=== PATIENT | female | born 1955 | race Caucasian/White ===

== ENCOUNTER 2017-12-06 18:56 | Observation (INO) | payer MEDICARE, OTHER ==
[2017-12-06] MEDS ORDERED: MORPHINE SULFATE 4 MG/ML SYRINGE IV STA (19:02)
[2017-12-06] MEDS ORDERED: NITROGLYCERIN OINT 1 INCH/GM PACKET TOPICAL STA (19:02)
[2017-12-06] MEDS ORDERED: ASPIRIN 81 MG PO STA (19:02)
--- NOTE | 2017-12-06 19:11 | ED ---
General Adult HPI - General Chief complaint: Chest Pain Stated complaint: chest pain Time Seen by Provider: 12/06/17 18:59 Source: patient, EMS, RN notes reviewed Mode of arrival: EMS Limitations: no limitations - History of Present Illness Initial comments: Patient is a pleasant [age]-year-old female presenting to the emergency department with chest discomfort. Onset of symptoms was around an hour and a half ago. Discomfort is moderate. Discomfort feels like pressure and sharp. No radiation. Patient does have some mild associated dyspnea and mild nausea. No diaphoresis. Patient has had similar symptoms previously associated with an aortic valve dysfunction. Patient does not believe she has ever had a heart attack. Patient took nitroglycerin without improvement of symptoms as well as aspirin. No leg pain or leg swelling. - Related Data Home Medications Medication Instructions Recorded Confirmed Escitalopram [Lexapro] 20 mg PO DAILY 10/12/14 12/06/17 Lisinopril [Zestril] 10 mg PO DAILY 10/12/14 12/06/17 Melatonin 3 mg PO HS 10/12/14 12/06/17 Metoprolol Succinate [Toprol XL] 25 mg PO DAILY 10/12/14 12/06/17 QUEtiapine FUMARATE [SEROquel] 300 mg PO HS 10/12/14 12/06/17 Rosuvastatin [Crestor] 20 mg PO DAILY 10/12/14 12/06/17 lamoTRIgine 200 mg PO DAILY 10/12/14 12/06/17 Ipratropium/Albuterol Sulfate 1 puff INHALATION RT-QID 12/06/17 12/06/17 [Combivent Respimat Inhaler] Memantine HCl [Namenda Xr] 25 mg PO DAILY 12/06/17 12/06/17 Omeprazole 20 mg PO DAILY 12/06/17 12/06/17 Ramelteon [Rozerem] 8 mg PO HS 12/06/17 12/06/17 Ranitidine HCl 150 mg PO HS 12/06/17 12/06/17 Previous Rx's Medication Instructions Recorded Aspirin 81 mg PO DAILY #30 chewable 10/13/14 Nitroglycerin Sl Tabs [Nitrostat] 0.4 mg SUBLINGUAL Q5M PRN #25 tab 10/13/14 Allergies Allergy/AdvReac Type Severity Reaction Status Date / Time fentanyl Allergy Unknown Verified 12/06/17 19:25 niacin Allergy Unknown Verified 12/06/17 19:25 Review of Systems ROS Statement: Those systems with pertinent positive or pertinent negative responses have been documented in the HPI. ROS Other: All systems not noted in ROS Statement are negative. Constitutional: Denies: fever Eyes: Denies: eye pain ENT: Denies: ear pain Respiratory: Denies: cough Cardiovascular: Reports: chest pain Endocrine: Denies: fatigue Gastrointestinal: Denies: abdominal pain Genitourinary: Denies: dysuria Musculoskeletal: Denies: back pain Skin: Denies: rash Neurological: Denies: weakness Past Medical History Past Medical History: Chest Pain / Angina, Hyperlipidemia, Hypertension, Mitral Valve Prolapse (MVP) Additional Past Medical History / Comment(s): Aortic valve replacement History of Any Multi-Drug Resistant Organisms: None Reported Past Surgical History: Back Surgery, Bladder Surgery, Cholecystectomy, Heart Catheterization, Hysterectomy, Joint Replacement, Orthopedic Surgery, Tubal Ligation Additional Past Surgical History / Comment(s): aortic valve repair, left breast biopsy, oopherectomy, left knee replacement Past Anesthesia/Blood Transfusion Reactions: No Reported Reaction Past Psychological History: Anxiety, Bipolar Smoking Status: Current every day smoker Past Alcohol Use History: None Reported Past Drug Use History: None Reported - Past Family History Mother History Unknown: Yes Additional Family Medical History / Comment(s): Patient states she was adopted General Exam Limitations: no limitations General appearance: alert, in no apparent distress Head exam: Present: atraumatic Eye exam: Present: normal appearance, PERRL ENT exam: Present: normal oropharynx Neck exam: Present: normal inspection Respiratory exam: Present: normal lung sounds bilaterally. Absent: chest wall tenderness Cardiovascular Exam: Present: regular rate, normal rhythm Expanded Peripheral pulses: 2+: Radial (R), Radial (L), Dorsalis Pedis (R), Dorsalis Pedis (L) GI/Abdominal exam: Present: soft. Absent: tenderness Extremities exam: Present: normal inspection. Absent: pedal edema, calf tenderness Neurological exam: Present: alert Psychiatric exam: Present: normal affect, normal mood Skin exam: Present: normal color Course Vital Signs 12/06/17 18:58 Temperature 98.8 F Pulse Rate 81 Respiratory 18 Rate Blood Pressure 127/69 O2 Sat by Pulse 93 L Oximetry EKG Findings - EKG Comments: EKG Findings:: Normal sinus rhythm 67. MD 140. QRS 82. QT 416. QTC 439. Normal axis. Normal QRS. No acute ST change. Medical Decision Making - Medical Decision Making Patient reevaluated and resting comfortably in bed. Patient still has some mild symptoms. Patient updated on results and plan. Case discussed in detail with Dr. cassidy, who will admit for Dr. Cisneros. - Lab Data Result diagrams: 12/06/17 18:50 12/06/17 18:50 Lab Results 12/06/17 12/06/17 12/06/17 Range/Units 18:50 18:50 18:50 WBC 4.9 (3.8-10.6) k/uL RBC 4.12 (3.80-5.40) m/uL Hgb 11.6 (11.4-16.0) gm/dL Hct 36.6 (34.0-46.0) % MCV 88.9 (80.0-100.0) fL MCH 28.1 (25.0-35.0) pg MCHC 31.6 (31.0-37.0) g/dL RDW 13.7 (11.5-15.5) % Plt Count 293 (150-450) k/uL Neutrophils % 60 % Lymphocytes % 28 % Monocytes % 6 % Eosinophils % 4 % Basophils % 1 % Neutrophils # 3.0 (1.3-7.7) k/uL Lymphocytes # 1.4 (1.0-4.8) k/uL Monocytes # 0.3 (0-1.0) k/uL Eosinophils # 0.2 (0-0.7) k/uL Basophils # 0.0 (0-0.2) k/uL Sodium 138 (137-145) mmol/L Potassium 4.2 (3.5-5.1) mmol/L Chloride 106 (98-107) mmol/L Carbon Dioxide 26 (22-30) mmol/L Anion Gap 6 mmol/L BUN 16 (7-17) mg/dL Creatinine 0.65 (0.52-1.04) mg/dL Est GFR (CKD-EPI)AfAm >90 (>60 ml/min/1.73 sqM) Est GFR (CKD-EPI)NonAf >90 (>60 ml/min/1.73 sqM) Glucose 103 H (74-99) mg/dL Calcium 8.5 (8.4-10.2) mg/dL Magnesium 1.9 (1.6-2.3) mg/dL Total Bilirubin 0.2 (0.2-1.3) mg/dL AST 25 (14-36) U/L ALT 28 (9-52) U/L Alkaline Phosphatase 86 (38-126) U/L Total Creatine Kinase 55 (30-135) U/L CK-MB (CK-2) 1.1 (0.0-2.4) ng/mL CK-MB (CK-2) Rel Index 2.0 Troponin I <0.012 (0.000-0.034) ng/mL Total Protein 6.7 (6.3-8.2) g/dL Albumin 3.5 (3.5-5.0) g/dL - Radiology Data Radiology results: image reviewed (Chest x-ray shows no acute process) Disposition Clinical Impression: Chest pain Disposition: ADMITTED IP TO THIS HOSP Is patient prescribed a controlled substance at d/c from ED?: No Referrals: Gabe Cisneros DO [Primary Care Provider] - 1-2 days Decision Time: 20:35
[2017-12-06 19:22] LABS: Basophils % (A) 1 %; Eosinophils # (A) 0.2 k/uL (0-0.7); Eosinophils % (A) 4 %; HCT 36.6 % (34.0-46.0); HGB 11.6 gm/dL (11.4-16.0); Lymphocytes # (A) 1.4 k/uL (1.0-4.8); Lymphocytes % (A) 28 %; MCH 28.1 pg (25.0-35.0); MCHC 31.6 g/dL (31.0-37.0); MCV 88.9 fL (80.0-100.0); Mean Platelet Volume 7.5; Monocytes # (A) 0.3 k/uL (0-1.0); Monocytes % (A) 6 %; Neutrophils % (A) 60 %; Platelet Count 293 k/uL (150-450); RBC 4.12 m/uL (3.80-5.40); RDW 13.7 % (11.5-15.5); WBC 4.9 k/uL (3.8-10.6)
[2017-12-06 19:36] LABS: ALT 28 U/L (9-52); AST 25 U/L (14-36); Albumin 3.5 g/dL (3.5-5.0); Alkaline Phosphatase 86 U/L (38-126); Anion Gap 6 mmol/L; Blood Urea Nitrogen 16 mg/dL (7-17); Calcium 8.5 mg/dL (8.4-10.2); Carbon Dioxide 26 mmol/L (22-30); Chloride 106 mmol/L (98-107); Glucose 103 mg/dL (74-99); Magnesium 1.9 mg/dL (1.6-2.3); Potassium 4.2 mmol/L (3.5-5.1); Sodium 138 mmol/L (137-145); Total Bilirubin 0.2 mg/dL (0.2-1.3); Total Protein 6.7 g/dL (6.3-8.2)
--- NOTE | 2017-12-06 19:58 | XR ---
EXAMINATION: XR chest 2V DATE AND TIME: 12/06/2017 7:15 PM ORDERING PROVIDER: Jose Weiss DO CLINICAL INDICATION: Chest Pain TECHNIQUE: PA and lateral COMPARISON: None. DESCRIPTION: Sternal sutures and mediastinal clips and aortic valve prosthesis noted. The lungs are clear. The pleural spaces are negative. The cardiac silhouette is at least mildly enlar ged. The mediastinal and pleural silhouettes are unremarkable. The skeletal structures are intact wit hout focal findings. The soft tissues are unremarkable. IMPRESSION: NO ACUTE PROCESS.
[2017-12-06 20:00] LABS: Creatine Kinase 55 U/L (30-135)
[2017-12-06 20:07] LABS: Partial Thromboplastin Time 22.3 sec (22.0-30.0); Prothrombin Time 9.9 sec (9.0-12.0)
[2017-12-06 20:11] LABS: Creatine Kinase MB 1.1 ng/mL (0.0-2.4); Troponin I <0.012 ng/mL (0.000-0.034)
[2017-12-06] MEDS ORDERED: NITROGLYCERIN SL TABS 0.4 MG TAB SUBLINGUAL PRN (20:35)
[2017-12-07] MEDS: NITROGLYCERIN OINT 1 INCH/GM PACKET TOPICAL SCH ×4 (00:58→19:11)
[2017-12-07 01:23] LABS: Creatine Kinase 45 U/L (30-135)
[2017-12-07 01:36] LABS: Creatine Kinase MB 0.9 ng/mL (0.0-2.4); Troponin I <0.012 ng/mL (0.000-0.034)
[2017-12-07 05:53] LABS: Cholesterol 147 mg/dL (<200); HDL Cholesterol 42 mg/dL (40-60); LDL Cholesterol,Calculated 86 mg/dL (0-99); Triglycerides 96 mg/dL (<150)
[2017-12-07 06:05] LABS: Creatine Kinase 41 U/L (30-135)
[2017-12-07 06:19] LABS: Troponin I <0.012 ng/mL (0.000-0.034)
[2017-12-07] MEDS ORDERED: ASPIRIN 325 MG TAB PO SCH (09:00)
[2017-12-07] MEDS: ASPIRIN 81 MG PO SCH (09:31)
[2017-12-07] MEDS: LISINOPRIL 10 MG TAB PO SCH (09:31)
[2017-12-07] MEDS: METOPROLOL SUCCINATE (ER) 25 MG TAB.ER.24H PO SCH (09:35)
[2017-12-07] MEDS: ATORVASTATIN 40 MG TAB PO SCH (09:36)
[2017-12-07] MEDS ORDERED: NITROGLYCERIN SL TABS 0.4 MG TAB SUBLINGUAL PRN (10:49)
--- NOTE | 2017-12-07 11:25 | P.CRDCN ---
History of Present Illness History of present illness: Mrs. Gramajo is a pleasant 62-year-old female past medical history significant for COPD, hypertension, dyslipidemia, aortic valve replacement 2009 and chronic nicotine dependence. She follows with Dr. Guevara in the office. We have been asked to see her in consultation for chest pain. She states yesterday afternoon she started feeling a stabbing pain in the mid- sternal region while she was walking around. She felt mildly dizzy, short of breath and nauseated as well. She sat down to see if her symptoms would subside and they did not. She continued to feel the discomfort in her chest throughout the day with no specific aggravating or alleviating factors. There was no radiation to the arm, back, neck or jaw. She denies feeling palpitations, vomiting or diaphoresis. She does have COPD and states her breathing lately hasn 't really changed from her baseline. She denies PND or othopnea. Most recently she underwent a Lexiscan stress test 01/2017 that was negative for reversible cardiac ischemia. She also had a dobutamine stress echo that was inconclusive secondary to not achieving target heart rate however no wall motion abnormalities noted at 60%. At the time of my exam she is seen sitting in bed in no acute distress. She continues to feel a sharp/pressure sensation in the mid-sternal region that is dull, not reproducible and constant. EKG reveals sinus mechanism with no acute ST or T-wave abnormalities. Chest xray negative for an acute cardiopulmonary process. Laboratory data reviewed, hemoglobin 11.6, platelets 293, sodium 138, potassium 4.2, creatinine 0.65, magnesium 1.9, cardiac enzymes negative 3, LDL 86, HDL 42. Current cardiac medications include aspirin 81 mg daily, lisinopril 10 mg daily , Toprol 25 mg daily, rosuvastatin 20 mg daily. She also takes ranitidine Seroquel, melatonin, however cell, Namenda, Combivent, Lexapro, remelteon and Lamictal. Most recent echocardiogram performed in the office December 2016 reveals preserved left ventricular systolic function with ejection fraction 55%, mildly dilated left atrium, mildly dilated right ventricle, intraventricular septal motion consistent with postoperative state, mildly dilated left atrium, mild mitral regurgitation, prosthetic aortic valve noted with a mean gradient of 19 mmHg, mild tricuspid regurgitation and no evidence of pulmonary hypertension noted. Review of Systems At the time of my exam: CONSTITUTIONAL: Denies fever. Denies chills. EYES: Denies blurred vision. Denies vision changes. Denies eye pain. EARS, NOSE, MOUTH & THROAT: Denies headache. Denies sore throat. Denies ear pain. CARDIOVASCULAR: Complains of ongoing chest pressure. Denies shortness of breath. Denies orthopnea. Denies PND. Denies palpitations. RESPIRATORY: Denies cough. GASTROINTESTINAL: Denies abdominal pain. Denies diarrhea. Denies constipation. Denies nausea. Denies vomiting. MUSCULOSKELETAL: Denies myalgias. INTEGUMENTARY: Denies pruitis. Denies rash. NEUROLOGIC: Denies numbness. Denies tingling. Denies weakness. PSYCHIATRIC: Denies anxiety. Denies depression. ENDOCRINE: Denies fatigue. Denies weight change. Denies polydipsia. Denies polyurina. GENITOURINARY: Denies burning, hematuria or urgency with micturation. HEMATOLOGIC: Denies history of anemia. Denies bleeding. Past Medical History Past Medical History: Chest Pain / Angina, COPD, Dementia, GERD/Reflux, Hyperlipidemia, Hypertension, Mitral Valve Prolapse (MVP) Additional Past Medical History / Comment(s): Aortic valve replacement, murmur, "beginning of dementia", insomnia,pt unsure if she recieved the flu/pne vaccine, health underwriter unable to verify at time of this admit. History of Any Multi-Drug Resistant Organisms: None Reported Past Surgical History: Back Surgery, Bladder Surgery, Cholecystectomy, Heart Catheterization, Hysterectomy, Joint Replacement, Orthopedic Surgery, Tubal Ligation Additional Past Surgical History / Comment(s): aortic valve repair, left breast biopsy-neg, oopherectomy, left knee replacement, juan Past Anesthesia/Blood Transfusion Reactions: No Reported Reaction Smoking Status: Current every day smoker - Past Family History Mother History Unknown: Yes Additional Family Medical History / Comment(s): Patient states she was adopted Medications and Allergies Home Medications Medication Instructions Recorded Confirmed Type Escitalopram [Lexapro] 20 mg PO DAILY 10/12/14 12/06/17 History Lisinopril [Zestril] 10 mg PO DAILY 10/12/14 12/06/17 History Melatonin 3 mg PO HS 10/12/14 12/06/17 History Metoprolol Succinate [Toprol XL] 25 mg PO DAILY 10/12/14 12/06/17 History QUEtiapine FUMARATE [SEROquel] 300 mg PO HS 10/12/14 12/06/17 History Rosuvastatin [Crestor] 20 mg PO DAILY 10/12/14 12/06/17 History lamoTRIgine 200 mg PO DAILY 10/12/14 12/06/17 History Aspirin 81 mg PO DAILY #30 chewable 10/13/14 12/06/17 Rx Nitroglycerin Sl Tabs [Nitrostat] 0.4 mg SUBLINGUAL Q5M PRN #25 tab 10/13/1410/18 Rx Ipratropium/Albuterol Sulfate 1 puff INHALATION RT-QID 12/06/17 12/06/17 History [Combivent Respimat Inhaler] Memantine HCl [Namenda Xr] 25 mg PO DAILY 12/06/17 12/06/17 History Omeprazole 20 mg PO DAILY 12/06/17 12/06/17 History Ramelteon [Rozerem] 8 mg PO HS 12/06/17 12/06/17 History Ranitidine HCl 150 mg PO HS 12/06/17 12/06/17 History Allergies Allergy/AdvReac Type Severity Reaction Status Date / Time fentanyl Allergy Unknown Verified 12/06/17 19:25 niacin Allergy Unknown Verified 12/06/17 19:25 Physical Exam Vitals: Vital Signs Temp Pulse Resp BP Pulse Ox 12/07/17 10:00 97.8 F 55 L 18 124/58 99 12/07/17 09:00 56 L 18 148/64 96 12/07/17 08:00 55 L 18 139/65 99 12/07/17 07:28 98.1 F 54 L 18 128/58 98 12/07/17 06:18 98.0 F 52 L 18 129/65 99 12/07/17 03:59 55 L 18 123/60 98 12/07/17 02:39 16 12/06/17 23:50 63 18 102/58 96 12/06/17 20:25 68 18 101/48 98 12/06/17 18:58 98.8 F 81 18 127/69 93 L Intake and Output 12/06/17 12/07/17 12/07/17 22:59 06:59 14:59 Other: Weight 74.253 kg Blood pressure 124/58 heart rate 55 afebrile maintaining oxygen saturation on nasal cannula GENERAL: This is a 62-year-old female in no apparent distress at the time of my examination. HEENT: Head is atraumatic, normocephalic. Pupils are equal, round. Sclerae anicteric. Conjunctivae are clear. Mucous membranes of the mouth are moist. Neck is supple. There is no jugular venous distention. No carotid bruit is heard. LUNGS: Clear to auscultation no wheezes, rales or rhonchi. No chest wall tenderness is noted on palpation or with deep breathing. Diminished air entry bilaterally. HEART: Regular rate and rhythm with systolic ejection murmur at the base, no rubs or gallops. S1 and S2 heard. ABDOMEN: Soft, nontender. Bowel sounds are heard. No organomegaly noted. EXTREMITIES: No evidence of peripheral edema and no calf tenderness noted. VASCULAR: Radial and dorsalis pedis pulses palpated, no evidence of clubbing. NEUROLOGIC: Patient is awake, alert and oriented x3. Results 12/06/17 18:50 12/06/17 18:50 Cardiac Enzymes 12/06/17 12/06/17 12/07/17 Range/Units 18:50 18:50 00:57 AST 25 (14-36) U/L CK-MB (CK-2) 1.1 0.9 (0.0-2.4) ng/mL Troponin I <0.012 <0.012 (0.000-0.034) ng/mL 12/07/17 Range/Units 05:34 AST (14-36) U/L CK-MB (CK-2) 1.0 (0.0-2.4) ng/mL Troponin I <0.012 (0.000-0.034) ng/mL Coagulation 12/06/17 Range/Units 18:50 PT 9.9 (9.0-12.0) sec APTT 22.3 (22.0-30.0) sec Lipids 12/07/17 Range/Units 05:34 Triglycerides 96 (<150) mg/dL Cholesterol 147 (<200) mg/dL HDL Cholesterol 42 (40-60) mg/dL CBC 12/06/17 Range/Units 18:50 WBC 4.9 (3.8-10.6) k/uL RBC 4.12 (3.80-5.40) m/uL Hgb 11.6 (11.4-16.0) gm/dL Hct 36.6 (34.0-46.0) % Plt Count 293 (150-450) k/uL Comprehensive Metabolic Panel 12/06/17 Range/Units 18:50 Sodium 138 (137-145) mmol/L Potassium 4.2 (3.5-5.1) mmol/L Chloride 106 (98-107) mmol/L Carbon Dioxide 26 (22-30) mmol/L BUN 16 (7-17) mg/dL Creatinine 0.65 (0.52-1.04) mg/dL Glucose 103 H (74-99) mg/dL Calcium 8.5 (8.4-10.2) mg/dL AST 25 (14-36) U/L ALT 28 (9-52) U/L Alkaline Phosphatase 86 (38-126) U/L Total Protein 6.7 (6.3-8.2) g/dL Albumin 3.5 (3.5-5.0) g/dL Current Medications Generic Name Dose Route Start Last Admin Trade Name Freq PRN Reason Stop Dose Admin Albuterol/Ipratropium 3 ml 12/07/17 12:00 Duoneb 0.5 Mg-3 Mg/3 Ml Soln INHALATION RT-QID GERMAINE Aspirin 81 mg 12/07/17 09:00 12/07/17 09:31 Aspirin PO 81 mg DAILY GERMAINE Administration Atorvastatin Calcium 40 mg 12/07/17 09:00 12/07/17 09:36 Lipitor PO 40 mg DAILY GERMAINE Administration Escitalopram Oxalate 20 mg 12/07/17 11:00 Lexapro PO DAILY GERMAINE Famotidine 20 mg 12/07/17 21:00 Pepcid PO HS GERMAINE Lamotrigine 200 mg 12/07/17 11:00 Lamictal PO DAILY GERMAINE Lisinopril 10 mg 12/07/17 09:00 12/07/17 09:31 Zestril PO 10 mg DAILY GERMAINE Administration Melatonin 3 mg 12/07/17 21:00 Melatonin PO HS GERMAINE Memantine 10 mg 12/07/17 11:00 Namenda PO BID GERMAINE Metoprolol Succinate 25 mg 12/07/17 09:00 12/07/17 09:35 Toprol Xl PO 25 mg DAILY GERMAINE Administration Nitroglycerin 1 inch 12/07/17 00:00 12/07/17 06:42 Nitro-Bid Oint TOPICAL 1 inch Q6HR GERMAINE Administration Nitroglycerin 0.4 mg 12/07/17 10:49 Nitrostat SUBLINGUAL Q5M PRN Chest Pain Pantoprazole Sodium 40 mg 12/07/17 11:00 Protonix PO AC-BRKFST GERMAINE Quetiapine Fumarate 300 mg 12/07/17 21:00 Seroquel PO HS GERMAINE Sodium Chloride 10 ml 12/06/17 21:00 12/07/17 09:30 Saline Flush IV 10 ml BID GERMAINE Administration Temazepam 15 mg 12/07/17 21:00 Restoril PO HS GERMAINE Intake and Output 12/06/17 12/07/17 12/07/17 22:59 06:59 14:59 Other: Weight 74.253 kg 12/06/17 18:50 12/06/17 18:50 Assessment and Plan Assessment: ASSESSMENT Chest pain, atypical. An acute coronary event has been ruled out with no EKG evidence of ischemia and negative cardiac enzymes. Normal lexiscan stress test within the previous year. Hypertension Dyslipidemia COPD Aortic valve replacement 2009 Chronic nicotine dependence PLAN Obtain 2D echocardiogram and doppler study to assess cardiac structure, function and valve status. Resume toprol, aspirin, atorvastatin and lisinopril. Continue to observe for another 24 hours. Increase activity with ambulation in the halls and assess for worsening chest discomfort. Further recommendations to follow based on clinical course. Thank you kindly for this consultation. Nurse Practitioner note has been reviewed, I agree with a documented findings and plan of care. Patient was seen and examined.
[2017-12-07] MEDS ORDERED: IPRATROPIUM-ALBUTEROL 3 ML NEB INHALATION SCH (12:00)
[2017-12-07] MEDS: IPRATROPIUM-ALBUTEROL 3 ML NEB INHALATION SCH ×3 (12:10→20:14)
--- NOTE | 2017-12-07 12:49 | ECHOF ---
Referral Reason:cp, hx aortic valve repair MEASUREMENTS -------- HEIGHT: 160.0 cm WEIGHT: 73.9 kg BP: RVIDd: 2.6 cm (< 3.3) IVSd: 1.2 cm (0.6 - 1.1) LVIDd: 3.6 cm (3.9 - 5.3) LVPWd: 1.2 cm (0.6 - 1.1) IVSs: 1.6 cm LVIDs: 2.3 cm LVPWs: 1.3 cm LAESV Index (A-L): 38.07 ml/m Ao Diam: 3.4 cm (2.0 - 3.7) LA Diam: 2.6 cm (2.7 - 3.8) MV E Dawit: 1.02 m/s MV DecT: 285 ms MV A Dawit: 0.86 m/s MV E/A Ratio: 1.19 AV maxP.79 mmHg AV meanP.02 mmHg RAP: 5.00 mmHg RVSP: 26.01 mmHg FINDINGS -------- Resting bradycardia (HR<60bpm). This was a technically adequate study. The left ventricular size is normal. There is mild concentric left ventricular hypertrophy. Overa ll left ventricular systolic function is normal with, an EF between 55 - 60 %. The right ventricle is normal in size and function. LA is moderately dilated 34-39 ml/m2 The right atrium is normal in size. There is no evidence of aortic regurgitation. Peak/mean gradient across the Aortic Valve is 30.79mm Hg / 19.02mmHg. There is mild stenosis of the bioprosthetic aortic valve. The mitral valve leaflets are mildly thickened. Mild mitral annular calcification present. Mild m itral regurgitation is present. Trace tricuspid regurgitation present. Right ventricular systolic pressure is normal at < 35 mmHg. There is no evidence of pulmonary hypertension. The pulmonic valve was not well visualized. The aortic root size is normal. Normal inferior vena cava with normal inspiratory collapse consistent with estimated right atrial pre ssure of 5 mmHg. There is no pericardial effusion. CONCLUSIONS -------- 1. Resting bradycardia (HR<60bpm). 2. This was a technically adequate study. 3. The left ventricular size is normal. 4. There is mild concentric left ventricular hypertrophy. 5. Overall left ventricular systolic function is normal with, an EF between 55 - 60 %. 6. LA is moderately dilated 34-39 ml/m2 7. Peak/mean gradient across the Aortic Valve is 30.79mmHg / 19.02mmHg. 8. There is mild stenosis of the bioprosthetic aortic valve. 9. The mitral valve leaflets are mildly thickened. 10. Mild mitral annular calcification present. 11. Mild mitral regurgitation is present. 12. Trace tricuspid regurgitation present. 13. Right ventricular systolic pressure is normal at < 35 mmHg. 14. There is no evidence of pulmonary hypertension. 15. The pulmonic valve was not well visualized. 16. The aortic root size is normal. 17. There is no pericardial effusion. LEAFLET DISTRIBUTOR: Mauro Rivera RDCS
[2017-12-07] MEDS ORDERED: NICOTINE POLACRILEX 2 MG GUM BUCCAL PRN (13:01)
[2017-12-07] MEDS: NICOTINE 21MG/24HR PATCH TRANSDERM SCH (13:42)
[2017-12-07] MEDS: ESCITALOPRAM 20 MG TAB PO SCH (13:42)
[2017-12-07] MEDS: MEMANTINE 10 MG TAB PO SCH ×2 (13:42→22:03)
[2017-12-07] MEDS: lamoTRIgine 100 MG TAB PO SCH (13:42)
[2017-12-07] MEDS: PANTOPRAZOLE 40 MG TABLET PO SCH (13:42)
--- NOTE | 2017-12-07 14:33 | HP ---
HISTORY AND PHYSICAL DATE OF ADMISSION: 12/02/2017 DATE OF SERVICE: 12/02/2017 PRESENTING COMPLAINT: Chest pain. HISTORY OF PRESENTING COMPLAINT: Pleasant 62-year-old patient of Dr. Cisneros. Also follows with Dr. Guevara. Chronic stable medical conditions include COPD, hypertension, hyperlipidemia, chronic insomnia. Patient has an aortic valve replacement with pig tissue valve. Patient yesterday around 5 o'clock developed central stabbing, heavy chest pressure, lasted on and off for few hours. Patient became short of breath, dizzy, some nausea. There was no radiation. Did not take any medicine. Decided to come into the ER. Admitted for unstable angina. Denies any prior coronary artery disease. Patient earlier started on nitro paste. Resting in bed. Patient is still having some chest pressure. REVIEW OF SYSTEMS: CONSTITUTIONAL: Tired. HEENT: None. RESPIRATORY: As above. CARDIOVASCULAR: As above. GASTROINTESTINAL: None. GENITOURINARY: None. MUSCULOSKELETAL: None. DERMATOLOGICAL: None. HEMATOLOGICAL: None LYMPHATIC: None. PSYCHIATRY: Slightly forgetful. NEUROLOGICAL: None. PAST MEDICAL HISTORY: COPD, GERD, hypertension, hyperlipidemia, mitral valve prolapse, aortic valve replacement with a pig valve, insomnia. PAST SURGICAL HISTORY: Back surgery, bladder surgery, cholecystectomy, cardiac catheterization, hysterectomy, joint replacement, tubal ligation, aortic valve replacement with pig tissue, left breast biopsy negative, oophorectomy, left knee replacement. PSYCH HISTORY: Bipolar disorder. SOCIAL HISTORY: Patient smoked for close to 47 years about a pack a day. Patient lives with grandson and other family members. FAMILY HISTORY: Patient is adopted, does not know about parents. HOME MEDICATIONS: 1. Zantac 150 mg q.h.s. 2. Rozerem 8 mg q.h.s. 3. Seroquel 300 mg q.h.s. 4. Nitrostat 0.4 sublingual q.5 p.r.n. 5. Melatonin 3 mg q.h.s. 6. Omeprazole 20 mg p.o. daily. 7. Namenda XR 25 mg p.o. daily. 8. Combivent 1 puff q.i.d. 9. Crestor 20 mg p.o. daily. 10.Toprol-XL 25 mg p.o. daily. 11.Zestril 10 mg p.o. daily. 12.Lamictal 200 mg p.o. daily. 13.Lexapro 20 mg p.o. daily. 14.Aspirin 81 mg p.o. daily. ALLERGIES: VENTOLIN, NIACIN. PHYSICAL EXAMINATION: Vital signs on presentation, temperature 98.8, pulse 81, respiration 18, blood pressure 127/69, pulse ox 93% on room air. GENERAL APPEARANCE: Average built, sitting up, not in distress. EYES: Pupils equal, conjunctivae normal. HEENT: External appearance of nose and ears normal. Oral cavity normal. NECK: JVD not raised. Mass not palpable. RESPIRATORY: Effort normal. LUNGS: Slightly decreased breath sounds. CARDIOVASCULAR: First and second sounds are normal. No edema. ABDOMEN: Soft, nontender. Liver and spleen not palpable. LYMPHATIC: No lymph node palpable. PSYCHIATRY: Alert and oriented x3. Mood and affect normal. NEUROLOGICAL: Pupils equal. Cranial nerves grossly intact. Power and sensation grossly intact. INVESTIGATIONS: White count 4.9, hemoglobin 11.6, potassium 4.2 BUN and creatinine are normal. Troponin x3 negative. LDL 86. 2D echo shows EF 55%-60%. EKG tracing interpreted by me, shows normal sinus rhythm. Chest x-ray film interpreted by me, shows somewhat prominent pulmonary artery. Otherwise, lung estrada are clear is clear. ASSESSMENT: 1. Unstable angina in a patient with cardiac sounding presentation whose risk factors include patient's age, smoking, hypertension, hyperlipidemia. 2. Chronic obstructive pulmonary disease in a current smoker. 3. Chronic nicotine dependence, patient is a cigarette smoker. 4. Hyperlipidemia. 5. Essential hypertension. 6. History of aortic valve replaced with a pig valve. 7. Chronic insomnia. PLAN: The patient is on aspirin. Will start the patient on IV heparin. Cardiology was consulted. Patient is also on beta lucila. Patient will probably need a stress test. Care was discussed with the patient. Smoking cessation counseling was done with the patient, told about the side effects, primarily affecting at this point the heart and lungs. Will be given a nicotine patch. More than 3 minutes were spent on the counseling. HELGA / MARTY: [id number] /
[2017-12-07] MEDS ORDERED: FAMOTIDINE 20 MG TAB PO SCH (21:00)
[2017-12-07] MEDS ORDERED: TEMAZEPAM 15 MG CAP PO SCH (21:00)
[2017-12-07] MEDS ORDERED: QUEtiapine 100 MG TAB PO SCH (21:00)
[2017-12-07] MEDS ORDERED: MELATONIN 3 MG TABLET PO SCH (21:00)
[2017-12-08] MEDS: NITROGLYCERIN OINT 1 INCH/GM PACKET TOPICAL SCH ×3 (04:41→15:56)
[2017-12-08] MEDS: IPRATROPIUM-ALBUTEROL 3 ML NEB INHALATION SCH ×3 (07:28→15:23)
[2017-12-08] MEDS: LISINOPRIL 10 MG TAB PO SCH (10:29)
[2017-12-08] MEDS: lamoTRIgine 100 MG TAB PO SCH (10:29)
[2017-12-08] MEDS: MEMANTINE 10 MG TAB PO SCH (10:30)
[2017-12-08] MEDS: NICOTINE 21MG/24HR PATCH TRANSDERM SCH (10:30)
[2017-12-08] MEDS: ESCITALOPRAM 20 MG TAB PO SCH (10:30)
[2017-12-08] MEDS: PANTOPRAZOLE 40 MG TABLET PO SCH (10:30)
[2017-12-08] MEDS: ATORVASTATIN 40 MG TAB PO SCH (10:30)
[2017-12-08] MEDS: METOPROLOL SUCCINATE (ER) 25 MG TAB.ER.24H PO SCH (10:30)
[2017-12-08] MEDS: ASPIRIN 81 MG PO SCH (10:30)
--- NOTE | 2017-12-08 11:02 | P.PN ---
Subjective Mr. Gramajo is seen and examined sitting up in bed in no acute distress. She denies any further symptoms of chest pain. Echocardiogram obtained reveals preserved left ventricular systolic function with ejection fraction 55-60%, moderately dilated left atrium, mean gradient across the bioprosthetic aortic valve 19 mmHg, mild MR noted as well. Echo findings are consistent with recent echo in the office. Blood pressure 115/58 heart rate 57 afebrile maintaining oxygen saturation on room air. Patient has been up and ambulating with no recurrence of chest discomfort. Objective - Vital Signs Vital signs: Vital Signs Temp 97.7 F 12/08/17 08:00 Pulse 57 L 12/08/17 10:29 Resp 14 12/08/17 10:29 BP 115/58 12/08/17 10:29 Pulse Ox 95 12/08/17 10:29 Intake & Output 12/07/17 12/08/17 12/08/17 18:59 06:59 18:59 Intake Total 200 Balance 200 Weight 72.6 kg Intake: Oral 200 Other: Voiding Method Toilet Toilet Toilet # Voids 2 - Exam GENERAL: Well-appearing, well-nourished and in no acute distress. NECK: Supple without JVD or thyromegaly. LUNGS: Breath sounds clear to auscultation bilaterally. Respiration equal and unlabored. No wheezes, rales or rhonchi. HEART: Regular rate and rhythm with systolic ejection murmur at the base, no rubs or gallops. S1 and S2 heard. EXTREMITIES: Normal range of motion, no edema. No clubbing or cyanosis. Peripheral pulses intact. - Labs CBC & Chem 7: 12/06/17 18:50 12/06/17 18:50 Assessment and Plan Assessment: ASSESSMENT Chest pain, atypical. An acute coronary event has been ruled out with no EKG evidence of ischemia and negative cardiac enzymes. Normal lexiscan stress test within the previous year. Hypertension Dyslipidemia COPD Aortic valve replacement 2009 Chronic nicotine dependence PLAN An acute coronary event has been ruled out. Recent stress test within the year is negative for reversible ischemic changes. No further chest pain. Stable from a cardiac perspective. Follow up with Dr. Guevara in 2 weeks. Nurse Practitioner note has been reviewed, I agree with a documented findings and plan of care. Patient was seen and examined.
[2017-12-08 12:55] VITALS: BP 102/59; PULSE 66; RESP 18; TEMP 97.6
--- NOTE | 2017-12-09 06:44 | DS ---
DISCHARGE SUMMARY DATE OF ADMISSION: 12/06/17 DATE OF DISCHARGE: 12/08/17 FINAL DIAGNOSES: 1. Anterior chest wall pain could be musculoskeletal. 2. Chronic obstructive pulmonary disease in a current smoker. 3. Chronic nicotine dependence. Patient is a cigarette smoker. 4. Hyperlipidemia. 5. Essential hypertension. 6. History of aortic valve replacement with pig valve. 7. Chronic insomnia. HOSPITAL COURSE: This patient presented with chest pain. Troponins were negative. Seen by Cardiology. The patient had a recent stress test within the year that was negative and they cleared the patient to be discharged to follow up with Dr. Guevara. The patient did have a 2-D echocardiogram that shows preserved LV function. Ejection fraction 55-60%. CONSULTATION: [facility]. PHYSICAL EXAMINATION: Temperature 97.6, pulse 66, respiratory rate 18, blood pressure 102/59, pulse ox 94% on room air. LUNGS: Slightly decreased breath sounds. CARDIOVASCULAR: 1st and 2nd sounds normal. DISCHARGE MEDICATIONS: 1. Lexapro 20 mg a day. 2. Zestril 10 mg a day. 3. Melatonin 3 mg q.h.s. 4. Toprol-XL 25 mg a day. 5. Seroquel 300 mg q.h.s. 6. Crestor 20 mg a day. 7. Lamictal 200 mg p.o. daily. 8. Aspirin 81 mg p.o. daily. 9. Nitrostat 0.4 sublingual q.5 p.r.n. 10.Combivent 1 puff q.i.d. 11.Namenda XR 25 mg p.o. daily. 12.Omeprazole 20 mg p.o. daily. 13.Rozerem 8 mg p.o. q.h.s. 14.Zantac 150 mg q.h.s. 15.Habitrol patch 21. FOLLOW UP: Follow with Dr. Cisneros in [address] Guevara in 2 weeks. MMODL / IJN: [id number] /
== END 2017-12-08 16:05 | disposition home or self-care (01) ==
LOC: EC 18:56 → 3OBS 20:35
PROVIDERS: ADMIT Hospitalist; ATTEND Hospitalist
DX: R07.89 Other chest pain (principal); R42 Dizziness and giddiness; R11.0 Nausea; J44.9 Chronic obstructive pulmonary disease, unspecified; F17.210 Nicotine dependence, cigarettes, uncomplicated; E78.5 Hyperlipidemia, unspecified; I10 Essential (primary) hypertension; Z95.3 Presence of xenogenic heart valve; F51.04 Psychophysiologic insomnia; K21.9 Gastro-esophageal reflux disease without esophagitis; F03.90 Unspecified dementia, unspecified severity, without behavioral disturbance, psychotic disturbance, mood disturbance, and anxiety; I34.1 Nonrheumatic mitral (valve) prolapse; Z90.49 Acquired absence of other specified parts of digestive tract; F41.9 Anxiety disorder, unspecified; F31.9 Bipolar disorder, unspecified; Z88.5 Allergy status to narcotic agent; Z88.8 Allergy status to other drugs, medicaments and biological substances; Z79.82 Long term (current) use of aspirin; Z79.899 Other long term (current) drug therapy
CPT/HCPCS: 36415; 71046; 80053; 80061; 82550; 82553; 83735; 84484; 85025; 85610; 85730; 93005; 93306; 94640; 99285

== ENCOUNTER → 2017-12-20 | Outpatient (CLI) | payer MEDICARE, OTHER ==
--- NOTE | 2017-12-21 14:02 | MM ---
Reason for exam: screening (asymptomatic). Last mammogram was performed 1 year and 10 months ago. History: Patient is postmenopausal. Benign excisional biopsy of the left breast, 1979. Physical Findings: A clinical breast exam by your physician is recommended on an annual basis and results should be correlated with mammographic findings. MG 3D Screening Mammo W/Cad Bilateral CC and MLO view(s) were taken. Prior study comparison: February 27, 2016, bilateral MG 3d screening mammo w/cad. January 21, 2015, bilateral MG screening mammo w CAD. There are scattered fibroglandular densities. No significant changes when compared with prior studies. ASSESSMENT: Benign, BI-RAD 2 RECOMMENDATION: Routine screening mammogram of both breasts in 1 year.
== END | disposition home or self-care (01) ==
LOC: RADMAMWWP 16:27
PROVIDERS: ATTEND Family Medicine
DX: Z12.31 Encounter for screening mammogram for malignant neoplasm of breast (principal)
CPT/HCPCS: 77063; 77067

== ENCOUNTER 2018-01-12 07:15 | Day surgery (SDC) | payer MEDICARE, OTHER ==
[2018-01-10 09:44] VITALS: BMI 28.1
--- NOTE | 2018-01-11 23:36 | P.GSHP ---
History of Present Illness H&P Date: 01/12/18 CHIEF COMPLAINT: Colon screen HISTORY OF PRESENT ILLNESS: The patient is a 62-year-old female who presents for colon screen. Lower endoscopy was offered for further evaluation and management. PAST MEDICAL HISTORY: Please see list. PAST SURGICAL HISTORY: Please see list. MEDICATIONS: Please see list. ALLERGIES: Please see list. SOCIAL HISTORY: No illicit drug use FAMILY HISTORY: No reports of Crohn disease or ulcerative colitis. REVIEW OF ORGAN SYSTEMS: CONSTITUTIONAL: No reports of fevers or chills. PHYSICAL EXAM: VITAL SIGNS: Stable GENERAL: Well-developed pleasant in no acute distress. HEENT: No scleral icterus. Extraocular movements grossly intact. Moist buccal mucosa. NECK: Supple without lymphadenopathy. CHEST: Unlabored respirations. Equal bilateral excursions. CARDIOVASCULAR: Regular rate and rhythm. Distal 2+ pulses. ABDOMEN: Soft, nontender, nondistended. MUSCULOSKELETAL: No clubbing, cyanosis, or edema. ASSESSMENT: 1. Colon screen. PLAN: 1. Recommend proceeding with a lower endoscopy Past Medical History Past Medical History: Asthma, Chest Pain / Angina, Dementia, Hyperlipidemia, Hypertension, Mitral Valve Prolapse (MVP), Skin Disorder Additional Past Medical History / Comment(s): "flea bites" History of Any Multi-Drug Resistant Organisms: None Reported Past Surgical History: Back Surgery, Bladder Surgery, Cholecystectomy, Heart Catheterization, Hysterectomy, Joint Replacement, Orthopedic Surgery, Tubal Ligation Additional Past Surgical History / Comment(s): aortic valve repair, left breast biopsy, oopherectomy, left knee replacement Past Anesthesia/Blood Transfusion Reactions: No Reported Reaction Additional Past Anesthesia/Blood Transfusion Reaction / Comment(s): unknown family hx Smoking Status: Current every day smoker - Past Family History Mother History Unknown: Yes Additional Family Medical History / Comment(s): Patient states she was adopted Medications and Allergies Home Medications Medication Instructions Recorded Confirmed Type Escitalopram [Lexapro] 20 mg PO QAM 10/12/14 01/10/18 History Lisinopril [Zestril] 10 mg PO QAM 10/12/14 01/10/18 History Metoprolol Succinate [Toprol XL] 25 mg PO QAM 10/12/14 01/10/18 History QUEtiapine FUMARATE [SEROquel] 300 mg PO 10/12/14 01/10/18 History Rosuvastatin [Crestor] 20 mg PO DAILY 10/12/14 01/10/18 History lamoTRIgine 200 mg PO QAM 10/12/14 01/10/18 History Nitroglycerin Sl Tabs [Nitrostat] 0.4 mg SUBLINGUAL Q5M PRN #25 tab 10/13/1402/17 Rx Ipratropium/Albuterol Sulfate 1 puff INHALATION RT-QID 12/06/17 01/10/18 History [Combivent Respimat Inhaler] Memantine HCl [Namenda Xr] 28 mg PO DAILY 12/06/17 01/10/18 History Omeprazole 20 mg PO QAM 12/06/17 01/10/18 History Aspirin 81 mg PO Q2D 01/10/18 01/10/18 History Gabapentin [Neurontin] 300 mg PO TID 01/10/18 01/10/18 History Ramelteon [Rozerem] 8 mg PO HS 01/10/18 01/10/18 History Umeclidinium [place] [Incruse 1 puff INHALATION QAM 01/10/18 01/10/18 History Ellipta] Allergies Allergy/AdvReac Type Severity Reaction Status Date / Time fentanyl Allergy Rash/Hives Verified 01/10/18 09:28 niacin Allergy Dyspnea,barbara Verified 01/10/18 09:28 h
[~2018-01-12 07:15] MED LIST: LACTATED RINGERS 1,000 ML IV SCH
[2018-01-12 08:43] VITALS: TEMP 97.3
[2018-01-12] MEDS ORDERED: LIDOCAINE 1% 20 ML VIAL (10MG/ML) FOR IV START INTRADERMA ONE (08:47)
[2018-01-12] MEDS ORDERED: PROPOFOL 10 MG/ML 20 ML VIAL IV ONE (09:09)
[2018-01-12] MEDS ORDERED: LIDOCAINE 1% INJ 10MG/ML (20 ML MDV) ONE (09:09)
--- NOTE | 2018-01-12 09:28 | P.PCN ---
Date of Procedure: 01/12/18 Description of Procedure: PREOPERATIVE DIAGNOSIS: Colonoscopy screening. POSTOPERATIVE DIAGNOSIS: Colonoscopy screening. OPERATION: Colonoscopy to the ileocecal valve and appendiceal orifice. SURGEON: Oliva Zheng MD. ANESTHESIA: MAC. INDICATIONS: The patient is a 62-year-old female who presents for colonoscopy screening. Her last colonoscopy was over 8 years ago. Benefits and risks were described and informed consent was obtained. DESCRIPTION OF PROCEDURE: The patient had undergone Gatorade, MiraLAX and Dulcolax prep. She had been brought into the operating room and laid in the left lateral decubitus position. After adequate intravenous sedation, the rectum was examined with 2% lidocaine jelly. No external hemorrhoids were encountered. The rectal tone was within normal limits. No lesions were palpated in the rectal vault. An Olympus colonoscope was advanced until the ileocecal valve and appendiceal orifice were clearly viewed. The prep was excellent with clear visualization of the mucosal folds. The scope was removed with visualization of each mucosal fold. Scattered diverticulosis was encountered. No colonic polyps were found. No evidence of focal colitis was found. Retroflexion of the scope demonstrated no internal hemorrhoids without active bleeding or inflammation. The colon was desufflated. The patient had tolerated the procedure well. Withdrawal time was over 6 minutes. FINDINGS: No internal hemorrhoids No diverticulosis No external prolapsed hemorrhoids. No arteriovenous malformations. No adenomatous polyps. No focal colitis. RECOMMENDATIONS: Lower endoscopy in 10 years, 2022 Plan - Discharge Summary New Discharge Prescriptions: No Action QUEtiapine FUMARATE [SEROquel] 300 mg PO HS Rosuvastatin [Crestor] 20 mg PO DAILY lamoTRIgine 200 mg PO QAM Escitalopram [Lexapro] 20 mg PO QAM Metoprolol Succinate [Toprol XL] 25 mg PO QAM Lisinopril [Zestril] 10 mg PO QAM Nitroglycerin Sl Tabs [Nitrostat] 0.4 mg SUBLINGUAL Q5M PRN #25 tab PRN Reason: Chest Pain Omeprazole 20 mg PO QAM Memantine HCl [Namenda Xr] 28 mg PO DAILY Ipratropium/Albuterol Sulfate [Combivent Respimat Inhaler] 1 puff INHALATION RT-QID Umeclidinium [place] [Incruse Ellipta] 1 puff INHALATION QAM Gabapentin [Neurontin] 300 mg PO TID Ramelteon [Rozerem] 8 mg PO HS Aspirin 81 mg PO Q2D Discharge Medication List Escitalopram [Lexapro] 20 mg PO QAM 10/12/14 [History] Lisinopril [Zestril] 10 mg PO QAM 10/12/14 [History] Metoprolol Succinate [Toprol XL] 25 mg PO QAM 10/12/14 [History] QUEtiapine FUMARATE [SEROquel] 300 mg PO HS 10/12/14 [History] Rosuvastatin [Crestor] 20 mg PO DAILY 10/12/14 [History] lamoTRIgine 200 mg PO QAM 10/12/14 [History] Nitroglycerin Sl Tabs [Nitrostat] 0.4 mg SUBLINGUAL Q5M PRN #25 tab 10/13/14 [Rx ] Ipratropium/Albuterol Sulfate [Combivent Respimat Inhaler] 1 puff INHALATION RT- QID 12/06/17 [History] Memantine HCl [Namenda Xr] 28 mg PO DAILY 12/06/17 [History] Omeprazole 20 mg PO QAM 12/06/17 [History] Aspirin 81 mg PO Q2D 01/10/18 [History] Gabapentin [Neurontin] 300 mg PO TID 01/10/18 [History] Ramelteon [Rozerem] 8 mg PO HS 01/10/18 [History] Umeclidinium [place] [Incruse Ellipta] 1 puff INHALATION QAM 01/10/18 [History]
[2018-01-12 10:04] VITALS: BP 110/66; PULSE 70; RESP 18
== END 2018-01-12 10:12 | disposition home or self-care (01) ==
LOC: ORWHC2ENDO 07:15
PROVIDERS: ATTEND Surgery Plastic and Reconstructive Surgery
DX: Z12.11 Encounter for screening for malignant neoplasm of colon (principal); K57.30 Diverticulosis of large intestine without perforation or abscess without bleeding; J45.909 Unspecified asthma, uncomplicated; F03.90 Unspecified dementia, unspecified severity, without behavioral disturbance, psychotic disturbance, mood disturbance, and anxiety; E78.5 Hyperlipidemia, unspecified; I10 Essential (primary) hypertension; F17.200 Nicotine dependence, unspecified, uncomplicated; J44.9 Chronic obstructive pulmonary disease, unspecified; Z95.2 Presence of prosthetic heart valve; Z79.82 Long term (current) use of aspirin; Z79.899 Other long term (current) drug therapy; Z88.5 Allergy status to narcotic agent; Z91.09 Other allergy status, other than to drugs and biological substances
CPT/HCPCS: J2001; J2704; G0121

== ENCOUNTER → 2018-03-29 | Outpatient (CLI) | payer MEDICARE, OTHER ==
--- NOTE | 2018-03-29 14:19 | CT ---
EXAMINATION TYPE: CT chest wo con DATE OF EXAM: 03/29/2018 COMPARISON: None HISTORY: Interstitial lung disease. CT DLP: 801.8 mGycm High-resolution noncontrast CT of the chest was performed with the patient in the prone and supine po sitions. Lung and mediastinal window settings are submitted. The lungs appear to be well-aerated. I do not see evidence for fibrotic change. There is mild bronch ial wall thickening noted. No garrett bronchiectasis appreciated. No evidence for subpleural fibrosis. No focal infiltrate or pleural effusion. No pleural thickening. The heart is enlarged. Coronary arter y calcifications appreciated. IMPRESSION: 1. Mild bronchial wall thickening without evidence for fibrosis or bronchiectasis at this time.
== END | disposition home or self-care (01) ==
LOC: RADCTMAIN 13:20
PROVIDERS: ATTEND Internal Medicine Critical Care Medicine
DX: J98.09 Other diseases of bronchus, not elsewhere classified (principal); Z88.5 Allergy status to narcotic agent; Z88.8 Allergy status to other drugs, medicaments and biological substances
CPT/HCPCS: 71250

== ENCOUNTER → 2019-04-27 | Outpatient (CLI) | payer MEDICARE, OTHER ==
--- NOTE | 2019-04-28 14:30 | MM ---
Reason for exam: screening (asymptomatic). Last mammogram was performed 1 year and 4 months ago. History: Patient is postmenopausal. Benign excisional biopsy of the left breast, 1979. Physical Findings: A clinical breast exam by your physician is recommended on an annual basis and results should be correlated with mammographic findings. MG 3D Screening Mammo W/Cad Bilateral CC and MLO view(s) were taken. Prior study comparison: December 20, 2017, bilateral MG 3d screening mammo w/cad. February 27, 2016, bilateral MG 3d screening mammo w/cad. There are scattered fibroglandular densities. There is no discrete abnormality. No significant changes when compared with prior studies. ASSESSMENT: Negative, BI-RAD 1 RECOMMENDATION: Routine screening mammogram of both breasts in 1 year.
== END | disposition home or self-care (01) ==
LOC: RADMAMWWP 14:03
PROVIDERS: ATTEND Family Medicine
DX: Z12.31 Encounter for screening mammogram for malignant neoplasm of breast (principal)
CPT/HCPCS: 77063; 77067

== ENCOUNTER → 2019-12-14 | Outpatient (CLI) | payer MEDICARE, OTHER | END | disposition home or self-care (01) | LOC: LABWHC1 11:30 | PROVIDERS: ATTEND Family Medicine | DX: Z20.828 Contact with and (suspected) exposure to other viral communicable diseases (principal); R05 Cough; R06.02 Shortness of breath; M79.10 Myalgia, unspecified site | CPT/HCPCS: U0003; C9803 ==

== ENCOUNTER 2020-01-31 20:50 | Observation (INO) | payer MEDICARE, OTHER ==
--- NOTE | 2020-01-31 20:55 | ED ---
Chest Pain HPI - General Stated Complaint: Chest Pain Time Seen by Provider: 01/31/20 20:53 - Related Data Home Medications Medication Instructions Recorded Confirmed Escitalopram [Lexapro] 20 mg PO QAM 10/12/14 01/12/18 Metoprolol Succinate [Toprol XL] 25 mg PO QAM 10/12/14 01/12/18 QUEtiapine FUMARATE [SEROquel] 300 mg PO HS 10/12/14 01/12/18 Rosuvastatin [Crestor] 20 mg PO DAILY 10/12/14 01/12/18 lamoTRIgine 200 mg PO QAM 10/12/14 01/12/18 lisinopriL [Zestril] 10 mg PO QAM 10/12/14 01/12/18 Ipratropium/Albuterol Sulfate 1 puff INHALATION RT-QID 12/06/17 01/12/18 [Combivent Respimat Inhaler] Memantine HCl [Namenda Xr] 28 mg PO DAILY 12/06/17 01/12/18 Omeprazole 20 mg PO QAM 12/06/17 01/12/18 Aspirin 81 mg PO Q2D 01/10/18 01/12/18 Gabapentin [Neurontin] 300 mg PO TID 01/10/18 01/12/18 Ramelteon [Rozerem] 8 mg PO HS 01/10/18 01/12/18 Umeclidinium [place] [Incruse 1 puff INHALATION QAM 01/10/18 01/12/18 Ellipta] Previous Rx's Medication Instructions Recorded Nitroglycerin Sl Tabs [Nitrostat] 0.4 mg SUBLINGUAL Q5M PRN #25 tab 10/13/14 Allergies Allergy/AdvReac Type Severity Reaction Status Date / Time fentanyl Allergy Rash/Hives Verified 01/31/20 20:58 niacin Allergy Dyspnea,barbara Verified 01/31/20 20:58 h Review of Systems ROS Statement: Those systems with pertinent positive or pertinent negative responses have been documented in the HPI. ROS Other: All systems not noted in ROS Statement are negative. 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 History of Any Multi-Drug Resistant Organisms: None Reported Past Surgical History: Back Surgery, Bladder Surgery, Cholecystectomy, Heart Catheterization, Hysterectomy, Joint Replacement, Orthopedic Surgery, Tubal Lig ation Additional Past Surgical History / Comment(s): aortic valve repair, left breast biopsy-neg, oopherectomy, left knee replacement, juan Past Anesthesia/Blood Transfusion Reactions: No Reported Reaction Additional Past Alcohol Use History / Comment(s): started at age 15 smokes 1 ppd - Past Family History Mother History Unknown: Yes Additional Family Medical History / Comment(s): Patient states she was adopted Course Vital Signs 01/31/20 20:56 Temperature 97.9 F Pulse Rate 67 Respiratory 18 Rate Blood Pressure 174/85 O2 Sat by Pulse 97 Oximetry Disposition Referrals: Gabe Cisneros DO [Primary Care Provider] - 1-2 days
[2020-01-31 21:12] LABS: Basophils # (A) 0.1 k/uL (0-0.2); Basophils % (A) 1 %; Eosinophils # (A) 0.2 k/uL (0-0.7); Eosinophils % (A) 4 %; HGB 12.4 gm/dL (11.4-16.0); Lymphocytes # (A) 1.5 k/uL (1.0-4.8); Lymphocytes % (A) 27 %; MCH 28.7 pg (25.0-35.0); MCHC 31.9 g/dL (31.0-37.0); MCV 90.2 fL (80.0-100.0); Mean Platelet Volume 11.2; Monocytes # (A) 0.5 k/uL (0-1.0); Monocytes % (A) 9 %; Neutrophils # (A) 3.2 k/uL (1.3-7.7); Neutrophils % (A) 57 %; Platelet Count 103 k/uL (150-450); RBC 4.32 m/uL (3.80-5.40); RDW 13.1 % (11.5-15.5); WBC 5.5 k/uL (3.8-10.6)
[2020-01-31 21:21] LABS: ALT 11 U/L (4-34); AST 26 U/L (14-36); African American GFR (CKD) >90 (>60 ml/min/1.73 sqM); Albumin 4.3 g/dL (3.5-5.0); Alkaline Phosphatase 81 U/L (38-126); Anion Gap 6 mmol/L; Blood Urea Nitrogen 14 mg/dL (7-17); Carbon Dioxide 28 mmol/L (22-30); Chloride 104 mmol/L (98-107); Glucose 109 mg/dL (74-99); Magnesium 2.2 mg/dL (1.6-2.3); Non-African American GFR(CKD) 88 (>60 ml/min/1.73 sqM); Potassium 4.3 mmol/L (3.5-5.1); Sodium 138 mmol/L (137-145); Total Bilirubin 0.7 mg/dL (0.2-1.3); Total Protein 7.6 g/dL (6.3-8.2)
--- NOTE | 2020-01-31 22:13 | XR ---
EXAMINATION TYPE: XR chest 2V DATE OF EXAM: 01/31/2020 COMPARISON: 03/16/2018 HISTORY: Chest pain TECHNIQUE: FINDINGS: There is no heart failure nor confluent pneumonic infiltrate. There are sternal wires. Cost ophrenic angles are clear. Heart appears slightly enlarged. There are chest leads. There is cardiac valve surgery. IMPRESSION: Inspiration is decreased compared to old exam. Heart appears increased compared to old ex am but no obvious heart failure.
[2020-01-31 22:18] LABS: INR 0.9 (<1.2); Prothrombin Time 9.8 sec (9.0-12.0)
[2020-01-31 22:21] LABS: Partial Thromboplastin Time 20.3 sec (22.0-30.0)
[2020-01-31] MEDS ORDERED: NITROGLYCERIN SL TABS 0.4 MG TAB SUBLINGUAL PRN (22:26)
[2020-01-31] MEDS ORDERED: MORPHINE SULFATE 4 MG/ML SYRINGE IV PRN (22:26)
[2020-01-31] MEDS ORDERED: HEPARIN SODIUM,PORCINE 5,000 UNIT/ML 1 ML VIAL IV PRN (22:26)
[2020-01-31] MEDS ORDERED: HEPARIN SODIUM,PORCINE 5,000 UNIT/ML 1 ML VIAL IV ONE (22:26)
[2020-01-31] MEDS ORDERED: HEPARIN SOD,PORK IN 0.45% NACL 25,000 UNIT in 0.45% NACL 1 250ML.BAG IV SCH (22:30)
[2020-02-01 05:21] VITALS: TEMP 97.8
[2020-02-01 06:16] LABS: Mean Platelet Volume 9.6; Platelet Count 138 k/uL (150-450)
[2020-02-01 06:38] LABS: Cholesterol 165 mg/dL (<200); HDL Cholesterol 57 mg/dL (40-60); LDL Cholesterol,Calculated 91 mg/dL (0-99); Triglycerides 85 mg/dL (<150)
[2020-02-01] MEDS ORDERED: SYMBICORT 160-4.5 MCG INHALER INHALATION SCH (08:00)
[2020-02-01] MEDS ORDERED: ASPIRIN 325 MG TAB PO STA (08:27)
[2020-02-01] MEDS ORDERED: ALPRAZolam 0.5 MG TAB PO PRN (08:27)
[2020-02-01] MEDS ORDERED: ALPRAZolam 0.25 MG TAB PO PRN (08:27)
[2020-02-01] MEDS ORDERED: SODIUM CHLORIDE 0.9% 1,000 ML in EMPTY BAG 1 BAG IV ONE (08:27)
--- NOTE | 2020-02-01 08:47 | P.CRDCN ---
History of Present Illness History of present illness: HISTORY OF PRESENTING ILLNESS This is a pleasant 64-year-old female past medical history significant for valvular heart disease status post aortic valve replacement 2009, dyslipide [place], hypertension, chronic nicotine dependence, COPD and gastroesophageal reflux disease. She follows in the office with Dr. Guevara. We have been asked to see in consultation for chest pain. She states yesterday she felt a discomfort on her chest described as a heavy pressure sensation pressing in the left precordial region radiated to the left shoulder and down the left arm. The discomfort was associated with feeling lightheaded and short of breath. Symptoms lasted for approximately 3 3 hours prior to arrival. She did take a sublingual nitroglycerin with no relief. Ultimately her chest pain did improve mildly. She continues to feel heaviness on her chest at this time. According to the patient she had a heart catheterization prior to aortic valve replacement in 2009 was normal. Report is not available to me at this time. Most recent echocardiogram obtained in 2018 revealed preserved LV systolic function with ejection fraction 55-60%, mild stenosis of the bioprosthetic aortic valve with a mean gradient of 19 mmHg. DIAGNOSTICS EKG reveals sinus mechanism with no acute ischemic changes. Chest xray negative for an acute cardiopulmonary process. Laboratory reviewed, WBC 5.5, hemoglobin 12.4, platelets 138, sodium 138, potassium 4.3, creatinine 0.72, magnesium 2.2, cardiac enzymes negative 3, NT proBNP 410, LDL 91 and HDL 57. Current cardiac medications include aspirin 81 mg daily, lisinopril 5 mg daily, Toprol 25 mg daily and rosuvastatin 20 mg daily. REVIEW OF SYSTEMS At the time of my exam: CONSTITUTIONAL: Denies fever or chills. CARDIOVASCULAR: Denies chest pain, shortness of breath, orthopnea, PND or palpitations. RESPIRATORY: Denies cough. GASTROINTESTINAL: Denies abdominal pain, diarrhea, constipation, nausea or vomiting. MUSCULOSKELETAL: Denies myalgias. NEUROLOGIC: Denies numbness, tingling or weakness. ENDOCRINE: Denies fatigue, weight change, polydipsia or polyurina. GENITOURINARY: Denies burning, hematuria or urgency with micturation. HEMATOLOGIC: Denies history of anemia or bleeding. PHYSICAL EXAMINATION Blood pressure 131/80 heart rate 57 afebrile and maintaining oxygen saturation on room air. CONSTITUTIONAL: No apparent distress. HEENT: Head is normocephalic. Pupils are equal, round. Sclerae anicteric. Mucous membranes of the mouth are moist. No JVD. No carotid bruit. CHEST EXAMINATION: Lungs are clear to auscultation. No chest wall tenderness is noted on palpation or with deep breathing. HEART EXAMINATION: Regular rate and rhythm. S1, S2 heard. Systolic ejection murmur at the base, no gallops or rub. ABDOMEN: Soft, nontender. Positive bowel sounds. EXTREMITIES: 2+ peripheral pulses, no lower extremity edema and no calf tenderness. NEUROLOGIC EXAMINATION: Patient is awake, alert and oriented x3. ASSESSMENT Unstable angina Valvular heart disease status post aortic valve replacement Hypertension Dyslipidemia COPD Chronic nicotine dependence Thrombocytopenia PLAN Recommend proceeding with cardiac catheterization. I have discussed the risks, benefits and alternative therapies for the above-mentioned procedure and for both sedation/analgesia as well as necessary blood product administration, if indicated, as they pertain to this patient. The patient has indicated understanding and acceptance of the risks and procedures discussed. Questions have been answered appropriately and she is agreeable to move forward with the above stated procedure. Obtain 2-D echocardiogram and Doppler study to assess cardiac structure and function. Further recommendations to follow based upon clinical course. Thank you kindly for this consultation. Nurse Practitioner note has been reviewed, I agree with a documented findings and plan of care. Patient was seen and examined. 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 History of Any Multi-Drug Resistant Organisms: None Reported Past Surgical History: Back Surgery, Bladder Surgery, Cholecystectomy, Heart Catheterization, Hysterectomy, Joint Replacement, Orthopedic Surgery, Tubal Ligation Additional Past Surgical History / Comment(s): aortic valve repair, left breast biopsy-neg, oopherectomy, left knee replacement, juan Past Anesthesia/Blood Transfusion Reactions: No Reported Reaction Past Psychological History: Anxiety, Bipolar Smoking Status: Current every day smoker Past Alcohol Use History: None Reported Additional Past Alcohol Use History / Comment(s): started at age 15 smokes 1 ppd Past Drug Use History: None Reported - Past Family History Mother History Unknown: Yes Additional Family Medical History / Comment(s): Patient states she was adopted Medications and Allergies Home Medications Medication Instructions Recorded Confirmed Type Metoprolol Succinate [Toprol XL] 25 mg PO DAILY 10/12/14 01/31/20 History QUEtiapine FUMARATE [SEROquel] 300 mg PO HS 10/12/14 01/31/20 History Rosuvastatin [Crestor] 20 mg PO DAILY 10/12/14 01/31/20 History lamoTRIgine 200 mg PO DAILY 10/12/14 01/31/20 History lisinopriL [Zestril] 5 mg PO DAILY 10/12/14 01/31/20 History Ipratropium/Albuterol Sulfate 1 puff INHALATION RT-QID 12/06/17 01/31/20 History [Combivent Respimat Inhaler] Memantine HCl [Namenda Xr] 28 mg PO DAILY 12/06/17 01/31/20 History Omeprazole 20 mg PO DAILY 12/06/17 01/31/20 History Aspirin 81 mg PO DAILY 01/10/18 01/31/20 History Gabapentin [Neurontin] 300 mg PO TID 01/10/18 01/31/20 History Ramelteon [Rozerem] 8 mg PO HS 01/10/18 01/31/20 History Fluticasone/Vilanterol [Breo 1 puff INHALATION RT-DAILY 01/31/20 01/31/20 History Ellipta 200-25 Mcg INH] Sertraline [Zoloft] 50 mg PO TID 01/31/20 01/31/20 History Allergies Allergy/AdvReac Type Severity Reaction Status Date / Time fentanyl Allergy Rash/Hives Verified 01/31/20 23:20 niacin Allergy Dyspnea,barbara Verified 01/31/20 23:20 h Physical Exam Vitals: Vital Signs Temp Pulse Pulse Resp BP BP Pulse Ox 02/01/20 03:00 97.8 F 57 L 16 131/80 96 01/31/20 22:11 70 16 147/83 98 01/31/20 20:56 97.9 F 67 18 174/85 97 Intake and Output 01/31/20 02/01/20 02/01/20 22:59 06:59 14:59 Other: Voiding Method Toilet # Voids 2 Weight 83.461 kg 83.461 kg Results 02/01/20 05:40 01/31/20 21:02 Cardiac Enzymes 01/31/20 01/31/20 01/31/20 Range/Units 21:02 21:02 23:52 AST 26 (14-36) U/L Troponin I 0.017 <0.012 (0.000-0.034) ng/mL 02/01/20 Range/Units 02:29 AST (14-36) U/L Troponin I <0.012 (0.000-0.034) ng/mL Coagulation 01/31/20 02/01/20 Range/Units 21:02 05:40 PT 9.8 (9.0-12.0) sec APTT 20.3 L 51.6 H (22.0-30.0) sec Lipids 02/01/20 Range/Units 05:40 Triglycerides 85 (<150) mg/dL Cholesterol 165 (<200) mg/dL HDL Cholesterol 57 (40-60) mg/dL CBC 01/31/20 02/01/20 Range/Units 21:08 05:40 WBC 5.5 (3.8-10.6) k/uL RBC 4.32 (3.80-5.40) m/uL Hgb 12.4 (11.4-16.0) gm/dL Hct 39.0 (34.0-46.0) % Plt Count 103 L 138 L (150-450) k/uL Comprehensive Metabolic Panel 01/31/20 Range/Units 21:02 Sodium 138 (137-145) mmol/L Potassium 4.3 (3.5-5.1) mmol/L Chloride 104 (98-107) mmol/L Carbon Dioxide 28 (22-30) mmol/L BUN 14 (7-17) mg/dL Creatinine 0.72 (0.52-1.04) mg/dL Glucose 109 H (74-99) mg/dL Calcium 9.0 (8.4-10.2) mg/dL AST 26 (14-36) U/L ALT 11 (4-34) U/L Alkaline Phosphatase 81 (38-126) U/L Total Protein 7.6 (6.3-8.2) g/dL Albumin 4.3 (3.5-5.0) g/dL Current Medications Generic Name Dose Route Start Last Admin Trade Name Freq PRN Reason Stop Dose Admin Alprazolam 0.25 mg 02/01/20 08:27 Alprazolam 0.25 Mg Tab PO Q6HR PRN Mild Anxiety Alprazolam 0.5 mg 02/01/20 08:27 Alprazolam 0.5 Mg Tab PO Q6HR PRN Moderate Anxiety Aspirin 81 mg 02/02/20 09:00 Aspirin 81 Mg PO DAILY [facility] Atorvastatin Calcium 80 mg 02/01/20 09:00 02/01/20 08:38 Atorvastatin 80 Mg Tab PO 80 mg DAILY [facility] Administration Heparin Sodium (Porcine) 0 unit 01/31/20 22:26 Heparin Sodium,Porcine 5,000 Unit/Ml 1 Ml Vial IV Q6HR PRN Low PTT Protocol Sodium Chloride 1,000 ml/ IV 1,000 mls @ 83.461 mls/hr 02/01/20 08:27 Solution IV 02/01/20 20:25 .[id number] ONE 1 ML/KG/HR Metoprolol Tartrate 25 mg 02/01/20 09:00 02/01/20 08:38 Metoprolol Tartrate 25 Mg Tab PO 25 mg BID GERMAINE Administration Morphine Sulfate 4 mg 01/31/20 22:26 Morphine Sulfate 4 Mg/Ml Syringe IV Q4HR PRN Chest Pain Nitroglycerin 0.4 mg 01/31/20 22:26 Nitroglycerin Sl Tabs 0.4 Mg Tab SUBLINGUAL Q5M PRN Chest Pain Intake and Output 01/31/20 02/01/20 02/01/20 22:59 06:59 14:59 Other: Voiding Method Toilet # Voids 2 Weight 83.461 kg 83.461 kg 02/01/20 05:40 01/31/20 21:02
[2020-02-01] MEDS ORDERED: LIDOCAINE 1% INJ 10MG/ML (20 ML MDV) ONE (08:56)
[2020-02-01] MEDS ORDERED: METOPROLOL TARTRATE 25 MG TAB PO SCH (09:00)
[2020-02-01] MEDS ORDERED: IV FLUID CONTINUATION 1,000 ML IV ONE (09:00)
[2020-02-01] MEDS ORDERED: ASPIRIN 325 MG TAB PO SCH (09:00)
[2020-02-01] MEDS ORDERED: ATORVASTATIN 80 MG TAB PO SCH (09:00)
[2020-02-01] MEDS ORDERED: ASPIRIN 81 MG PO SCH (09:00)
[2020-02-01] MEDS ORDERED: VERAPAMIL 2.5 MG/ML 2 ML AMP ONE (09:03)
[2020-02-01] MEDS ORDERED: MIDAZOLAM 2 MG/2 ML VIAL IV ONE (09:16)
[2020-02-01] MEDS ORDERED: LIDOCAINE 1% INJ 10MG/ML (20 ML MDV) SQ ONE ×2 (09:16→09:17)
[2020-02-01] MEDS ORDERED: VERAPAMIL SYRINGE (5 MG/10 ML) INTRAARTER ONE (09:19)
[2020-02-01] MEDS ORDERED: HEPARIN SODIUM 1,000 UN/ML (10ML VL) ONE (09:20)
[2020-02-01] MEDS ORDERED: HEPARIN SODIUM 1,000 UN/ML (10ML VL) IV ONE (09:22)
[2020-02-01] MEDS ORDERED: IOPAMIDOL-370 125ML BTL INJ ONE (09:36)
[2020-02-01] MEDS ORDERED: NON FORMULARY DRUG (Rosuvastatin 20 MG Tablet) PO SCH (09:45)
[2020-02-01] MEDS ORDERED: SERTRALINE 50 MG TAB PO SCH (09:45)
[2020-02-01] MEDS ORDERED: GABAPENTIN 300 MG CAP PO SCH (09:45)
[2020-02-01] MEDS ORDERED: MEMANTINE 10 MG TAB PO SCH (09:45)
[2020-02-01] MEDS ORDERED: lamoTRIgine 100 MG TAB PO SCH (09:45)
[2020-02-01] MEDS ORDERED: lisinopriL 5 MG TAB PO SCH (09:45)
[2020-02-01] MEDS ORDERED: RX INFO: IV CONTRAST WAS GIVEN 1 EACH MISC MISCELLANE PRN (09:46)
--- NOTE | 2020-02-01 09:46 | P.CARDCATH ---
Date of Procedure: 02/01/20 Preoperative Diagnosis: Unstable angina, history of aortic valve replacement, hypertension, hypercholesterolemia and smoking Postoperative Diagnosis: Normal coronary arteries. No gradient across the aortic valve Procedure(s) Performed: Left heart catheterization without left ventriculography Description of Procedure: HISTORY: This is a 64-year-old female with history of aortic valve replacement with history of hypertension, hypercholesterolemia and smoking who was admitted to the hospital with chest pains. Patient was evaluated by Dr. Parisi and recommended a cardiac catheterization. Her EKGs and cardiac enzymes are nega tive CONSENT:I have discussed the risks, benefits and alternative therapies for the above-mentioned procedure and for both sedation/analgesia as well as necessary blood product administration, if indicated, as they pertain to this patient. The patient has indicated understanding and acceptance of the risks and procedures discussed. PROCEDURE: Patient was brought to the lab in a fasting state. Patient was given some IV sedation. The right wrist is infiltrated with lidocaine and right radial artery was entered using Seldinger technique. A 6-Occitan catheter was left in place and selective coronary arteriography was performed. Patient tolerated the procedure well. LV gram was not performed TR band was applied for hemostasis. No immediate complications were noted and patient was transferred to [facility] in a stable condition Conscious Sedation: Versed 2mg Fentanyl 0 g Duration 21minutes HEMODYNAMICS: The aortic pressure is about 130/70. The left ankle end-diastolic pressure is about 12-15. No gradient across the aortic valve SELECTIVE CORONARY ARTERIOGRAPHY: LEFT MAIN: Left main is normal length and free of occlusive disease THE LEFT ANTERIOR DESCENDING CORONARY ARTERY:. This is a moderate caliber free of occlusive disease THE LEFT CIRCUMFLEX AND IS CORONARY ARTERY:. This is a good caliber vessel. Free of occlusive disease THE RIGHT CORONARY ARTERY: This Is a dominant vessel giving rise to PDA and PLV and free of occlusive disease LEFT VENTRICULOGRAPHY: Not performed FINAL IMPRESSION:. Normal coronary arteries. No gradient across the aortic valve PLAN: Medical therapy and this factor modification PROGNOSIS:. Good.
[2020-02-01] MEDS ORDERED: SODIUM CHLORIDE 0.9% 1,000 ML IV SCH (10:00)
[2020-02-01] MEDS: IPRATROPIUM-ALBUTEROL 3 ML NEB INHALATION SCH ×3 (10:37→16:24)
[2020-02-01 10:43] VITALS: PULSE 52
--- NOTE | 2020-02-01 11:54 | ECHOF ---
Referral Reason:chest pain MEASUREMENTS -------- HEIGHT: 157.5 cm WEIGHT: 83.5 kg BP: 131/80 RVIDd: 3.2 cm (< 3.3) IVSd: 1.5 cm (0.6 - 1.1) LVIDd: 4.5 cm (3.9 - 5.3) LVPWd: 1.3 cm (0.6 - 1.1) IVSs: 1.9 cm LVIDs: 3.2 cm LVPWs: 2.0 cm LA Diam: 3.9 cm (2.7 - 3.8) LAESV Index (A-L): 37.68 ml/m Ao Diam: 3.4 cm (2.0 - 3.7) MV EXCURSION: 16.790 mm (> 18.000) MV EF SLOPE: 65 mm/s (70 - 150) EPSS: 1.0 cm MV E Dawit: 1.19 m/s MV DecT: 265 ms MV A Dawit: 0.74 m/s MV E/A Ratio: 1.61 AV maxP.22 mmHg AV meanP.32 mmHg RAP: 5.00 mmHg RVSP: 32.43 mmHg FINDINGS -------- Sinus rhythm. This was a technically adequate study. The left ventricular size is normal. There is moderate concentric left ventricular hypertrophy. O verall left ventricular systolic function is normal with, an EF between 60 - 65 %. The right ventricle is normal in size. LA is moderately dilated 34-39 ml/m2 The right atrium is normal in size. Interatrial and interventricular septum intact. Peak/mean gradient across the Aortic Valve is 45.22mmHg / 28.32mmHg. Abnormally functioning porcin e bioprosthetic aortic valve. There is mild stenosis of the bioprosthetic aortic valve. Mild mitral annular calcification present. Mild mitral regurgitation is present. Mild tricuspid regurgitation present. Right ventricular systolic pressure is normal at < 35 mmHg. Trace/mild (physiologic) pulmonic regurgitation. The aortic root size is normal. Normal inferior vena cava with normal inspiratory collapse consistent with estimated right atrial pre ssure of 5 mmHg. There is no pericardial effusion. CONCLUSIONS -------- 1. The left ventricular size is normal. 2. There is moderate concentric left ventricular hypertrophy. 3. Overall left ventricular systolic function is normal with, an EF between 60 - 65 %. 4. LA is moderately dilated 34-39 ml/m2 5. Peak/mean gradient across the Aortic Valve is 45.22mmHg / 28.32mmHg. 6. Abnormally functioning porcine bioprosthetic aortic valve. 7. There is mild stenosis of the bioprosthetic aortic valve. 8. Mild mitral annular calcification present. 9. Mild mitral regurgitation is present. 10. Mild tricuspid regurgitation present. 11. Trace/mild (physiologic) pulmonic regurgitation. 12. There is no pericardial effusion. DATA CONTROL CLERK SUPERVISOR: Divya Barnard RDCS
[2020-02-01] MEDS ORDERED: NICOTINE 14MG/24HR PATCH TRANSDERM SCH (12:00)
[2020-02-01 14:20] VITALS: RESP 18
[2020-02-01 16:51] VITALS: BP 129/62
[2020-02-01] MEDS ORDERED: TEMAZEPAM 15 MG CAP PO PRN (21:00)
[2020-02-01] MEDS ORDERED: QUEtiapine 100 MG TAB PO SCH (21:00)
[2020-02-02] MEDS ORDERED: PANTOPRAZOLE 40 MG TABLET PO SCH (07:30)
[2020-02-02] MEDS ORDERED: ASPIRIN 81 MG PO SCH (09:00)
--- NOTE | 2020-02-03 20:44 | P.HPIM ---
History of Present Illness H&P Date: 02/01/20 Chief Complaint: Chest pain History of presenting complaint: This is a pleasant 64-year-old patient of Dr. Cisneros. Chronic stable medical conditions include COPD, mild cognitive impairment, GERD, hypertension, hyperlipidemia, articular replacement with a pig valve, insomnia,. Yesterday evening around 7:00 she started having central stabbing pressure-like pain. The pressure also went up to the left arm and jaw. Did feel a bit tired and rundown. No dizziness or lightheadedness. Admitted unstable angina. Review of systems: GEN.: Tired EYES: None HEENT: None NECK: None RESPIRATORY: None CARDIOVASCULAR: As above GASTROINTESTINAL: None GENITOURINARY: None MUSCULOSKELETAL: Some joint pains LYMPHATICS: None HEMATOLOGICAL: None PSYCHIATRY: None NEUROLOGICAL: None Past medical history to include: COPD, mild cognitive impairment, GERD, hypertension, hyperlipidemia, articular replacement with pig valve, insomnia, bipolar Social history: Smoking a pack a day for close to 47 years, grandson lives in a house. No alcohol. Family history: Patient adopted Physical examination: VITAL SIGNS: 97.9, 67, 18, and 47/83, 98% on room air-upon presentation GENERAL: BMI 33.7, sitting up in bed, comfortable. EYES: Pupils equal. Conjunctiva normal. HEENT: External appearance of nose and ears normal, oral cavity grossly normal. NECK: JVD not raised; masses not palpable. HEART: First and second heart sounds are normal; no edema. LUNGS: Respiratory rate normal; clear to auscultation. ABDOMEN: Soft, nontender, liver spleen not palpable, no masses palpable. PSYCH: Alert and oriented x3; mood and affect normal. NEUROLOGICAL: Cranial nerves grossly intact; no facial asymmetry, power and sensation grossly intact. LYMPHATICS: No lymph nodes palpable in the axilla and neck INVESTIGATIONS, reviewed in the clinical context: White count 5.5 hemoglobin 12.4 platelets 103 potassium 4.3 creatinine 0.7 to Troponin I 0.017, less than 0.012, less than 0.012 LDL 91 EKG tracing personally reviewed by me-no sinus rhythm Chest x-ray film personally reviewed by me-some cardio megaly, some crowding of vessels Assessment: -Unstable angina -Obesity BMI 33.7 -COPD in a current smoker -Chronic nicotine dependence cigarette smoker -GERD -Essential hypertension -Hyperlipidemia -History of articular replacement with a pig valve -Mild cognitive impairment -Bipolar disorder controlled Plan: Home medications resumed. Cardiology was consulted. Patient started on IV heparin the ER. Due to go down for a cardiac catheterization. 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 History of Any Multi-Drug Resistant Organisms: None Reported Past Surgical History: Back Surgery, Bladder Surgery, Cholecystectomy, Heart Catheterization, Hysterectomy, Joint Replacement, Orthopedic Surgery, Tubal Ligation Additional Past Surgical History / Comment(s): aortic valve repair, left breast biopsy-neg, oopherectomy, left knee replacement, juan Past Anesthesia/Blood Transfusion Reactions: No Reported Reaction Past Psychological History: Anxiety, Bipolar Smoking Status: Current every day smoker Past Alcohol Use History: None Reported Additional Past Alcohol Use History / Comment(s): started at age 15 smokes 1 ppd Past Drug Use History: None Reported - Past Family History Mother History Unknown: Yes Additional Family Medical History / Comment(s): Patient states she was adopted Medications and Allergies Home Medications Medication Instructions Recorded Confirmed Type QUEtiapine FUMARATE [SEROquel] 300 mg PO HS 10/12/14 01/31/20 History Rosuvastatin [Crestor] 20 mg PO DAILY 10/12/14 01/31/20 History lamoTRIgine 200 mg PO DAILY 10/12/14 01/31/20 History lisinopriL [Zestril] 5 mg PO DAILY 10/12/14 01/31/20 History Ipratropium/Albuterol Sulfate 1 puff INHALATION RT-QID 12/06/17 01/31/20 History [Combivent Respimat Inhaler] Memantine HCl [Namenda Xr] 28 mg PO DAILY 12/06/17 01/31/20 History Omeprazole 20 mg PO DAILY 12/06/17 01/31/20 History Aspirin 81 mg PO DAILY 01/10/18 01/31/20 History Gabapentin [Neurontin] 300 mg PO TID 01/10/18 01/31/20 History Ramelteon [Rozerem] 8 mg PO HS 01/10/18 01/31/20 History Fluticasone/Vilanterol [Breo 1 puff INHALATION RT-DAILY 01/31/20 01/31/20 History Ellipta 200-25 Mcg INH] Sertraline [Zoloft] 50 mg PO TID 01/31/20 01/31/20 History Isosorbide Mononitrate ER [Imdur] 15 mg PO DAILY #30 dose 02/01/20 Rx Metoprolol Succinate (ER) [Toprol 25 mg PO DAILY #1 tab 02/01/20 Rx Xl] Nicotine 14Mg/24Hr Patch [Habitrol] 1 patch TRANSDERM DAILY #14 patch 02/01/20 Rx Nitroglycerin Sl Tabs [Nitrostat] 0.4 mg SUBLINGUAL Q5M PRN #30 tab 02/01/20 Rx Allergies Allergy/AdvReac Type Severity Reaction Status Date / Time fentanyl Allergy Rash/Hives Verified 01/31/20 23:20 niacin Allergy Dyspnea,barbara Verified 01/31/20 23:20 h Physical Exam Vitals: Vital Signs Temp Pulse Pulse Resp BP BP Pulse Ox 02/01/20 03:00 97.8 F 57 L 16 131/80 96 01/31/20 22:11 70 16 147/83 98 01/31/20 20:56 97.9 F 67 18 174/85 97 Intake and Output 01/31/20 02/01/20 02/01/20 22:59 06:59 14:59 Intake Total 100 Balance 100 Intake: IV 100 Other: Voiding Method Toilet # Voids 2 Weight 83.461 kg 83.461 kg Results CBC & Chem 7: 02/01/20 05:40 01/31/20 21:02 Labs: Abnormal Lab Results - Last 24 Hours (Table) 01/31/20 01/31/20 01/31/20 Range/Units 21:02 21:02 21:08 Plt Count 103 L (150-450) k/uL APTT 20.3 L (22.0-30.0) sec Glucose 109 H (74-99) mg/dL 02/01/20 02/01/20 Range/Units 05:40 05:40 Plt Count 138 L (150-450) k/uL APTT 51.6 H (22.0-30.0) sec Glucose (74-99) mg/dL Thrombosis Risk Factor Assmnt - Choose All That Apply Each Factor Represents 1 point: Abnormal pulmonary function (COPD), Obesity (BMI >25) Each Risk Factor Represents 2 Points: Age 61-74 years Thrombosis Risk Factor Assessment Total Risk Factor Score: 4 Thrombosis Risk Factor Assessment Level: Moderate Risk
--- NOTE | 2020-02-03 20:48 | P.DS ---
Providers Date of admission: 01/31/20 22:26 Expected date of discharge: 02/01/20 Attending physician: Giuliano Storey Consults: 01/31/20 22:26 Consult Physician Urgent Consulting Provider: Isaias Bland Consult Reason/Comments: cp Do you want consulting provider notified?: Yes Primary care physician: Gabe Blayne [facility] Course: Chief Complaint: Chest pain History of presenting complaint: This is a pleasant 64-year-old patient of Dr. Cisneros. Chronic stable medical conditions include COPD, mild cognitive impairment, GERD, hypertension, hyperl ipidemia, articular replacement with a pig valve, insomnia,. Yesterday evening around 7:00 she started having central stabbing pressure-like pain. The pressure also went up to the left arm and jaw. Did feel a bit tired and rundown. No dizziness or lightheadedness. Admitted unstable angina. Patient underwent a cardiac catheterization revealed normal coronaries. Patient have underlying coronary vessel spasm or small vessel disease. Small dose of Imdur is being added. Care was discussed with the patient. Consultation: Dr. Thierno Parisi/Dr. Guevara-cardiology Physical examination: VITAL SIGNS: 97.8, 57, 16, 131/80, 96% room air GENERAL: Laying in bed, comfortable. EYES: Pupils equal. Conjunctiva normal. NECK: JVD not raised; masses not palpable. HEART: First and second heart sounds are normal; no edema. LUNGS: Respiratory rate normal; clear to auscultation. ABDOMEN: Soft, nontender, liver spleen not palpable, no masses palpable. PSYCH: Alert and oriented x3; mood and affect normal. INVESTIGATIONS, reviewed in the clinical context: White count 5.5 hemoglobin 12.4 platelets 103 potassium 4.3 creatinine 0.7 to Troponin I 0.017, less than 0.012, less than 0.012 LDL 91 EKG tracing personally reviewed by me-no sinus rhythm Chest x-ray film personally reviewed by me-some cardio megaly, some crowding of vessels 2-D echocardiogram-EF 60-65%, abnormally functioning porcine bioprosthetic aortic valve, moderate concentric LVH Assessment: -Anterior chest wall pain, possible angina -Cardiac catheterization showing normal coronaries -Hypertensive heart disease -Obesity BMI 33.7 -COPD in a current smoker -Chronic nicotine dependence cigarette smoker -GERD -Essential hypertension -Hyperlipidemia -History of articular replacement with a pig valve -Mild cognitive impairment -Bipolar disorder controlled Disposition: Home Patient Condition at Discharge: Stable Plan - Discharge Summary Discharge Rx Participant: No New Discharge Prescriptions: New Nicotine 14Mg/24Hr Patch [Habitrol] 1 patch TRANSDERM DAILY #14 patch Nitroglycerin Sl Tabs [Nitrostat] 0.4 mg SUBLINGUAL Q5M PRN #30 tab PRN Reason: Chest Pain Metoprolol Succinate (ER) [Toprol Xl] 25 mg PO DAILY #1 tab Isosorbide Mononitrate ER [Imdur] 15 mg PO DAILY #30 dose Continue QUEtiapine FUMARATE [SEROquel] 300 mg PO HS Rosuvastatin [Crestor] 20 mg PO DAILY lamoTRIgine 200 mg PO DAILY lisinopriL [Zestril] 5 mg PO DAILY Omeprazole 20 mg PO DAILY Memantine HCl [Namenda Xr] 28 mg PO DAILY Ipratropium/Albuterol Sulfate [Combivent Respimat Inhaler] 1 puff INHALATION RT-QID Gabapentin [Neurontin] 300 mg PO TID Ramelteon [Rozerem] 8 mg PO HS Aspirin 81 mg PO DAILY Fluticasone/Vilanterol [Breo Ellipta 200-25 Mcg INH] 1 puff INHALATION RT- DAILY Sertraline [Zoloft] 50 mg PO TID Discontinued Metoprolol Succinate [Toprol XL] 25 mg PO DAILY Discharge Medication List QUEtiapine FUMARATE [SEROquel] 300 mg PO HS 10/12/14 [History] Rosuvastatin [Crestor] 20 mg PO DAILY 10/12/14 [History] lamoTRIgine 200 mg PO DAILY 10/12/14 [History] lisinopriL [Zestril] 5 mg PO DAILY 10/12/14 [History] Ipratropium/Albuterol Sulfate [Combivent Respimat Inhaler] 1 puff INHALATION RT- QID 12/06/17 [History] Memantine HCl [Namenda Xr] 28 mg PO DAILY 12/06/17 [History] Omeprazole 20 mg PO DAILY 12/06/17 [History] Aspirin 81 mg PO DAILY 01/10/18 [History] Gabapentin [Neurontin] 300 mg PO TID 01/10/18 [History] Ramelteon [Rozerem] 8 mg PO HS 01/10/18 [History] Fluticasone/Vilanterol [Breo Ellipta 200-25 Mcg INH] 1 puff INHALATION RT-DAILY 01/31/20 [History] Sertraline [Zoloft] 50 mg PO TID 01/31/20 [History] Isosorbide Mononitrate ER [Imdur] 15 mg PO DAILY #30 dose 02/01/20 [Rx] Metoprolol Succinate (ER) [Toprol Xl] 25 mg PO DAILY #1 tab 02/01/20 [Rx] Nicotine 14Mg/24Hr Patch [Habitrol] 1 patch TRANSDERM DAILY #14 patch 02/01/20 [Rx] Nitroglycerin Sl Tabs [Nitrostat] 0.4 mg SUBLINGUAL Q5M PRN #30 tab 02/01/20 [Rx] Follow up Appointment(s)/Referral(s): Gabe Cisneros DO [Primary Care Provider] - 1-2 days Charanjit Guevara MD [STAFF PHYSICIAN] - 02/07/20 2:30 pm Patient Instructions/Handouts: Left Heart Catheterization (DC), After Radial Heart Catheterization (GEN) Activity/Diet/Wound Care/Special Instructions: dc when ok with cardiology Discharge Disposition: HOME SELF-CARE
== END 2020-02-01 16:44 | disposition home or self-care (01) ==
LOC: EC 20:50 → 3NCARDOBS 22:26
PROVIDERS: ADMIT Hospitalist; ATTEND Hospitalist
DX: R07.89 Other chest pain (principal); D69.6 Thrombocytopenia, unspecified; E66.9 Obesity, unspecified; E78.5 Hyperlipidemia, unspecified; F03.90 Unspecified dementia, unspecified severity, without behavioral disturbance, psychotic disturbance, mood disturbance, and anxiety; F17.210 Nicotine dependence, cigarettes, uncomplicated; F31.9 Bipolar disorder, unspecified; F41.9 Anxiety disorder, unspecified; G47.00 Insomnia, unspecified; I11.9 Hypertensive heart disease without heart failure; I34.1 Nonrheumatic mitral (valve) prolapse; I73.9 Peripheral vascular disease, unspecified; J44.9 Chronic obstructive pulmonary disease, unspecified; K21.9 Gastro-esophageal reflux disease without esophagitis; Z68.33 Body mass index [BMI] 33.0-33.9, adult; Z79.82 Long term (current) use of aspirin; Z79.899 Other long term (current) drug therapy; Z90.710 Acquired absence of both cervix and uterus; Z95.2 Presence of prosthetic heart valve; Z96.652 Presence of left artificial knee joint
CPT/HCPCS: 93005 ×2; 96376; 96365; 99285; 36415; 94640; 93306; 93458; 83880; 80061; 80053; 83690; 83735; 84484 ×2; 85025; 85049; 85610; 85730 ×2; 71046; G0378 ×2; C1769 ×2; C1894; J2250; J1644 ×3; J2001; Q9967

== ENCOUNTER 2020-05-02 20:24 | Emergency (ER) | payer MEDICARE ==
[2020-05-02 20:32] VITALS: RESP 18; TEMP 98
[2020-05-02 20:57] LABS: Basophils # (A) 0.1 k/uL (0-0.2); Basophils % (A) 2 %; Eosinophils # (A) 0.1 k/uL (0-0.7); Eosinophils % (A) 3 %; HCT 38.7 % (34.0-46.0); HGB 12.8 gm/dL (11.4-16.0); Lymphocytes # (A) 1.1 k/uL (1.0-4.8); Lymphocytes % (A) 25 %; MCH 29.6 pg (25.0-35.0); MCV 89.6 fL (80.0-100.0); Mean Platelet Volume 9.6; Monocytes # (A) 0.2 k/uL (0-1.0); Monocytes % (A) 5 %; Neutrophils # (A) 2.8 k/uL (1.3-7.7); Neutrophils % (A) 64 %; Platelet Count 149 k/uL (150-450); RBC 4.32 m/uL (3.80-5.40); RDW 13.1 % (11.5-15.5); WBC 4.4 k/uL (3.8-10.6)
--- NOTE | 2020-05-02 21:01 | ED ---
General Adult HPI - General Chief complaint: Fall Stated complaint: Fall, Leg Pain Time Seen by Provider: 05/02/20 20:27 Source: patient, EMS Mode of arrival: EMS Limitations: no limitations - History of Present Illness Initial comments: Dictation was produced using [employer] dictation software. please excuse any grammatical, word or spelling errors. This patient was cared for during a federal and state declared state of emergency secondary to Covid 19 Chief Complaint: 64-year-old female past medical history of COPD, dementia, dyslipidemia and hypertension presents after fall. History of Present Illness: 64-year-old female she slipped and fell in her garage. Patient states that she fell landing obliquely on her right side and on her back. She did strike her head. She denies any loss of consciousness. Patient was told that she has dementia. She is however a reliable historian at bedside. She does complain of significant pain to her right lower extremity just above the knee. Patient denies any numbness however there is some tingling to her right lower leg. Denies any chest pain or shortness of breath. No abdominal pain. States that her left leg in her upper extremities are atraumatic. She has no neck pain The ROS documented in this emergency department record has been reviewed and confirmed by me. Those systems with pertinent positive or negative responses have been documented in the HPI. All other systems are other negative and/or noncontributory. PHYSICAL EXAM: General Impression: Alert and oriented x3, not in acute distress HEENT: Small hematoma over the left occiput, extra-ocular movements intact, pupils equal and reactive to light bilaterally, mucous membranes moist. Cardiovascular: Heart regular rate and rhythm Chest: Able to complete full sentences, no retractions, no tachypnea Abdomen: abdomen soft, non-tender, non-distended, no organomegaly Musculoskeletal: Pulses present and equal in all extremities, no peripheral edema, shortened and externally rotated right lower extremity Motor: no focal deficits noted Neurological: CN II-XII grossly intact, no focal motor or sensory deficits noted Skin: Intact with no visualized rashes Psych: Normal affect and mood ED course: 64-year-old female presents after fall. Vital signs upon arrival are within acceptable limits. Femur x-ray shows displaced distal femur shaft fracture with valgus angulation. X-rays were discussed with neck branch, orthopedic on-call. Images were sent via [employer]. He recommends the patient be transferred to [facility] for orthopedic trauma. EKG interpretation: Ventricular rate 64, normal sinus rhythm,. Interval 142, QRS 84, QTc 435. No MN prolongation, no QTC prolongation, no ST or T-wave changes noted. Overall, this EKG is unremarkable Computed tomography scan the brain is unremarkable. There is a left occipital scalp hematoma. No intracranial injuries. Pelvis x-ray is unremarkable. Chest x-ray is unremarkable. Femur x-ray shows acute comminuted and displaced oblique fracture of the distal shaft of the femur. Case is discussed with Dr. Hill who is willing to accept patients care for transfer at [facility]. Patient offered morphine however she refused she would prefer to have just Tylenol. - Related Data Home Medications Medication Instructions Recorded Confirmed QUEtiapine FUMARATE [SEROquel] 300 mg PO HS 10/12/14 01/31/20 Rosuvastatin [Crestor] 20 mg PO DAILY 10/12/14 01/31/20 lamoTRIgine 200 mg PO DAILY 10/12/14 01/31/20 lisinopriL [Zestril] 5 mg PO DAILY 10/12/14 01/31/20 Ipratropium/Albuterol Sulfate 1 puff INHALATION RT-QID 12/06/17 01/31/20 [Combivent Respimat Inhaler] Memantine HCl [Namenda Xr] 28 mg PO DAILY 12/06/17 01/31/20 Omeprazole 20 mg PO DAILY 12/06/17 01/31/20 Aspirin 81 mg PO DAILY 01/10/18 01/31/20 Gabapentin [Neurontin] 300 mg PO TID 01/10/18 01/31/20 Ramelteon [Rozerem] 8 mg PO HS 01/10/18 01/31/20 Fluticasone/Vilanterol [Breo 1 puff INHALATION RT-DAILY 01/31/20 01/31/20 Ellipta 200-25 Mcg INH] Sertraline [Zoloft] 50 mg PO TID 01/31/20 01/31/20 Previous Rx's Medication Instructions Recorded Isosorbide Mononitrate ER [Imdur] 15 mg PO DAILY #30 dose 02/01/20 Metoprolol Succinate (ER) [Toprol 25 mg PO DAILY #1 tab 02/01/20 Xl] Nicotine 14Mg/24Hr Patch [Habitrol] 1 patch TRANSDERM DAILY #14 patch 02/01/20 Nitroglycerin Sl Tabs [Nitrostat] 0.4 mg SUBLINGUAL Q5M PRN #30 tab 02/01/20 Allergies Allergy/AdvReac Type Severity Reaction Status Date / Time fentanyl Allergy Rash/Hives Verified 05/02/20 20:32 niacin Allergy Dyspnea,barbara Verified 05/02/20 20:32 h Review of Systems ROS Statement: Those systems with pertinent positive or pertinent negative responses have been documented in the HPI. ROS Other: All systems not noted in ROS Statement are negative. 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 History of Any Multi-Drug Resistant Organisms: None Reported Past Surgical History: Back Surgery, Bladder Surgery, Cholecystectomy, Heart Catheterization, Hysterectomy, Joint Replacement, Orthopedic Surgery, Tubal Ligation Additional Past Surgical History / Comment(s): aortic valve repair, left breast biopsy-neg, oopherectomy, left knee replacement, juan Past Anesthesia/Blood Transfusion Reactions: No Reported Reaction Past Psychological History: Anxiety, Bipolar Smoking Status: Current some day smoker Past Alcohol Use History: None Reported Past Drug Use History: None Reported - Past Family History Mother History Unknown: Yes Additional Family Medical History / Comment(s): Patient states she was adopted General Exam Limitations: no limitations Course Vital Signs 05/02/20 05/02/20 20:28 21:41 Temperature 98 F Pulse Rate 67 58 L Respiratory 18 18 Rate Blood Pressure 121/50 141/83 O2 Sat by Pulse 96 98 Oximetry Medical Decision Making - Lab Data Result diagrams: 05/02/20 20:44 05/02/20 20:44 Lab Results 05/02/20 05/02/20 05/02/20 Range/Units 20:44 20:44 20:44 WBC 4.4 (3.8-10.6) k/uL RBC 4.32 (3.80-5.40) m/uL Hgb 12.8 (11.4-16.0) gm/dL Hct 38.7 (34.0-46.0) % MCV 89.6 (80.0-100.0) fL MCH 29.6 (25.0-35.0) pg MCHC 33.0 (31.0-37.0) g/dL RDW 13.1 (11.5-15.5) % Plt Count 149 L (150-450) k/uL MPV 9.6 Neutrophils % 64 % Lymphocytes % 25 % Monocytes % 5 % Eosinophils % 3 % Basophils % 2 % Neutrophils # 2.8 (1.3-7.7) k/uL Lymphocytes # 1.1 (1.0-4.8) k/uL Monocytes # 0.2 (0-1.0) k/uL Eosinophils # 0.1 (0-0.7) k/uL Basophils # 0.1 (0-0.2) k/uL PT 10.1 (9.0-12.0) sec INR 1.0 (<1.2) APTT 22.4 (22.0-30.0) sec Sodium 136 L (137-145) mmol/L Potassium 4.2 (3.5-5.1) mmol/L Chloride 101 (98-107) mmol/L Carbon Dioxide 32 H (22-30) mmol/L Anion Gap 3 mmol/L BUN 18 H (7-17) mg/dL Creatinine 0.88 (0.52-1.04) mg/dL Est GFR (CKD-EPI)AfAm 80 (>60 ml/min/1.73 sqM) Est GFR (CKD-EPI)NonAf 69 (>60 ml/min/1.73 sqM) Glucose 102 H (74-99) mg/dL Calcium 9.1 (8.4-10.2) mg/dL Total Bilirubin 0.5 (0.2-1.3) mg/dL AST 25 (14-36) U/L ALT 15 (4-34) U/L Alkaline Phosphatase 89 (38-126) U/L Total Protein 7.5 (6.3-8.2) g/dL Albumin 4.0 (3.5-5.0) g/dL Disposition Clinical Impression: Femur fracture Disposition: OTHER INSTITUTION NOT DEFINED Condition: Critical Referrals: Gabe Cisneros DO [Primary Care Provider] - 1-2 days Time of Disposition: 21:43 - Out of Hospital Transfer - Req. Specs Out of Hospital Transfer - Requested Specifics: Other Non-Acute (Estrella Jett)
[2020-05-02 21:10] LABS: Calcium 9.1 mg/dL (8.4-10.2); Potassium 4.2 mmol/L (3.5-5.1); Total Bilirubin 0.5 mg/dL (0.2-1.3); Total Protein 7.5 g/dL (6.3-8.2)
[2020-05-02 21:16] LABS: Partial Thromboplastin Time 22.4 sec (22.0-30.0); Prothrombin Time 10.1 sec (9.0-12.0)
--- NOTE | 2020-05-02 21:24 | XR ---
EXAMINATION TYPE: XR femur RT DATE OF EXAM: 05/02/2020 COMPARISON: NONE HISTORY: Pain TECHNIQUE: 4 views FINDINGS: There is comminuted fracture of the distal femur. There is oblique fracture through the dis aman shaft with separation of the fragments up to 3 cm. The hip joint is anatomic. There is some osteo arthritis at the knee joint. IMPRESSION: Acute comminuted and displaced oblique fracture distal shaft of the femur.
--- NOTE | 2020-05-02 21:26 | XR ---
EXAMINATION TYPE: XR pelvis AP view DATE OF EXAM: 05/02/2020 COMPARISON: NONE HISTORY: Pain TECHNIQUE: Single view FINDINGS: The pelvic ring is intact. Proximal femurs are intact. Sacroiliac joints appear normal. IMPRESSION: Negative exam. No fracture.
--- NOTE | 2020-05-02 21:26 | XR ---
EXAMINATION TYPE: XR chest 1V DATE OF EXAM: 05/02/2020 COMPARISON: 01/31/2020 HISTORY: Pain. Fall. TECHNIQUE: Single view FINDINGS: There is no heart failure nor confluent pneumonic infiltrate. There is mild fibrotic change s in the lungs. There are sternal wires. Heart is enlarged. IMPRESSION: Cardiomegaly. Mild pulmonary fibrosis. No adverse change compared to old exam.
[2020-05-02] MEDS: MORPHINE SULFATE 4 MG/ML SYRINGE IV STA (21:33)
--- NOTE | 2020-05-02 21:38 | CT ---
EXAMINATION TYPE: CT brain cspine wo con DATE OF EXAM: 05/02/2020 COMPARISON: CT brain 01/19/2014 HISTORY: Pt fall, No LOC Headache. Neck pain CT DLP: 1648.2` mGycm Automated exposure control for dose reduction was used. Ventricles and sulci appear normal. There is no mass effect nor midline shift. There is no sign of in tracranial hemorrhage. Calvarium is intact. There is no evidence of cerebral edema. There is increase d density in the scalp over the left occipital bone. Skull base is intact. There is normal aeration of the mastoid sinuses. Cervical vertebra have fairly normal alignment. Disc spaces are fairly normal. Facet joints are intac t. There is no evidence of a fracture. Prevertebral soft tissues are intact. I see no bony destructiv e process. IMPRESSION: Negative CT scan of the cervical spine. There is a very slight cervical dextroscoliosis. Negative CT scan of the brain. No change compared to old exam. Left occipital scalp hematoma noted.
[2020-05-02] MEDS: ACETAMINOPHEN TAB 325 MG TAB PO STA (21:40)
[2020-05-02 21:45] VITALS: BP 141/83; PULSE 58
== END 2020-05-02 23:08 | disposition other institution (70) ==
LOC: EC 20:24
DX: S72.351A Displaced comminuted fracture of shaft of right femur, initial encounter for closed fracture (principal); S00.03XA Contusion of scalp, initial encounter; F41.9 Anxiety disorder, unspecified; F03.90 Unspecified dementia, unspecified severity, without behavioral disturbance, psychotic disturbance, mood disturbance, and anxiety; F31.9 Bipolar disorder, unspecified; F17.200 Nicotine dependence, unspecified, uncomplicated; J44.9 Chronic obstructive pulmonary disease, unspecified; K21.9 Gastro-esophageal reflux disease without esophagitis; E78.5 Hyperlipidemia, unspecified; I10 Essential (primary) hypertension; Z79.51 Long term (current) use of inhaled steroids; Z79.899 Other long term (current) drug therapy; Z88.8 Allergy status to other drugs, medicaments and biological substances; Z95.2 Presence of prosthetic heart valve; Z95.5 Presence of coronary angioplasty implant and graft; Z90.49 Acquired absence of other specified parts of digestive tract; Z90.710 Acquired absence of both cervix and uterus; Z90.722 Acquired absence of ovaries, bilateral; Z96.652 Presence of left artificial knee joint; W01.198A Fall on same level from slipping, tripping and stumbling with subsequent striking against other object, initial encounter; Y92.59 Other trade areas as the place of occurrence of the external cause
CPT/HCPCS: 36415; 70450; 71045; 72125; 72170; 80053; 85025; 85610; 85730; 93005; 99285

== ENCOUNTER → 2020-08-16 | Outpatient (CLI) | payer MEDICARE ==
[2020-08-16 21:07] LABS: African American GFR (CKD) 88.4 (60.0-200.0); Albumin 4.4 g/dL (3.80-4.90); Albumin/Globulin Ratio 1.38 (1.60-3.17); Anion Gap 8.3 mmol/L (4.00-12.00); C Reactive Protein 0.9 mg/dL (0.0-0.8); Calcium 9.6 mg/dL (8.7-10.3); Carbon Dioxide 29.7 mmol/L (21.6-31.8); Globulin 3.2 g/dL (1.6-3.3); Non-African American GFR(CKD) 76.3 (60.0-200.0); Potassium 4.7 mmol/L (3.5-5.5); Total Bilirubin 0.3 mg/dL (0.3-1.2); Total Protein 7.6 g/dL (6.2-8.2)
[2020-08-16 23:51] LABS: HCT 38.3 % (37.2-46.3); HGB 11.4 g/dL (12.0-15.0); MCH 26.3 pg (27.0-32.0); MCHC 29.8 g/dL (32.0-37.0); MCV 88.5 fL (80.0-97.0); Mean Platelet Volume 11.4 fL (9.5-12.2); Platelet Count 240 X 10*3/uL (140-440); RBC 4.33 X 10*6/uL (4.10-5.20); RDW 15.3 % (11.5-14.5); WBC 5.49 X 10*3/uL (4.50-10.00)
[2020-08-17 01:58] LABS: Erythrocyte Sedimentation Rate 79 mm/Hr (0-30)
== END | disposition home or self-care (01) ==
LOC: LABWHC1 13:39
PROVIDERS: ATTEND Orthopaedic Surgery
DX: T84.620A Infection and inflammatory reaction due to internal fixation device of right femur, initial encounter (principal); E55.9 Vitamin D deficiency, unspecified
CPT/HCPCS: 36415; 80053; 82306; 85027; 85652; 86140

== ENCOUNTER → 2020-10-03 | Outpatient (CLI) | payer MEDICARE, OTHER | END | disposition home or self-care (01) | LOC: LABWHC1 10:15 | PROVIDERS: ATTEND Family Medicine | DX: Z20.822 Contact with and (suspected) exposure to COVID-19 (principal) | CPT/HCPCS: U0003; C9803; U0005 ==

== ENCOUNTER → 2020-11-18 | Outpatient (CLI) | payer MEDICARE, OTHER ==
--- NOTE | 2020-11-19 05:26 | MR ---
EXAMINATION TYPE: MR femur/thigh RT wo/w con DATE OF EXAM: 11/18/2020 COMPARISON: None HISTORY: Right hip, thigh, and knee pain. History of surgery 2009. CONTRAST: Standard multiplanar, multisequence MRI departmental protocol utilizing 7.5 mL intravenous Gadavist g adolinium contrast. Exam is limited by the extensive metal artifact from the intramedullary mary jo in the femur. Exam limite d by patient's large size. I see no evidence of a definite pathologic fluid collection. There is mixe d signal at the distal femur consistent with old fracture of the supracondylar femur evident on the x -ray of 05/02/2020. The contrast images show no pathologic enhancement. IMPRESSION: No evidence of a soft tissue mass. Postsurgical changes. No evidence of a pathologic fluid collection. Limited exam.
== END | disposition home or self-care (01) ==
LOC: RADMRIMAIN 18:01
PROVIDERS: ATTEND Orthopaedic Surgery
DX: M25.551 Pain in right hip (principal); M25.561 Pain in right knee; Z98.890 Other specified postprocedural states
CPT/HCPCS: 73720; A9585

== ENCOUNTER → 2020-12-09 | Outpatient (CLI) | payer MEDICARE, OTHER ==
--- NOTE | 2020-12-10 09:28 | XR ---
Right knee HISTORY: M 25.561, trauma and pain 3 views the right knee Correlation to right femur dated 05/02/2020 There is osteophytic change with significant medial compartment joint space loss, marginal spurring i s present tricompartmentally. Intramedullary mary jo placement has been placed in the interval, there is distortion of the distal metadiaphyseal right femur consistent with prior trauma. Multiple screws are present distally along the metaphysis of the right femur which breaches the cortex. Spurring is also significant at the patellofemoral joint, suspect some soft tissue swelling is present. There are ath erosclerotic vascular calcifications present. Bone mineralization overall is reduced. No acute fractu re or dislocation. Lateral view shows cortical thickening the distal diaphyseal right femur, some scl erosis which could be related to prior trauma and healing rather than infection. IMPRESSION: Osteoarthritis. Postop changes as described. Findings consistent with remote history of t rauma. Correlate to exclude osteomyelitis.
== END | disposition home or self-care (01) ==
LOC: RADXRMAIN 17:19
PROVIDERS: ATTEND Family Medicine
DX: M17.11 Unilateral primary osteoarthritis, right knee (principal)

== ENCOUNTER → 2021-02-03 | Outpatient (CLI) | payer MEDICARE, OTHER ==
--- NOTE | 2021-02-05 08:46 | MM ---
Reason for exam: screening (asymptomatic). Last mammogram was performed 1 year and 9 months ago. History: Patient is postmenopausal. Benign excisional biopsy of the left breast, 1979. Took hormonal contraceptives for 5 years. Physical Findings: A clinical breast exam by your physician is recommended on an annual basis and results should be correlated with mammographic findings. MG 3D Screening Mammo W/Cad Bilateral CC and MLO view(s) were taken. Prior study comparison: April 27, 2019, bilateral MG 3d screening mammo w/cad. December 20, 2017, bilateral MG 3d screening mammo w/cad. There are scattered fibroglandular densities. No significant changes when compared with prior studies. ASSESSMENT: Benign, BI-RAD 2 RECOMMENDATION: Routine screening mammogram of both breasts in 1 year.
== END | disposition home or self-care (01) ==
LOC: RADMAMWWP 16:07
PROVIDERS: ATTEND Family Medicine
DX: Z12.31 Encounter for screening mammogram for malignant neoplasm of breast (principal); Z78.0 Asymptomatic menopausal state
CPT/HCPCS: 77063; 77067

== ENCOUNTER 2022-07-19 20:56 | Emergency (ER) | payer MEDICARE, OTHER ==
[2022-07-19 21:11] VITALS: BP 120/73; PULSE 71; RESP 18; TEMP 98.5
--- NOTE | 2022-07-19 21:43 | ED ---
Psych HPI - General Chief Complaint: Psychiatric Symptoms Stated Complaint: Mental health, LE Petition Time Seen by Provider: 07/19/22 21:18 Source: patient, police, RN notes reviewed Mode of arrival: ambulatory - History of Present Illness Initial Comments: Patient is a 66-year-old female presenting to the emergency room via [place] police escort after getting in an altercation verbally with family earlier this evening and threatening to take a bunch of pills according to her petition. She at this time denies any suicidal thoughts, homicidal thoughts, saurav lucinations or delusions. She reports that she was frustrated with the arguments and has been arguing with family often. She has a past medical history significant for dementia and does have difficulty following instructions but is currently alert and oriented 3. In addition to her dementia history she has past medical history significant for COPD, GERD, hypertension, hyperlipidemia, anxiety and bipolar disorder. - Related Data Home Medications Medication Instructions Recorded Confirmed QUEtiapine FUMARATE [SEROquel] 300 mg PO HS 10/12/14 01/31/20 Rosuvastatin [Crestor] 20 mg PO DAILY 10/12/14 01/31/20 lamoTRIgine 200 mg PO DAILY 10/12/14 01/31/20 lisinopriL [Zestril] 5 mg PO DAILY 10/12/14 01/31/20 Ipratropium/Albuterol Sulfate 1 puff INHALATION RT-QID 12/06/17 01/31/20 [Combivent Respimat Inhaler] Memantine HCl [Namenda Xr] 28 mg PO DAILY 12/06/17 01/31/20 Omeprazole 20 mg PO DAILY 12/06/17 01/31/20 Aspirin 81 mg PO DAILY 01/10/18 01/31/20 Gabapentin [Neurontin] 300 mg PO TID 01/10/18 01/31/20 Ramelteon [Rozerem] 8 mg PO HS 01/10/18 01/31/20 Fluticasone/Vilanterol [Breo 1 puff INHALATION RT-DAILY 01/31/20 01/31/20 Ellipta 200-25 Mcg Inhaler] Sertraline [Zoloft] 50 mg PO TID 01/31/20 01/31/20 Previous Rx's Medication Instructions Recorded Isosorbide Mononitrate ER [Imdur] 15 mg PO DAILY #30 dose 10/01/20 Metoprolol Succinate (ER) [Toprol 25 mg PO DAILY #1 tab 02/01/20 Xl] Nicotine 14Mg/24Hr Patch [Habitrol] 1 patch TRANSDERM DAILY #14 patch 02/01/20 Nitroglycerin Sl Tabs [Nitrostat] 0.4 mg SUBLINGUAL Q5M PRN #30 tab 02/01/20 Allergies Allergy/AdvReac Type Severity Reaction Status Date / Time fentanyl Allergy Rash/Hives Verified 07/19/22 21:08 niacin Allergy Dyspnea,barbara Verified 07/19/22 21:08 h Review of Systems ROS Statement: Those systems with pertinent positive or pertinent negative responses have been documented in the HPI. ROS Other: All systems not noted in ROS Statement are negative. Past Medical History Past Medical History: Chest Pain / Angina, COPD, Dementia, GERD/Reflux, Hyperlipidemia, Hypertension, Mitral Valve Prolapse (MVP) History of Any Multi-Drug Resistant Organisms: None Reported Past Surgical History: Back Surgery, Bladder Surgery, Cholecystectomy, Heart Catheterization, Hysterectomy, Joint Replacement, Orthopedic Surgery, Tubal Ligation Additional Past Surgical History / Comment(s): aortic valve repair, left breast biopsy-neg, oopherectomy, left knee replacement, juan Past Anesthesia/Blood Transfusion Reactions: No Reported Reaction Past Psychological History: Anxiety, Bipolar Smoking Status: Current some day smoker Past Alcohol Use History: None Reported Past Drug Use History: None Reported - Past Family History Mother History Unknown: Yes Additional Family Medical History / Comment(s): Patient states she was adopted General Exam - General Exam Comments Initial Comments: GENERAL: No acute distress, well developed, well nourished. HEENT: Normocephalic, atraumatic. Pupils equal, round, reactive to light. Moist mucous membranes. LUNGS: No respiratory distress. Diminished bibasilar otherwise clear to auscultation, no adventitious sounds, no use of accessory muscles. Nonproductive cough HEART: Regular rate and rhythm without murmur, rub, or gallop. ABDOMEN: Normal bowel sounds. Soft, non-tender, non-distended. BACK: Normal inspection. EXTREMITIES: No edema. No tenderness. Moves all extremities. NEUROLOGIC: Alert & oriented x 3. CN II-XII grossly intact. Difficulty following directions PSYCHIATRIC: Flat affect and behavior. DERMATOLOGIC: Skin intact, without rashes or lesions noted. Limitations: no limitations Course Vital Signs 07/19/22 21:08 Temperature 98.5 F Pulse Rate 71 Respiratory 18 Rate Blood Pressure 120/73 O2 Sat by Pulse 96 Oximetry Medical Decision Making - Medical Decision Making Was pt. sent in by a medical professional or institution (, LEN, GRINDER AND HONER OPERATOR AUTOMATIC, urgent care, hospital, or long-term...) When possible be specific @ -No Did you speak to anyone other than the patient for history (EMS, parent, family, police, friend...)? What history was obtained from this source @ -Police report reviewed Did you review nursing and triage notes (agree or disagree)? Why? @ -I reviewed and agree with nursing and triage notes Were old charts reviewed (outside hosp., previous admission, EMS record, old EKG, old radiological studies, urgent care reports/EKG's, long-term records)? Report findings @ -No old charts were reviewed Differential Diagnosis (chest pain, altered mental status, abdominal pain women, abdominal pain men, vaginal bleeding, weakness, fever, dyspnea, syncope, headache, dizziness, GI bleed, back pain, seizure, CVA, palpatations, mental health, musculoskeletal)? @ -Differential Mental Health Depression, anxiety, bipolar, psychosis, schizophrenia, borderline personality, situational depression, adjustment disorder, behavioral disorder, brain tumor, malingering, substance abuse, encephalopathy, medication reaction, dementia, hypothyroidism, degenerative neurologic disorder, lupus.... This is not meant to be all-inclusive list EKG interpreted by me (3pts min.). @ -None done X-rays interpreted by me (1pt min.). @ -None done CT interpreted by me (1pt min.). @ -None done U/S interpreted by me (1pt. min.). @ -None done What testing was considered but not performed or refused? (CT, X-rays, U/S, labs)? Why? @ -None What meds were considered but not given or refused? Why? @ -None Did you discuss the management of the patient with other professionals (professionals i.e. LEN Rizzo, GRINDER AND HONER OPERATOR [employer]OMATIC, lab, RT, psych nurse, director social welfare, water sponger, teacher, senior grants officer, case consultant)? Give summary @ -No Was smoking cessation discussed for >3mins.? @ -No Was critical care preformed (if so, how long)? @ -No Were there social determinants of health that impacted care today? How? (Homelessness, low income, unemployed, alcoholism, drug addiction, transportation, low edu. Level, literacy, decrease access to med. care, senior care, rehab)? @ -No Was there de-escalation of care discussed even if they declined (Discuss DNR or withdrawal of care, Hospice)? DNR status @ -No What co-morbidities impacted this encounter? (DM, HTN, Smoking, COPD, CAD, Cancer, CVA, ARF, Chemo, Hep., AIDS, mental health diagnosis, sleep apnea, morbid obesity)? @ -Bipolar and depression history Was patient admitted / discharged? Hospital course, mention meds given and route, prescriptions, significant lab abnormalities, going to OR and other pertinent info. @ -66-year-old female presenting to the emergency room via police escort after altercation with her family which was verbal in nature in which she reportedly said that she was going to take a bunch of pills. She denies suicidal thoughts, hallucinations or delusions. She reports no intent of harming herself or others. Breath alcohol level 0.00. No indication for further diagnostic imaging or laboratory studies will clear from a medical standpoint for psychiatric evaluation. Patient placed in a psychiatric room with shortness removed and a psychiatric down with her belongings removed as well. Will maintain safety while awaiting further evaluation by EPS. EPS evaluation completed and patient cleared for discharge home. Concern regarding home dynamics by EPS nurse identified and Adult Protective Services will be completing an evaluation in the home however patient is safe to return home at this time. Will discharge home in stable condition with continued medication therapy for depression advising follow-up with primary care provider. Undiagnosed new problem with uncertain prognosis? @ -No Drug Therapy requiring intensive monitoring for toxicity (Heparin, Nitro, Insulin, Cardizem)? @ -No Were any procedures done? @ -No Diagnosis/symptom? @ -Depression Acute, or Chronic, or Acute on Chronic? @ -Acute on chronic Uncomplicated (without systemic symptoms) or Complicated (systemic symptoms)? @ -Uncomplicated Side effects of treatment? @ -No Exacerbation, Progression, or Severe Exacerbation? @ -No Poses a threat to life or bodily function? How? (Chest pain, USA, [place], pneumonia, PE, COPD, DKA, ARF, appy, cholecystitis, CVA, Diverticulitis, Homicidal, Suicidal, threat to staff... and all critical care pts) @ -No. Case discussed with Dr. Lazaro Disposition Clinical Impression: Depression Disposition: HOME SELF-CARE Condition: Stable Instructions (If sedation given, give patient instructions): Depression (ED) Additional Instructions: Continue your medication as prescribed including her antidepressants. Please follow-up with your primary care provider and is establishing her psychiatrist. Please return to the Emergency Department if symptoms worsen or any other concerns. Is patient prescribed a controlled substance at d/c from ED?: No Referrals: Gabe Cisneros DO [Primary Care Provider] - 1-2 days Time of Disposition: 01:26
== END 2022-07-20 01:42 | disposition home or self-care (01) ==
LOC: EC 20:56
DX: F31.9 Bipolar disorder, unspecified (principal); F41.9 Anxiety disorder, unspecified; I10 Essential (primary) hypertension; E78.5 Hyperlipidemia, unspecified; J44.9 Chronic obstructive pulmonary disease, unspecified; K21.9 Gastro-esophageal reflux disease without esophagitis; F17.200 Nicotine dependence, unspecified, uncomplicated; Z79.82 Long term (current) use of aspirin; Z79.899 Other long term (current) drug therapy; Z88.8 Allergy status to other drugs, medicaments and biological substances
CPT/HCPCS: 82075; 99285

== ENCOUNTER 2022-07-28 17:16 | Observation (INO) | payer MEDICARE, OTHER ==
--- NOTE | 2022-07-28 18:09 | ED ---
General Adult HPI - General Chief complaint: Chest Pain Stated complaint: chest pain Time Seen by Provider: 07/28/22 17:25 Source: patient Mode of arrival: ambulatory Limitations: no limitations - History of Present Illness Initial comments: This is a 67-year-old female with extensive past medical history including hypertension, COPD and previous aortic valve replacement presented to the emergency department for left-sided chest pain. The patient stated that this left-sided chest pain started 15 minutes prior to arrival that did radiate down her left arm and upper left jaw. The patient stated that she was walking when this pain initiated. The patient did take 3 sublingual nitroglycerin tablets without any relief so she came to the emergency department. The patient on arrival stated that the pain was still consistent on the left side of her chest and felt as if there was a "elephant sitting on her chest. The patient however denied any nausea, vomiting and diaphoresis. The patient denied any other acute complaints at this time. - Related Data Home Medications Medication Instructions Recorded Confirmed QUEtiapine FUMARATE [SEROquel] 300 mg PO HS 10/12/14 01/31/20 Rosuvastatin [Crestor] 20 mg PO DAILY 10/12/14 01/31/20 lamoTRIgine 200 mg PO DAILY 10/12/14 01/31/20 lisinopriL [Zestril] 5 mg PO DAILY 10/12/14 01/31/20 Ipratropium/Albuterol Sulfate 1 puff INHALATION RT-QID 12/06/17 01/31/20 [Combivent Respimat Inhaler] Memantine HCl [Namenda Xr] 28 mg PO DAILY 12/06/17 01/31/20 Omeprazole 20 mg PO DAILY 12/06/17 01/31/20 Aspirin 81 mg PO DAILY 01/10/18 01/31/20 Gabapentin [Neurontin] 300 mg PO TID 01/10/18 01/31/20 Ramelteon [Rozerem] 8 mg PO HS 01/10/18 01/31/20 Fluticasone/Vilanterol [Breo 1 puff INHALATION RT-DAILY 01/31/20 01/31/20 Ellipta 200-25 Mcg Inhaler] Sertraline [Zoloft] 50 mg PO TID 01/31/20 01/31/20 Previous Rx's Medication Instructions Recorded Isosorbide Mononitrate ER [Imdur] 15 mg PO DAILY #30 dose 02/01/20 Metoprolol Succinate (ER) [Toprol 25 mg PO DAILY #1 tab 02/01/20 Xl] Nicotine 14Mg/24Hr Patch [Habitrol] 1 patch TRANSDERM DAILY #14 patch 02/01/20 Nitroglycerin Sl Tabs [Nitrostat] 0.4 mg SUBLINGUAL Q5M PRN #30 tab 02/01/20 Allergies Allergy/AdvReac Type Severity Reaction Status Date / Time fentanyl Allergy Rash/Hives Verified 07/28/22 17:24 niacin Allergy Dyspnea,barbara Verified 07/28/22 17:24 h Review of Systems ROS Statement: Those systems with pertinent positive or pertinent negative responses have been documented in the HPI. ROS Other: All systems not noted in ROS Statement are negative. Past Medical History Past Medical History: Chest Pain / Angina, COPD, Dementia, GERD/Reflux, Hyperlipidemia, Hypertension, Mitral Valve Prolapse (MVP) Additional Past Medical History / Comment(s): Aortic valve replacement, murmur, "beginning of dementia", insomnia,pt unsure if she recieved the flu/pne vaccin e,flex o writer operator unable to verify at time of this admit. History of Any Multi-Drug Resistant Organisms: None Reported Past Surgical History: Back Surgery, Bladder Surgery, Cholecystectomy, Heart Catheterization, Hysterectomy, Joint Replacement, Orthopedic Surgery, Tubal Ligation Additional Past Surgical History / Comment(s): aortic valve repair, left breast biopsy-neg, oopherectomy, left knee replacement, juan Past Anesthesia/Blood Transfusion Reactions: No Reported Reaction Past Psychological History: Anxiety, Bipolar Smoking Status: Current every day smoker, Current some day smoker Past Alcohol Use History: None Reported Past Drug Use History: None Reported - Past Family History Mother History Unknown: Yes Additional Family Medical History / Comment(s): Patient states she was adopted General Exam Limitations: no limitations General appearance: alert, in no apparent distress, obese Head exam: Present: atraumatic, normocephalic, normal inspection Eye exam: Present: normal appearance, PERRL Pupils: Present: normal accommodation ENT exam: Present: normal exam, normal oropharynx, mucous membranes moist Neck exam: Present: normal inspection, full ROM Respiratory exam: Present: normal lung sounds bilaterally Cardiovascular Exam: Present: regular rate, normal rhythm, normal heart sounds GI/Abdominal exam: Present: soft, normal bowel sounds Extremities exam: Present: normal inspection, full ROM Back exam: Present: normal inspection, full ROM Neurological exam: Present: alert, oriented X3, CN II-XII intact Psychiatric exam: Present: normal affect, normal mood Skin exam: Present: warm, dry Course Vital Signs 07/28/22 07/28/22 17:22 19:34 Temperature 98.3 F Pulse Rate 68 65 Respiratory 18 18 Rate Blood Pressure 134/72 132/78 O2 Sat by Pulse 90 L 98 Oximetry EKG Findings - EKG Comments: EKG Findings:: An EKG was obtained was interpreted by myself showing a rate of 60, MS interval 156, QRS duration of 90 and QTC of 396. This EKG showed a normal sinus rhythm with no ST segment elevation or depression noted. Medical Decision Making - Medical Decision Making Was pt. sent in by a medical professional or institution (, PA, BATTERY TESTER AND REPAIRER, urgent care, hospital, or senior living...) When possible be specific @ -No Did you speak to anyone other than the patient for history (EMS, parent, family, police, friend...)? What history was obtained from this source @ -No Did you review nursing and triage notes (agree or disagree)? Why? @ -I reviewed and agree with nursing and triage notes Were old charts reviewed (outside hosp., previous admission, EMS record, old EKG, old radiological studies, urgent care reports/EKG's, senior living records)? Report findings @ -No old charts were reviewed Differential Diagnosis (chest pain, altered mental status, abdominal pain women, abdominal pain men, vaginal bleeding, weakness, fever, dyspnea, syncope, headache, dizziness, GI bleed, back pain, seizure, CVA, palpatations, mental health)? @ -ACS, chest wall muscle strain, pneumonia EKG interpreted by me (3pts min.). @ -As above X-rays interpreted by me (1pt min.). @ -Chest x-ray was obtained and was interpreted by myself showing mild coarse interstitial markings. There was no heart failure or consolidation. There is no significant change. CT interpreted by me (1pt min.). @ -None done U/S interpreted by me (1pt. min.). @ -None done What testing was considered but not performed or refused? (CT, X-rays, U/S, labs)? Why? @ -None What meds were considered but not given or refused? Why? @ -None Did you discuss the management of the patient with other professionals (professionals i.e. , PA, BATTERY TESTER AND REPAIRER, lab, RT, psych nurse, medical social consultant, repair order clerk, teacher, public service officer, senior case manager)? Give summary @ -Yes, admitting team, Shanice Gonzalez Was smoking cessation discussed for >3mins.? @ -Yes Was critical care preformed (if so, how long)? @ -No Were there social determinants of health that impacted care today? How? (Homelessness, low income, unemployed, alcoholism, drug addiction, transportation, low edu. Level, literacy, decrease access to med. care, alf, rehab)? @ -No Was there de-escalation of care discussed even if they declined (Discuss DNR or withdrawal of care, Hospice)? DNR status @ -No What co-morbidities impacted this encounter? (DM, HTN, Smoking, COPD, CAD, Cancer, CVA, ARF, Chemo, Hep., AIDS, mental health diagnosis, sleep apnea, morbid obesity)? @ -Hypertension, diabetes, COPD Was patient admitted / discharged? Hospital course, mention meds given and route, prescriptions, significant lab abnormalities, going to OR and other pertinent info. @ -The patient was seen and evaluated in emergency department. Physical exam, the patient was resting in bed without any acute distress. Vital signs admission were stable. Laboratory workup was within normal limits. The patient continued left-sided chest pain and due to the patient's history of previous cardiac stents and multiple cardiac issues, the patient will be placed in observation to be seen and evaluated by cardiology. The patient was told this plan and was agreeable. The patient was placed in observation in stable condition. Undiagnosed new problem with uncertain prognosis? @ -No Drug Therapy requiring intensive monitoring for toxicity (Heparin, Nitro, Insulin, Cardizem)? @ -No Were any procedures done? @ -No Diagnosis/symptom? @ -Chest pain, rule out ACS Acute, or Chronic, or Acute on Chronic? @ -Acute on chronic Uncomplicated (without systemic symptoms) or Complicated (systemic symptoms)? @ -Uncomplicated Side effects of treatment? @ -No Exacerbation, Progression, or Severe Exacerbation? @ -No Poses a threat to life or bodily function? How? (Chest pain, [place], [place], pneumonia, PE, COPD, DKA, ARF, appy, cholecystitis, CVA, Diverticulitis, Homicidal, Suicidal, threat to staff... and all critical care pts) @ -Yes, chest pain can be caused by ACS which lead to permanent cardiac damage and possible . - Lab Data Result diagrams: 07/28/22 18:05 07/28/22 18:05 Lab Results 07/28/22 07/28/22 07/28/22 Range/Units 18:05 18:05 18:05 WBC 4.2 (3.8-10.6) k/uL RBC 4.30 (3.80-5.40) m/uL Hgb 12.4 (11.4-16.0) gm/dL Hct 37.9 (34.0-46.0) % MCV 88.3 (80.0-100.0) fL MCH 28.9 (25.0-35.0) pg MCHC 32.8 (31.0-37.0) g/dL RDW 14.2 (11.5-15.5) % Plt Count 142 L (150-450) k/uL MPV 9.9 Neutrophils % 61 % Lymphocytes % 28 % Monocytes % 6 % Eosinophils % 4 % Basophils % 1 % Neutrophils # 2.6 (1.3-7.7) k/uL Lymphocytes # 1.2 (1.0-4.8) k/uL Monocytes # 0.2 (0-1.0) k/uL Eosinophils # 0.2 (0-0.7) k/uL Basophils # 0.0 (0-0.2) k/uL PT 10.1 (9.0-12.0) sec INR 0.9 (<1.2) APTT 23.7 (22.0-30.0) sec Sodium 138 (137-145) mmol/L Potassium 4.1 (3.5-5.1) mmol/L Chloride 104 (98-107) mmol/L Carbon Dioxide 29 (22-30) mmol/L Anion Gap 5 mmol/L BUN 11 (7-17) mg/dL Creatinine 0.82 (0.52-1.04) mg/dL Est GFR (CKD-EPI)AfAm 85 (>60 ml/min/1.73 sqM) Est GFR (CKD-EPI)NonAf 73 (>60 ml/min/1.73 sqM) Glucose 81 (74-99) mg/dL Calcium 8.6 (8.4-10.2) mg/dL Magnesium 2.0 (1.6-2.3) mg/dL Total Bilirubin 0.4 (0.2-1.3) mg/dL AST 21 (14-36) U/L ALT 14 (4-34) U/L Alkaline Phosphatase 80 (38-126) U/L Troponin I (0.000-0.034) ng/mL Total Protein 6.9 (6.3-8.2) g/dL Albumin 3.8 (3.5-5.0) g/dL Lipase 24 (23-300) U/L 07/28/22 Range/Units 18:05 WBC (3.8-10.6) k/uL RBC (3.80-5.40) m/uL Hgb (11.4-16.0) gm/dL Hct (34.0-46.0) % MCV (80.0-100.0) fL MCH (25.0-35.0) pg MCHC (31.0-37.0) g/dL RDW (11.5-15.5) % Plt Count (150-450) k/uL MPV Neutrophils % % Lymphocytes % % Monocytes % % Eosinophils % % Basophils % % Neutrophils # (1.3-7.7) k/uL Lymphocytes # (1.0-4.8) k/uL Monocytes # (0-1.0) k/uL Eosinophils # (0-0.7) k/uL Basophils # (0-0.2) k/uL PT (9.0-12.0) sec INR (<1.2) APTT (22.0-30.0) sec Sodium (137-145) mmol/L Potassium (3.5-5.1) mmol/L Chloride (98-107) mmol/L Carbon Dioxide (22-30) mmol/L Anion Gap mmol/L BUN (7-17) mg/dL Creatinine (0.52-1.04) mg/dL Est GFR (CKD-EPI)AfAm (>60 ml/min/1.73 sqM) Est GFR (CKD-EPI)NonAf (>60 ml/min/1.73 sqM) Glucose (74-99) mg/dL Calcium (8.4-10.2) mg/dL Magnesium (1.6-2.3) mg/dL Total Bilirubin (0.2-1.3) mg/dL AST (14-36) U/L ALT (4-34) U/L Alkaline Phosphatase (38-126) U/L Troponin I <0.012 (0.000-0.034) ng/mL Total Protein (6.3-8.2) g/dL Albumin (3.5-5.0) g/dL Lipase (23-300) U/L Disposition Clinical Impression: Chest pain Disposition: ADMITTED IP TO THIS HOSP Condition: Stable Is patient prescribed a controlled substance at d/c from ED?: No Referrals: Gabe Cisneros DO [Primary Care Provider] - 1-2 days Time of Disposition: 19:30 Decision to Admit Reason: Admit from EC Decision Date: 07/28/22 Decision Time: 19:30
[2022-07-28 18:11] LABS: Basophils % (A) 1 %; Eosinophils # (A) 0.2 k/uL (0-0.7); Eosinophils % (A) 4 %; HCT 37.9 % (34.0-46.0); HGB 12.4 gm/dL (11.4-16.0); Lymphocytes # (A) 1.2 k/uL (1.0-4.8); Lymphocytes % (A) 28 %; MCH 28.9 pg (25.0-35.0); MCHC 32.8 g/dL (31.0-37.0); MCV 88.3 fL (80.0-100.0); Mean Platelet Volume 9.9; Monocytes # (A) 0.2 k/uL (0-1.0); Monocytes % (A) 6 %; Neutrophils # (A) 2.6 k/uL (1.3-7.7); Neutrophils % (A) 61 %; Platelet Count 142 k/uL (150-450); RDW 14.2 % (11.5-15.5); WBC 4.2 k/uL (3.8-10.6)
[2022-07-28 18:21] LABS: Albumin 3.8 g/dL (3.5-5.0); Calcium 8.6 mg/dL (8.4-10.2); Potassium 4.1 mmol/L (3.5-5.1); Total Bilirubin 0.4 mg/dL (0.2-1.3); Total Protein 6.9 g/dL (6.3-8.2)
[2022-07-28 18:37] LABS: INR 0.9 (<1.2); Partial Thromboplastin Time 23.7 sec (22.0-30.0); Prothrombin Time 10.1 sec (9.0-12.0)
--- NOTE | 2022-07-28 19:34 | XR ---
EXAMINATION TYPE: XR chest 2V DATE OF EXAM: 07/28/2022 COMPARISON: 05/02/2020 HISTORY: Pain TECHNIQUE: 2 views FINDINGS: There is cardiac valve surgery. There is some coarsening of pulmonary interstitial markings . Heart is slightly enlarged. No pleural effusion. Bony thorax is intact. There are sternal wires. IMPRESSION: Mild coarsening of the interstitial markings. No heart failure or pulmonary consolidation . No significant change. This could be mild pulmonary fibrosis.
[2022-07-28] MEDS ORDERED: ONDANSETRON 4 MG/2 ML VIAL IVP STA (19:45)
[2022-07-28] MEDS ORDERED: NALOXONE 0.4 MG/ML 1 ML VIAL IV PRN (19:58)
[2022-07-29 07:50] VITALS: BP 109/53; TEMP 98.1
[2022-07-29] MEDS ORDERED: NITROGLYCERIN SL TABS 0.4 MG TAB SUBLINGUAL PRN (07:53)
[2022-07-29] MEDS ORDERED: lisinopriL 10 MG TAB PO SCH (09:00)
[2022-07-29] MEDS ORDERED: EZETIMIBE 10 MG TAB PO SCH (09:00)
[2022-07-29] MEDS ORDERED: METOPROLOL SUCCINATE (ER) 25 MG TAB.ER.24H PO SCH (09:00)
[2022-07-29] MEDS ORDERED: ASPIRIN 81 MG PO SCH (09:00)
[2022-07-29] MEDS ORDERED: ATORVASTATIN 40 MG TAB PO SCH (09:00)
--- NOTE | 2022-07-29 09:31 | P.CRDCN ---
History of Present Illness History of present illness: HISTORY OF PRESENT ILLNESS: This is a 67-year-old female with a past medical history significant for hypertension, hyperlipidemia, severe aortic regurgitation status post bioprosthetic aortic valve replacement in 2009, COPD, nicotine dependence, and normal coronary arteries per cardiac catheterization in 2019. Patient follows in the office with Dr. Lock. We have been asked to see the patient in consultation for chest pain. Patient examined at the bedside. Patient states she has been having chest pain on and off at home for quite some time. She states she usually takes a couple nitro and the pain resolves. However, yesterday she continued to have chest pain so she came to the ER for further evaluation. The patient also reports that she has been feeling short of breath, nauseated, and lightheaded. She states that the pain ended up going away on its own during the night. At the time of examination she denies any chest pain or pressure she denies any shortness of breath. Vital signs are stable. * EKG reveals sinus bradycardia with no signs of acute ischemia * Chest xray mild coarsening of interstitial markings. No heart failure pulmonary consolidation. No significant change. This could be mild pulmonary fibrosis * Laboratory data: WBC 4.2. Hemoglobin 12.4. Platelet count 142. Sodium 138. Potassium 4.1. BUN 11. Creatinine 0.82. Troponin negative 1. * Current home cardiac medications include study at 10 mg daily, metoprolol succinate 25 mg daily, Crestor 20 mg daily, lisinopril 10 mg daily, and aspirin 81 mg every 48 hours * Most recent echocardiogram obtained in March 2022 revealed ejection fraction of 55-60%, moderate aortic stenosis, biological AV prosthetic, mild MR, mild TR * Patient underwent Lexiscan stress test in July 2022 which was negative for ischemia * Cardiac catheterization history: February 2020 revealing normal coronary arteries REVIEW OF SYSTEMS: At the time of my exam: CONSTITUTIONAL: Denies fever or chills. HEENT: Denies blurred vision, vision changes, or eye pain. Denies hemoptysis CARDIOVASCULAR: Denies chest pain. Denies orthopnea. Denies PND. Denies palpitations RESPIRATORY: Denies shortness of breath. GASTROINTESTINAL: Denies abdominal pain. Denies nausea or vomiting. HEMATOLOGIC: Denies bleeding disorders. GENITOURINARY: Denies any blood in urine. SKIN: Denies pruitis. Denies rash. PHYSICAL EXAM: VITAL SIGNS: Reviewed. GENERAL: Well-developed in no acute distress. HEENT: Head is normocephalic. Pupils are equal, round. Sclerae anicteric. Mucous membranes of the mouth are moist. Neck supple. No JVD or thyromegaly LUNGS: Respirations even and unlabored. Lungs essentially clear to auscultation bilaterally. HEART: Regular rate and rhythm. S1 and S2 heard. + systolic murmur. ABDOMEN: Soft. Nondistended. Nontender. EXTREMITIES: Normal range of motion. No clubbing or cyanosis. Peripheral pulses intact. No lower extremity edema NEUROLOGIC: Awake and alert. Oriented x 3. ASSESSMENT: Chest pain, troponins negative 2 Normal coronary arteries, per cardiac catheterization in 2019 Severe aortic regurgitation, status post bioprosthetic aortic valve in 2009 Hypertension Hyperlipidemia COPD Nicotine dependence PLAN: An acute coronary event has been ruled out Resume home cardiac medications Obtain 2-D echo to assess cardiac structure and function Patient may be discharged home this afternoon from a cardiac standpoint and follow up in the office with Dr. Lock early next week Nurse practitioner note has been reviewed by physician. Signing provider agrees with the documented findings, assessment, and plan of care. 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 History of Any Multi-Drug Resistant Organisms: None Reported Past Surgical History: Back Surgery, Bladder Surgery, Cholecystectomy, Heart Catheterization, Hysterectomy, Joint Replacement, Orthopedic Surgery, Tubal Ligation Additional Past Surgical History / Comment(s): aortic valve repair, left breast biopsy-neg, oopherectomy, left knee replacement, juan Past Anesthesia/Blood Transfusion Reactions: No Reported Reaction Past Psychological History: Anxiety, Bipolar Smoking Status: Current every day smoker, Current some day smoker Past Alcohol Use History: None Reported Additional Past Alcohol Use History / Comment(s): started at age 15 smokes 1 ppd Past Drug Use History: None Reported - Past Family History Mother History Unknown: Yes Additional Family Medical History / Comment(s): Patient states she was adopted Medications and Allergies Home Medications Medication Instructions Recorded Confirmed Type QUEtiapine FUMARATE [SEROquel] 300 mg PO HS 10/12/14 07/28/22 History Rosuvastatin [Crestor] 20 mg PO DAILY 10/12/14 07/28/22 History lisinopriL [Zestril] 10 mg PO DAILY 10/12/14 07/28/22 History Ipratropium/Albuterol Sulfate 1 puff INHALATION RT-QID 12/06/17 07/28/22 History [Combivent Respimat Inhaler] Memantine HCl [Namenda Xr] 28 mg PO DAILY 12/06/17 07/28/22 History Omeprazole 20 mg PO DAILY 12/06/17 07/28/22 History Aspirin 81 mg PO Q48H 01/10/18 07/28/22 History Gabapentin [Neurontin] 300 mg PO TID 01/10/18 07/28/22 History Fluticasone/Vilanterol [Breo 1 puff INHALATION RT-DAILY 01/31/20 07/28/22 Hist ory Ellipta 200-25 Mcg Inhaler] Nitroglycerin Sl Tabs [Nitrostat] 0.4 mg SUBLINGUAL Q5M PRN #30 tab 02/01/20 07/28/22 Rx Alendronate Sodium [Fosamax] 70 mg PO RAZO 07/28/22 07/28/22 History Ergocalciferol (Vitamin D2) 1,250 mcg PO SA 07/28/22 07/28/22 History [Drisdol (50,000 Iu)] Ezetimibe [Zetia] 10 mg PO DAILY 07/28/22 07/28/22 History Levothyroxine Sodium [Synthroid] 25 mcg PO DAILY 07/28/22 07/28/22 History Metoprolol Succinate (ER) [Toprol 25 mg PO DAILY 07/28/22 07/28/22 History Xl] Sertraline [Zoloft] 150 mg PO DAILY 07/28/22 07/28/22 History Allergies Allergy/AdvReac Type Severity Reaction Status Date / Time fentanyl Allergy Rash/Hives Verified 07/28/22 20:46 niacin Allergy Dyspnea,barbara Verified 07/28/22 20:46 h Physical Exam Vitals: Vital Signs Temp Pulse Pulse Resp BP BP Pulse Ox 07/29/22 04:21 98.4 F 56 L 18 120/69 94 L 07/28/22 21:06 54 L 127/73 07/28/22 19:34 65 18 132/78 98 07/28/22 17:22 98.3 F 68 18 134/72 90 L Intake and Output 07/28/22 07/29/22 07/29/22 22:59 06:59 14:59 Other: Voiding Method Toilet # Voids 1 1 Weight 83.915 kg Results 07/28/22 18:05 07/28/22 18:05 Cardiac Enzymes 07/28/22 07/28/22 Range/Units 18:05 18:05 AST 21 (14-36) U/L Troponin I <0.012 (0.000-0.034) ng/mL Coagulation 07/28/22 Range/Units 18:05 PT 10.1 (9.0-12.0) sec APTT 23.7 (22.0-30.0) sec CBC 07/28/22 Range/Units 18:05 WBC 4.2 (3.8-10.6) k/uL RBC 4.30 (3.80-5.40) m/uL Hgb 12.4 (11.4-16.0) gm/dL Hct 37.9 (34.0-46.0) % Plt Count 142 L (150-450) k/uL Comprehensive Metabolic Panel 07/28/22 Range/Units 18:05 Sodium 138 (137-145) mmol/L Potassium 4.1 (3.5-5.1) mmol/L Chloride 104 (98-107) mmol/L Carbon Dioxide 29 (22-30) mmol/L BUN 11 (7-17) mg/dL Creatinine 0.82 (0.52-1.04) mg/dL Glucose 81 (74-99) mg/dL Calcium 8.6 (8.4-10.2) mg/dL AST 21 (14-36) U/L ALT 14 (4-34) U/L Alkaline Phosphatase 80 (38-126) U/L Total Protein 6.9 (6.3-8.2) g/dL Albumin 3.8 (3.5-5.0) g/dL Current Medications Generic Name Dose Route Start Last Admin Trade Name Freq PRN Reason Stop Dose Admin Naloxone HCl 0.2 mg 07/28/22 19:58 Naloxone 0.4 Mg/Ml 1 Ml Vial IV Q2M PRN Opioid Reversal Intake and Output 07/28/22 07/29/22 07/29/22 22:59 06:59 14:59 Other: Voiding Method Toilet # Voids 1 1 Weight 83.915 kg 07/28/22 18:05 07/28/22 18:05
[2022-07-29 11:14] VITALS: RESP 16
[2022-07-29 11:24] VITALS: PULSE 60
[2022-07-29] MEDS ORDERED: NON FORMULARY DRUG (Ipratropium/Albuterol Sulfate [Combivent Respimat Inhaler] 1 INHALER M INHALATION SCH (12:00)
[2022-07-29] MEDS ORDERED: ALBUTEROL NEBULIZED 2.5 MG/3 ML INHALATION SCH (12:00)
[2022-07-29] MEDS ORDERED: IPRATROPIUM 0.5 MG/2.5 ML NEBU INHALATION SCH (12:00)
--- NOTE | 2022-07-29 12:16 | CA ---
Transthoracic Echo Report Name: Radha Gramajo Age: 67 Gender: F : 1955 Exam Date: 07/29/2022 09:09 Exam Location: [facility] Ht (in): 62 Wt (lb): 185 Ordering Physician: Rohini Ribera Attending/Referring Phys: [id number], Mounika Surfacer Divya Barnard, JOSE RAMON Procedure CPT: Indications: LV function, CP, hx of AVR Cardiac Hx: Technical Quality: Fair Contrast 1: Total Dose (mL): Contrast 2: Total Dose (mL): MEASUREMENTS (Male / Female) Normal Values 2D ECHO LV Diastolic Diameter PLAX 4.7 cm 4.2 - 5.9 / 3.9 - 5.3 cm LV Systolic Diameter PLAX 3.3 cm IVS Diastolic Thickness 1.2 cm 0.6 - 1.0 / 0.6 - 0.9 cm LVPW Diastolic Thickness 1.1 cm 0.6 - 1.0 / 0.6 - 0.9 cm LV Relative Wall Thickness 0.5 RV Internal Dim ED PLAX 3.2 cm LVOT Diameter 1.7 cm LA Systolic Diameter LX 4.6 cm 3.0 - 4.0 / 2.7 - 3.8 cm LV Diastolic Volume MOD 4C 89.5 cm??? LV Systolic Volume MOD 4C 37.1 cm??? LV Ejection Fraction MOD 4C 58.6 % LV Diastolic Length 4C 7.0 cm LV Systolic Length 4C 5.9 cm LV Diastolic Volume MOD 2C 48.2 cm??? LV Systolic Volume MOD 2C 21.8 cm??? LV Ejection Fraction MOD 2C 54.8 % LV Diastolic Length 2C 7.0 cm LV Systolic Length 2C 5.6 cm LA Volume 75.5 cm??? 18 - 58 / 22 - 52 cm??? M-MODE Aortic Root Diameter MM 3.1 cm DOPPLER AV Peak Velocity 324.9 cm/s AV Peak Gradient 42.2 mmHg AV Mean Velocity 236.4 cm/s AV Mean Gradient 25.1 mmHg AV Velocity Time Integral 85.6 cm LVOT Peak Velocity 147.7 cm/s LVOT Peak Gradient 8.7 mmHg AV Area Cont Eq pk 1.1 cm??? MV Area PHT 3.6 cm??? Mitral E Point Velocity 129.5 cm/s Mitral A Point Velocity 77.2 cm/s Mitral E to A Ratio 1.7 MV Deceleration Time 208.6 ms MV E' Velocity 6.7 cm/s Mitral E to MV E' Ratio 19.4 TR Peak Velocity 265.8 cm/s TR Peak Gradient 28.3 mmHg Right Ventricular Systolic Press 32.0 mmHg FINDINGS Left Ventricle Left ventricular ejection fraction is estimated at 60-65 %. Left ventricular cavity size normal. Mild concentric left ventricular hypertrophy. Normal left ventricular wall motion. Right Ventricle Normal right ventricular size and function. Right ventricular systolic pressure within normal limits. Right Atrium Normal right atrial size. Left Atrium Moderately increased left atrial diameter. Severely increased left atrial volume. Mildly increased left atrial area. Mitral Valve Mitral valve thickened. Mild mitral annular calcification. Trace to mild mitral regurgitation. Aortic Valve Mild biopreostetic aortic stenosis with a peak gradient of 42 mmHg and a mean gradient of 25 mmHg. Mild aortic regurgitation. Tricuspid Valve Structurally normal tricuspid valve. Mild tricuspid regurgitation. Pulmonic Valve Structurally normal pulmonic valve. Trace pulmonic regurgitation. Pericardium Normal pericardium. No pericardial effusion. Aorta Normal size aortic root and proximal ascending aorta. CONCLUSIONS Left ventricular ejection fraction 60-65% Mild increased left ventricular wall thickness Mild to moderately dilated left atrium Mild mitral and your calcification Trace to mild mitral regurgitation Bioprosthetic aortic valve with mild aortic stenosis mean gradient 25 mmHg Mild aortic regurgitation Mild tricuspid regurgitation No pericardial effusion Previewed by: Dr. Willian Lock DO (Electronically Signed) Final Date: 29 July 2022 12:15
--- NOTE | 2022-07-29 12:32 | P.HPIM ---
History of Present Illness H&P Date: 07/29/22 History of present illness; patient is a 14-year-old lady with past medical history significant for hypertension, COPD, previous aortic valve replacement presented to the ER because of chest pain. Chest pain started 15 minutes before coming to the ER, patient described it as an elephant sitting on her chest. Chest pain was due to her left arm and left side of her jaw. There was no aggravating or relieving factors associated with this chest pain. Patient denied any nausea or vomiting at that time. There was no associated shortness of breath. Patient took sublingual nitro but that did not relieve her pain so she came to the ER. In the ER, patient was worked up, initial WBC was 4.2, hemoglobin 12.4, PT 10.1, INR 0.9, sodium 138, potassium 4.1, chloride 104 BUN 11, creatinine 0.82, initial troponin was negative. Initial EKG done did not show any acute ST segment changes. Patient was admitted for further evaluation and treatment REVIEW OF SYSTEMS: CONSTITUTIONAL: No fever, no malaise, no fatigue. HEENT: No recent visual problems or hearing problems. Denied any sore throat. CARDIOVASCULAR: As mentioned in HPI PULMONARY: No shortness of breath, no cough, no hemoptysis. GASTROINTESTINAL: No diarrhea, no nausea, no vomiting, no abdominal pain. NEUROLOGICAL: No headaches, no weakness, no numbness. HEMATOLOGICAL: Denies any bleeding or petechiae. GENITOURINARY: Denies any burning micturition, frequency, or urgency. MUSCULOSKELETAL/RHEUMATOLOGICAL: Denies any joint pain, swelling, or any muscle pain. ENDOCRINE: Denies any polyuria or polydipsia. The rest of the 14-point review of systems is negative. PHYSICAL EXAMINATION: GENERAL: The patient is alert and oriented x3, not in any acute distress. Well developed, well nourished. HEENT: Pupils are round and equally reacting to light. EOMI. No scleral icterus. No conjunctival pallor. Normocephalic, atraumatic. No pharyngeal erythema. No thyromegaly. CARDIOVASCULAR: S1 and S2 present. No murmurs, rubs, or gallops. PULMONARY: Chest is clear to auscultation, no wheezing or crackles. ABDOMEN: Soft, nontender, nondistended, normoactive bowel sounds. No palpable organomegaly. MUSCULOSKELETAL: No joint swelling or deformity. EXTREMITIES: No cyanosis, clubbing, or pedal edema. NEUROLOGICAL: Gross neurological examination did not reveal any focal deficits. SKIN: No rashes. 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 History of Any Multi-Drug Resistant Organisms: None Reported Past Surgical History: Back Surgery, Bladder Surgery, Cholecystectomy, Heart Catheterization, Hysterectomy, Joint Replacement, Orthopedic Surgery, Tubal Ligation Additional Past Surgical History / Comment(s): aortic valve repair, left breast biopsy-neg, oopherectomy, left knee replacement, juan Past Anesthesia/Blood Transfusion Reactions: No Reported Reaction Past Psychological History: Anxiety, Bipolar Smoking Status: Current every day smoker, Current some day smoker Past Alcohol Use History: None Reported Additional Past Alcohol Use History / Comment(s): started at age 15 smokes 1 ppd Past Drug Use History: None Reported - Past Family History Mother History Unknown: Yes Additional Family Medical History / Comment(s): Patient states she was adopted Medications and Allergies Home Medications Medication Instructions Recorded Confirmed Type QUEtiapine FUMARATE [SEROquel] 300 mg PO HS 10/12/14 07/28/22 History Rosuvastatin [Crestor] 20 mg PO DAILY 10/12/14 07/28/22 History lisinopriL [Zestril] 10 mg PO DAILY 10/12/14 07/28/22 History Ipratropium/Albuterol Sulfate 1 puff INHALATION RT-QID 12/06/17 07/28/22 History [Combivent Respimat Inhaler] Memantine HCl [Namenda Xr] 28 mg PO DAILY 12/06/17 07/28/22 History Omeprazole 20 mg PO DAILY 12/06/17 07/28/22 History Aspirin 81 mg PO Q48H 01/10/18 07/28/22 History Gabapentin [Neurontin] 300 mg PO TID 01/10/18 07/28/22 History Fluticasone/Vilanterol [Breo 1 puff INHALATION RT-DAILY 01/31/20 07/28/22 History Ellipta 200-25 Mcg Inhaler] Nitroglycerin Sl Tabs [Nitrostat] 0.4 mg SUBLINGUAL Q5M PRN #30 tab 02/01/20 07/28/22 Rx Alendronate Sodium [Fosamax] 70 mg PO RAZO 07/28/22 07/28/22 History Ergocalciferol (Vitamin D2) 1,250 mcg PO SA 07/28/22 07/28/22 History [Drisdol (50,000 Iu)] Ezetimibe [Zetia] 10 mg PO DAILY 07/28/22 07/28/22 History Levothyroxine Sodium [Synthroid] 25 mcg PO DAILY 07/28/22 07/28/22 History Metoprolol Succinate (ER) [Toprol 25 mg PO DAILY 07/28/22 07/28/22 History Xl] Sertraline [Zoloft] 150 mg PO DAILY 07/28/22 07/28/22 History Allergies Allergy/AdvReac Type Severity Reaction Status Date / Time fentanyl Allergy Rash/Hives Verified 07/28/22 20:46 niacin Allergy Dyspnea,barbara Verified 07/28/22 20:46 h Physical Exam Vitals: Vital Signs Temp Pulse Pulse Resp BP BP Pulse Ox 07/29/22 07:15 98.1 F 53 L 18 109/53 96 07/29/22 04:21 98.4 F 56 L 18 120/69 94 L 07/28/22 21:06 54 L 127/73 07/28/22 19:34 65 18 132/78 98 07/28/22 17:22 98.3 F 68 18 134/72 90 L Intake and Output 07/28/22 07/29/22 07/29/22 22:59 06:59 14:59 Other: Voiding Method Toilet Toilet # Voids 1 1 Weight 83.915 kg Results CBC & Chem 7: 07/28/22 18:05 07/28/22 18:05 Labs: Abnormal Lab Results - Last 24 Hours (Table) 07/28/22 Range/Units 18:05 Plt Count 142 L (150-450) k/uL
--- NOTE | 2022-07-29 12:32 | P.DS ---
Providers Date of admission: 07/28/22 19:58 Expected date of discharge: 07/29/22 Attending physician: Nikole Stacy Consults: 07/28/22 19:58 Consult Physician Routine Consulting Provider: [facility] Consult Reason/Comments: CP r/o [facility] Do you want consulting provider notified?: Yes, Notify in am Primary care physician: Gabe [facility] Hospital Course: Discharge diagnoses; Chest pain Hypertension COPD History of aortic valve replacement Hospital course; patient is a 14-year-old lady with past medical history significant for hypert ension, COPD, previous aortic valve replacement presented to the ER because of chest pain. Chest pain started 15 minutes before coming to the ER, patient described it as an elephant sitting on her chest. Chest pain was due to her left arm and left side of her jaw. There was no aggravating or relieving factors associated with this chest pain. Patient denied any nausea or vomiting at that time. There was no associated shortness of breath. Patient took sublingual nitro but that did not relieve her pain so she came to the ER. In the ER, patient was worked up, initial WBC was 4.2, hemoglobin 12.4, PT 10.1, INR 0.9, sodium 138, potassium 4.1, chloride 104 BUN 11, creatinine 0.82, initial troponin was negative. Initial EKG done did not show any acute ST segment changes. Patient was admitted for further evaluation and treatment Cardiology evaluated the patient recommended at this time chest pain is noncardiac in nature, they cleared the patient for discharge. PHYSICAL EXAMINATION: GENERAL: The patient is alert and oriented x3, not in any acute distress. Well developed, well nourished. HEENT: Pupils are round and equally reacting to light. EOMI. No scleral icterus. No conjunctival pallor. Normocephalic, atraumatic. No pharyngeal erythema. No thyromegaly. CARDIOVASCULAR: S1 and S2 present. No murmurs, rubs, or gallops. PULMONARY: Chest is clear to auscultation, no wheezing or crackles. ABDOMEN: Soft, nontender, nondistended, normoactive bowel sounds. No palpable organomegaly. MUSCULOSKELETAL: No joint swelling or deformity. EXTREMITIES: No cyanosis, clubbing, or pedal edema. NEUROLOGICAL: Gross neurological examination did not reveal any focal deficits. SKIN: No rashes. Plan - Discharge Summary New Discharge Prescriptions: Continue QUEtiapine FUMARATE [SEROquel] 300 mg PO HS Rosuvastatin [Crestor] 20 mg PO DAILY lisinopriL [Zestril] 10 mg PO DAILY Omeprazole 20 mg PO DAILY Memantine HCl [Namenda Xr] 28 mg PO DAILY Ipratropium/Albuterol Sulfate [Combivent Respimat Inhaler] 1 puff INHALATION RT-QID Gabapentin [Neurontin] 300 mg PO TID Aspirin 81 mg PO Q48H Fluticasone/Vilanterol [Breo Ellipta 200-25 Mcg Inhaler] 1 puff INHALATION RT-DAILY Nitroglycerin Sl Tabs [Nitrostat] 0.4 mg SUBLINGUAL Q5M PRN #30 tab PRN Reason: Chest Pain Ezetimibe [Zetia] 10 mg PO DAILY Metoprolol Succinate (ER) [Toprol XL] 25 mg PO DAILY Levothyroxine Sodium [Synthroid] 25 mcg PO DAILY Sertraline [Zoloft] 150 mg PO DAILY Ergocalciferol (Vitamin D2) [Drisdol (50,000 Iu)] 1,250 mcg PO SA Alendronate Sodium [Fosamax] 70 mg PO RAZO Discharge Medication List QUEtiapine FUMARATE [SEROquel] 300 mg PO HS 10/12/14 [History] Rosuvastatin [Crestor] 20 mg PO DAILY 10/12/14 [History] lisinopriL [Zestril] 10 mg PO DAILY 10/12/14 [History] Ipratropium/Albuterol Sulfate [Combivent Respimat Inhaler] 1 puff INHALATION RT- QID 12/06/17 [History] Memantine HCl [Namenda Xr] 28 mg PO DAILY 12/06/17 [History] Omeprazole 20 mg PO DAILY 12/06/17 [History] Aspirin 81 mg PO Q48H 01/10/18 [History] Gabapentin [Neurontin] 300 mg PO TID 01/10/18 [History] Fluticasone/Vilanterol [Breo Ellipta 200-25 Mcg Inhaler] 1 puff INHALATION RT- DAILY 01/31/20 [History] Nitroglycerin Sl Tabs [Nitrostat] 0.4 mg SUBLINGUAL Q5M PRN #30 tab 02/01/20 [Rx] Alendronate Sodium [Fosamax] 70 mg PO RAZO 07/28/22 [History] Ergocalciferol (Vitamin D2) [Drisdol (50,000 Iu)] 1,250 mcg PO SA 07/28/22 [History] Ezetimibe [Zetia] 10 mg PO DAILY 07/28/22 [History] Levothyroxine Sodium [Synthroid] 25 mcg PO DAILY 07/28/22 [History] Metoprolol Succinate (ER) [Toprol XL] 25 mg PO DAILY 07/28/22 [History] Sertraline [Zoloft] 150 mg PO DAILY 07/28/22 [History] Follow up Appointment(s)/Referral(s): Willian Lock DO [STAFF PHYSICIAN] - 1 Week (Please keep appointment previously made for August 14 @ 4:15pm.) Gabe Cisneros DO [Primary Care Provider] - 1-2 days Discharge Disposition: HOME SELF-CARE
[2022-07-29] MEDS ORDERED: GABAPENTIN 300 MG CAP PO SCH (16:00)
[2022-07-29] MEDS ORDERED: QUEtiapine 100 MG TAB PO SCH (21:00)
[2022-07-30] MEDS ORDERED: LEVOTHYROXINE 25 MCG TAB PO SCH (06:30)
[2022-07-30] MEDS ORDERED: PANTOPRAZOLE 40 MG TABLET PO SCH (07:30)
[2022-07-30] MEDS ORDERED: SYMBICORT 160-4.5 MCG INHALER INHALATION SCH (08:00)
[2022-07-30] MEDS ORDERED: MEMANTINE 10 MG TAB PO SCH (09:00)
[2022-07-30] MEDS ORDERED: SERTRALINE 100 MG TAB PO SCH (09:00)
[2022-08-01] MEDS ORDERED: ERGOCALCIFEROL 1,250 MCG (50,000 IU) CAPSULE PO SCH (09:00)
== END 2022-07-29 14:33 | disposition home or self-care (01) ==
LOC: EC 17:16 → 6NMEDSUR 19:58
PROVIDERS: ADMIT Hospitalist; ATTEND Hospitalist
DX: R07.89 Other chest pain (principal); I10 Essential (primary) hypertension; J44.9 Chronic obstructive pulmonary disease, unspecified; F03.90 Unspecified dementia, unspecified severity, without behavioral disturbance, psychotic disturbance, mood disturbance, and anxiety; K21.9 Gastro-esophageal reflux disease without esophagitis; E78.5 Hyperlipidemia, unspecified; G47.00 Insomnia, unspecified; F41.9 Anxiety disorder, unspecified; F31.9 Bipolar disorder, unspecified; I08.3 Combined rheumatic disorders of mitral, aortic and tricuspid valves; F17.200 Nicotine dependence, unspecified, uncomplicated; Z95.3 Presence of xenogenic heart valve; Z79.82 Long term (current) use of aspirin; Z79.51 Long term (current) use of inhaled steroids; Z79.83 Long term (current) use of bisphosphonates; Z79.890 Hormone replacement therapy; Z79.899 Other long term (current) drug therapy
CPT/HCPCS: 96374; 99285; 36415; 94640; 93005; 93306; 80053; 83690; 83735; 84484 ×2; 85025; 85610; 85730; 71046; G0378 ×2; J2405

== ENCOUNTER 2022-12-01 17:49 | Inpatient (IN) | payer MEDICARE, OTHER ==
[2022-12-01] MEDS ORDERED: NITROGLYCERIN OINT 1 INCH/GM PACKET TOPICAL STA (18:15)
[2022-12-01] MEDS ORDERED: ASPIRIN 81 MG PO STA (18:15)
--- NOTE | 2022-12-01 18:27 | ED ---
General Adult HPI - General Chief complaint: Chest Pain Stated complaint: chest pain Time Seen by Provider: 12/01/22 18:00 Source: patient, RN notes reviewed, old records reviewed Mode of arrival: wheelchair Limitations: no limitations - History of Present Illness Initial comments: This is a 67-year-old female who presents emergency Department with a past medical history significant for aortic valve replacement as well as high blood pressure high cholesterol. Patient does not know her family history because she is adopted. Patient comes in today because she has chest pain for the last hour. Patient states the pain radiates to her back and down her arm. Patient denies any recent fever chills or cough. Patient denies palpitations. Patient denies headache patient denies any lightheadedness or dizziness. Patient does also little bit of shortness of breath with the lightheadedness. - Related Data Home Medications Medication Instructions Recorded Confirmed QUEtiapine FUMARATE [SEROquel] 300 mg PO HS 10/12/14 12/01/22 Rosuvastatin [Crestor] 20 mg PO DAILY 10/12/14 12/01/22 lisinopriL [Zestril] 10 mg PO DAILY 10/12/14 12/01/22 Ipratropium/Albuterol Sulfate 1 puff INHALATION RT-QID 12/06/17 12/01/22 [Combivent Respimat Inhaler] Memantine HCl [Namenda Xr] 28 mg PO DAILY 12/06/17 12/01/22 Omeprazole 20 mg PO DAILY 12/06/17 12/01/22 Aspirin 81 mg PO DAILY 01/10/18 12/01/22 Gabapentin [Neurontin] 300 mg PO TID 01/10/18 12/01/22 Fluticasone/Vilanterol [Breo 1 puff INHALATION RT-DAILY 01/31/20 12/01/22 Ellipta 200-25 Mcg Inhaler] Ergocalciferol (Vitamin D2) 1,250 mcg PO SA 07/28/22 12/01/22 [Drisdol (50,000 Iu)] Ezetimibe [Zetia] 10 mg PO DAILY 07/28/22 12/01/22 Levothyroxine Sodium [Synthroid] 25 mcg PO DAILY 07/28/22 12/01/22 Metoprolol Succinate (ER) [Toprol 25 mg PO DAILY 07/28/22 12/01/22 XL] Sertraline [Zoloft] 150 mg PO DAILY 07/28/22 12/01/22 PARoxetine [Paxil] 10 mg PO DAILY 12/01/22 12/01/22 Pantoprazole Sodium [Protonix] 40 mg PO DAILY 12/01/22 12/01/22 lamoTRIgine [LaMICtal] 200 mg PO DAILY 12/01/22 12/01/22 Previous Rx's Medication Instructions Recorded Nitroglycerin Sl Tabs [Nitrostat] 0.4 mg SUBLINGUAL Q5M PRN #30 tab 02/01/20 Allergies Allergy/AdvReac Type Severity Reaction Status Date / Time fentanyl Allergy Rash/Hives Verified 12/01/22 19:40 niacin Allergy Dyspnea,barbara Verified 12/01/22 19:40 h Review of Systems ROS Statement: Those systems with pertinent positive or pertinent negative responses have been documented in the HPI. ROS Other: All systems not noted in ROS Statement are negative. 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 History of Any Multi-Drug Resistant Organisms: None Reported Past Surgical History: Back Surgery, Bladder Surgery, Cholecystectomy, Heart Catheterization, Hysterectomy, Joint Replacement, Orthopedic Surgery, Tubal Ligation Additional Past Surgical History / Comment(s): aortic valve repair, left breast biopsy-neg, oopherectomy, left knee replacement, juan Past Anesthesia/Blood Transfusion Reactions: No Reported Reaction Past Psychological History: Anxiety, Bipolar Smoking Status: Current every day smoker, Current some day smoker Past Alcohol Use History: None Reported Past Drug Use History: None Reported - Past Family History Mother History Unknown: Yes Additional Family Medical History / Comment(s): Patient states she was adopted General Exam - General Exam Comments Initial Comments: GENERAL: Patient is well-developed and well-nourished. Patient is nontoxic and well- hydrated and is in mild distress. ENT: Neck is soft and supple. No significant lymphadenopathy is noted. Oropharynx is clear. Moist mucous membranes. Neck has full range of motion without eliciting any pain. EYES: The sclera were anicteric and conjunctiva were pink and moist. Extraocular movements were intact and pupils were equal round and reactive to light. Eyelids were unremarkable. PULMONARY: Unlabored respirations. Good breath sounds bilaterally. No audible rales rhonchi or wheezing was noted. CARDIOVASCULAR: There is a regular rate and rhythm without any murmurs gallops or rubs. ABDOMEN: Soft and nontender with normal bowel sounds. SKIN: Skin is clear with no lesions or rashes and otherwise unremarkable. NEUROLOGIC: Patient is alert and oriented x3. Cranial nerves II through XII are grossly intact. Motor and sensory are also intact. Normal speech, volume and content. Symmetrical smile. MUSCULOSKELETAL: Normal extremities with adequate strength and full range of motion. No lower extremity swelling or edema. No calf tenderness. LYMPHATICS: No significant lymphadenopathy is noted PSYCHIATRIC: Normal psychiatric evaluation. Limitations: no limitations Course Vital Signs 12/01/22 12/01/22 17:58 18:54 Temperature 98.0 F Pulse Rate 82 71 Respiratory 20 18 Rate Blood Pressure 109/72 109/72 O2 Sat by Pulse 99 95 Oximetry Medical Decision Making - Medical Decision Making Was pt. sent in by a medical professional or institution (, PA, DREDGING INSPECTOR, urgent care, hospital, or [facility]...) When possible be specific @ -No Did you speak to anyone other than the patient for history (EMS, parent, family, police, friend...)? What history was obtained from this source @ -No Did you review nursing and triage notes (agree or disagree)? Why? @ -I reviewed and agree with nursing and triage notes Were old charts reviewed (outside hosp., previous admission, EMS record, old EKG, old radiological studies, urgent care reports/EKG's, [facility] records)? Report findings @ -I reviewed prior lab work prior x-rays and prior charts on this patient Differential Diagnosis (chest pain, altered mental status, abdominal pain women, abdominal pain men, vaginal bleeding, weakness, fever, dyspnea, syncope, headache, dizziness, GI bleed, back pain, seizure, CVA, palpatations, mental health, musculoskeletal)? @ -Differential Chest Pain: Stable Angina, Unstable Angina, STEMI, NSTEMI Aortic Dissection, Pneumothorax, Musculoskeletal, Esophageal Spasm GERD, Cholecystitis, Pancreatitis, Zoster, this is not meant to be an all-inclusive list. EKG interpreted by me (3pts min.). @ -EKG shows a sinus rhythm at 74 bpm NE interval 227 QRS is 96 QT interval 3 5070 QTC is 385. Patient's EKG shows no ST segment elevation X-rays interpreted by me (1pt min.). @ -Chest x-ray shows no acute abnormality CT interpreted by me (1pt min.). @ -None done U/S interpreted by me (1pt. min.). @ -None done What testing was considered but not performed or refused? (CT, X-rays, U/S, labs)? Why? @ -None What meds were considered but not given or refused? Why? @ -None Did you discuss the management of the patient with other professionals (professionals i.e. , PA, DREDGING INSPECTOR, lab, RT, psych nurse, director social, remote inpatient coder, teacher, examining officer, vocational case manager)? Give summary @ -[facility] the patient Was smoking cessation discussed for >3mins.? @ -No Was critical care preformed (if so, how long)? @ -No Were there social determinants of health that impacted care today? How? (Homelessness, low income, unemployed, alcoholism, drug addiction, transportation, low edu. Level, literacy, decrease access to med. care, residential, rehab)? @ -No Was there de-escalation of care discussed even if they declined (Discuss DNR or withdrawal of care, Hospice)? DNR status @ -No What co-morbidities impacted this encounter? (DM, HTN, Smoking, COPD, CAD, Cancer, CVA, ARF, Chemo, Hep., AIDS, mental health diagnosis, sleep apnea, morbid obesity)? @ -None Was patient admitted / discharged? Hospital course, mention meds given and route, prescriptions, significant lab abnormalities, going to OR and other pertinent info. @ -Patient's chest pain or was improved on admission. Patient had no troponin elevation. Patient was given aspirin and Nitropaste to the emergency department. [facility] admitted the patient wrote admitting orders. Undiagnosed new problem with uncertain prognosis? @ -No Drug Therapy requiring intensive monitoring for toxicity (Heparin, Nitro, Insulin, Cardizem)? @ -No Were any procedures done? @ -No Diagnosis/symptom? @ -Chest pain Acute, or Chronic, or Acute on Chronic? @ -Acute Uncomplicated (without systemic symptoms) or Complicated (systemic symptoms)? @ -Complicated Side effects of treatment? @ -No Exacerbation, Progression, or Severe Exacerbation? @ -No Poses a threat to life or bodily function? How? (Chest pain, [place], [place], pneumonia, PE, COPD, DKA, ARF, appy, cholecystitis, CVA, Diverticulitis, Homicidal, Suicidal, threat to staff... and all critical care pts) @ -Yes this could lead to an [place] and lead to - Lab Data Result diagrams: 12/01/22 18:17 12/01/22 18:17 Lab Results 12/01/22 12/01/22 12/01/22 Range/Units 18:17 18:17 18:17 WBC 5.1 (3.8-10.6) k/uL RBC 4.34 (3.80-5.40) m/uL Hgb 13.0 (11.4-16.0) gm/dL Hct 39.1 (34.0-46.0) % MCV 90.0 (80.0-100.0) fL MCH 30.1 (25.0-35.0) pg MCHC 33.4 (31.0-37.0) g/dL RDW 13.2 (11.5-15.5) % Plt Count 159 (150-450) k/uL MPV 9.6 Neutrophils % 61 % Lymphocytes % 30 % Monocytes % 6 % Eosinophils % 3 % Basophils % 0 % Neutrophils # 3.1 (1.3-7.7) k/uL Lymphocytes # 1.5 (1.0-4.8) k/uL Monocytes # 0.3 (0-1.0) k/uL Eosinophils # 0.1 (0-0.7) k/uL Basophils # 0.0 (0-0.2) k/uL PT 9.7 (9.0-12.0) sec INR 0.9 (<1.2) APTT 22.8 (22.0-30.0) sec Sodium 136 L (137-145) mmol/L Potassium 3.8 (3.5-5.1) mmol/L Chloride 98 (98-107) mmol/L Carbon Dioxide 30 (22-30) mmol/L Anion Gap 8 mmol/L BUN 20 H (7-17) mg/dL Creatinine 0.96 (0.52-1.04) mg/dL Est GFR (CKD-EPI)AfAm 70 (>60 ml/min/1.73 sqM) Est GFR (CKD-EPI)NonAf 61 (>60 ml/min/1.73 sqM) Glucose 115 H (74-99) mg/dL Calcium 9.0 (8.4-10.2) mg/dL Magnesium 2.0 (1.6-2.3) mg/dL Total Bilirubin 0.5 (0.2-1.3) mg/dL AST 22 (14-36) U/L ALT 13 (4-34) U/L Alkaline Phosphatase 91 (38-126) U/L Troponin I (0.000-0.034) ng/mL Total Protein 7.7 (6.3-8.2) g/dL Albumin 4.1 (3.5-5.0) g/dL 12/01/22 Range/Units 18:17 WBC (3.8-10.6) k/uL RBC (3.80-5.40) m/uL Hgb (11.4-16.0) gm/dL Hct (34.0-46.0) % MCV (80.0-100.0) fL MCH (25.0-35.0) pg MCHC (31.0-37.0) g/dL RDW (11.5-15.5) % Plt Count (150-450) k/uL MPV Neutrophils % % Lymphocytes % % Monocytes % % Eosinophils % % Basophils % % Neutrophils # (1.3-7.7) k/uL Lymphocytes # (1.0-4.8) k/uL Monocytes # (0-1.0) k/uL Eosinophils # (0-0.7) k/uL Basophils # (0-0.2) k/uL PT (9.0-12.0) sec INR (<1.2) APTT (22.0-30.0) sec Sodium (137-145) mmol/L Potassium (3.5-5.1) mmol/L Chloride (98-107) mmol/L Carbon Dioxide (22-30) mmol/L Anion Gap mmol/L BUN (7-17) mg/dL Creatinine (0.52-1.04) mg/dL Est GFR (CKD-EPI)AfAm (>60 ml/min/1.73 sqM) Est GFR (CKD-EPI)NonAf (>60 ml/min/1.73 sqM) Glucose (74-99) mg/dL Calcium (8.4-10.2) mg/dL Magnesium (1.6-2.3) mg/dL Total Bilirubin (0.2-1.3) mg/dL AST (14-36) U/L ALT (4-34) U/L Alkaline Phosphatase (38-126) U/L Troponin I <0.012 (0.000-0.034) ng/mL Total Protein (6.3-8.2) g/dL Albumin (3.5-5.0) g/dL Disposition Clinical Impression: Chest pain Disposition: ADMITTED IP TO THIS [facility] Referrals: Gabe Cisneros DO [Primary Care Provider] - 1-2 days Time of Disposition: 19:59
[2022-12-01 18:28] LABS: Basophils % (A) 0 %; Eosinophils # (A) 0.1 k/uL (0-0.7); Eosinophils % (A) 3 %; HCT 39.1 % (34.0-46.0); Lymphocytes # (A) 1.5 k/uL (1.0-4.8); Lymphocytes % (A) 30 %; MCH 30.1 pg (25.0-35.0); MCHC 33.4 g/dL (31.0-37.0); Mean Platelet Volume 9.6; Monocytes # (A) 0.3 k/uL (0-1.0); Monocytes % (A) 6 %; Neutrophils # (A) 3.1 k/uL (1.3-7.7); Neutrophils % (A) 61 %; Platelet Count 159 k/uL (150-450); RBC 4.34 m/uL (3.80-5.40); RDW 13.2 % (11.5-15.5); WBC 5.1 k/uL (3.8-10.6)
--- NOTE | 2022-12-01 18:33 | XR ---
EXAMINATION TYPE: XR chest 2V DATE OF EXAM: 12/01/2022 6:29 PM COMPARISON: Chest radiographs from 07/28/2022 TECHNIQUE: XR chest 2V Frontal and lateral views of the chest. CLINICAL INDICATION:Female, 67 years old with history of Chest Pain; FINDINGS: Patient is rotated which limits evaluation. Lungs/Pleura: There is no evidence of pleural effusion, focal consolidation, or pneumothorax. Chroni c senescent parenchymal change. Pulmonary vascularity: Unremarkable. Heart/mediastinum: Cardiomediastinal silhouette is enlarged and stable. Valvular prosthesis Musculoskeletal: Multiple level degenerative disc disease changes seen throughout the spine. Midline sternotomy wires are noted and stable. IMPRESSION: Chronic changes without evidence for acute process.
[2022-12-01 18:36] LABS: INR 0.9 (<1.2); Partial Thromboplastin Time 22.8 sec (22.0-30.0); Prothrombin Time 9.7 sec (9.0-12.0)
[2022-12-01 19:00] LABS: ALT 13 U/L (4-34); AST 22 U/L (14-36); African American GFR (CKD) 70 (>60 ml/min/1.73 sqM); Albumin 4.1 g/dL (3.5-5.0); Alkaline Phosphatase 91 U/L (38-126); Anion Gap 8 mmol/L; Blood Urea Nitrogen 20 mg/dL (7-17); Carbon Dioxide 30 mmol/L (22-30); Chloride 98 mmol/L (98-107); Glucose 115 mg/dL (74-99); Non-African American GFR(CKD) 61 (>60 ml/min/1.73 sqM); Potassium 3.8 mmol/L (3.5-5.1); Sodium 136 mmol/L (137-145); Total Bilirubin 0.5 mg/dL (0.2-1.3); Total Protein 7.7 g/dL (6.3-8.2)
[2022-12-01] MEDS ORDERED: NITROGLYCERIN SL TABS 0.4 MG TAB SUBLINGUAL PRN (20:13)
[2022-12-01] MEDS ORDERED: QUEtiapine 100 MG TAB PO SCH (22:15)
[2022-12-01] MEDS: NITROGLYCERIN OINT 1 INCH/GM PACKET TOPICAL SCH (23:54)
[2022-12-02] MEDS: NITROGLYCERIN OINT 1 INCH/GM PACKET TOPICAL SCH ×2 (05:53→13:26)
[2022-12-02 08:47] LABS: Chol/HDL Ratio 3.31 Ratio
[2022-12-02] MEDS ORDERED: ASPIRIN 325 MG TAB PO SCH (09:00)
[2022-12-02 09:12] VITALS: BP 126/80; RESP 16; TEMP 97.8
[2022-12-02] MEDS ORDERED: SERTRALINE 50 MG TAB PO SCH (09:45)
[2022-12-02] MEDS ORDERED: lamoTRIgine 100 MG TAB PO SCH (09:45)
[2022-12-02] MEDS ORDERED: METOPROLOL SUCCINATE (ER) 25 MG TAB.ER.24H PO SCH (09:45)
[2022-12-02] MEDS ORDERED: NON FORMULARY DRUG (Omeprazole [Omeprazole] 20 MG Capsule.Dr) PO SCH (09:45)
[2022-12-02] MEDS ORDERED: PARoxetine 10 MG TAB PO SCH (09:45)
[2022-12-02] MEDS ORDERED: LEVOTHYROXINE 25 MCG TAB PO SCH (09:45)
[2022-12-02] MEDS ORDERED: PANTOPRAZOLE 40 MG TABLET PO SCH (09:45)
[2022-12-02] MEDS ORDERED: lisinopriL 10 MG TAB PO SCH (09:45)
[2022-12-02] MEDS ORDERED: MEMANTINE 10 MG TAB PO SCH (09:45)
--- NOTE | 2022-12-02 11:30 | P.CRDCN ---
History of Present Illness Consult date: 12/02/22 History of present illness: History of Present Illness: The patient is a 67-year-old female, followed by Dr. Lock with a prior history of aortic valve replacement who presented with symptoms of chest discomfort. The discomfort is respirophasic and positional. She has no history of obstructive CAD. She has chronic dyspnea on exertion. She has no dizziness, palpitations or syncope. She underwent an MPI in July of this year that showed no evidence of stress-induced ischemia and her echocardiogram showed a preserved left ventricle systolic function with a mean gradient of 25 mmHg across the aortic valve. The patient has no peripheral edema, no PND or orthopnea. She had prior admission with similar symptoms in the past. She has underwent cardiac catheterization in 2019 and had no evidence of obstructive CAD. On admission her cardiac enzymes were unremarkable and her EKG showed no acute ST segment changes. Medications: Omeprazole, aspirin, Crestor 20 mg daily, Toprol XL 25 mg daily, Synthroid, Zoloft, fluticasone, gabapentin Review of Systems: Respiratory: She has chronic dyspnea on exertion with chronic obstructive lung disease GI: No nausea or vomiting . No history of peptic ulcer disease. No recent GI bleed. : No hematuria or dysuria. Nervous System: No stroke or seizure. Physical Examination: 67-year-old female, alert and oriented no apparent distress ,Blood pressure 126/80, Heart rate 60 Head: Normocephalic. Eyes: Sclerae nonicteric. Neck: Good carotid upstroke, no bruit, no jugular venous distention. Lungs: Decreased breath sounds bilaterally Heart: Regular rate and rhythm, S1-S2, no S3, no rub. Systolic ejection 2/6 murmur. Abdomen: Soft nontender, positive bowel sounds no organomegaly. Extremities: No edema, intact distal pulses. Labs: Hemoglobin 13, BUN 20, creatinine 0.96, potassium 3.8, troponin less than 0.012, cholesterol 149, LDL 83. Chest x-ray with no acute infiltrate EKG: Sinus mechanism with no acute ST segment changes Impression: 1. Chest discomfort, appears to be noncardiac, respirophasic, probably related to COPD 2. Status post aortic valve replacement, stable 3. History of hypertension 4. Chronic tobacco use and COPD 5. History of hyperlipidemia Plan: 1. Continue present therapy 2. Increase physical activity 3. If stable probable discharge home today 4. And follow up with Dr. Lock 5. 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 History of Any Multi-Drug Resistant Organisms: None Reported Past Surgical History: Back Surgery, Bladder Surgery, Cholecystectomy, Heart Catheterization, Hysterectomy, Joint Replacement, Orthopedic Surgery, Tubal Ligation Additional Past Surgical History / Comment(s): aortic valve repair, left breast biopsy-neg, oopherectomy, left knee replacement, juan Past Anesthesia/Blood Transfusion Reactions: No Reported Reaction Past Psychological History: Anxiety, Bipolar Smoking Status: Current every day smoker, Current some day smoker Past Alcohol Use History: None Reported Past Drug Use History: None Reported - Past Family History Mother History Unknown: Yes Additional Family Medical History / Comment(s): Patient states she was adopted Medications and Allergies Home Medications Medication Instructions Recorded Confirmed Type QUEtiapine FUMARATE [SEROquel] 300 mg PO HS 10/12/14 12/01/22 History Rosuvastatin [Crestor] 20 mg PO DAILY 10/12/14 12/01/22 History lisinopriL [Zestril] 10 mg PO DAILY 10/12/14 12/01/22 History Ipratropium/Albuterol Sulfate 1 puff INHALATION RT-QID 12/06/17 12/01/22 History [Combivent Respimat Inhaler] Memantine HCl [Namenda Xr] 28 mg PO DAILY 12/06/17 12/01/22 History Omeprazole 20 mg PO DAILY 12/06/17 12/01/22 History Aspirin 81 mg PO DAILY 01/10/18 12/01/22 History Gabapentin [Neurontin] 300 mg PO TID 01/10/18 12/01/22 History Fluticasone/Vilanterol [Breo 1 puff INHALATION RT-DAILY 01/31/20 12/01/22 History Ellipta 200-25 Mcg Inhaler] Nitroglycerin Sl Tabs [Nitrostat] 0.4 mg SUBLINGUAL Q5M PRN #30 tab 02/01/20 Rx Ergocalciferol (Vitamin D2) 1,250 mcg PO SA 07/28/22 12/01/22 History [Drisdol (50,000 Iu)] Ezetimibe [Zetia] 10 mg PO DAILY 07/28/22 12/01/22 History Levothyroxine Sodium [Synthroid] 25 mcg PO DAILY 07/28/22 12/01/22 History Metoprolol Succinate (ER) [Toprol 25 mg PO DAILY 07/28/22 12/01/22 History XL] Sertraline [Zoloft] 150 mg PO DAILY 07/28/22 12/01/22 History PARoxetine [Paxil] 10 mg PO DAILY 12/01/22 12/01/22 History Pantoprazole Sodium [Protonix] 40 mg PO DAILY 12/01/22 12/01/22 History lamoTRIgine [LaMICtal] 200 mg PO DAILY 12/01/22 12/01/22 History Allergies Allergy/AdvReac Type Severity Reaction Status Date / Time fentanyl Allergy Rash/Hives Verified 12/01/22 19:40 niacin Allergy Dyspnea,barbara Verified 12/01/22 19:40 h Physical Exam Vitals: Vital Signs Temp Pulse Pulse Resp BP BP Pulse Ox 12/02/22 08:10 97.8 F 57 L 16 126/80 96 12/02/22 02:00 98.6 F 63 18 100/59 92 L 12/01/22 20:19 64 18 107/76 94 L 12/01/22 20:14 95 12/01/22 18:54 71 18 109/72 95 12/01/22 17:58 98.0 F 82 20 109/72 99 Intake and Output 12/01/22 12/02/22 12/02/22 22:59 06:59 14:59 Output Total 0 Balance 0 Output: Urine 0 Other: # Voids 1 Weight 78.018 kg Results 12/01/22 18:17 12/01/22 18:17 Cardiac Enzymes 12/01/22 12/01/22 12/01/22 Range/Units 18:17 18:17 21:01 AST 22 (14-36) U/L Troponin I <0.012 <0.012 (0.000-0.034) ng/mL 12/01/22 Range/Units 23:43 AST (14-36) U/L Troponin I <0.012 (0.000-0.034) ng/mL Coagulation 12/01/22 Range/Units 18:17 PT 9.7 (9.0-12.0) sec APTT 22.8 (22.0-30.0) sec Lipids 12/01/22 Range/Units 23:43 Triglycerides 105.00 (0.00-149.00) mg/dL Cholesterol 149.00 (0.00-200.00) mg/dL HDL Cholesterol 45.00 (40.00-60.00) mg/dL Cholesterol/HDL Ratio 3.31 Ratio CBC 12/01/22 Range/Units 18:17 WBC 5.1 (3.8-10.6) k/uL RBC 4.34 (3.80-5.40) m/uL Hgb 13.0 (11.4-16.0) gm/dL Hct 39.1 (34.0-46.0) % Plt Count 159 (150-450) k/uL Comprehensive Metabolic Panel 12/01/22 Range/Units 18:17 Sodium 136 L (137-145) mmol/L Potassium 3.8 (3.5-5.1) mmol/L Chloride 98 (98-107) mmol/L Carbon Dioxide 30 (22-30) mmol/L BUN 20 H (7-17) mg/dL Creatinine 0.96 (0.52-1.04) mg/dL Glucose 115 H (74-99) mg/dL Calcium 9.0 (8.4-10.2) mg/dL AST 22 (14-36) U/L ALT 13 (4-34) U/L Alkaline Phosphatase 91 (38-126) U/L Total Protein 7.7 (6.3-8.2) g/dL Albumin 4.1 (3.5-5.0) g/dL Current Medications Generic Name Dose Route Start Last Admin Trade Name Freq PRN Reason Stop Dose Admin Albuterol/Ipratropium 3 ml 12/02/22 12:00 Ipratropium-Albuterol 3 Ml Neb INHALATION RT-QID [facility] Aspirin 325 mg 12/02/22 09:00 12/02/22 08:58 Aspirin 325 Mg Tab PO 325 mg DAILY [facility] Administration Atorvastatin Calcium 40 mg 12/03/22 09:00 Atorvastatin 40 Mg Tab PO DAILY [facility] Budesonide/Formoterol Fumarate 2 puff 12/02/22 20:00 Symbicort 160-4.5 Mcg Inhaler INHALATION RT-BID [facility] Ezetimibe 10 mg 12/03/22 09:00 Ezetimibe 10 Mg Tab PO DAILY [facility] Ergocalciferol 1,250 mcg 12/05/22 09:00 Ergocalciferol 1,250 Mcg (50,000 Iu) Capsule PO SA [facility] Gabapentin 300 mg 12/02/22 16:00 Gabapentin 300 Mg Cap PO TID [facility] Lamotrigine 200 mg 12/02/22 09:45 12/02/22 10:05 Lamotrigine 100 Mg Tab PO 200 mg DAILY [facility] Administration Levothyroxine Sodium 25 mcg 12/02/22 09:45 12/02/22 10:06 Levothyroxine 25 Mcg Tab PO 25 mcg DAILY@0630 [facility] Administration Memantine 10 mg 12/02/22 09:45 12/02/22 10:06 Memantine 10 Mg Tab PO 10 mg BID [facility] Administration Metoprolol Succinate 25 mg 12/02/22 09:45 12/02/22 10:06 Metoprolol Succinate (Er) 25 Mg Tab.Er.24h PO 25 mg DAILY [facility] Administration Nitroglycerin 0.4 mg 12/01/22 20:13 Nitroglycerin Sl Tabs 0.4 Mg Tab SUBLINGUAL Q5M PRN Chest Pain Nitroglycerin 1 inch 12/02/22 00:00 12/02/22 05:53 Nitroglycerin Oint 1 Inch/Gm Packet TOPICAL 1 inch Q6HR [facility] Administration Pantoprazole Sodium 40 mg 12/02/22 09:45 12/02/22 10:05 Pantoprazole 40 Mg Tablet PO 40 mg [id number] [facility] Administration Paroxetine HCl 10 mg 12/02/22 09:45 12/02/22 10:06 Paroxetine 10 Mg Tab PO 10 mg DAILY [facility] Administration Quetiapine Fumarate 300 mg 12/01/22 22:15 12/01/22 22:15 Quetiapine 100 Mg Tab PO 300 mg HS [facility] Administration Sertraline HCl 150 mg 12/02/22 09:45 12/02/22 10:06 Sertraline 50 Mg Tab PO 150 mg DAILY [facility] Administration Intake and Output 12/01/22 12/02/22 12/02/22 22:59 06:59 14:59 Output Total 0 Balance 0 Output: Urine 0 Other: # Voids 1 Weight 78.018 kg 12/01/22 18:17 12/01/22 18:17
[2022-12-02] MEDS ORDERED: IPRATROPIUM-ALBUTEROL 3 ML NEB INHALATION SCH (12:00)
[2022-12-02 13:09] VITALS: PULSE 70
[2022-12-02] MEDS ORDERED: GABAPENTIN 300 MG CAP PO SCH (16:00)
--- NOTE | 2022-12-02 16:32 | P.HPIM ---
History of Present Illness H&P Date: 12/02/22 This is a 67-year-old female who presented to the emergency department with chest pain and reports she started experiencing left-sided chest pain and heaviness that was radiating down her left arm as well as radiating around to her back that lasted over an hour and patient presented to the ER for further evaluation. Patient follows with Dr. Lock in the outpatient setting as well as her primary care provider Dr. Cisneros for past medical history of chest pain, angina, COPD, dementia, GERD, hyperlipidemia, hypertension, mitral valve prolapse with aortic valve replacement, anxiety with bipolar and continue nicotine dependence. Patient denies alcohol or illicit drug use. Troponins 3 were negative labs reviewed and within normal limits including lipid panel and patient was admitted under observation for cardiology evaluation. Patient's chest x-ray in the ER showed chronic changes without evidence of acute process, and EKG showed sinus rhythm with a heart rate of 74 bpm. Review Of Systems: Constitutional: No fever, no chills, no night sweats. No weight change. No weakness, fatigue or lethargy. No daytime sleepiness. EENT: No headache. No blurred vision or double vision, no loss of vision. No loss of Hearing, no ringing in the ears, no dizziness. No nasal drainage or c ongestion. No epistaxis. No sore throat. Lungs: No shortness of breath, cough, no sputum production. No wheezing. Cardiovascular: Reports chest pain in the midsternal area that radiated down her left arm as well as radiating to her left upper back, no lower extremity edema. No palpitations. No paroxysmal nocturnal dyspnea. No orthopnea. No lightheadedness or dizziness. No syncopal episodes. Abdominal: No abdominal pain. No nausea, vomiting. No diarrhea. No constipation. No bloody or tarry stools.. No loss of appetite. Genitourinary: No dysuria, increased frequency, urgency. No urinary retention. Musculoskeletal: No myalgias. No muscle weakness, no gait dysfunction, no frequent falls. No back pain. No neck pain. Integumentary: No wounds, no lesions. No rash or pruritus. No unusual bruising. No change in hair or nails. Neurologic: No aphasia. No facial droop. No change in mentation. No head injury. No headache. No paralysis. No paresthesia. Psychiatric: No depression. No anxiety. No mood swings. Endocrine: No abnormal blood sugars. No weight change. No excessive sweating or thirst. No cold intolerance. PHYSICAL EXAMINATION: GENERAL: The patient is alert and oriented x4, Well developed, well nourished. Obese. HEENT: Pupils are round and equally reacting to light. EOMI. no scleral icterus. No conjunctival pallor. Normocephalic, atraumatic. No pharyngeal erythema. No thyromegaly. CARDIOVASCULAR: S1 and S2 muffled PULMONARY: diminished breath sounds bilaterally with no wheezing or rhonchi noted. ABDOMEN: soft. Nontender on exam. obese. non-distended, normoactive bowel sounds. No palpable organomegaly. MUSCULOSKELETAL: No joint swelling or deformity. EXTREMITIES: No cyanosis, clubbing, or pedal edema. NEUROLOGICAL: Gross neurological examination did not reveal any focal deficits. SKIN: No rashes. Assessment: Chest pain, ruled out ACS, troponins 3 were negative, possibly secondary to COPD COPD history not in exacerbation Continued ongoing nicotine dependence History of aortic valve replacement hyperlipidemia Early dementia per patient Gastroesophageal reflux disease History of hypertension History of anxiety/bipolar depression GI prophylaxis DVT prophylaxis Full code Plan: Patient had serial troponins 3 that were negative and cholesterol panel that was evaluated within normal limits. Patient was evaluated by cardiology and recently had outpatient testing done which was within normal limits with no plans for repeat echo or stress testing at this time recommending outpatient follow-up with her client services account manager Dr. Lock Patient was continued ongoing nicotine dependence strongly encouraged smoking cessation as patient also has history of COPD Encouraged medication compliance and outpatient follow-up. Patient reports she has an appointment with Dr. Cisneros this Wednesday and encouraged her to keep the appointment Home medications reviewed and resumed as appropriate Awaiting cardiac clearance and patient will be discharged later today The impression and plan of care has been dictated by Nanda Bermudez, nurse practitioner as directed. Dr. Mu MD I have performed a history and examination and MDM of this patient, discussed the same with the dictator, and agree with the dictator's assessment and plan as written ,documented as a scribe. Based on total visit time, I have performed more than 50% of the visit. Any additional findings or plans will be noted. 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 History of Any Multi-Drug Resistant Organisms: None Reported Past Surgical History: Back Surgery, Bladder Surgery, Cholecystectomy, Heart Catheterization, Hysterectomy, Joint Replacement, Orthopedic Surgery, Tubal Ligation Additional Past Surgical History / Comment(s): aortic valve repair, left breast biopsy-neg, oopherectomy, left knee replacement, juan Past Anesthesia/Blood Transfusion Reactions: No Reported Reaction Past Psychological History: Anxiety, Bipolar Smoking Status: Current every day smoker, Current some day smoker Past Alcohol Use History: None Reported Past Drug Use History: None Reported - Past Family History Mother History Unknown: Yes Additional Family Medical History / Comment(s): Patient states she was adopted Medications and Allergies Home Medications Medication Instructions Recorded Confirmed Type QUEtiapine FUMARATE [SEROquel] 300 mg PO HS 10/12/14 12/01/22 History Rosuvastatin [Crestor] 20 mg PO DAILY 10/12/14 12/01/22 History Ipratropium/Albuterol Sulfate 1 puff INHALATION RT-QID 12/06/17 12/01/22 History [Combivent Respimat Inhaler] Memantine HCl [Namenda Xr] 28 mg PO DAILY 12/06/17 12/01/22 History Omeprazole 20 mg PO DAILY 12/06/17 12/01/22 History Aspirin 81 mg PO DAILY 01/10/18 12/01/22 History Gabapentin [Neurontin] 300 mg PO TID 01/10/18 12/01/22 History Fluticasone/Vilanterol [Breo 1 puff INHALATION RT-DAILY 01/31/20 12/01/22 History Ellipta 200-25 Mcg Inhaler] Nitroglycerin Sl Tabs [Nitrostat] 0.4 mg SUBLINGUAL Q5M PRN #30 tab 02/01/20 12/01/22 Rx Ergocalciferol (Vitamin D2) 1,250 mcg PO SA 07/28/22 12/01/22 History [Drisdol (50,000 Iu)] Ezetimibe [Zetia] 10 mg PO DAILY 07/28/22 12/01/22 History Levothyroxine Sodium [Synthroid] 25 mcg PO DAILY 07/28/22 12/01/22 History Metoprolol Succinate (ER) [Toprol 25 mg PO DAILY 07/28/22 12/01/22 History XL] Sertraline [Zoloft] 150 mg PO DAILY 07/28/22 12/01/22 History PARoxetine [Paxil] 10 mg PO DAILY 12/01/22 12/01/22 History Pantoprazole Sodium [Protonix] 40 mg PO DAILY 12/01/22 12/01/22 History lamoTRIgine [LaMICtal] 200 mg PO DAILY 12/01/22 12/01/22 History Allergies Allergy/AdvReac Type Severity Reaction Status Date / Time fentanyl Allergy Rash/Hives Verified 12/01/22 19:40 niacin Allergy Dyspnea,barbara Verified 12/01/22 19:40 h Physical Exam Vitals: Vital Signs Temp Pulse Pulse Resp BP BP Pulse Ox 12/02/22 08:10 97.8 F 57 L 16 126/80 96 12/02/22 02:00 98.6 F 63 18 100/59 92 L 12/01/22 20:19 64 18 107/76 94 L 12/01/22 20:14 95 12/01/22 18:54 71 18 109/72 95 12/01/22 17:58 98.0 F 82 20 109/72 99 Intake and Output 12/01/22 12/02/22 12/02/22 22:59 06:59 14:59 Output Total 0 Balance 0 Output: Urine 0 Other: # Voids 1 Weight 78.018 kg Results CBC & Chem 7: 12/01/22 18:17 12/01/22 18:17 Labs: Abnormal Lab Results - Last 24 Hours (Table) 12/01/22 Range/Units 18:17 Sodium 136 L (137-145) mmol/L BUN 20 H (7-17) mg/dL Glucose 115 H (74-99) mg/dL Thrombosis Risk Factor Assmnt - DVT/VTE Prophylaxis DVT/VTE Prophylaxis: Pharmacologic Prophylaxis ordered Assessment and Plan Time with Patient: Greater than 30
[2022-12-02] MEDS ORDERED: SYMBICORT 160-4.5 MCG INHALER INHALATION SCH (20:00)
[2022-12-02] MEDS ORDERED: NON FORMULARY DRUG (Quetiapine Fumarate [Seroquel] 300 MG Tablet) PO SCH (21:00)
[2022-12-03] MEDS ORDERED: EZETIMIBE 10 MG TAB PO SCH (09:00)
[2022-12-03] MEDS ORDERED: ATORVASTATIN 40 MG TAB PO SCH (09:00)
[2022-12-05] MEDS ORDERED: ERGOCALCIFEROL 1,250 MCG (50,000 IU) CAPSULE PO SCH (09:00)
== END 2022-12-02 14:30 | disposition home or self-care (01) | DRG 191 ==
LOC: EC 17:49 → 6NMEDSUR 20:14
PROVIDERS: ADMIT Hospitalist; ATTEND Hospitalist
DX: J44.9 Chronic obstructive pulmonary disease, unspecified (principal); F03.93 Unspecified dementia, unspecified severity, with mood disturbance; F03.94 Unspecified dementia, unspecified severity, with anxiety; E78.00 Pure hypercholesterolemia, unspecified; E78.5 Hyperlipidemia, unspecified; Z71.6 Tobacco abuse counseling; F17.210 Nicotine dependence, cigarettes, uncomplicated; F31.9 Bipolar disorder, unspecified; I34.1 Nonrheumatic mitral (valve) prolapse; I10 Essential (primary) hypertension; K21.9 Gastro-esophageal reflux disease without esophagitis; Z79.82 Long term (current) use of aspirin; Z79.890 Hormone replacement therapy; Z79.899 Other long term (current) drug therapy; Z95.2 Presence of prosthetic heart valve; Z96.652 Presence of left artificial knee joint; G47.00 Insomnia, unspecified; Z88.5 Allergy status to narcotic agent
CPT/HCPCS: 36415; 71046; 80053; 80061; 83735; 84484; 85025; 85610; 85730; 93005; 94640; 94760

== ENCOUNTER 2023-02-07 21:06 | Observation (INO) | payer MEDICARE, OTHER ==
[2023-02-07] MEDS ORDERED: KETOROLAC 15 MG/ML 1 ML VIAL IVP STA (21:47)
[2023-02-07] MEDS ORDERED: MORPHINE SULFATE 4 MG/ML SYRINGE IVP STA (21:49)
[2023-02-07] MEDS ORDERED: SODIUM CHLORIDE 0.9% 500 ML 500 ML IV STA (21:50)
--- NOTE | 2023-02-07 21:51 | ED ---
Abdominal Pain HPI - General Chief Complaint: Abdominal Pain Stated Complaint: ABD Pain Chest Pain Time Seen by Provider: 02/07/23 21:10 Source: patient, EMS, RN notes reviewed, old records reviewed Mode of arrival: EMS Limitations: no limitations, altered mental status - History of Present Illness Initial Comments: This is a 14-year-old female DF for evaluation bowel pain chest pain some occasional shortness of breath not feeling well not acting appropriately per family. Patient has had episodes of nausea vomiting and diarrhea for going on a week now she does feel weak lightheaded dizzy at times persistently dehydrated. Patient has no new travel history sick contacts no fevers. MD Complaint: abdominal pain, other (Chest pain nausea vomiting diarrhea) -: days(s) Location: epigastric Radiation: epigastric Migration to: epigastric Severity: moderate Severity scale (1-10): 4 Quality: aching Consistency: constant Improves With: nothing Worsens With: nothing Associated Symptoms: nausea, vomiting, diarrhea Treatments Prior to Arrival: other (0) - Related Data Home Medications Medication Instructions Recorded Confirmed QUEtiapine FUMARATE [SEROquel] 300 mg PO HS 10/12/14 02/08/23 Rosuvastatin [Crestor] 20 mg PO DAILY 10/12/14 02/08/23 Ipratropium/Albuterol Sulfate 1 puff INHALATION RT-QID 12/06/17 02/08/23 [Combivent Respimat Inhaler] Memantine HCl [Namenda Xr] 28 mg PO DAILY 12/06/17 02/08/23 Aspirin 81 mg PO DAILY 01/10/18 02/08/23 Gabapentin [Neurontin] 300 mg PO TID 01/10/18 02/08/23 Fluticasone/Vilanterol [Breo 1 puff INHALATION RT-DAILY 01/31/20 02/08/23 Ellipta 200-25 Mcg Inhaler] Ergocalciferol (Vitamin D2) 1,250 mcg PO SA 07/28/22 02/08/23 [Drisdol (50,000 Iu)] Ezetimibe [Zetia] 10 mg PO DAILY 07/28/22 02/08/23 Levothyroxine Sodium [Synthroid] 25 mcg PO DAILY 07/28/22 02/08/23 Metoprolol Succinate (ER) [Toprol 25 mg PO DAILY 07/28/22 02/08/23 XL] Sertraline [Zoloft] 150 mg PO DAILY 07/28/22 02/08/23 Pantoprazole Sodium [Protonix] 40 mg PO DAILY 12/01/22 02/08/23 lamoTRIgine [LaMICtal] 200 mg PO DAILY 12/01/22 02/08/23 Nitroglycerin Sl Tabs [Nitrostat] 0.4 mg SL Q5M PRN 02/08/23 02/08/23 PARoxetine [Paxil] 20 mg PO DAILY 02/08/23 02/08/23 lisinopriL [Zestril] 10 mg PO DAILY 02/08/23 02/08/23 Allergies Allergy/AdvReac Type Severity Reaction Status Date / Time fentanyl Allergy Rash/Hives Verified 02/08/23 07:44 niacin Allergy Dyspnea,barbara Verified 02/08/23 07:44 h Review of Systems ROS Statement: Those systems with pertinent positive or pertinent negative responses have been documented in the HPI. ROS Other: All systems not noted in ROS Statement are negative. 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 History of Any Multi-Drug Resistant Organisms: None Reported Past Surgical History: Back Surgery, Bladder Surgery, Cholecystectomy, Heart Catheterization, Hysterectomy, Joint Replacement, Orthopedic Surgery, Tubal Ligation Additional Past Surgical History / Comment(s): aortic valve repair, left breast biopsy-neg, oopherectomy, left knee replacement, juan Past Anesthesia/Blood Transfusion Reactions: No Reported Reaction Past Psychological History: Anxiety, Bipolar Smoking Status: Current every day smoker, Current some day smoker Past Alcohol Use History: None Reported Past Drug Use History: None Reported - Past Family History Mother History Unknown: Yes Additional Family Medical History / Comment(s): Patient states she was adopted General Exam Limitations: no limitations, altered mental status General appearance: alert, in no apparent distress, anxious Head exam: Present: atraumatic, normocephalic, normal inspection Eye exam: Present: normal appearance, PERRL, EOMI. Absent: scleral icterus, c onjunctival injection, periorbital swelling ENT exam: Present: normal exam, mucous membranes moist Neck exam: Present: normal inspection. Absent: tenderness, meningismus, lymphadenopathy Respiratory exam: Present: normal lung sounds bilaterally. Absent: respiratory distress, wheezes, rales, rhonchi, stridor Cardiovascular Exam: Present: regular rate, normal rhythm, normal heart sounds. Absent: systolic murmur, diastolic murmur, rubs, gallop, clicks GI/Abdominal exam: Present: soft, normal bowel sounds. Absent: distended, tenderness, guarding, rebound, rigid Extremities exam: Present: normal inspection, full ROM, normal capillary refill. Absent: tenderness, pedal edema, joint swelling, calf tenderness Back exam: Present: normal inspection Neurological exam: Present: alert, oriented X3, CN II-XII intact Psychiatric exam: Present: normal affect, normal mood Skin exam: Present: warm, dry, intact, normal color. Absent: rash Course Vital Signs 02/07/23 02/07/23 02/07/23 21:08 22:28 23:16 Temperature 98.4 F Pulse Rate 110 H 95 83 Respiratory 16 16 16 Rate Blood Pressure 141/91 138/83 119/85 O2 Sat by Pulse 91 L 99 99 Oximetry 02/08/23 02/08/23 02/08/23 00:00 01:00 03:09 Temperature Pulse Rate 75 76 73 Respiratory 16 16 Rate Blood Pressure 131/78 114/65 129/80 O2 Sat by Pulse 95 96 95 Oximetry 02/08/23 02/08/23 02/08/23 04:30 08:00 09:00 Temperature Pulse Rate 65 63 65 Respiratory 16 18 17 Rate Blood Pressure 108/67 116/67 162/73 O2 Sat by Pulse 95 94 L 95 Oximetry 02/08/23 02/08/23 02/08/23 09:59 10:51 12:00 Temperature Pulse Rate 62 63 72 Respiratory 17 17 17 Rate Blood Pressure 142/74 163/82 140/59 O2 Sat by Pulse 94 L 94 L 94 L Oximetry 02/08/23 02/08/23 02/08/23 12:03 12:13 13:00 Temperature Pulse Rate 68 76 76 Respiratory 18 Rate Blood Pressure 118/65 O2 Sat by Pulse 94 L Oximetry 02/08/23 02/08/23 02/08/23 14:00 15:00 16:56 Temperature Pulse Rate 73 73 74 Respiratory 18 18 Rate Blood Pressure 125/70 133/77 O2 Sat by Pulse 94 L 94 L Oximetry 02/08/23 02/08/23 02/08/23 17:00 17:06 18:00 Temperature Pulse Rate 76 75 72 Respiratory 17 17 Rate Blood Pressure 137/62 134/69 O2 Sat by Pulse 95 95 Oximetry - Reevaluation(s) Reevaluation #1: 02/07/23 Medical record is reviewed Reevaluation #2: 02/07/23 Patient symptoms improved Reevaluation #3: 02/07/23 Patient informed results and questions answered Reevaluation #4: Was pt. sent in by a medical professional or institution ([facility]izzo, [employer], urgent care, hospital, or senior living...) When possible be specific @ -no Did you speak to anyone other than the patient for history (EMS, parent, family, police, friend...)? What history was obtained from this source @ -no Did you review nursing and triage notes (agree or disagree)? Why? @ -agree Are old charts reviewed (outside hosp., previous admission, EMS record, old EKG, old radiological studies, urgent care reports/EKG's, senior living records)? Report findings @ -yes Differential Diagnosis (chest pain, altered mental status, abdominal pain women, abdominal pain men, vaginal bleeding, weakness, fever, dyspnea, syncope, headache, dizziness, GI bleed, back pain, seizure, CVA, palpatations, mental health, musculoskeletal)? @ -prior EKG interpreted by me (3pts min.). @ -yes X-rays interpreted by me (1pt min.). @ -yes CT interpreted by me (1pt min.). @ -no U/S interpreted by me (1pt. min.). @ -no What testing was considered but not performed or refused? (CT, X-rays, U/S, labs)? Why? @ -none What meds were considered but not given or refused? Why? @ -none Did you discuss the management of the patient with other professionals (professionals i.e. L[facility] Rizzo, [employer], lab, RT, psych nurse, social worker clinical, legal nurse consultant, teacher, chief green officer, keycase assembler)? Give summary @ -no Was smoking cessation discussed for >3mins.? @ -no Was critical care preformed (if so, how long)? @ -no Were there social determinants of health that impacted care today? How? (Homelessness, low income, unemployed, alcoholism, drug addiction, transportation, low edu. Level, literacy, decrease access to med. care, care home, rehab)? @ -none Was there de-escalation of care discussed even if they declined (Discuss DNR or withdrawal of care, Hospice)? DNR status @ -no What co-morbidities impacted this encounter? (DM, HTN, Smoking, COPD, CAD, Cancer, CVA, ARF, Chemo, Hep., AIDS, mental health diagnosis, sleep apnea, morbid obesity)? @ -none Was patient admitted / discharged? Hospital course, mention meds given and route, prescriptions, significant lab abnormalities, going to OR and other pertinent info. @ - 67 female to the emergency department today for evaluation of unstable angina chest pain with COPD exacerbation. Patient having nausea vomiting diarrhea abdominal pain. Patient be admitted for cardiology evaluation ma nagement Admitted Undiagnosed new problem with uncertain prognosis? @ -no Drug Therapy requiring intensive monitoring for toxicity (Heparin, Nitro, Insulin, Cardizem)? @ -no Were any procedures done? @ -no Diagnosis/symptom? @ -Chest pain, unstable angina, abdominal pain with nausea vomiting and diarrhea Acute, or Chronic, or Acute on Chronic? @ -Acute Uncomplicated (without systemic symptoms) or Complicated (systemic symptoms)? @ -Complicated Side effects of treatment? @ -no Exacerbation, Progression, or Severe Exacerbation? @ -exacerbation Poses a threat to life or bodily function? How? (Chest pain, USA, DC, pneumonia, PE, COPD, DKA, ARF, appy, cholecystitis, CVA, Diverticulitis, Homicidal, Suicidal, threat to staff... and all critical care pts) @ -yes Reevaluation #5: Differential Abdominal Pain Women: Appendicitis, Cholecystitis, diverticulosis, ischemic bowel, pancreatitis, hepatitis, UTI, gastroenteritis, AAA, incarcerated hernia, bowel obstruction, constipation, inflammatory bowel, hepatitis, peptic ulcer disease, splenic infarction, perforated viscus, vulvitis, ovarian torsion, PID, kidney stone, placenta abruption, this is not meant to be an all-inclusive list - Consultations Consultation #1: Spoke with admitting physicians who agree to admit this patient Medical Decision Making - Medical Decision Making 67 female to the emergency department today for evaluation of unstable angina chest pain with COPD exacerbation. Patient having nausea vomiting diarrhea abdominal pain. Patient be admitted for cardiology evaluation management - Lab Data Result diagrams: 02/09/23 05:52 02/09/23 05:52 Lab Results 02/07/23 02/07/23 02/07/23 Range/Units 22:00 22:00 22:00 WBC 3.2 L (3.8-10.6) k/uL RBC 4.28 (3.80-5.40) m/uL Hgb 12.3 (11.4-16.0) gm/dL Hct 37.6 (34.0-46.0) % MCV 87.7 (80.0-100.0) fL MCH 28.8 (25.0-35.0) pg MCHC 32.8 (31.0-37.0) g/dL RDW 13.4 (11.5-15.5) % Plt Count 171 (150-450) k/uL MPV 8.9 Neutrophils % 69 % Lymphocytes % 18 % Monocytes % 9 % Eosinophils % 0 % Basophils % 0 % Neutrophils # 2.3 (1.3-7.7) k/uL Lymphocytes # 0.6 L (1.0-4.8) k/uL Monocytes # 0.3 (0-1.0) k/uL Eosinophils # 0.0 (0-0.7) k/uL Basophils # 0.0 (0-0.2) k/uL Sodium 132 L (137-145) mmol/L Potassium 4.2 (3.5-5.1) mmol/L Chloride 98 (98-107) mmol/L Carbon Dioxide 22 (22-30) mmol/L Anion Gap 12 mmol/L BUN 21 H (7-17) mg/dL Creatinine 0.74 (0.52-1.04) mg/dL Est GFR (CKD-EPI)AfAm >90 (>60 ml/min/1.73 sqM) Est GFR (CKD-EPI)NonAf 84 (>60 ml/min/1.73 sqM) Glucose 98 (74-99) mg/dL Plasma Lactic Acid Trey 1.3 (0.7-2.0) mmol/L Calcium 8.9 (8.4-10.2) mg/dL Total Bilirubin 0.6 (0.2-1.3) mg/dL AST 49 H (14-36) U/L ALT 23 (4-34) U/L Alkaline Phosphatase 113 (38-126) U/L Troponin I (0.000-0.034) ng/mL Total Protein 7.4 (6.3-8.2) g/dL Albumin 3.5 (3.5-5.0) g/dL Amylase 31 (30-110) U/L Lipase 53 (23-300) U/L 02/07/23 Range/Units 22:00 WBC (3.8-10.6) k/uL RBC (3.80-5.40) m/uL Hgb (11.4-16.0) gm/dL Hct (34.0-46.0) % MCV (80.0-100.0) fL MCH (25.0-35.0) pg MCHC (31.0-37.0) g/dL RDW (11.5-15.5) % Plt Count (150-450) k/uL MPV Neutrophils % % Lymphocytes % % Monocytes % % Eosinophils % % Basophils % % Neutrophils # (1.3-7.7) k/uL Lymphocytes # (1.0-4.8) k/uL Monocytes # (0-1.0) k/uL Eosinophils # (0-0.7) k/uL Basophils # (0-0.2) k/uL Sodium (137-145) mmol/L Potassium (3.5-5.1) mmol/L Chloride (98-107) mmol/L Carbon Dioxide (22-30) mmol/L Anion Gap mmol/L BUN (7-17) mg/dL Creatinine (0.52-1.04) mg/dL Est GFR (CKD-EPI)AfAm (>60 ml/min/1.73 sqM) Est GFR (CKD-EPI)NonAf (>60 ml/min/1.73 sqM) Glucose (74-99) mg/dL Plasma Lactic Acid Trey (0.7-2.0) mmol/L Calcium (8.4-10.2) mg/dL Total Bilirubin (0.2-1.3) mg/dL AST (14-36) U/L ALT (4-34) U/L Alkaline Phosphatase (38-126) U/L Troponin I 0.018 (0.000-0.034) ng/mL Total Protein (6.3-8.2) g/dL Albumin (3.5-5.0) g/dL Amylase (30-110) U/L Lipase (23-300) U/L - EKG Data -: EKG Interpreted by Me (EKG is sinus tachycardia 102 NJ 144 QRS 83 QTc 407) Disposition Clinical Impression: Abdominal pain, Unstable angina pectoris, Chest pain, COPD (chronic obstructive pulmonary disease) Disposition: ADMITTED IP TO THIS HOSP Condition: Fair Is patient prescribed a controlled substance at d/c from ED?: No Time of Disposition: 23:23
[2023-02-07 22:21] LABS: Basophils % (A) 0 %; Eosinophils % (A) 0 %; HCT 37.6 % (34.0-46.0); HGB 12.3 gm/dL (11.4-16.0); Lymphocytes # (A) 0.6 k/uL (1.0-4.8); Lymphocytes % (A) 18 %; MCH 28.8 pg (25.0-35.0); MCHC 32.8 g/dL (31.0-37.0); MCV 87.7 fL (80.0-100.0); Mean Platelet Volume 8.9; Monocytes # (A) 0.3 k/uL (0-1.0); Monocytes % (A) 9 %; Neutrophils # (A) 2.3 k/uL (1.3-7.7); Neutrophils % (A) 69 %; Platelet Count 171 k/uL (150-450); RBC 4.28 m/uL (3.80-5.40); RDW 13.4 % (11.5-15.5); WBC 3.2 k/uL (3.8-10.6)
--- NOTE | 2023-02-07 22:48 | XR ---
EXAMINATION TYPE: XR chest 1V DATE OF EXAM: 02/07/2023 COMPARISON: Chest x-ray December 01, 2022 HISTORY: Chest pain. TECHNIQUE: Single frontal view of the chest is obtained. FINDINGS: Overlying sternal wires are redemonstrated. There is some chronic parenchymal change witho ut suspicious new focal air space opacity, pleural effusion, or pneumothorax seen. Cardiomegaly redem onstrated. The osseous structures are intact. IMPRESSION: Cardiomegaly without acute pulmonary process. No significant change from prior.
--- NOTE | 2023-02-07 22:49 | XR ---
EXAMINATION TYPE: XR KUB DATE OF EXAM: 02/07/2023 10:44 PM CLINICAL HISTORY: Abdominal pain TECHNIQUE: Two supine KUB images of the abdomen are obtained. COMPARISON: None. FINDINGS: Some paucity of bowel gas. Scattered gas is seen in non-distended small and large bowel loo ps. There is levoconvex scoliosis centered at L2 level. Overlying vascular calcification. Cholecystec alia clips are noted. Visualized lung bases are clear IMPRESSION: Overall nonspecific but strongly favor nonobstructive bowel gas pattern.
[2023-02-07 22:56] LABS: ALT 23 U/L (4-34); AST 49 U/L (14-36); African American GFR (CKD) >90 (>60 ml/min/1.73 sqM); Albumin 3.5 g/dL (3.5-5.0); Alkaline Phosphatase 113 U/L (38-126); Amylase 31 U/L (30-110); Anion Gap 12 mmol/L; Blood Urea Nitrogen 21 mg/dL (7-17); Calcium 8.9 mg/dL (8.4-10.2); Carbon Dioxide 22 mmol/L (22-30); Chloride 98 mmol/L (98-107); Glucose 98 mg/dL (74-99); Lipase 53 U/L (23-300); Non-African American GFR(CKD) 84 (>60 ml/min/1.73 sqM); Potassium 4.2 mmol/L (3.5-5.1); Sodium 132 mmol/L (137-145); Total Bilirubin 0.6 mg/dL (0.2-1.3); Total Protein 7.4 g/dL (6.3-8.2)
[2023-02-07] MEDS ORDERED: NALOXONE 0.4 MG/ML 1 ML VIAL IV PRN (23:33)
[2023-02-07] MEDS ORDERED: MORPHINE SULFATE 4 MG/ML SYRINGE IV PRN (23:33)
[2023-02-07] MEDS ORDERED: ONDANSETRON 4 MG/2 ML VIAL IVP PRN (23:33)
[2023-02-07] MEDS: SODIUM CHLORIDE 0.9% 1,000 ML IV SCH (23:50)
[2023-02-08 04:18] LABS: Basophils % (A) 0 %; Eosinophils % (A) 0 %; HCT 34.4 % (34.0-46.0); Lymphocytes # (A) 0.5 k/uL (1.0-4.8); Lymphocytes % (A) 17 %; MCH 28.5 pg (25.0-35.0); MCV 88.9 fL (80.0-100.0); Mean Platelet Volume 8.9; Monocytes # (A) 0.3 k/uL (0-1.0); Monocytes % (A) 10 %; Neutrophils # (A) 1.8 k/uL (1.3-7.7); Neutrophils % (A) 69 %; Platelet Count 171 k/uL (150-450); RBC 3.87 m/uL (3.80-5.40); RDW 13.5 % (11.5-15.5); WBC 2.7 k/uL (3.8-10.6)
[2023-02-08 04:26] LABS: ALT 20 U/L (4-34); AST 40 U/L (14-36); African American GFR (CKD) 78 (>60 ml/min/1.73 sqM); Albumin 2.9 g/dL (3.5-5.0); Alkaline Phosphatase 96 U/L (38-126); Anion Gap 7 mmol/L; Blood Urea Nitrogen 21 mg/dL (7-17); Calcium 8.3 mg/dL (8.4-10.2); Carbon Dioxide 25 mmol/L (22-30); Chloride 101 mmol/L (98-107); Glucose 77 mg/dL (74-99); Non-African American GFR(CKD) 68 (>60 ml/min/1.73 sqM); Phosphorus 4.3 mg/dL (2.5-4.5); Sodium 133 mmol/L (137-145); Total Bilirubin 0.4 mg/dL (0.2-1.3); Total Protein 6.3 g/dL (6.3-8.2)
[2023-02-08] MEDS: METOPROLOL SUCCINATE (ER) 25 MG TAB.ER.24H PO SCH (10:16)
[2023-02-08] MEDS: PARoxetine 20 MG TAB PO SCH (10:16)
[2023-02-08] MEDS: LEVOTHYROXINE 25 MCG TAB PO SCH (10:17)
[2023-02-08] MEDS: PANTOPRAZOLE 40 MG TABLET PO SCH (10:17)
[2023-02-08] MEDS: lamoTRIgine 100 MG TAB PO SCH (10:17)
[2023-02-08] MEDS: IPRATROPIUM-ALBUTEROL 3 ML NEB INHALATION SCH ×2 (12:02→16:56)
[2023-02-08] MEDS: SYMBICORT 160-4.5 MCG INHALER INHALATION SCH (12:03)
[2023-02-08] MEDS: SODIUM CHLORIDE 0.9% 1,000 ML IV SCH ×2 (13:41→22:16)
[2023-02-08] MEDS: GABAPENTIN 300 MG CAP PO SCH ×2 (15:45→22:16)
[2023-02-08] MEDS: HEPARIN SODIUM,PORCINE 5,000 UNIT/ML 1 ML VIAL SQ SCH ×2 (15:46→22:16)
[2023-02-08] MEDS ORDERED: QUEtiapine 100 MG TAB PO SCH (21:00)
--- NOTE | 2023-02-08 22:14 | P.HPIM ---
History of Present Illness H&P Date: 02/08/23 Chief Complaint: Chest discomfort Patient is a 67-year-old female with a past medical history of COPD, hypertension, hyperlipidemia, mitral valve prolapse, hypothyroidism, history of aortic valve replacement, mild cognitive impairment, anxiety/bipolar disorder and currently everyday smoker presents to ER with complaints of chest pain/discomfort. Patient states that she has been having chest pain for the past 2 to 3 days since she had a fall. She is also complaining of left arm pain. No complaints of shortness of breath. No nausea vomiting abdominal pain or diarrhea. No dizziness or lightheadedness. On admission EKG showed sinus tachycardia. Chest x-ray showed cardiomegaly without acute pulmonary process. No significant change from prior. KUB x-ray showed overall nonspecific but strongly favor nonobstructive bowel gas pattern. Laboratory data showed WBC 3.2 hemoglobin 12.3 and platelets 171 Sodium 132 potassium 4.2 chloride 98 bicarb is 22 BUN 21 and creatinine 0.74, AST 49 ALT 423 and alk phos 113 and troponin x3 negative. Amylase and lipase not elevated. Review of Systems Constitutional: Patient denies any fever or chills . No generalized weakness or weight loss. Abdomen: Patient denied nausea vomiting and diarrhea and abdominal pain. Cardiovascular: Patient complains of chest pain. Denied short of breath no pal pitations. No leg swelling. Respiratory: patient denied any cough or sputum production. No shortness of breath Neurologic: Patient denied any numbness or tingling headache. Musculoskeletal: Patient denies any complaints of joint swelling or deformity. Skin: Negative Psychiatric: Negative Endocrine: No heat or cold intolerance. No recent weight gain. Genitourinary: No dysuria or hematuria. 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 History of Any Multi-Drug Resistant Organisms: None Reported Past Surgical History: Back Surgery, Bladder Surgery, Cholecystectomy, Heart Catheterization, Hysterectomy, Joint Replacement, Orthopedic Surgery, Tubal Ligation Additional Past Surgical History / Comment(s): aortic valve repair, left breast biopsy-neg, oopherectomy, left knee replacement, juan Past Anesthesia/Blood Transfusion Reactions: No Reported Reaction Past Psychological History: Anxiety, Bipolar Smoking Status: Current every day smoker, Current some day smoker Past Alcohol Use History: None Reported Past Drug Use History: None Reported - Past Family History Mother History Unknown: Yes Additional Family Medical History / Comment(s): Patient states she was adopted Medications and Allergies Home Medications Medication Instructions Recorded Confirmed Type QUEtiapine FUMARATE [SEROquel] 300 mg PO HS 10/12/14 02/08/23 History Rosuvastatin [Crestor] 20 mg PO DAILY 10/12/14 02/08/23 History Ipratropium/Albuterol Sulfate 1 puff INHALATION RT-QID 12/06/17 02/08/23 History [Combivent Respimat Inhaler] Memantine HCl [Namenda Xr] 28 mg PO DAILY 12/06/17 02/08/23 History Omeprazole 20 mg PO DAILY 12/06/17 02/08/23 History Aspirin 81 mg PO DAILY 01/10/18 02/08/23 History Gabapentin [Neurontin] 300 mg PO TID 01/10/18 02/08/23 History Fluticasone/Vilanterol [Breo 1 puff INHALATION RT-DAILY 01/31/20 02/08/23 H istory Ellipta 200-25 Mcg Inhaler] Ergocalciferol (Vitamin D2) 1,250 mcg PO SA 07/28/22 02/08/23 History [Drisdol (50,000 Iu)] Ezetimibe [Zetia] 10 mg PO DAILY 07/28/22 02/08/23 History Levothyroxine Sodium [Synthroid] 25 mcg PO DAILY 07/28/22 02/08/23 History Metoprolol Succinate (ER) [Toprol 25 mg PO DAILY 07/28/22 02/08/23 History XL] Sertraline [Zoloft] 150 mg PO DAILY 07/28/22 02/08/23 History Pantoprazole Sodium [Protonix] 40 mg PO DAILY 12/01/22 02/08/23 History lamoTRIgine [LaMICtal] 200 mg PO DAILY 12/01/22 02/08/23 History Nitroglycerin Sl Tabs [Nitrostat] 0.4 mg SL Q5M PRN 02/08/23 02/08/23 History PARoxetine [Paxil] 20 mg PO DAILY 02/08/23 02/08/23 History lisinopriL [Zestril] 10 mg PO DAILY 02/08/23 02/08/23 History Allergies Allergy/AdvReac Type Severity Reaction Status Date / Time fentanyl Allergy Rash/Hives Verified 02/08/23 07:44 niacin Allergy Dyspnea,barbara Verified 02/08/23 07:44 h Physical Exam Vitals: Vital Signs Temp Pulse Resp BP Pulse Ox 02/08/23 09:00 65 17 162/73 95 02/08/23 08:00 63 18 116/67 94 L 02/08/23 04:30 65 16 108/67 95 02/08/23 03:09 73 129/80 95 02/08/23 01:00 76 16 114/65 96 02/08/23 00:00 75 16 131/78 95 02/07/23 23:16 83 16 119/85 99 02/07/23 22:28 95 16 138/83 99 02/07/23 21:08 98.4 F 110 H 16 141/91 91 L Intake and Output 02/07/23 02/08/23 02/08/23 22:59 06:59 14:59 Other: Weight 74.843 kg PHYSICAL EXAMINATION: Patient is lying in the bed comfortably, no acute distress, awake alert and o riented.. HEENT: Normocephalic. Neck is supple. Pupils reactive. Nostrils clear. Oral cavity is moist. Neck reveals no JVD, carotid bruits, or thyromegaly. CHEST EXAMINATION: Trachea is central. Symmetrical expansion. Bibasilar diminished sounds. No wheezing or rhonchi.. CARDIAC: Normal S1, S2 with no gallops. No murmurs ABDOMEN: Soft. Bowel sounds normal. No organomegaly. No abdominal bruits. Extremities: reveal no edema. No clubbing or cyanosis Neurologically awake, alert, oriented x2-3. Mild cognitive impairment. No focal deficits noted Skin: No rash or skin lesions. Psychiatric: Cooperative. Nonsuicidal Musculoskeletal: No joint swelling or deformity. Normal range of motion. Results CBC & Chem 7: 02/08/23 03:40 02/08/23 03:40 Labs: Abnormal Lab Results - Last 24 Hours (Table) 02/07/23 02/07/23 02/08/23 Range/Units 22:00 22:00 03:40 WBC 3.2 L 2.7 L (3.8-10.6) k/uL Hgb 11.0 L (11.4-16.0) gm/dL Lymphocytes # 0.6 L 0.5 L (1.0-4.8) k/uL Sodium 132 L (137-145) mmol/L BUN 21 H (7-17) mg/dL Calcium (8.4-10.2) mg/dL AST 49 H (14-36) U/L Albumin (3.5-5.0) g/dL 02/08/23 Range/Units 03:40 WBC (3.8-10.6) k/uL Hgb (11.4-16.0) gm/dL Lymphocytes # (1.0-4.8) k/uL Sodium 133 L (137-145) mmol/L BUN 21 H (7-17) mg/dL Calcium 8.3 L (8.4-10.2) mg/dL AST 40 H (14-36) U/L Albumin 2.9 L (3.5-5.0) g/dL Thrombosis Risk Factor Assmnt - DVT/VTE Prophylaxis DVT/VTE Prophylaxis: Pharmacologic Prophylaxis ordered Assessment and Plan Assessment: Chest discomfort/pain. Reproducible likely due to musculoskeletal status post fall. Hypovolemic hyponatremia Prior history of aortic valve replacement Hypertension Currently everyday smoker COPD not in exacerbation Hypothyroidism Anxiety and depression bipolar disorder DVT prophylaxis with heparin subcu Plan: Patient will be continued on telemetry monitoring. Serial EKG and troponin x3 negative. Patient will be currently on DuoNebs and Symbicort. Continue with pain management. Gentle IV hydration and follow-up renal function closely. Continue with home medications. Anticipate discharge in the next 24 hours with more clinical improvement. Time with Patient: Greater than 30
[2023-02-09] MEDS: IPRATROPIUM-ALBUTEROL 3 ML NEB INHALATION SCH ×2 (00:09→10:08)
[2023-02-09] MEDS: SYMBICORT 160-4.5 MCG INHALER INHALATION SCH ×2 (00:09→10:08)
[2023-02-09] MEDS: LEVOTHYROXINE 25 MCG TAB PO SCH (06:28)
[2023-02-09] MEDS: PANTOPRAZOLE 40 MG TABLET PO SCH (06:28)
[2023-02-09] MEDS: HEPARIN SODIUM,PORCINE 5,000 UNIT/ML 1 ML VIAL SQ SCH (08:15)
[2023-02-09] MEDS: PARoxetine 20 MG TAB PO SCH (08:15)
[2023-02-09] MEDS: METOPROLOL SUCCINATE (ER) 25 MG TAB.ER.24H PO SCH (08:15)
[2023-02-09] MEDS: GABAPENTIN 300 MG CAP PO SCH (08:15)
[2023-02-09] MEDS: lamoTRIgine 100 MG TAB PO SCH (08:15)
[2023-02-09 08:26] VITALS: RESP 17
[2023-02-09 08:59] LABS: Blood Urea Nitrogen 10.8 mg/dL (9.0-27.0); Carbon Dioxide 23.3 mmol/L (21.6-31.8); Chloride 102 mmol/L (96-109); Glucose 65 mg/dL (70-110); Sodium 135 mmol/L (135-145)
[2023-02-09] MEDS ORDERED: ATORVASTATIN 40 MG TAB PO SCH (09:00)
[2023-02-09] MEDS ORDERED: lisinopriL 10 MG TAB PO SCH (09:00)
[2023-02-09 09:01] LABS: HCT 33.6 % (37.2-46.3); HGB 10.8 d/dL (12.0-15.0); MCH 27.7 pg (27.0-32.0); MCHC 32.1 d/dL (32.0-37.0); MCV 86.2 FL (80.0-97.0); Mean Platelet Volume 11.6 FL (9.5-12.2); NRBC Per 100 WBC 0 X 10*3/uL (0.00-0.01); Platelet Count 172 X 10*3/uL (140-440); WBC 2.86 X 10*3/uL (4.50-10.00)
[2023-02-09 09:14] VITALS: BP 123/67; PULSE 67; TEMP 99.2
[2023-02-09] MEDS ORDERED: SERTRALINE 50 MG TAB PO SCH (09:30)
[2023-02-09 09:58] LABS: Basophils # (A) 0 X 10*3/uL (0.00-0.10); Basophils % (A) 0 %; Eosinophils # (A) 0 X 10*3/uL (0.04-0.35); Eosinophils % (A) 0 %; Lymphocytes # (A) 0.49 X 10*3/uL (0.90-5.00); Lymphocytes % (A) 17.1 %; Monocytes # (A) 0.33 X 10*3/uL (0.20-1.00); Monocytes % (A) 11.5 %; Neutrophils # (A) 2.03 X 10*3/uL (1.80-7.70); Neutrophils % (A) 71.1 %; RBC Morphology Normal (Normal)
[2023-02-09] MEDS ORDERED: polyethylene glycoL 3350 17 GM POWD.PACK PO STA (10:53)
--- NOTE | 2023-02-10 21:38 | P.DS ---
Providers Date of admission: 02/07/23 23:33 Expected date of discharge: 02/09/23 Attending physician: Nikole Stacy Primary care physician: Gabe Cisneros [facility] Course: Discharge diagnosis Chest discomfort/pain. Reproducible likely due to musculoskeletal status post fall. Hypovolemic hyponatremia Prior history of aortic valve replacement Hypertension Currently everyday smoker COPD not in exacerbation Hypothyroidism Anxiety and depression bipolar disorder DVT prophylaxis with heparin subcu Hospital course Patient is a 67-year-old female with a past medical history of COPD, hypertension, hyperlipidemia, mitral valve prolapse, hypothyroidism, history of aortic valve replacement, mild cognitive impairment, anxiety/bipolar disorder and currently everyday smoker presents to ER with complaints of chest pain/discomfort. Patient states that she has been having chest pain for the past 2 to 3 days since she had a fall. She is also complaining of left arm pain. No complaints of shortness of breath. No nausea vomiting abdominal pain or diarrhea. No dizziness or lightheadedness. On admission EKG showed sinus tachycardia. Chest x-ray showed cardiomegaly without acute pulmonary process. No significant change from prior. KUB x-ray showed overall nonspecific but strongly favor nonobstructive bowel gas pattern. Laboratory data showed WBC 3.2 hemoglobin 12.3 and platelets 171 Sodium 132 potassium 4.2 chloride 98 bicarb is 22 BUN 21 and creatinine 0.74, AST 49 ALT 423 and alk phos 113 and troponin x3 negative. Amylase and lipase not elevated. 02/09/2023 Patient is currently resting in the bed. Awake alert and oriented 3. Chest pain is better controlled. Still reproducible but improved. No complains of shortness of breath. No nausea vomiting R abdominal pain. Patient did have a large bowel movement this morning. Patient has been afebrile. Sodium level improved to 135 with IV hydration. Patient will be continued on home medications and is being discharged home. Follow with primary care physician in the next 3- 5 days. PHYSICAL EXAMINATION: Patient is lying in the bed comfortably, no acute distress, awake alert and oriented.. HEENT: Normocephalic. Neck is supple. Pupils reactive. Nostrils clear. Oral cavity is moist. Neck reveals no JVD, carotid bruits, or thyromegaly. CHEST EXAMINATION: Trachea is central. Symmetrical expansion. Bibasilar diminished sounds. No wheezing or rhonchi.. CARDIAC: Normal S1, S2 with no gallops. No murmurs ABDOMEN: Soft. Bowel sounds normal. No organomegaly. No abdominal bruits. Extremities: reveal no edema. No clubbing or cyanosis Neurologically awake, alert, oriented x2-3. Mild cognitive impairment. No focal deficits noted Skin: No rash or skin lesions. Psychiatric: Cooperative. Nonsuicidal Musculoskeletal: No joint swelling or deformity. Normal range of motion. Vital Signs (72 hours) 02/07/23 02/07/23 02/08/23 22:28 23:16 00:00 Temperature Pulse Rate 95 83 75 Pulse Rate [ Pulse Oximetery ] Respiratory 16 16 16 Rate Blood Pressure 138/83 119/85 131/78 Blood Pressure [Left Arm] O2 Sat by Pulse 99 99 95 Oximetry 02/08/23 02/08/23 02/08/23 01:00 03:09 04:30 Temperature Pulse Rate 76 73 65 Pulse Rate [ Pulse Oximetery ] Respiratory 16 16 Rate Blood Pressure 114/65 129/80 108/67 Blood Pressure [Left Arm] O2 Sat by Pulse 96 95 95 Oximetry 02/08/23 02/08/23 02/08/23 08:00 09:00 09:59 Temperature Pulse Rate 63 65 62 Pulse Rate [ Pulse Oximetery ] Respiratory 18 17 17 Rate Blood Pressure 116/67 162/73 142/74 Blood Pressure [Left Arm] O2 Sat by Pulse 94 L 95 94 L Oximetry 02/08/23 02/08/23 02/08/23 10:51 12:00 12:03 Temperature Pulse Rate 63 72 68 Pulse Rate [ Pulse Oximetery ] Respiratory 17 17 Rate Blood Pressure 163/82 140/59 Blood Pressure [Left Arm] O2 Sat by Pulse 94 L 94 L Oximetry 02/08/23 02/08/23 02/08/23 12:13 13:00 14:00 Temperature Pulse Rate 76 76 73 Pulse Rate [ Pulse Oximetery ] Respiratory 18 18 Rate Blood Pressure 118/65 125/70 Blood Pressure [Left Arm] O2 Sat by Pulse 94 L 94 L Oximetry 02/08/23 02/08/23 02/08/23 15:00 16:56 17:00 Temperature Pulse Rate 73 74 76 Pulse Rate [ Pulse Oximetery ] Respiratory 18 17 Rate Blood Pressure 133/77 137/62 Blood Pressure [Left Arm] O2 Sat by Pulse 94 L 95 Oximetry 02/08/23 02/08/2323 17:06 18:00 20:14 Temperature 98.4 F Pulse Rate 75 72 Pulse Rate [ 73 Pulse Oximetery ] Respiratory 17 16 Rate Blood Pressure 134/69 Blood Pressure 123/59 [Left Arm] O2 Sat by Pulse 95 94 L Oximetry 02/09/23 02/09/23 02/09/23 02:00 07:00 08:00 Temperature 99.5 F 99.2 F Pulse Rate Pulse Rate [ 63 70 67 Pulse Oximetery ] Respiratory 16 17 17 Rate Blood Pressure Blood Pressure 132/72 122/72 123/67 [Left Arm] O2 Sat by Pulse 96 94 L 94 L Oximetry Patient Condition at Discharge: Fair Plan - Discharge Summary Discharge Rx Participant: No New Discharge Prescriptions: Continue QUEtiapine FUMARATE [SEROquel] 300 mg PO HS Rosuvastatin [Crestor] 20 mg PO DAILY Memantine HCl [Namenda Xr] 28 mg PO DAILY Ipratropium/Albuterol Sulfate [Combivent Respimat Inhaler] 1 puff INHALATION RT-QID Gabapentin [Neurontin] 300 mg PO TID Aspirin 81 mg PO DAILY Fluticasone/Vilanterol [Breo Ellipta 200-25 Mcg Inhaler] 1 puff INHALATION RT-DAILY Ezetimibe [Zetia] 10 mg PO DAILY Metoprolol Succinate (ER) [Toprol XL] 25 mg PO DAILY Levothyroxine Sodium [Synthroid] 25 mcg PO DAILY Sertraline [Zoloft] 150 mg PO DAILY lamoTRIgine [LaMICtal] 200 mg PO DAILY Nitroglycerin Sl Tabs [Nitrostat] 0.4 mg SL Q5M PRN PRN Reason: Chest Pain Ergocalciferol (Vitamin D2) [Drisdol (50,000 Iu)] 1,250 mcg PO SA Pantoprazole Sodium [Protonix] 40 mg PO DAILY lisinopriL [Zestril] 10 mg PO DAILY PARoxetine [Paxil] 20 mg PO DAILY Discontinued Omeprazole 20 mg PO DAILY Discharge Medication List QUEtiapine FUMARATE [SEROquel] 300 mg PO HS 10/12/14 [History] Rosuvastatin [Crestor] 20 mg PO DAILY 10/12/14 [History] Ipratropium/Albuterol Sulfate [Combivent Respimat Inhaler] 1 puff INHALATION RT- QID 12/06/17 [History] Memantine HCl [Namenda Xr] 28 mg PO DAILY 12/06/17 [History] Aspirin 81 mg PO DAILY 01/10/18 [History] Gabapentin [Neurontin] 300 mg PO TID 01/10/18 [History] Fluticasone/Vilanterol [Breo Ellipta 200-25 Mcg Inhaler] 1 puff INHALATION RT- DAILY 01/31/20 [History] Ergocalciferol (Vitamin D2) [Drisdol (50,000 Iu)] 1,250 mcg PO SA 07/28/22 [History] Ezetimibe [Zetia] 10 mg PO DAILY 07/28/22 [History] Levothyroxine Sodium [Synthroid] 25 mcg PO DAILY 07/28/22 [History] Metoprolol Succinate (ER) [Toprol XL] 25 mg PO DAILY 07/28/22 [History] Sertraline [Zoloft] 150 mg PO DAILY 07/28/22 [History] Pantoprazole Sodium [Protonix] 40 mg PO DAILY 12/01/22 [History] lamoTRIgine [LaMICtal] 200 mg PO DAILY 12/01/22 [History] Nitroglycerin Sl Tabs [Nitrostat] 0.4 mg SL Q5M PRN 02/08/23 [History] PARoxetine [Paxil] 20 mg PO DAILY 02/08/23 [History] lisinopriL [Zestril] 10 mg PO DAILY 02/08/23 [History] Follow up Appointment(s)/Referral(s): Gabe Cisneros DO [Primary Care Provider] - 1-2 days Patient Instructions/Handouts: Chest Pain (DC) Discharge Disposition: HOME WITH HOME HEALTH SERVICES
== END 2023-02-09 12:16 | disposition home health service (06) ==
LOC: EC 21:06 → 6NMEDSUR 23:33
PROVIDERS: ADMIT Hospitalist; ATTEND Hospitalist
DX: R07.89 Other chest pain (principal); E87.1 Hypo-osmolality and hyponatremia; E86.1 Hypovolemia; J44.9 Chronic obstructive pulmonary disease, unspecified; I11.9 Hypertensive heart disease without heart failure; E03.9 Hypothyroidism, unspecified; K21.9 Gastro-esophageal reflux disease without esophagitis; I34.1 Nonrheumatic mitral (valve) prolapse; E78.5 Hyperlipidemia, unspecified; G31.84 Mild cognitive impairment of uncertain or unknown etiology; F41.9 Anxiety disorder, unspecified; F31.9 Bipolar disorder, unspecified; R10.9 Unspecified abdominal pain; R11.2 Nausea with vomiting, unspecified; R19.7 Diarrhea, unspecified; M79.602 Pain in left arm; W19.XXXA Unspecified fall, initial encounter; R00.0 Tachycardia, unspecified; F17.200 Nicotine dependence, unspecified, uncomplicated; Z79.82 Long term (current) use of aspirin; Z79.51 Long term (current) use of inhaled steroids; Z79.890 Hormone replacement therapy; Z79.899 Other long term (current) drug therapy; Z88.5 Allergy status to narcotic agent; Z88.8 Allergy status to other drugs, medicaments and biological substances; Z95.2 Presence of prosthetic heart valve; Z90.49 Acquired absence of other specified parts of digestive tract; Z90.710 Acquired absence of both cervix and uterus; Z96.652 Presence of left artificial knee joint; Z90.721 Acquired absence of ovaries, unilateral; Z98.51 Tubal ligation status; Z98.890 Other specified postprocedural states
CPT/HCPCS: 96361 ×2; 96372 ×3; 96374; 96375; 99285; 36415 ×2; 94640 ×2; 93005; 80053 ×2; 80048; 82150; 83605; 83690; 83735; 84100; 84484 ×2; 85025 ×3; 71045; 74018; G0378 ×2; J2270; J1644 ×2; J1885

== ENCOUNTER 2023-03-03 17:46 | Emergency (ER) | payer MEDICARE, OTHER ==
--- NOTE | 2023-03-03 18:16 | ED ---
Fall HPI - General Chief Complaint: Fall Stated Complaint: Fall, head injury Time Seen by Provider: 03/03/23 18:13 Source: patient, EMS, RN notes reviewed, old records reviewed Mode of arrival: EMS Limitations: no limitations - History of Present Illness Initial Comments: This is a 65-year-old female DF for a fall today. Patient states she felt lightheaded and dizzy prior to the fall but did not pass out prior to fall and did not pass out after the fall. She did hit her head with symptoms bleeding from her scalp. Patient has no headache chest pain shortness with abdominal pain currently. No neck pain as well currently. Patient has a long underlying medical history along with history of dementia and is a poor historian MD Complaint: fall, other (Weakness) -: unknown Fall From: standing When Fall Occurred: 1 hour [employer] (Fall was about) Fall Witnessed: yes, by family ( less than one hour prior to arrival) Place Fall Occurred: home Loss of Consciousness: none Prolonged Down Time?: no Symptoms Prior to Fall: none Location: head, face Severity: mild Severity scale (1-10): 1 Context: tripped/slipped Associated Symptoms: denies - Related Data Home Medications Medication Instructions Recorded Confirmed QUEtiapine FUMARATE [SEROquel] 300 mg PO HS 10/12/14 03/03/23 Rosuvastatin [Crestor] 20 mg PO DAILY 10/12/14 03/03/23 Ipratropium/Albuterol Sulfate 1 puff INHALATION RT-QID 12/06/17 03/03/23 [Combivent Respimat Inhaler] Memantine HCl [Namenda Xr] 28 mg PO DAILY 12/06/17 03/03/23 Aspirin 81 mg PO DAILY 01/10/18 03/03/23 Gabapentin [Neurontin] 300 mg PO BID 01/10/18 03/03/23 Fluticasone/Vilanterol [Breo 1 puff INHALATION RT-DAILY 01/31/20 03/03/23 Ellipta 200-25 Mcg Inhaler] Ergocalciferol (Vitamin D2) 1,250 mcg PO SA 07/28/22 03/03/23 [Drisdol (50,000 Iu)] Ezetimibe [Zetia] 10 mg PO DAILY 07/28/22 03/03/23 Levothyroxine Sodium [Synthroid] 25 mcg PO MOTUWETHFR 07/28/22 03/03/23 Metoprolol Succinate (ER) [Toprol 25 mg PO DAILY 07/28/22 03/03/23 XL] Sertraline [Zoloft] 150 mg PO DAILY 07/28/22 03/03/23 Pantoprazole Sodium [Protonix] 40 mg PO DAILY 12/01/22 03/03/23 lamoTRIgine [LaMICtal] 200 mg PO DAILY 12/01/22 03/03/23 Nitroglycerin Sl Tabs [Nitrostat] 0.4 mg SL Q5M PRN 02/08/23 03/03/23 PARoxetine [Paxil] 20 mg PO DAILY 02/08/23 03/03/23 lisinopriL [Zestril] 10 mg PO DAILY 02/08/23 03/03/23 Levothyroxine Sodium [Synthroid] 50 mcg PO SUSA 03/03/23 03/03/23 polyethylene glycoL 3350 [Miralax] 17 gm PO DAILY PRN 03/03/23 03/03/23 Allergies Allergy/AdvReac Type Severity Reaction Status Date / Time fentanyl Allergy Rash/Hives Verified 03/03/23 20:15 niacin Allergy Dyspnea,barbara Verified 03/03/23 20:15 h Review of Systems ROS Statement: Those systems with pertinent positive or pertinent negative responses have been documented in the HPI. ROS Other: All systems not noted in ROS Statement are negative. 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 History of Any Multi-Drug Resistant Organisms: None Reported Past Surgical History: Back Surgery, Bladder Surgery, Cholecystectomy, Heart Catheterization, Hysterectomy, Joint Replacement, Orthopedic Surgery, Tubal Ligation Additional Past Surgical History / Comment(s): aortic valve repair, left breast biopsy-neg, oopherectomy, left knee replacement, juan Past Anesthesia/Blood Transfusion Reactions: No Reported Reaction Past Psychological History: Anxiety, Bipolar Smoking Status: Current every day smoker, Current some day smoker Past Alcohol Use History: None Reported Past Drug Use History: None Reported - Past Family History Mother History Unknown: Yes Additional Family Medical History / Comment(s): Patient states she was adopted General Exam - General Exam Comments Initial Comments: GCS 15 Limitations: no limitations General appearance: alert, in no apparent distress Head exam: Present: normocephalic, normal inspection. Absent: atraumatic (Patient does have anterior forehead laceration in the hairline) Eye exam: Present: normal appearance, PERRL, EOMI. Absent: scleral icterus, c onjunctival injection, periorbital swelling ENT exam: Present: normal exam, mucous membranes moist Neck exam: Present: normal inspection. Absent: tenderness, meningismus, lymphadenopathy Respiratory exam: Present: normal lung sounds bilaterally. Absent: respiratory distress, wheezes, rales, rhonchi, stridor Cardiovascular Exam: Present: regular rate, normal rhythm, normal heart sounds. Absent: systolic murmur, diastolic murmur, rubs, gallop, clicks GI/Abdominal exam: Present: soft, normal bowel sounds. Absent: distended, tenderness, guarding, rebound, rigid Extremities exam: Present: normal inspection, full ROM, normal capillary refill. Absent: tenderness, pedal edema, joint swelling, calf tenderness Back exam: Present: normal inspection Neurological exam: Present: alert, oriented X3, CN II-XII intact Psychiatric exam: Present: normal affect, normal mood Skin exam: Present: warm, dry, intact, normal color. Absent: rash Course Vital Signs 03/03/23 03/03/23 03/03/23 18:01 19:20 19:59 Temperature 98.3 F Pulse Rate 50 L 63 63 Respiratory 18 18 Rate Blood Pressure 89/53 102/68 O2 Sat by Pulse 96 97 Oximetry 03/03/23 03/03/23 20:05 22:24 Temperature Pulse Rate 62 68 Respiratory 18 Rate Blood Pressure 99/67 O2 Sat by Pulse 95 Oximetry - Reevaluation(s) Reevaluation #1: Medical record is reviewed Reevaluation #2: Patient states that she was feeling improved here in the ER Reevaluation #3: Patient informed results and questions answered Reevaluation #4: Was pt. sent in by a medical professional or institution (, PA, HARBOR DEPARTMENT MANAGER, urgent care, hospital, or [facility]...) When possible be specific @ -no Did you speak to anyone other than the patient for history (EMS, parent, family, police, friend...)? What history was obtained from this source @ -no Did you review nursing and triage notes (agree or disagree)? Why? @ -agree Are old charts reviewed (outside hosp., previous admission, EMS record, old EKG, old radiological studies, urgent care reports/EKG's, [facility] records)? Report findings @ -yes Differential Diagnosis (chest pain, altered mental status, abdominal pain women, abdominal pain men, vaginal bleeding, weakness, fever, dyspnea, syncope, headache, dizziness, GI bleed, back pain, seizure, CVA, palpatations, mental health, musculoskeletal)? @ -prior EKG interpreted by me (3pts min.). @ -yes X-rays interpreted by me (1pt min.). @ -yes CT interpreted by me (1pt min.). @ -no U/S interpreted by me (1pt. min.). @ -no What testing was considered but not performed or refused? (CT, X-rays, U/S, labs)? Why? @ -none What meds were considered but not given or refused? Why? @ -none Did you discuss the management of the patient with other professionals (professionals i.e. , PA, HARBOR DEPARTMENT MANAGER, lab, RT, psych nurse, social problems specialist, aerospace manager, teacher, animal park code enforcement officer, block and case maker)? Give summary @ -no Was smoking cessation discussed for >3mins.? @ -no Was critical care preformed (if so, how long)? @ -no Were there social determinants of health that impacted care today? How? (Homelessness, low income, unemployed, alcoholism, drug addiction, transportation, low edu. Level, literacy, decrease access to med. care, penitentiary, rehab)? @ -none Was there de-escalation of care discussed even if they declined (Discuss DNR or withdrawal of care, Hospice)? DNR status @ -no What co-morbidities impacted this encounter? (DM, HTN, Smoking, COPD, CAD, Cancer, CVA, ARF, Chemo, Hep., AIDS, mental health diagnosis, sleep apnea, morbid obesity)? @ -none Was patient admitted / discharged? Hospital course, mention meds given and route, prescriptions, significant lab abnormalities, going to OR and other pertinent info. @ - Undiagnosed new problem with uncertain prognosis? @ -no Drug Therapy requiring intensive monitoring for toxicity (Heparin, Nitro, Insulin, Cardizem)? @ -no Were any procedures done? @ -no Diagnosis/symptom? @ - Acute, or Chronic, or Acute on Chronic? @ -Acute Uncomplicated (without systemic symptoms) or Complicated (systemic symptoms)? @ -Complicated Side effects of treatment? @ -no Exacerbation, Progression, or Severe Exacerbation? @ -exacerbation Poses a threat to life or bodily function? How? (Chest pain, USA, TN, pneumonia, PE, COPD, DKA, ARF, appy, cholecystitis, CVA, Diverticulitis, Homicidal, Suicidal, threat to staff... and all critical care pts) @ -yes Reevaluation #5: Differential Weakness: Hypoglycemia, shock, sepsis, hyponatremia, anemia, infection, TN, ETOH, adverse medicine reaction, overdose, stroke, this is not meant to be an all-inclusive list. Procedures - Laceration Laceration #1 Consent Obtained: verbal consent Indication: laceration Site: scalp Size (cm): 3 Description: linear Depth: simple, single layer Size of Sutures: other (Bethany) Technique: simple, interrupted Complications: pain Medical Decision Making - Medical Decision Making 67 female to the emergency department for evaluation of a fall. Patient is dizzy and weak prior to fall but did not pass out. Patient does have scalp laceration repaired here in the ER with bethany 2 cm. Patient has some mild CHF on x-ray but oxygenation is normal here in the ER she feels well and was discharged home, family is at bedside - Lab Data Result diagrams: 03/03/23 18:45 03/03/23 18:45 Lab Results 03/03/23 03/03/23 03/03/23 Range/Units 18:45 18:45 18:45 WBC 2.4 L (3.8-10.6) k/uL RBC 6.65 H (3.80-5.40) m/uL Hgb 19.3 H* D (11.4-16.0) gm/dL Hct 58.9 H* (34.0-46.0) % MCV 88.5 (80.0-100.0) fL MCH 29.0 (25.0-35.0) pg MCHC 32.7 (31.0-37.0) g/dL RDW 14.6 (11.5-15.5) % Plt Count 94 L (150-450) k/uL MPV 8.3 Neutrophils % 84 % Lymphocytes % 9 % Monocytes % 4 % Eosinophils % 2 % Basophils % 0 % Neutrophils # 2.0 (1.3-7.7) k/uL Lymphocytes # 0.2 L (1.0-4.8) k/uL Monocytes # 0.1 (0-1.0) k/uL Eosinophils # 0.0 (0-0.7) k/uL Basophils # 0.0 (0-0.2) k/uL PT 12.0 (10.0-12.5) sec INR 1.1 (<1.2) APTT 26.5 (22.0-30.0) sec Sodium 135 L (137-145) mmol/L Potassium 4.0 (3.5-5.1) mmol/L Chloride 98 (98-107) mmol/L Carbon Dioxide 26 (22-30) mmol/L Anion Gap 11 mmol/L BUN 14 (7-17) mg/dL Creatinine 1.38 H (0.52-1.04) mg/dL Est GFR (CKD-EPI)AfAm 45 (>60 ml/min/1.73 sqM) Est GFR (CKD-EPI)NonAf 39 (>60 ml/min/1.73 sqM) Glucose 101 H (74-99) mg/dL Plasma Lactic Acid Trey (0.7-2.0) mmol/L Calcium 8.6 (8.4-10.2) mg/dL Phosphorus 4.0 (2.5-4.5) mg/dL Magnesium 1.9 (1.6-2.3) mg/dL Total Bilirubin 0.6 (0.2-1.3) mg/dL AST 29 (14-36) U/L ALT 18 (4-34) U/L Alkaline Phosphatase 128 H (38-126) U/L Troponin I (0.000-0.034) ng/mL NT-Pro-B Natriuret Pep 1180 pg/mL Total Protein 6.9 (6.3-8.2) g/dL Albumin 3.3 L (3.5-5.0) g/dL TSH 0.558 (0.465-4.680) mIU/L 03/03/23 03/03/23 Range/Units 18:45 18:45 WBC (3.8-10.6) k/uL RBC (3.80-5.40) m/uL Hgb (11.4-16.0) gm/dL Hct (34.0-46.0) % MCV (80.0-100.0) fL MCH (25.0-35.0) pg MCHC (31.0-37.0) g/dL RDW (11.5-15.5) % Plt Count (150-450) k/uL MPV Neutrophils % % Lymphocytes % % Monocytes % % Eosinophils % % Basophils % % Neutrophils # (1.3-7.7) k/uL Lymphocytes # (1.0-4.8) k/uL Monocytes # (0-1.0) k/uL Eosinophils # (0-0.7) k/uL Basophils # (0-0.2) k/uL PT (10.0-12.5) sec INR (<1.2) APTT (22.0-30.0) sec Sodium (137-145) mmol/L Potassium (3.5-5.1) mmol/L Chloride (98-107) mmol/L Carbon Dioxide (22-30) mmol/L Anion Gap mmol/L BUN (7-17) mg/dL Creatinine (0.52-1.04) mg/dL Est GFR (CKD-EPI)AfAm (>60 ml/min/1.73 sqM) Est GFR (CKD-EPI)NonAf (>60 ml/min/1.73 sqM) Glucose (74-99) mg/dL Plasma Lactic Acid Trey 1.4 (0.7-2.0) mmol/L Calcium (8.4-10.2) mg/dL Phosphorus (2.5-4.5) mg/dL Magnesium (1.6-2.3) mg/dL Total Bilirubin (0.2-1.3) mg/dL AST (14-36) U/L ALT (4-34) U/L Alkaline Phosphatase (38-126) U/L Troponin I <0.012 (0.000-0.034) ng/mL NT-Pro-B Natriuret Pep pg/mL Total Protein (6.3-8.2) g/dL Albumin (3.5-5.0) g/dL TSH (0.465-4.680) mIU/L - EKG Data -: EKG Interpreted by Me (EKG is sinus 64 IN 167 QRS 94 QTC 435) - Radiology Data Radiology results: report reviewed (CT brain C-spine chest x-ray and pelvis x- ray are negative for traumatic injury), image reviewed Disposition Clinical Impression: Fall, COPD (chronic obstructive pulmonary disease), Weakness, Scalp laceration, CHF (congestive heart failure), Pre-syncope Disposition: HOME SELF-CARE Condition: Fair Instructions (If sedation given, give patient instructions): Fall Prevention for Older Adults (ED) Is patient prescribed a controlled substance at d/c from ED?: No Referrals: Gabe Cisneros DO [Primary Care Provider] - 1-2 days Time of Disposition: 22:00
[2023-03-03 18:18] VITALS: RESP 18; TEMP 98.3
[2023-03-03] MEDS ORDERED: SODIUM CHLORIDE 0.9% 1,000 ML IV STA (18:27)
[2023-03-03] MEDS ORDERED: methylPREDNISolone SOD SUCCI 125 MG/2 ML VIAL IV STA (18:30)
[2023-03-03] MEDS ORDERED: IPRATROPIUM-ALBUTEROL 3 ML NEB INHALATION STA (18:30)
[2023-03-03 19:01] LABS: Basophils % (A) 0 %; Eosinophils % (A) 2 %; Lymphocytes # (A) 0.2 k/uL (1.0-4.8); Lymphocytes % (A) 9 %; MCHC 32.7 g/dL (31.0-37.0); MCV 88.5 fL (80.0-100.0); Mean Platelet Volume 8.3; Monocytes # (A) 0.1 k/uL (0-1.0); Monocytes % (A) 4 %; Neutrophils % (A) 84 %; Platelet Count 94 k/uL (150-450); RBC 6.65 m/uL (3.80-5.40); RDW 14.6 % (11.5-15.5); WBC 2.4 k/uL (3.8-10.6)
[2023-03-03 19:09] LABS: HCT 58.9 % (34.0-46.0); HGB 19.3 gm/dL (11.4-16.0)
[2023-03-03 19:11] LABS: INR 1.1 (<1.2); Partial Thromboplastin Time 26.5 sec (22.0-30.0)
[2023-03-03 19:23] LABS: ALT 18 U/L (4-34); AST 29 U/L (14-36); African American GFR (CKD) 45 (>60 ml/min/1.73 sqM); Albumin 3.3 g/dL (3.5-5.0); Alkaline Phosphatase 128 U/L (38-126); Anion Gap 11 mmol/L; Blood Urea Nitrogen 14 mg/dL (7-17); Calcium 8.6 mg/dL (8.4-10.2); Carbon Dioxide 26 mmol/L (22-30); Chloride 98 mmol/L (98-107); Glucose 101 mg/dL (74-99); Magnesium 1.9 mg/dL (1.6-2.3); Non-African American GFR(CKD) 39 (>60 ml/min/1.73 sqM); Sodium 135 mmol/L (137-145); Total Bilirubin 0.6 mg/dL (0.2-1.3); Total Protein 6.9 g/dL (6.3-8.2)
[2023-03-03 19:31] LABS: NT-Pro-B-Type Natriuretic Pept 1180 pg/mL
--- NOTE | 2023-03-03 20:15 | CT ---
EXAMINATION TYPE: CT brain juanine wo con DATE OF EXAM: 03/03/2023 COMPARISON: 06/02/2022 HISTORY: pain after fall CT DLP: 1479 mGycm, Automated exposure control for dose reduction was used. CONTRAST: Patient injected with 0 mL of Isovue 300. CT of the brain is performed utilizing 3 mm thick sections through the posterior fossa and 3 mm thick sections through the remaining calvarium. Study is performed within 24 hours of arrival to the hospital. No abnormal hyperdensity is present to suggest an acute intracranial hemorrhage. No mass lesion is evident. No acute infarcts are evident. Ventricles and sulci are appropriate for the patient age. Paranasal sinuses and mastoid air cells within the [id number] are clear. IMPRESSIONS: 1. No acute intracranial process. Follow-up MRI can be performed as clinically indicated CT cervical spine. COMPARISON: None CT of the cervical spine is performed in the axial plane at 2 mm thick sections. Reconstructed image s in the coronal, and sagittal plane are reviewed on the computer. No acute fractures are evident. Vertebral body alignment is normal. Posterior spinal lamellar line is intact. Prevertebral space is n ormal. Disc heights are preserved. Vertebral body heights are preserved. No spinal canal stenosis is evident. No neural foraminal stenosis is evident. IMPRESSION: 1. No acute osseous abnormality cervical spine.
--- NOTE | 2023-03-03 20:16 | XR ---
EXAMINATION TYPE: XR pelvis AP view DATE OF EXAM: 03/03/2023 COMPARISON: 05/02/2020 HISTORY: Fall, pain TECHNIQUE: AP pelvis FINDINGS: Femoral heads articulate with the acetabulum. Joint space narrowing is present. Symphysis p ubis and sacroiliac joints are patent. No acute fractures are identified. Normal bowel gas is present . IMPRESSION: 1. No acute osseous abnormality AP pelvis
--- NOTE | 2023-03-03 20:17 | XR ---
EXAMINATION TYPE: XR chest 1V DATE OF EXAM: 03/03/2023 COMPARISON: 02/07/2023 INDICATION: Fall TECHNIQUE: Single frontal view of the chest is obtained. FINDINGS: The heart size is prominent. The pulmonary vasculature is prominent. No suspicious infiltrates are evident. Slight increased diffuse lung markings are present. Correlate for mild volume overload. IMPRESSION: 1. Focal correlation recommended for congestive heart failure or mild volume overload. Follow-up can be performed.
[2023-03-03 22:35] VITALS: BP 99/67; PULSE 68
== END 2023-03-03 22:36 | disposition home or self-care (01) ==
LOC: EC 17:46
DX: S01.01XA Laceration without foreign body of scalp, initial encounter (principal); I11.0 Hypertensive heart disease with heart failure; I50.9 Heart failure, unspecified; J44.9 Chronic obstructive pulmonary disease, unspecified; R55 Syncope and collapse; E78.5 Hyperlipidemia, unspecified; K21.9 Gastro-esophageal reflux disease without esophagitis; F41.9 Anxiety disorder, unspecified; F31.9 Bipolar disorder, unspecified; Z79.82 Long term (current) use of aspirin; Z79.899 Other long term (current) drug therapy; Z88.8 Allergy status to other drugs, medicaments and biological substances; W01.10XA Fall on same level from slipping, tripping and stumbling with subsequent striking against unspecified object, initial encounter
CPT/HCPCS: 36415; 94640; 93005; 83880; 80053; 83605; 83735; 84100; 84443; 84484; 85025; 85610; 85730; 72170; 71045; 72125; 70450; 96374; 96361; 99285; 12002; J2930

== ENCOUNTER → 2023-03-15 | Outpatient (CLI) | payer MEDICARE, OTHER ==
--- NOTE | 2023-03-17 11:13 | MR ---
EXAMINATION TYPE: MR brain wo/w con DATE OF EXAM: 03/15/2023 9:22 PM CLINICAL INDICATION:Female, 67 years old with history of R26.89; PHH, Abnormal gait and mobility, hea d injury, looking for cranial lesion COMPARISON: 03/03/2023 CT. TECHNIQUE: Multi planar, multi sequence imaging was performed through the brain including: T1, T2, In version recovery, susceptibility weighted imaging and gradient echo imaging and Diffusion weighted im aging. The patient was then given intravenous contrast and multi planar, T1 fat-saturation images wer e obtained. IV Contrast: 6.5 cc Gadavist FINDINGS: High DWI focus in the left posterior frontal lobe series 303 image 224 on diffusion-weighted imaging which may have corresponding low ADC see signal. On ADC imaging there is some more lateral high signa l immediately next to this lower signal with soft represent restricted diffusion. The holt-white junc tions, ventricular system, basal cisterns appear unremarkableIntracranial arterial flow voids are akbar ntained. Midline structures show no abnormality. Scattered foci of high T2 signal intensity are seen within the periventricular white matter. The susceptibility weighted images demonstrates blooming art ifact compatible with micro-hemorrhage in the right frontal lobe. After administration of gadolinium, no abnormal enhancement is seen. The bone marrow signal is within normal limits. Paranasal sinuses and mastoid air cells: Trace T2 signal in the bilateral mastoid air cells. Visualized orbits: Orbital contents are intact. IMPRESSION: 1. Focus of high DWI signal within the posterior left frontal lobe may have corresponding low ADC sig nal adjacent to some T2 shine through suggesting /subacute CVA. Correlate clinically. Otherwise no ev idence of intracranial mass, acute/subacute infarct, or abnormal enhancement. 2. Nonspecific white matter changes, likely related to small vessel ischemic disease. 3. Bilateral mastoid air cell effusions.
== END | disposition home or self-care (01) ==
LOC: RADMRIMAIN 20:45
PROVIDERS: ATTEND Family Medicine
DX: R26.89 Other abnormalities of gait and mobility (principal); R90.82 White matter disease, unspecified; H74.8X3 Other specified disorders of middle ear and mastoid, bilateral
CPT/HCPCS: 70553

== ENCOUNTER → 2023-04-07 | Outpatient (CLI) | payer MEDICARE, OTHER ==
[2023-04-07 14:30] LABS: African American GFR (CKD) >90 (>60 ml/min/1.73 sqM); Blood Urea Nitrogen 13 mg/dL (7-17); Non-African American GFR(CKD) 85 (>60 ml/min/1.73 sqM)
--- NOTE | 2023-04-08 16:11 | CT ---
EXAMINATION TYPE: CT abdomen pelvis w con DATE OF EXAM: 04/07/2023 COMPARISON: None INDICATION: abnormal weightloss DLP: 500.6 mGycm, Automated exposure control for dose reduction was used. CONTRAST: 100ML mL of Isovue 300. Study performed with Oral Contrast TECHNIQUE: Axial images were obtained from above the diaphragm to the pubic rami in the axial plane a t 5 mm thick sections. Reconstructed images are reviewed on the computer in the coronal plane. FINDINGS: Limited CT sections are obtained the lung bases. There is some stranding at the right lung base. Cor relate for atelectasis.. CT ABDOMEN: Liver: Normal Spleen: Normal Pancreas: Normal Adrenal glands: The adrenal glands are normal. Gallbladder: Surgically absent Kidneys: No masses are evident. No hydronephrosis is present. There is a 5.8 cm superior pole left kidney. Aorta: Vascular calcification is within the aorta. Inferior vena cava: Normal. CT PELVIS: Loops of bowel within the abdomen and pelvis are normal. There are loops of bowel which are incom pletely distended or lack oral contrast limiting their evaluation. Appendix: Normal as visualized. Urinary bladder: Decompressed with somewhat limited evaluation. Genitourinary structures: Uterus and adnexa appear normal. Osseous structures: No suspicious lytic or sclerotic lesions. IMPRESSION: 1. No suspicious acute or chronic changes. #2 left renal cyst superior pole
== END | disposition home or self-care (01) ==
LOC: RADCTMAIN 13:37
PROVIDERS: ATTEND Family Medicine
DX: N28.1 Cyst of kidney, acquired (principal); R63.4 Abnormal weight loss
CPT/HCPCS: 82565; 84520; 74177; 36415; Q9967

== ENCOUNTER → 2023-05-05 | Outpatient (CLI) | payer MEDICARE, OTHER ==
--- NOTE | 2023-05-07 15:49 | MM ---
Reason for Exam: Screening (asymptomatic). Last mammogram was performed 1 year(s) and 3 month(s) ago. Patient History: Menarche at age 10. First Full-Term at age 19. Left ovary removed at age 51. Right ovary removed at age 51. Hysterectomy at age 51. Postmenopausal. Patient used Hormonal Contraceptives for 5 years. 1979, Benign Excisional Biopsy on the left side. Risk Values: Yokasta 5 year model risk: 1.8%. NCI Lifetime model risk: 5.6%. Prior Study Comparison: 04/27/2019 Bilateral Screening Mammogram, [facility]. 02/03/2021 Bilateral Screening Mammogram, [facility]. 02/09/2022 Bilateral MG 3D screening mammo w/cad, [facility]. Tissue Density: There are scattered fibroglandular densities. Findings: Analyzed By CAD. Pattern appears symmetrical and stable. Benign calcifications in the anterior left breast. In the interval changes are evident. There is a new density 12:00 position middle right breast measuring 0.8 cm located 7 cm from the nipple. Additional workup with ultrasound is recommended. Intramammary lymph node may be present. Other etiologies are not excluded. No suspicious groups of microcalcifications, spiculated or lobular masses, architectural distortion or other secondary signs of malignancy are mammographically apparent. Overall Assessment: Incomplete: need additional imaging evaluation, BI-RAD 0 Management: Diagnostic Breast Ultrasound of the right breast. Diagnostic Mammogram of the right breast. A negative mammogram report should not preclude additional follow up of suspicious palpable abnormalities. Patient should continue monthly self breast exam. A clinical breast exam by your physician is recommended on an annual basis and results should be correlated with mammographic findings. Electronically signed and approved by: Harlan Holt D.O. Radiologis
== END | disposition home or self-care (01) ==
LOC: RADMAMWWP 13:36
PROVIDERS: ATTEND Family Medicine
DX: Z12.31 Encounter for screening mammogram for malignant neoplasm of breast (principal); Z78.0 Asymptomatic menopausal state
CPT/HCPCS: 77063; 77067

== ENCOUNTER → 2023-05-20 | Outpatient (CLI) | payer MEDICARE, OTHER ==
--- NOTE | 2023-05-20 15:01 | MM ---
Reason for Exam: Additional evaluation requested from prior study. Last screening mammogram was performed less than 1 month ago. Patient History: Menarche at age 10. First Full-Term at age 19. Left ovary removed at age 51. Right ovary removed at age 51. Hysterectomy at age 51. Postmenopausal. Patient used Hormonal Contraceptives for 5 years. 1979, Benign Excisional Biopsy on the left side. Risk Values: Yokasta 5 year model risk: 1.8%. NCI Lifetime model risk: 5.6%. Tissue Density: Right: There are scattered fibroglandular densities. Findings: Analyzed By CAD. 7 mm lobulated mass persists 12:00 right breast at a middle depth. Further ultrasound evaluation is recommended. Overall Assessment: Incomplete: need additional imaging evaluation, BI-RAD 0 Management: Diagnostic Breast Ultrasound of the right breast. Electronically signed and approved by: Bethanie Kidd M.D. Radiologist
--- NOTE | 2023-05-20 15:33 | USB ---
Reason for Exam: Additional evaluation requested from abnormal screening. Patient History: Menarche at age 10. First Full-Term at age 19. Left ovary removed at age 51. Right ovary removed at age 51. Hysterectomy at age 51. Postmenopausal. Patient used Hormonal Contraceptives for 5 years. 1979, Benign Excisional Biopsy on the left side. Risk Values: Yokasta 5 year model risk: 1.8%. NCI Lifetime model risk: 5.6%. Technique: Method: Targeted. Prior Study Comparison: 02/03/2021 Bilateral Screening Mammogram, [facility]. 02/09/2022 Bilateral MG 3D screening mammo w/cad, [facility]. 05/05/2023 Bilateral MG 3D screening mammo w/cad, [facility]. Findings: The upper section of the breast of the right breast, the axilla of the right breast and the retroareolar of the right breast were scanned. Targeted ultrasound superior aspect of the right breast 11:00 to 1:00 including the subareolar region and axilla. There is a lobulated hypoechoic lesion measuring 6 x 6 x 4 mm with posterior shadowing. Likely mammographic correlate. Tissue sampling is recommended.. Overall Assessment: Suspicious, BI-RAD 4 Management: Ultrasound Core Biopsy of the right breast. Results were given to the patient verbally at the time of exam. Electronically signed and approved by: Bethanie Kidd M.D. Radiologist
== END | disposition home or self-care (01) ==
LOC: RADMAMWWP 14:00
PROVIDERS: ATTEND Family Medicine
DX: R92.321 Mammographic fibroglandular density, right breast (principal); Z78.0 Asymptomatic menopausal state
CPT/HCPCS: 77065; 76642; G0279; 77061

== ENCOUNTER → 2023-06-11 | Day surgery (SDC) | payer MEDICARE, OTHER ==
--- NOTE | 2023-06-17 09:33 | MM ---
Reason for Exam: Post Procedure Mammogram. Last screening mammogram was performed 1 month(s) ago. Patient History: Menarche at age 10. First Full-Term at age 19. Left ovary removed at age 51. Right ovary removed at age 51. Hysterectomy at age 51. Postmenopausal. Patient used Hormonal Contraceptives for 5 years. 1979, Benign Excisional Biopsy on the left side. Risk Values: Yokasta 5 year model risk: 1.8%. NCI Lifetime model risk: 5.6%. Prior Study Comparison: 02/09/2022 Bilateral MG 3D screening mammo w/cad, [facility]. 05/05/2023 Bilateral MG 3D screening mammo w/cad, [facility]. 05/20/2023 Right MG 3D work up w/cad RT, [facility]. Tissue Density: Right: There are scattered fibroglandular densities. Pathology Description: Location: 12 o'clock. Marker Left Behind. Needle Type: Celero Cores: 3 Skin Nicks: 1 Gauge: 13 The procedure of ultrasound guided core biopsy was explained to the patient. Benefits, alternatives, and risks were discussed. An informed consent was then obtained. The patient was placed in supine positioning for imaging and for the procedure. The overlying skin was prepped and draped in usual sterile fashion. Lidocaine was used as anesthetic into the skin and subcutaneous tissue up to area of concern in the right 12:00 breast. Under ultrasound guidance, a 12-gauge vacuum assisted biopsy gun device was used to obtain 3 core samples. Following this, a biopsy clip was left in lesion. The patient tolerated the procedure well without any immediate complication. The patient was kept in the radiology department for short stay after the procedure and then discharged home in stable condition. Postprocedure mammogram: The patient was transferred to mammography for physician ordered post procedure mammogram for clip placement verification. Impression: Successful, uncomplicated ultrasound guided core biopsy of area of concern in the right 12:00 breast, full pathology results to follow. Pathology Results: Result: Benign, Fat necrosis. RIGHT BREAST, 12:00, ULTRASOUND GUIDED NEEDLE CORE BIOPSY: Nodular scar/fat necrosis with histiocytes and inflammation. Negative for malignancy. Overall Assessment: Benign Assessment: MG diagnostic mammo RT wo CAD - Right: Benign, BI-RAD 2. Management: Diagnostic Mammogram of the right breast in 6 months. Electronically signed and approved by: Elio Paz M.D. Radiologis
== END ==
LOC: RADUSWWP 09:54
PROVIDERS: ATTEND Surgery
DX: R92.8 Other abnormal and inconclusive findings on diagnostic imaging of breast (principal)
CPT/HCPCS: 88305; 77065; 19083; A4648

== ENCOUNTER → 2023-06-17 | Outpatient (CLI) | payer MEDICARE, OTHER ==
[2023-06-17 11:56] VITALS: BP 121/70; PULSE 60; RESP 15; TEMP 98.5
--- NOTE | 2023-06-17 12:21 | P.GSHP ---
History of Present Illness H&P Date: 06/17/23 Chief Complaint: nodule in the right breast Radha is a 67 year old female seen in consultation for Dr. Cisneros regarding a right breast nodule. She had a bilateral screening mammogram on 05-05-2023. This revealed a right breast new density for which ultrasound was recommended. No lesions of concern were noted in the left breast. The patient underwent a right breast ultrasound on 05-20-2023. This revealed a 6 x 4 mm lobulated hypoechoic lesion with posterior shadowing. Tissue sample was recommended. Core biopsy was performed on 06-11-2023. Pathology revealed nodular scar/fat necrosis with histiocytes and inflammation. No cancer. The patient did not feel any lumps masses or nodules of concern in either breast. She had a left breast biopsy in the past, no cancer. She has not had any recent trauma or infection in the breast. She is not complaining of any nipple discharge or skin changes. Caffeine: 2 cups/day nicotine: since 6-8 cigarettes/day chocolate: occasional BCP: used them for < 10 years hormones: none Family History: maternal aunt: lymphoma Hormonal History: menarche: 12 , breast fed: no, age at first : 18 menopause: hysterectomy at 46 Surgical History: bladder Cholecystectomy Supracervical hysterectomy ovaries removed Back surgery Bilateral knee surgery aortic valve replacement 2009 Medical History: dementia bipolar HTN Social History: nicotine: as above alcohol: none drugs: none - Constitutional Constitutional: Denies chills, Denies fever - EENT Eyes: denies blurred vision, denies pain Ears: deny: decreased hearing, tinnitus Ears, nose, mouth and throat: Denies headache, Denies sore throat - Breasts Breasts: bilateral: as per HPI - Cardiovascular Cardiovascular: Reports as per HPI, Reports chest pain, Denies shortness of breath - Respiratory Comment: COPD - Gastrointestinal Gastrointestinal: Denies abdominal pain, Denies diarrhea, Denies nausea, Denies vomiting - Genitourinary (Female) Genitourinary: Denies dysuria, Denies hematuria - Menstruation Menstruation: Reports post hysterectomy - Musculoskeletal Musculoskeletal: Reports myalgias - Integumentary Integumentary: Denies pruritus, Denies rash - Neurological Neurological: Denies numbness, Denies weakness - Psychiatric Psychiatric: Reports anxiety, Reports depression - Endocrine Endocrine: Denies fatigue, Denies weight change - Hematologic/Lymphatic Comment: takes blood thinners - Allergic/Immunologic Allergic/Immunologic: Reports as per HPI Past Medical History Past Medical History: Chest Pain / Angina, COPD, Dementia, GERD/Reflux, Hyperlipidemia, Hypertension, Mitral Valve Prolapse (MVP) Additional Past Medical History / Comment(s): Aortic valve replacement, murmur, "beginning of dementia", insomnia,pt unsure if she recieved the flu/pne vaccine,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 History of Any Multi-Drug Resistant Organisms: None Reported Past Surgical History: Back Surgery, Bladder Surgery, Cardiac Valve Replacement, Cholecystectomy, Heart Catheterization, Hysterectomy, Joint Replacement, Orthopedic Surgery, Tubal Ligation Additional Past Surgical History / Comment(s): aortic valve repair, left breast biopsy-neg, oopherectomy, left knee replacement, juan Past Anesthesia/Blood Transfusion Reactions: No Reported Reaction Past Psychological History: Anxiety, Bipolar Smoking Status: Current every day smoker Past Alcohol Use History: None Reported Additional Past Alcohol Use History / Comment(s): started at age 15 smokes 1 ppd Past Drug Use History: None Reported - Past Family History Mother History Unknown: Yes Additional Family Medical History / Comment(s): Patient states she was adopted Medications and Allergies Home Medications Medication Instructions Recorded Confirmed Type QUEtiapine FUMARATE [SEROquel] 200 mg PO HS 10/12/14 06/17/23 History Rosuvastatin [Crestor] 20 mg PO DAILY 10/12/14 06/17/23 History Ipratropium/Albuterol Sulfate 1 puff INHALATION RT-QID 12/06/17 06/17/23 History [Combivent Respimat Inhaler] Memantine HCl [Namenda Xr] 28 mg PO DAILY 12/06/17 06/17/23 History Aspirin 81 mg PO DAILY 01/10/18 06/17/23 History Gabapentin [Neurontin] 300 mg PO BID 01/10/18 06/17/23 History Fluticasone/Vilanterol [Breo 1 puff INHALATION RT-DAILY 01/31/20 06/17/23 History Ellipta 200-25 Mcg Inhaler] Ergocalciferol (Vitamin D2) 1,250 mcg PO SA 07/28/22 06/17/23 History [Drisdol (50,000 Iu)] Ezetimibe [Zetia] 10 mg PO DAILY 07/28/22 06/17/23 History Levothyroxine Sodium [Synthroid] 25 mcg PO MOTUWETHFR 07/28/22 06/17/23 History Metoprolol Succinate (ER) [Toprol 25 mg PO DAILY 07/28/22 06/17/23 History XL] Sertraline [Zoloft] 150 mg PO DAILY 07/28/22 06/17/23 History Pantoprazole Sodium [Protonix] 40 mg PO DAILY 12/01/22 06/17/23 History lamoTRIgine [LaMICtal] 200 mg PO DAILY 12/01/22 06/17/23 History Nitroglycerin Sl Tabs [Nitrostat] 0.4 mg SL Q5M PRN 02/08/23 06/17/23 History PARoxetine [Paxil] 20 mg PO DAILY 02/08/23 06/17/23 History lisinopriL [Zestril] 10 mg PO DAILY 02/08/23 06/17/23 History Levothyroxine Sodium [Synthroid] 50 mcg PO SUSA 03/03/23 06/17/23 History polyethylene glycoL 3350 [Miralax] 17 gm PO DAILY PRN 03/03/23 06/17/23 History Clopidogrel [Plavix] 75 mg PO DAILY 05/21/23 06/17/23 History Allergies Allergy/AdvReac Type Severity Reaction Status Date / Time fentanyl Allergy Rash/Hives Verified 06/17/23 11:40 niacin Allergy Dyspnea,barbara Verified 06/17/23 11:40 h Surgical - Exam Vital Signs Temp Pulse Resp BP Pulse Ox 98.5 F 60 15 121/70 98 06/17/23 11:41 06/17/23 11:41 06/17/23 11:41 06/17/23 11:41 06/17/23 11:41 - General no distress - Eyes normal ocular movement - ENT no hearing loss - Neck trachea midline - Respiratory normal respiratory effort, clear to percussion, clear to auscultation - Cardiovascular Heart Sounds: normal: S1, S2 Abnormal Heart Sounds: systolic murmur - Abdomen Abdomen: soft, non tender, no guarding, no rigid, no rebound - Integumentary normal turgor - Neurologic no disoriented, no combative - Musculoskeletal normal gait - Psychiatric oriented to time, oriented to person, oriented to place, speech is normal, memory intact Breast Exam: BRA: sports bra large Inspection: Ecchymosis right breast at biopsy site, bilateral grade 3 ptosis Palpation: Right breast: Multi positional exam post biopsy changes at the 12 o'clock position, approximately 1 cm area of nodularity consistent with hematoma Right axilla: No adenopathy of concern Left breast: Multi positional exam no dominant masses or nodules of concern Left axilla: No adenopathy of concern Results Mammogram and ultrasound reviewed in detail with Dr. Kidd, it is felt that the biopsy is benign concordant Assessment and Plan Assessment: Impression: Nodular scar/fat necrosis right breast Postbiopsy changes Repeat right breast mammogram and ultrasound in 6 months COPD Aortic valve replacement on blood thinners Bipolar Lab biopsy site Plan: The feeling is that the area in the right breast was adequately biopsied by radiology. The patient has multiple medical comorbidities and would prefer to avoid surgical intervention if possible. Therefore we are going to repeat a mammogram and ultrasound of the right breast in 6 months. If the area has increased in size we would recommend excision. At this time we will follow her conservatively. CC: Dr. Cisneros
== END ==
LOC: WWCWWP 10:41
PROVIDERS: ATTEND Surgery
DX: N63.10 Unspecified lump in the right breast, unspecified quadrant (principal); N64.1 Fat necrosis of breast; E78.5 Hyperlipidemia, unspecified; F03.90 Unspecified dementia, unspecified severity, without behavioral disturbance, psychotic disturbance, mood disturbance, and anxiety; F17.210 Nicotine dependence, cigarettes, uncomplicated; I10 Essential (primary) hypertension; F31.9 Bipolar disorder, unspecified; I34.1 Nonrheumatic mitral (valve) prolapse; J44.9 Chronic obstructive pulmonary disease, unspecified; K21.9 Gastro-esophageal reflux disease without esophagitis; F17.200 Nicotine dependence, unspecified, uncomplicated; L90.5 Scar conditions and fibrosis of skin; Z79.01 Long term (current) use of anticoagulants; Z79.02 Long term (current) use of antithrombotics/antiplatelets; Z95.2 Presence of prosthetic heart valve; Z98.890 Other specified postprocedural states; Z88.8 Allergy status to other drugs, medicaments and biological substances; Z79.82 Long term (current) use of aspirin; Z79.899 Other long term (current) drug therapy

== ENCOUNTER 2023-06-24 11:04 | Day surgery (SDC) | payer MEDICARE, OTHER ==
[2023-06-21 16:15] VITALS: BMI 26.7
[~2023-06-24 11:04] MED LIST changes: +ATROPINE SULFATE 0.4 MG/ML 1 ML VIAL IM ONE
[2023-06-24] MEDS: LACTATED RINGERS 1,000 ML IV SCH (12:18)
[2023-06-24] MEDS ORDERED: LIDOCAINE 1% INJ 10MG/ML (20 ML MDV) ONE (12:20)
[2023-06-24] MEDS ORDERED: MIDAZOLAM 2 MG/2 ML VIAL ONE (12:20)
[2023-06-24] MEDS ORDERED: PROPOFOL 10 MG/ML 20 ML VIAL IV ONE (12:20)
[2023-06-24] MEDS ORDERED: GLYCOPYRROLATE 0.2 MG/ML 2 ML VIAL ONE (12:20)
[2023-06-24] MEDS: LACTATED RINGERS 1,000 ML IV ONE (12:21)
[2023-06-24 12:43] VITALS: RESP 16; TEMP 97.3
--- NOTE | 2023-06-24 12:52 | PCN ---
PROCEDURE NOTE This is a Pulmonary/Critical Care Procedure Note. PROCEDURES PERFORMED: Bronchoscopy, airway examination, therapeutic lavage, BAL right middle lobe. PREOPERATIVE DIAGNOSES: Chronic obstructive pulmonary disease, retained secretions, acute/chronic bronchitis. POSTOPERATIVE DIAGNOSES: Chronic obstructive pulmonary disease, retained secretions, acute/chronic bronchitis. PROCESS ANALYST: Dr. Ramos. FIRST ARTIFICIAL BREEDING DISTRIBUTOR: Dr. Enedina Sandra. There was informed consent and universal timeout. The patient's procedure took place in [facility], room #2. ANESTHESIA PROVIDED: General anesthesia. DESCRIPTION OF PROCEDURE: After the patient was adequately sedated and being fully monitored, the bronchoscope was inserted through the right nostril. It passed through the right nasopharynx into the oropharynx. The hypopharynx was identified and topicalized. The hypopharyngeal structures, including anterior commissure, true cords, false cords, arytenoids, piriform sinuses, right and left, vallecula, epiglottis, all appeared relatively normal. There were some thick secretions noted in the hypopharynx. They were suctioned. The glottic opening was topicalized with lidocaine. The bronchoscope was pushed through the glottic opening into the trachea. There were thick secretions noted throughout the trachea. Otherwise, trachea appeared normal. Tracheal yokasta was sharp. The right and left mainstem were topicalized. Right upper lobe and its 3 segments, right middle lobe and its 2 segments, right lower lobe and its 5 segments, left upper lobe and its 2 segments, lingula and its 2 segments the left lower lobe and its 4 segments, all had similar findings of moderate to severe bronchitis. There were thick secretions noted throughout. There were erythema and hyperemia of the airways. There was no dominant mass or tumor. The secretions were thick in this and difficult to suction. The bronchoscope was wedged into the right middle lobe. We did a formal BAL. 30 mL of turbid fluid was recovered. The patient tolerated that portion of the procedure well. Before exiting the airway, multiple aliquots of saline were used to suction additional secretions. Once all the secretions were removed, the bronchoscope was withdrawn. There was no immediate complication. The patient tolerated the procedure well. There was no bleeding. MMODL / IJN: [id number] /
[2023-06-24 13:16] VITALS: BP 111/66; PULSE 65
[2023-06-24 19:02] LABS: Appearance,BF Cloudy (Clear)
== END 2023-06-24 14:09 | disposition home or self-care (01) ==
LOC: ORWHC2ENDO 11:04
PROVIDERS: ATTEND Internal Medicine Critical Care Medicine
DX: J44.1 Chronic obstructive pulmonary disease with (acute) exacerbation (principal); J44.0 Chronic obstructive pulmonary disease with (acute) lower respiratory infection; J20.9 Acute bronchitis, unspecified; I10 Essential (primary) hypertension; E78.5 Hyperlipidemia, unspecified; F31.9 Bipolar disorder, unspecified; F03.90 Unspecified dementia, unspecified severity, without behavioral disturbance, psychotic disturbance, mood disturbance, and anxiety; Z86.73 Personal history of transient ischemic attack (TIA), and cerebral infarction without residual deficits; Z79.02 Long term (current) use of antithrombotics/antiplatelets; Z79.899 Other long term (current) drug therapy; Z88.8 Allergy status to other drugs, medicaments and biological substances
CPT/HCPCS: 88108; 88305; 89050; 87070; 87205; 87116; 87102; 87206; 31624; J2250; J2001; J2704

== ENCOUNTER 2023-10-06 15:23 | Emergency (ER) | payer MEDICARE, OTHER ==
--- NOTE | 2023-10-06 15:27 | ED ---
Fall HPI - General Source: patient, RN notes reviewed Mode of arrival: ambulatory Limitations: no limitations - History of Present Illness MD Complaint: fall <Stephanie Quiros - Last Filed: 10/06/23 15:39> - General Source: patient, RN notes reviewed Mode of arrival: ambulatory Limitations: no limitations <Himanshu Mathews - Last Filed: 10/14/23 23:06> - General Chief Complaint: Fall Stated Complaint: fall Time Seen by Provider: 10/06/23 15:26 - History of Present Illness Initial Comments: Quick Note: This is a 68-year-old female who presents to the emergency department for a fall. Patient states that she has been having problems with frequent falls and fell 3 times today. She did hit her head and states that she is on a blood thinner. She recently had an MRI of the brain that she states showed old strokes, and her PCP advised she go to the emergency department for further evaluation due to worsening weakness and frequent falls. (Stephanie Quiros) - Related Data Home Medications Medication Instructions Recorded Confirmed QUEtiapine FUMARATE [SEROquel] 200 mg PO HS 10/12/14 06/21/23 Rosuvastatin [Crestor] 20 mg PO DAILY 10/12/14 06/21/23 Ipratropium/Albuterol Sulfate 1 puff INHALATION RT-QID 12/06/17 06/21/23 [Combivent Respimat Inhaler] Memantine HCl [Namenda Xr] 28 mg PO DAILY 12/06/17 06/21/23 Aspirin 81 mg PO DAILY 01/10/18 06/21/23 Gabapentin [Neurontin] 300 mg PO BID 01/10/18 06/21/23 Fluticasone/Vilanterol [Breo 1 puff INHALATION RT-DAILY 01/31/20 06/21/23 Ellipta 200-25 Mcg Inhaler] Ergocalciferol (Vitamin D2) 1,250 mcg PO SA 07/28/22 06/21/23 [Drisdol (50,000 Iu)] Ezetimibe [Zetia] 10 mg PO DAILY 07/28/22 06/21/23 Levothyroxine Sodium [Synthroid] 25 mcg PO MOTUWETHFR 07/28/22 06/21/23 Metoprolol Succinate (ER) [Toprol 25 mg PO QAM 07/28/22 06/21/23 XL] Sertraline [Zoloft] 150 mg PO DAILY 07/28/22 06/21/23 Pantoprazole Sodium [Protonix] 40 mg PO DAILY 12/01/22 06/21/23 lamoTRIgine [LaMICtal] 200 mg PO QAM 12/01/22 06/21/23 Nitroglycerin Sl Tabs [Nitrostat] 0.4 mg SL Q5M PRN 02/08/23 06/21/23 PARoxetine [Paxil] 20 mg PO DAILY 02/08/23 06/21/23 lisinopriL [Zestril] 10 mg PO QAM 02/08/23 06/21/23 Levothyroxine Sodium [Synthroid] 50 mcg PO SUSA 03/03/23 06/21/23 polyethylene glycoL 3350 [Miralax] 17 gm PO DAILY PRN 03/03/23 06/21/23 Clopidogrel [Plavix] 75 mg PO DAILY 05/21/23 06/21/23 Allergies Allergy/AdvReac Type Severity Reaction Status Date / Time fentanyl Allergy Rash/Hives Verified 06/24/23 12:10 niacin Allergy Dyspnea,barbara Verified 06/24/23 12:10 h Review of Systems ROS Other: All systems not noted in ROS Statement are negative. <Stephanie Quiros - Last Filed: 10/06/23 15:39> ROS Other: All systems not noted in ROS Statement are negative. <Himanshu Mathews - Last Filed: 10/14/23 23:06> ROS Statement: Those systems with pertinent positive or pertinent negative responses have been documented in the HPI. Past Medical History Past Medical History: Asthma, Chest Pain / Angina, COPD, CVA/TIA, Dementia, GERD/Reflux, Hyperlipidemia, Hypertension, Mitral Valve Prolapse (MVP), Ost eoarthritis (OA), Thyroid Disorder Additional Past Medical History / Comment(s): HX CVA unknown when. Aortic valve replacement, murmur, insomnia. History of Any Multi-Drug Resistant Organisms: None Reported Past Surgical History: Back Surgery, Bladder Surgery, Cardiac Valve Replacement, Cholecystectomy, Heart Catheterization, Hysterectomy, Joint Replacement, Orthopedic Surgery, Tubal Ligation Additional Past Surgical History / Comment(s): Aortic valve repair, left breast biopsy-negative, oopherectomy, left knee replacement, BEBA. Past Anesthesia/Blood Transfusion Reactions: No Reported Reaction Past Psychological History: Anxiety, Bipolar Smoking Status: Current every day smoker Past Alcohol Use History: None Reported Additional Past Alcohol Use History / Comment(s): Started smoking at age 15, smokes 1 ppd. Past Drug Use History: None Reported - Past Family History Mother History Unknown: Yes Additional Family Medical History / Comment(s): Patient states she was adopted. <Stephanie Quiros - Last Filed: 10/06/23 15:39> General Exam <Stephanie Quiros - Last Filed: 10/06/23 15:39> General appearance: alert, in no apparent distress Head exam: Present: atraumatic, normocephalic, normal inspection Eye exam: Present: normal appearance, PERRL, EOMI. Absent: scleral icterus, conjunctival injection, periorbital swelling ENT exam: Present: normal exam, mucous membranes moist Neck exam: Present: normal inspection. Absent: tenderness, meningismus, lymphadenopathy Respiratory exam: Present: normal lung sounds bilaterally. Absent: respiratory distress, wheezes, rales, rhonchi, stridor Cardiovascular Exam: Present: regular rate, normal rhythm, normal heart sounds. Absent: systolic murmur, diastolic murmur, rubs, gallop, clicks GI/Abdominal exam: Present: soft, normal bowel sounds. Absent: distended, tenderness, guarding, rebound, rigid Extremities exam: Present: normal inspection, full ROM, normal capillary refill. Absent: tenderness, pedal edema, joint swelling, calf tenderness Back exam: Present: normal inspection Neurological exam: Present: alert, oriented X3, CN II-XII intact Psychiatric exam: Present: normal affect, normal mood Skin exam: Present: warm, dry, intact, normal color. Absent: rash <Himanshu Mathews - Last Filed: 10/14/23 23:06> - General Exam Comments Initial Comments: Visual Physical Exam Vital signs reviewed General: Well-appearing, nontoxic, no acute distress. Head: Normocephalic, atraumatic Eyes: PERRLA, EOMI ENT: Airway patent Chest: Nonlabored breathing Skin: No visual rash, normal skin tone Neuro: Alert and oriented 3 Musculoskeletal: No gross abnormalities (Stephanie Quiros) Course <BisiHimanshu Cardenas - Last Filed: 10/14/23 23:06> Vital Signs 10/06/23 15:35 Temperature 98.4 F Pulse Rate 70 Respiratory 20 Rate Blood Pressure 112/68 O2 Sat by Pulse 100 Oximetry - Reevaluation(s) Reevaluation #1: Medical records reviewed (Himanshu Mathews) Reevaluation #2: Patient symptoms improved (Himanshu Mathews) Reevaluation #3: Patient informed of results questions answered (Himanshu Mathews) Reevaluation #4: Was pt. sent in by a medical professional or institution (, LEN, FOREST FIRE PREVENTION SPECIALIST, urgent c are, hospital, or residential...) When possible be specific @ -no Did you speak to anyone other than the patient for history (EMS, parent, family, police, friend...)? What history was obtained from this source @ -no Did you review nursing and triage notes (agree or disagree)? Why? @ -agree Are old charts reviewed (outside hosp., previous admission, EMS record, old EKG, old radiological studies, urgent care reports/EKG's, residential records)? Report findings @ -yes Differential Diagnosis (chest pain, altered mental status, abdominal pain women, abdominal pain men, vaginal bleeding, weakness, fever, dyspnea, syncope, headache, dizziness, GI bleed, back pain, seizure, CVA, palpatations, mental health, musculoskeletal)? @ -prior EKG interpreted by me (3pts min.). @ -yes X-rays interpreted by me (1pt min.). @ -yes negative for acute disease CT interpreted by me (1pt min.). @ -no U/S interpreted by me (1pt. min.). @ -no What testing was considered but not performed or refused? (CT, X-rays, U/S, labs)? Why? @ -none What meds were considered but not given or refused? Why? @ -none Did you discuss the management of the patient with other professionals (professionals i.e. LEN Rizzo, FOREST FIRE PREVENTION SPECIALIST, lab, RT, psych nurse, executive secretary social welfare, health and safety inspector, teacher, parking enforcement officer, case assistant)? Give summary @ -no Was smoking cessation discussed for >3mins.? @ -no Was critical care preformed (if so, how long)? @ -no Were there social determinants of health that impacted care today? How? (Home lessness, low income, unemployed, alcoholism, drug addiction, transportation, low edu. Level, literacy, decrease access to med. care, correction, rehab)? @ -none Was there de-escalation of care discussed even if they declined (Discuss DNR or withdrawal of care, Hospice)? DNR status @ -no What co-morbidities impacted this encounter? (DM, HTN, Smoking, COPD, CAD, Cancer, CVA, ARF, Chemo, Hep., AIDS, mental health diagnosis, sleep apnea, morbid obesity)? @ -none Was patient admitted / discharged? Hospital course, mention meds given and route, prescriptions, significant lab abnormalities, going to OR and other pertinent info. @ - Undiagnosed new problem with uncertain prognosis? @ -no Drug Therapy requiring intensive monitoring for toxicity (Heparin, Nitro, Insulin, Cardizem)? @ -no Were any procedures done? @ -no Diagnosis/symptom? @ - Acute, or Chronic, or Acute on Chronic? @ -Acute Uncomplicated (without systemic symptoms) or Complicated (systemic symptoms)? @ -Complicated Side effects of treatment? @ -no Exacerbation, Progression, or Severe Exacerbation? @ -exacerbation Poses a threat to life or bodily function? How? (Chest pain, USA, VT, pneumonia, PE, COPD, DKA, ARF, appy, cholecystitis, CVA, Diverticulitis, Homicidal, Suicidal, threat to staff... and all critical care pts) @ -yes (Himanshu Mathews) Medical Decision Making <Stephanie Quiros - Last Filed: 10/06/23 15:39> - Lab Data Result diagrams: 10/06/23 15:40 10/06/23 15:40 - EKG Data -: EKG Interpreted by Me (EKG is sinus 62 OH 150 QRS 85 QTc 399) <Himanshu Mathews - Last Filed: 10/14/23 23:06> - Medical Decision Making I performed the QuickNote portion of this chart. Signed Stephanie Quiros PA-C. (Stephanie Quiros) - Lab Data Lab Results 06/05/24 06/05/24 06/05/24 Range/Units 15:40 15:40 15:40 WBC 4.9 (3.8-10.6) k/uL RBC 4.13 (3.80-5.40) m/uL Hgb 12.5 (11.4-16.0) gm/dL Hct 38.8 (34.0-46.0) % MCV 93.9 (80.0-100.0) fL MCH 30.3 (25.0-35.0) pg MCHC 32.3 (31.0-37.0) g/dL RDW 14.3 (11.5-15.5) % Plt Count 207 (150-450) k/uL MPV 8.9 Neutrophils % 60 % Lymphocytes % 30 % Monocytes % 5 % Eosinophils % 2 % Basophils % 1 % Neutrophils # 2.9 (1.3-7.7) k/uL Lymphocytes # 1.5 (1.0-4.8) k/uL Monocytes # 0.2 (0-1.0) k/uL Eosinophils # 0.1 (0-0.7) k/uL Basophils # 0.0 (0-0.2) k/uL PT 10.7 (10.0-12.5) sec INR 1.0 (<1.2) APTT 24.3 (22.0-30.0) sec Sodium (137-145) mmol/L Potassium (3.5-5.1) mmol/L Chloride (98-107) mmol/L Carbon Dioxide (22-30) mmol/L Anion Gap mmol/L BUN (7-17) mg/dL Creatinine (0.52-1.04) mg/dL Est GFR (CKD-EPI)AfAm (>60 ml/min/1.73 sqM) Est GFR (CKD-EPI)NonAf (>60 ml/min/1.73 sqM) Glucose (74-99) mg/dL Plasma Lactic Acid Trey (0.7-2.0) mmol/L Calcium (8.4-10.2) mg/dL Magnesium (1.6-2.3) mg/dL Total Bilirubin (0.2-1.3) mg/dL AST (14-36) U/L ALT (4-34) U/L Alkaline Phosphatase (38-126) U/L Troponin I (0.000-0.034) ng/mL Total Protein (6.3-8.2) g/dL Albumin (3.5-5.0) g/dL Urine Color Colorless Urine Appearance Clear (Clear) Urine pH 6.0 (5.0-8.0) Ur Specific Frakes 1.011 (1.001-1.035) Urine Protein Negative (Negative) Urine Glucose (UA) Negative (Negative) Urine Ketones Negative (Negative) Urine Blood Negative (Negative) Urine Nitrite Negative (Negative) Urine Bilirubin Negative (Negative) Urine Urobilinogen <2.0 (<2.0) mg/dL Ur Leukocyte Esterase Moderate H (Negative) Urine WBC 8 H (0-5) /hpf Ur Squamous Epith Cells <1 (0-4) /hpf 10/06/23 10/06/23 10/06/23 Range/Units 15:40 15:40 15:40 WBC (3.8-10.6) k/uL RBC (3.80-5.40) m/uL Hgb (11.4-16.0) gm/dL Hct (34.0-46.0) % MCV (80.0-100.0) fL MCH (25.0-35.0) pg MCHC (31.0-37.0) g/dL RDW (11.5-15.5) % Plt Count (150-450) k/uL MPV Neutrophils % % Lymphocytes % % Monocytes % % Eosinophils % % Basophils % % Neutrophils # (1.3-7.7) k/uL Lymphocytes # (1.0-4.8) k/uL Monocytes # (0-1.0) k/uL Eosinophils # (0-0.7) k/uL Basophils # (0-0.2) k/uL PT (10.0-12.5) sec INR (<1.2) APTT (22.0-30.0) sec Sodium 137 (137-145) mmol/L Potassium 4.1 (3.5-5.1) mmol/L Chloride 104 (98-107) mmol/L Carbon Dioxide 29 (22-30) mmol/L Anion Gap 4 mmol/L BUN 14 (7-17) mg/dL Creatinine 0.92 (0.52-1.04) mg/dL Est GFR (CKD-EPI)AfAm 73 (>60 ml/min/1.73 sqM) Est GFR (CKD-EPI)NonAf 64 (>60 ml/min/1.73 sqM) Glucose 84 (74-99) mg/dL Plasma Lactic Acid Trey 0.6 L (0.7-2.0) mmol/L Calcium 9.2 (8.4-10.2) mg/dL Magnesium 1.9 (1.6-2.3) mg/dL Total Bilirubin 0.7 (0.2-1.3) mg/dL AST 23 (14-36) U/L ALT 12 (4-34) U/L Alkaline Phosphatase 97 (38-126) U/L Troponin I <0.012 (0.000-0.034) ng/mL Total Protein 7.6 (6.3-8.2) g/dL Albumin 4.2 (3.5-5.0) g/dL Urine Color Urine Appearance (Clear) Urine pH (5.0-8.0) Ur Specific Frakes (1.001-1.035) Urine Protein (Negative) Urine Glucose (UA) (Negative) Urine Ketones (Negative) Urine Blood (Negative) Urine Nitrite (Negative) Urine Bilirubin (Negative) Urine Urobilinogen (<2.0) mg/dL Ur Leukocyte Esterase (Negative) Urine WBC (0-5) /hpf Ur Squamous Epith Cells (0-4) /hpf Disposition <Stephanie Quiros - Last Filed: 10/06/23 15:39> Is patient prescribed a controlled substance at d/c from ED?: No Time of Disposition: 19:30 <Himanshu Mathews - Last Filed: 10/14/23 23:06> Clinical Impression: Dizziness Disposition: HOME SELF-CARE Condition: Fair Instructions (If sedation given, give patient instructions): Dizziness (ED) Referrals: Gabe Cisneros DO [Primary Care Provider] - 1-2 days
[2023-10-06 15:38] VITALS: BP 112/68; PULSE 70; RESP 20; TEMP 98.4
[2023-10-06 16:10] LABS: Basophils % (A) 1 %; Eosinophils # (A) 0.1 k/uL (0-0.7); Eosinophils % (A) 2 %; HCT 38.8 % (34.0-46.0); HGB 12.5 gm/dL (11.4-16.0); Lymphocytes # (A) 1.5 k/uL (1.0-4.8); Lymphocytes % (A) 30 %; MCH 30.3 pg (25.0-35.0); MCHC 32.3 g/dL (31.0-37.0); MCV 93.9 fL (80.0-100.0); Mean Platelet Volume 8.9; Monocytes # (A) 0.2 k/uL (0-1.0); Monocytes % (A) 5 %; Neutrophils # (A) 2.9 k/uL (1.3-7.7); Neutrophils % (A) 60 %; Platelet Count 207 k/uL (150-450); RBC 4.13 m/uL (3.80-5.40); RDW 14.3 % (11.5-15.5); WBC 4.9 k/uL (3.8-10.6)
[2023-10-06 16:20] LABS: Partial Thromboplastin Time 24.3 sec (22.0-30.0); Prothrombin Time 10.7 sec (10.0-12.5)
[2023-10-06 16:21] LABS: ALT 12 U/L (4-34); AST 23 U/L (14-36); African American GFR (CKD) 73 (>60 ml/min/1.73 sqM); Albumin 4.2 g/dL (3.5-5.0); Alkaline Phosphatase 97 U/L (38-126); Anion Gap 4 mmol/L; Blood Urea Nitrogen 14 mg/dL (7-17); Calcium 9.2 mg/dL (8.4-10.2); Carbon Dioxide 29 mmol/L (22-30); Chloride 104 mmol/L (98-107); Glucose 84 mg/dL (74-99); Magnesium 1.9 mg/dL (1.6-2.3); Non-African American GFR(CKD) 64 (>60 ml/min/1.73 sqM); Potassium 4.1 mmol/L (3.5-5.1); Sodium 137 mmol/L (137-145); Total Bilirubin 0.7 mg/dL (0.2-1.3); Total Protein 7.6 g/dL (6.3-8.2)
--- NOTE | 2023-10-06 16:35 | CT ---
EXAMINATION TYPE: CT brain cspine wo con CT DLP: 1262.4 mGycm, Automated exposure control for dose reduction was used. DATE OF EXAM: 10/06/2023 4:30 PM COMPARISON: 03/03/2023. CLINICAL INDICATION:Female, 68 years old with history of Fall, head injury on thinners; Fall, head in jury on thinners TECHNIQUE: Brain: Multiple axial CT images of the brain were obtained without IV contrast. Cspine: Axial CT images from the skull base to the inferior aspect of T2 we obtained without intraven ous contrast. Coronal and sagittal reformatted images were also reviewed. . FINDINGS: Brain: Extra-axial spaces: No abnormal extra-axial fluid collections. Ventricular system: Within normal limits Cerebral parenchyma: No acute intraparenchymal hemorrhage or mass effect. The holt-white junction is well differentiated. Cerebellum: Unremarkable. Mass effect: No evidence of midline shift. Intracranial vasculature: Atherosclerotic calcifications of the intracranial vessels. Soft tissues: Normal. Calvarium/osseous structures: No depressed skull fracture. Paranasal sinuses and mastoid air cells: Clear. Visualized orbits: Orbital contents are intact. Cervical spine: Fracture: None. Osseous structures: Multilevel degenerative disc disease changes with endplate spurring and disc oste ophyte complex's. Vertebral alignment: Within normal limits. Spinal canal/Neural Foramina: No evidence of significant spinal canal narrowing. No evidence for sign ificant neural foraminal stenosis. Neck soft tissues: Prevertebral soft tissues are within normal limits. Other: The airway is patent. The lung apices are clear. Atherosclerosis of the carotid bifurcations. IMPRESSION: 1. No acute intracranial process. 2. No evidence of cervical spine fracture. 3. Mild multilevel degenerative disc disease.
--- NOTE | 2023-10-06 16:36 | XR ---
EXAMINATION TYPE: XR chest 2V DATE OF EXAM: 10/06/2023 4:28 PM CLINICAL INDICATION:Female, 68 years old with history of Weakness; [facility] COMPARISON: Chest radiographs from 03/03/2023 TECHNIQUE: XR chest 2V Frontal and lateral views of the chest. FINDINGS: Lungs/Pleura: Prominent interstitial lung markings are seen scattered throughout the lungs. No eviden ce of focal consolidation, pneumothorax or pleural effusion. Pulmonary vascularity: Mild pulmonary vascular congestion. Heart/mediastinum: Cardiomediastinal silhouette is enlarged and stable. Post valve repair changes. Musculoskeletal: No acute osseous pathology. Midline sternotomy wires are noted. IMPRESSION: Cardiomegaly and mild pulmonary vascular congestion. Correlate with BNP for congestive heart failure.
[2023-10-06 16:44] LABS: Appearance,Urine Clear (Clear); Bilirubin,Urine Negative (Negative); Blood,Urine Negative (Negative); Color,Urine Colorless; Glucose,Urine (UA) Negative (Negative); Ketones,Urine Negative (Negative); Leukocyte Esterase,Urine Moderate (Negative); Nitrite,Urine Negative (Negative); Protein,Urine Negative (Negative); Specific Gravity,Urine 1.011 (1.001-1.035); Squamous Epithelial Cell,Urine <1 /hpf (0-4); Urobilinogen,Urine <2.0 mg/dL (<2.0); WBC,Urine 8 /hpf (0-5)
== END 2023-10-06 20:26 | disposition home or self-care (01) ==
LOC: EC 15:23
DX: R42 Dizziness and giddiness (principal); F17.200 Nicotine dependence, unspecified, uncomplicated; Z88.3 Allergy status to other anti-infective agents; Z88.5 Allergy status to narcotic agent; Z86.73 Personal history of transient ischemic attack (TIA), and cerebral infarction without residual deficits
CPT/HCPCS: 36415; 70450; 71046; 72125; 80053; 81001; 83605; 83735; 84484; 85025; 85610; 85730; 93005; 99284

== ENCOUNTER → 2023-11-19 | Outpatient (CLI) | payer MEDICARE, OTHER ==
--- NOTE | 2023-11-19 11:40 | XR ---
EXAMINATION TYPE: XR lumbar spine 2 or 3V DATE OF EXAM: 11/19/2023 11:09 AM CLINICAL INDICATION:Female, 68 years old with history of M4.50 LOW BACK PAIN, UNSPECIFIED; [facility] COMPARISON: None TECHNIQUE: XR lumbar spine 2 or 3V - Frontal, lateral and coned in L5-S1 lateral views of the spine. FINDINGS: No evidence of any acute osseous pathology. No evidence of loss of vertebral body height i s seen. There is normal alignment of the lumbar vertebral bodies. Scattered disc space narrowing. Mul tilevel marginal osteophyte formation throughout the visualized spine. There is facet joint arthropat hy throughout the spine. Scattered at least mild neural foraminal stenosis. Atherosclerosis of the ar terial vasculature. IMPRESSION: 1. No acute fracture. 2. Moderate multilevel disc degeneration.
== END | disposition home or self-care (01) ==
LOC: RADXRMAIN 10:54
PROVIDERS: ATTEND Family Medicine
DX: M51.36 Other intervertebral disc degeneration, lumbar region (principal)
CPT/HCPCS: 72100

== ENCOUNTER 2024-03-12 18:05 | Emergency (ER) | payer MEDICARE, OTHER ==
[2024-03-12 18:14] VITALS: RESP 18
--- NOTE | 2024-03-12 18:42 | ED ---
General Adult HPI - General Chief complaint: Psychiatric Symptoms Stated complaint: Mental Health Time Seen by Provider: 03/12/24 18:07 Source: patient, EMS Mode of arrival: EMS Limitations: no limitations - History of Present Illness Initial comments: Patient is a 68-year-old female the past medical history of COPD, hypertension, depression with prior suicide attempt presenting today for suicidal thoughts. Patient states that she has been living with her granddaughter and her granddaughter's boyfriend and they have not been treating the patient well, she states that they are very rude to her. She has been trying to move out however her granddaughter and her granddaughter's boyfriend have not allowed this because the patient pays $1000 a month for rent. Due to this patient has been feeling increasingly suicidal. She has been having thoughts of taking handfuls of her blood thinners or Lipitor. She states she has tried to commit suicide in the past by taking a handful of pills. She does not have weapons in the home. She is denying any homicidal thoughts, auditory or visual hallucinations. Denies any alcohol use or illicit drug use. Denies any attempts at self-harm today. Denies additional complaints.0 - Related Data Home Medications Medication Instructions Recorded Confirmed Rosuvastatin [Crestor] 20 mg PO DAILY 10/12/14 03/12/24 Ipratropium/Albuterol Sulfate 1 puff INHALATION RT-QID 12/06/17 03/12/24 [Combivent Respimat Inhaler] Memantine HCl [Namenda Xr] 28 mg PO DAILY 12/06/17 03/12/24 Gabapentin [Neurontin] 300 mg PO TID 01/10/18 03/12/24 Fluticasone/Vilanterol [Breo 1 puff INHALATION RT-DAILY 01/31/20 03/12/24 Ellipta 200-25 Mcg Inhaler] Ergocalciferol (Vitamin D2) 1,250 mcg PO SA 07/28/22 03/12/24 [Drisdol (50,000 Iu)] Ezetimibe [Zetia] 10 mg PO DAILY 07/28/22 03/12/24 Levothyroxine Sodium [Synthroid] 25 mcg PO MOTUWETHFR 07/28/22 03/12/24 Metoprolol Succinate (ER) [Toprol 25 mg PO DAILY 07/28/22 03/12/24 XL] Sertraline [Zoloft] 150 mg PO DAILY 07/28/22 03/12/24 Pantoprazole Sodium [Protonix] 40 mg PO DAILY 12/01/22 03/12/24 lamoTRIgine [LaMICtal] 200 mg PO DAILY 12/01/22 03/12/24 Nitroglycerin Sl Tabs [Nitrostat] 0.4 mg SL Q5M PRN 02/08/23 03/12/24 PARoxetine [Paxil] 20 mg PO DAILY 02/08/23 03/12/24 Levothyroxine Sodium [Synthroid] 50 mcg PO SUSA 03/03/23 03/12/24 Clopidogrel [Plavix] 75 mg PO DAILY 05/21/23 03/12/24 Brexpiprazole [Rexulti] 0.5 mg PO HS 03/12/24 03/12/24 lisinopriL [Zestril] 5 mg PO DAILY 03/12/24 03/12/24 Allergies Allergy/AdvReac Type Severity Reaction Status Date / Time fentanyl Allergy Rash/Hives Verified 03/12/24 19:10 niacin Allergy Dyspnea,barbara Verified 03/12/24 19:10 h Review of Systems ROS Statement: Those systems with pertinent positive or pertinent negative responses have been documented in the HPI. ROS Other: All systems not noted in ROS Statement are negative. 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 History of Any Multi-Drug Resistant Organisms: None Reported Past Surgical History: Back Surgery, Bladder Surgery, Cardiac Valve Replacement, Cholecystectomy, Heart Catheterization, Hysterectomy, Joint Replacement, Orthopedic Surgery, Tubal Ligation Additional Past Surgical History / Comment(s): aortic valve repair, left breast biopsy-neg, oopherectomy, left knee replacement, juan Past Anesthesia/Blood Transfusion Reactions: No Reported Reaction Past Psychological History: Anxiety, Bipolar, Depression Smoking Status: Current every day smoker Past Alcohol Use History: None Reported Past Drug Use History: None Reported - Past Family History Mother History Unknown: Yes Additional Family Medical History / Comment(s): Patient states she was adopted. General Exam - General Exam Comments Initial Comments: PE: CONSTITUTIONAL: No apparent distress, well appearing SKIN: Warm, dry, no jaundice, hives or petechiae EYES: Pupils are equally round, extraocular movements intact without nystagmus, clear conjunctiva, non-icteric sclera HENT: Normocephalic, atraumatic, moist mucus membranes, oropharynx clear without exudates NECK: , Full range of motion, normal appearance PULMONARY: Clear to auscultation without wheezes, rhonchi, or rales, normal excursion, no accessory muscle use and no stridor CARDIOVASCULAR: Regular rate, rhythm, normal S1 and S2. No appreciated murmurs, rubs or gallops. Strong radial pulses with intact distal perfusion. No lower extremity edema GASTROINTESTINAL: Soft, active bowel sounds throughout, non-tender, non- distended, no palpable masses, no rebound or guarding. No hepatosplenomegaly MUSCULOSKELETAL: Extremities have no gross deformity, no edema, redness, or swelling. No calf swelling NEUROLOGIC:_a/o x 3, GCS 15, normal mentation and speech. Moves all extremities x 4 without motor or sensory deficit PSYCHIATRIC: sad and withdrawn mood and affect, thought process is clear and linear Limitations: no limitations Course Vital Signs 03/12/24 18:09 Temperature 98.7 F Pulse Rate 67 Respiratory 18 Rate Blood Pressure 133/70 O2 Sat by Pulse 96 Oximetry Medical Decision Making - Medical Decision Making Was pt. sent in by a medical professional or institution (, PA, FOOT GATHERER, urgent care, hospital, or prison...) When possible be specific @ -No Did you speak to anyone other than the patient for history (EMS, parent, family, police, friend...)? What history was obtained from this source @ -No Did you review nursing and triage notes (agree or disagree)? Why? @ -I reviewed and agree with nursing and triage notes Were old charts reviewed (outside hosp., previous admission, EMS record, old EKG, old radiological studies, urgent care reports/EKG's, prison records)? Report findings @ -medical records reviewed Differential Diagnosis (chest pain, altered mental status, abdominal pain women, abdominal pain men, vaginal bleeding, weakness, fever, dyspnea, syncope, headache, dizziness, GI bleed, back pain, seizure, CVA, palpatations, mental health, musculoskeletal)? @Differential Mental Health Depression, anxiety, bipolar, psychosis, schizophrenia, borderline personality, situational depression, adjustment disorder, behavioral disorder, brain tumor, malingering, substance abuse, encephalopathy, medication reaction, dementia, h ypothyroidism, degenerative neurologic disorder, lupus.... This is not meant to be all-inclusive list EKG interpreted by me (3pts min.). @ -As above X-rays interpreted by me (1pt min.). @ -None done CT interpreted by me (1pt min.). @ -None done U/S interpreted by me (1pt. min.). @ -None done What testing was considered but not performed or refused? (CT, X-rays, U/S, labs)? Why? @ -None What meds were considered but not given or refused? Why? @ -None Did you discuss the management of the patient with other professionals (professionals i.e. , PA, FOOT GATHERER, lab, RT, psych nurse, social work nurse, director of diagnostic imaging, teacher, life science technical officer, rn case manager hospice)? Give summary @ -No Was smoking cessation discussed for >3mins.? @ -No Was critical care preformed (if so, how long)? @ -No Were there social determinants of health that impacted care today? How? (Homelessness, low income, unemployed, alcoholism, drug addiction, transportation, low edu. Level, literacy, decrease access to med. care, long term, rehab)? @ -No Was there de-escalation of care discussed even if they declined (Discuss DNR or withdrawal of care, Hospice)? @ -No What co-morbidities impacted this encounter? (DM, HTN, Smoking, COPD, CAD, Cancer, CVA, ARF, Chemo, Hep., AIDS, mental health diagnosis, sleep apnea, morbid obesity)? @ - Was patient admitted / discharged? Hospital course, mention meds given and route, prescriptions, significant lab abnormalities, going to OR and other pertinent info. @Transferred to geriatric psych- This is a pleasant 68-year-old female presenting for suicidal thoughts. No additional complaints. Discussed case with APS RN, Gwen, will admit to geriatric psychiatry. Requests preadmission labs ordered. Patient's home meds ordered. Discussed with patient plan for admission to geriatric psych. Patient agreeable plan of care. Clinical certification was filed. Pt admitted to parul psych in stable condition. Undiagnosed new problem with uncertain prognosis? @ -No Drug Therapy requiring intensive monitoring for toxicity (Heparin, Nitro, Insulin, Cardizem)? @ -No Were any procedures done? @ -No Diagnosis/symptom? @ Suicidal ideation with plan Acute, or Chronic, or Acute on Chronic? @ acute Uncomplicated (without systemic symptoms) or Complicated (systemic symptoms)? @ -uncomplicated Side effects of treatment? @ -No Exacerbation, Progression, or Severe Exacerbation? @ -No Poses a threat to life or bodily function? How? (Chest pain, USA, MT, pneumonia, PE, COPD, DKA, ARF, appy, cholecystitis, CVA, Diverticulitis, Homicidal, Suicidal, threat to staff... and all critical care pts) @ -Yes - Lab Data Result diagrams: 03/12/24 21:52 03/12/24 21:52 Lab Results 03/12/24 03/12/24 03/12/24 Range/Units 21:52 21:52 21:52 WBC 4.4 (3.8-10.6) k/uL RBC 3.94 (3.80-5.40) m/uL Hgb 11.4 (11.4-16.0) gm/dL Hct 35.3 (34.0-46.0) % MCV 89.6 (80.0-100.0) fL MCH 28.9 (25.0-35.0) pg MCHC 32.2 (31.0-37.0) g/dL RDW 13.4 (11.5-15.5) % Plt Count 155 (150-450) k/uL MPV 9.6 Neutrophils % 50 % Lymphocytes % 38 % Monocytes % 7 % Eosinophils % 2 % Basophils % 1 % Neutrophils # 2.2 (1.3-7.7) k/uL Lymphocytes # 1.7 (1.0-4.8) k/uL Monocytes # 0.3 (0-1.0) k/uL Eosinophils # 0.1 (0-0.7) k/uL Basophils # 0.0 (0-0.2) k/uL Sodium 137 (137-145) mmol/L Potassium 4.1 (3.5-5.1) mmol/L Chloride 105 (98-107) mmol/L Carbon Dioxide 29 (22-30) mmol/L Anion Gap 3 mmol/L BUN 11 (7-17) mg/dL Creatinine 0.69 (0.52-1.04) mg/dL Est GFR (CKD-EPI)AfAm >90 (>60 ml/min/1.73 sqM) Est GFR (CKD-EPI)NonAf 89 (>60 ml/min/1.73 sqM) Glucose 83 (74-99) mg/dL Calcium 9.0 (8.4-10.2) mg/dL Urine Color Urine Appearance (Clear) Urine pH (5.0-8.0) Ur Specific [place] (1.001-1.035) Urine Protein (Negative) Urine Glucose (UA) (Negative) Urine Ketones (Negative) Urine Blood (Negative) Urine Nitrite (Negative) Urine Bilirubin (Negative) Urine Urobilinogen (<2.0) mg/dL Ur Leukocyte Esterase (Negative) Urine Opiates Screen Not Detected (NotDetected) Ur Oxycodone Screen Not Detected (NotDetected) Urine Methadone Screen Not Detected (NotDetected) Ur Barbiturates Screen Not Detected (NotDetected) U Tricyclic Antidepress Not Detected (NotDetected) Ur Phencyclidine Scrn Not Detected (NotDetected) Ur Amphetamines Screen Not Detected (NotDetected) U Methamphetamines Scrn Not Detected (NotDetected) U Benzodiazepines Scrn Not Detected (NotDetected) Urine Cocaine Screen Not Detected (NotDetected) U Marijuana (THC) Screen Not Detected (NotDetected) SARS-CoV-2 (PCR) (Not Detectd) 03/12/24 03/12/24 Range/Units 21:52 21:54 WBC (3.8-10.6) k/uL RBC (3.80-5.40) m/uL Hgb (11.4-16.0) gm/dL Hct (34.0-46.0) % MCV (80.0-100.0) fL MCH (25.0-35.0) pg MCHC (31.0-37.0) g/dL RDW (11.5-15.5) % Plt Count (150-450) k/uL MPV Neutrophils % % Lymphocytes % % Monocytes % % Eosinophils % % Basophils % % Neutrophils # (1.3-7.7) k/uL Lymphocytes # (1.0-4.8) k/uL Monocytes # (0-1.0) k/uL Eosinophils # (0-0.7) k/uL Basophils # (0-0.2) k/uL Sodium (137-145) mmol/L Potassium (3.5-5.1) mmol/L Chloride (98-107) mmol/L Carbon Dioxide (22-30) mmol/L Anion Gap mmol/L BUN (7-17) mg/dL Creatinine (0.52-1.04) mg/dL Est GFR (CKD-EPI)AfAm (>60 ml/min/1.73 sqM) Est GFR (CKD-EPI)NonAf (>60 ml/min/1.73 sqM) Glucose (74-99) mg/dL Calcium (8.4-10.2) mg/dL Urine Color Colorless Urine Appearance Clear (Clear) Urine pH 5.5 (5.0-8.0) Ur Specific [place] 1.003 (1.001-1.035) Urine Protein Negative (Negative) Urine Glucose (UA) Negative (Negative) Urine Ketones Negative (Negative) Urine Blood Negative (Negative) Urine Nitrite Negative (Negative) Urine Bilirubin Negative (Negative) Urine Urobilinogen <2.0 (<2.0) mg/dL Ur Leukocyte Esterase Negative (Negative) Urine Opiates Screen (NotDetected) Ur Oxycodone Screen (NotDetected) Urine Methadone Screen (NotDetected) Ur Barbiturates Screen (NotDetected) U Tricyclic Antidepress (NotDetected) Ur Phencyclidine Scrn (NotDetected) Ur Amphetamines Screen (NotDetected) U Methamphetamines Scrn (NotDetected) U Benzodiazepines Scrn (NotDetected) Urine Cocaine Screen (NotDetected) U Marijuana (THC) Screen (NotDetected) SARS-CoV-2 (PCR) Not Detected (Not Detectd) Disposition Clinical Impression: Suicidal ideation Disposition: TRANSFER TO PSYCH HOSP/UNIT Condition: Stable Referrals: Gbae Cisneros DO [Primary Care Provider] - 1-2 days - Out of Hospital Transfer - Req. Specs Out of Hospital Transfer - Requested Specifics: Other Non-Acute (Geriatric psychiatry unit)
[2024-03-12 21:58] LABS: Basophils % (A) 1 %; Eosinophils # (A) 0.1 k/uL (0-0.7); Eosinophils % (A) 2 %; HCT 35.3 % (34.0-46.0); HGB 11.4 gm/dL (11.4-16.0); Lymphocytes # (A) 1.7 k/uL (1.0-4.8); Lymphocytes % (A) 38 %; MCH 28.9 pg (25.0-35.0); MCHC 32.2 g/dL (31.0-37.0); MCV 89.6 fL (80.0-100.0); Mean Platelet Volume 9.6; Monocytes # (A) 0.3 k/uL (0-1.0); Monocytes % (A) 7 %; Neutrophils # (A) 2.2 k/uL (1.3-7.7); Neutrophils % (A) 50 %; Platelet Count 155 k/uL (150-450); RBC 3.94 m/uL (3.80-5.40); RDW 13.4 % (11.5-15.5); WBC 4.4 k/uL (3.8-10.6)
[2024-03-12 22:01] LABS: Appearance,Urine Clear (Clear); Bilirubin,Urine Negative (Negative); Blood,Urine Negative (Negative); Color,Urine Colorless; Glucose,Urine (UA) Negative (Negative); Ketones,Urine Negative (Negative); Leukocyte Esterase,Urine Negative (Negative); Nitrite,Urine Negative (Negative); PH, Urine 5.5 (5.0-8.0); Protein,Urine Negative (Negative); Specific Gravity,Urine 1.003 (1.001-1.035); Urobilinogen,Urine <2.0 mg/dL (<2.0)
[2024-03-12 22:07] LABS: African American GFR (CKD) >90 (>60 ml/min/1.73 sqM); Anion Gap 3 mmol/L; Blood Urea Nitrogen 11 mg/dL (7-17); Carbon Dioxide 29 mmol/L (22-30); Chloride 105 mmol/L (98-107); Glucose 83 mg/dL (74-99); Non-African American GFR(CKD) 89 (>60 ml/min/1.73 sqM); Potassium 4.1 mmol/L (3.5-5.1); Sodium 137 mmol/L (137-145)
[2024-03-12] MEDS: ALBUTEROL HFA INHALER INHALATION SCH (22:08)
[2024-03-12 22:12] LABS: Amphetamine Screen,Urine Not Detected (NotDetected); Barbiturate Screen,Urine Not Detected (NotDetected); Benzodiazepines Screen,Urine Not Detected (NotDetected); Cocaine Screen,Urine Not Detected (NotDetected); Methadone Screen, Urine Not Detected (NotDetected); Opiate Screen,Urine Not Detected (NotDetected); Oxycodone Screen, Urine Not Detected (NotDetected); Phencyclidine Screen,Urine Not Detected (NotDetected); Tricyclic Antidepressant,Urine Not Detected (NotDetected); Urn Cannabinoid Scrn Not Detected (NotDetected)
[2024-03-13] MEDS ORDERED: LEVOTHYROXINE 25 MCG TAB PO SCH (06:30)
[2024-03-13] MEDS ORDERED: PANTOPRAZOLE 40 MG TABLET PO SCH (07:30)
[2024-03-13 07:45] VITALS: BP 124/66; PULSE 60; TEMP 98.2
[2024-03-13] MEDS ORDERED: METOPROLOL SUCCINATE (ER) 25 MG TAB.ER.24H PO SCH (09:00)
[2024-03-13] MEDS ORDERED: lisinopriL 5 MG TAB PO SCH (09:00)
[2024-03-13] MEDS ORDERED: PARoxetine 20 MG TAB PO SCH (09:00)
[2024-03-13] MEDS ORDERED: CLOPIDOGREL 75 MG TAB PO SCH (09:00)
[2024-03-13] MEDS ORDERED: lamoTRIgine 100 MG TAB PO SCH (09:00)
[2024-03-13] MEDS ORDERED: ATORVASTATIN 20 MG TAB PO SCH (09:00)
[2024-03-13] MEDS ORDERED: SERTRALINE 100 MG TAB PO SCH (09:00)
[2024-03-13] MEDS ORDERED: GABAPENTIN 300 MG CAP PO SCH (09:00)
[2024-03-13] MEDS ORDERED: EZETIMIBE 10 MG TAB PO SCH (09:00)
[2024-03-18] MEDS ORDERED: LEVOTHYROXINE 50 MCG TAB PO SCH (06:30)
== END 2024-03-13 07:44 ==
LOC: EC 18:05
DX: R45.851 Suicidal ideations (principal); F17.200 Nicotine dependence, unspecified, uncomplicated; Z88.8 Allergy status to other drugs, medicaments and biological substances; Z11.52 Encounter for screening for COVID-19
CPT/HCPCS: 36415; 80048; 80306; 81003; 82075; 85025; 87635; 93005; 99285

== ENCOUNTER → 2024-03-31 | Outpatient (CLI) | payer MEDICARE, OTHER ==
--- NOTE | 2024-03-31 13:19 | MM ---
Reason for Exam: Follow-up at short interval from prior study. Last screening mammogram was performed 10 month(s) ago. Patient History: Menarche at age 10. First Full-Term at age 19. Left ovary removed at age 51. Right ovary removed at age 51. Hysterectomy at age 51. Postmenopausal. Patient used Hormonal Contraceptives for 5 years. 06/11/2023, Benign US biopsy breast VAD RT on the right side. 1979, Benign Excisional Biopsy on the left side. Risk Values: [place] 5 year model risk: 2.3%. NCI Lifetime model risk: 6.7%. Prior Study Comparison: 05/05/2023 Bilateral MG 3D screening mammo w/cad, [facility]. 05/20/2023 Right MG 3D work up w/cad RT, [facility]. 06/11/2023 Right MG diagnostic mammo RT wo CAD, [facility]. Tissue Density: Right: There are scattered areas of fibroglandular density. Findings: Analyzed By CAD. Microclip central right breast at the site of biopsy 6 months ago. There is a new associated density suspected to represent the collagen plug which is incompletely resorbed. A few benign punctate calcifications have developed near the biopsy site. Otherwise, no significant change. Overall Assessment: Incomplete: need additional imaging evaluation, BI-RAD 0 Management: Diagnostic Breast Ultrasound of the right breast. [facility], , 03/31/2024 1:15 PM. Electronically signed and approved by: Bethanie Kidd M.D. Radiologist
--- NOTE | 2024-03-31 13:36 | USB ---
Reason for Exam: Follow-up at short interval from prior study. Patient History: Menarche at age 10. First Full-Term at age 19. Left ovary removed at age 51. Right ovary removed at age 51. Hysterectomy at age 51. Postmenopausal. Patient used Hormonal Contraceptives for 5 years. 06/11/2023, Benign US biopsy breast VAD RT on the right side. 1979, Benign Excisional Biopsy on the left side. Risk Values: [place] 5 year model risk: 2.3%. NCI Lifetime model risk: 6.7%. Technique: Method: Targeted. Prior Study Comparison: 05/05/2023 Bilateral MG 3D screening mammo w/cad, [facility]. 05/20/2023 Right MG 3D work up w/cad RT, [facility]. 06/11/2023 Right MG diagnostic mammo RT wo CAD, [facility]. Findings: The upper section of the breast of the right breast, the axilla of the right breast and the retroareolar of the right breast were scanned. Ultrasound targeted to the patient's recent biopsy site 12:00 position. Additional scanning in the subareolar region and axilla. At the site of previous hypoechoic lesion, there is now a biopsy clip embedded within a cystic structure. No suspicious soft tissue is identified. No axillary adenopathy. Overall Assessment: Probably benign, BI-RAD 3 Management: Diagnostic Mammogram of both breasts in 6 months. Diagnostic mammographic follow-up right breast given the new density at the clip site favored to represent either cystic change or residual collagen plug. Annual exam of the left breast. A clinical breast exam by your physician is recommended on an annual basis and results should be correlated with mammographic findings. This exam should not preclude additional follow-up of suspicious palpable abnormalities. Results were given to the patient verbally at the time of exam. [facility], , 03/31/2024 1:32 PM. Electronically signed and approved by: Bethanie Kidd M.D. Radiologist
== END | disposition home or self-care (01) ==
LOC: RADMAMWWP 12:57
PROVIDERS: ATTEND Surgery
DX: R92.8 Other abnormal and inconclusive findings on diagnostic imaging of breast (principal); Z90.722 Acquired absence of ovaries, bilateral; Z78.0 Asymptomatic menopausal state; R92.321 Mammographic fibroglandular density, right breast
CPT/HCPCS: 77065; 76642; G0279; 77061

== ENCOUNTER 2024-05-19 09:46 | Day surgery (SDC) | payer MEDICARE, OTHER ==
[2024-05-15 16:57] VITALS: BMI 25.0
[~2024-05-19 09:46] MED LIST changes: +ALPRAZolam 0.25 MG TAB PO PRN; +ALPRAZolam 0.5 MG TAB PO PRN; -ATROPINE SULFATE 0.4 MG/ML 1 ML VIAL IM ONE; +HEPARIN SODIUM,PORCINE (1 ML) 2,500 UNIT in SODIUM CHLORIDE 0.9% 250 ML IRRIGATION PRN; +HEPARIN SODIUM,PORCINE 10,000 UNIT in SODIUM CHLORIDE 0.9% 1,000 ML IRRIGATION PRN; -LACTATED RINGERS 1,000 ML IV SCH; +NITROGLYCERIN SL TABS 0.4 MG TAB SUBLINGUAL PRN
[2024-05-19 10:29] VITALS: RESP 16; TEMP 98.7
[2024-05-19] MEDS: ASPIRIN 325 MG TAB PO STA (10:37)
[2024-05-19] MEDS: ATORVASTATIN 80 MG TAB PO STA (10:38)
[2024-05-19] MEDS: SODIUM CHLORIDE 0.9% 1,000 ML in EMPTY BAG 1 BAG IV SCH (10:38)
[2024-05-19] MEDS: IV FLUID CONTINUATION 1,000 ML IV ONE ×2 (10:39→12:52)
[2024-05-19] MEDS: BENZOCAINE SPRAY 1 EACH MM ONE (12:45)
[2024-05-19] MEDS: fentaNYL (PF) 50 MCG/ML 2 ML AMP IVP ONE (12:49)
[2024-05-19] MEDS: MIDAZOLAM 2 MG/2 ML VIAL IVP ONE ×2 (12:49→12:50)
--- NOTE | 2024-05-19 13:02 | P.PCN ---
Date of Procedure: 05/19/24 Operative Findings: TRANSESOPHAGEAL ECHOCARDIOGRAM COSTUME SPECIALIST: DOUGLAS GUTIÉRREZ MD, RPVI INDICATION: Aortic stenosis SEDATION: Conscious sedation COMPLICATION: None LEVEL OF SEDATION Moderate sedation length of 18 minutes PROCEDURE DESCRIPTION: After obtaining an informed consent, the patient was brought to transesophageal echocardiogram room. Pulse oximetry and heart monitors were attached to the patient. The patient throat was sprayed using lidocaine. The patient was turned into left lateral position. After that a bite guard was placed. After an appropriate conscious sedation was initiated, the transesophageal echocardiogram was advanced through a bite guard into the mid esophagus. A 2-D echocardiogram images, color Doppler images, continuous wave images, pulse-wave images, of various cardiac structure were performed. After that the transesophageal echocardiogram probe was advanced into the stomach and fixed to obtain transgastric view was. The probe was brought into the mid esophagus. Inter-atrial septum was interrogated using 2D images, color Doppler images, and then contrast study. After that transesophageal echocardiogram was withdrawn out and upon withdrawing the descending thoracic aorta all the way up to the arch was evaluated. CONCLUSION: 1. Normal biventricular dimension and systolic function 2. Intact interatrial septum with no evidence of shunt 3. Severe bioprosthetic aortic valve stenosis with a mean. A 51 mmHg [facility]. Of 72 mmHg 4. Mild mitral regurgitation 5. Normal tricuspid valve and pulmonary 6. No evidence of pericardial effusion
[2024-05-19] MEDS: LIDOCAINE 1% INJ 10MG/ML (20 ML MDV) SQ ONE (13:05)
[2024-05-19] MEDS: IOPAMIDOL-370 100ML BTL INJ ONE (13:53)
[2024-05-19 17:03] VITALS: BP 111/58
[2024-05-19 17:20] VITALS: PULSE 55
--- NOTE | 2024-05-20 12:03 | P.PCN ---
Date of Procedure: 05/20/24 Operative Findings: Cardiac catheterization report Performing physician Alexsander Garvin MD Procedure performed Selective right and left coronary angiogram Left and right heart catheterization Ultrasound-guided access of the right common femoral artery and right common femoral vein Selective right common femoral artery angiogram Indication Symptomatic 68-year-old female patient who is known to have valvular heart disease status post aortic valve replacement using bioprosthetic valve in 2014 who underwent an echocardiogram and that showed finding consistent with severe aortic stenosis Approach Right common femoral artery and right common femoral vein Complication None Level of sedation Moderate with sedation length of 32 minutes Procedure description After clinic informed consent patient was brought to the cardiac Computer Forensic Specialist with right common femoral vein was cannulated using micropuncture technique under ultrasound guidance the micropuncture wire passed easily then I placed a 7 [place]iqu[place] 11 cm sheath at the right common femoral vein and subsequently the right common femoral artery was cannulated using the same technique where I placed a 6 [place] 11 cm sheath at the right common femoral artery. Right heart catheterization was performed using 6 Martiniquais [place] catheter and left heart catheterization was performed using an AL-1 catheter after the aortic valve was crossed using a straight wire. Selective right and left coronary angiogram performed using JR4 and JL 3.5 catheters. And bile and selective right common femoral artery angiogram was performed Selective coronary angiogram The RCA is a large-caliber vessel and dominant vessel with no evidence of high- grade stenosis and distally bifurcates into PDA and PLV branches The left main is angiographically normal The LCx is a large-caliber vessel nondominant vessel appears to be angiographically normal as well with no evidence of high-grade stenosis The LAD also appears to be angiographically normal with no evidence of high- grade stenosis Hemodynamics The pulmonary capillary wedge pressure was 10 mmHg PA pressure was as follow systolic of 28 and diastolic of 6 and mean of 15 mmHg RV pressure as well as follow-up systolic of 31 and end-diastolic of 5 mmHg RA pressure was 5 mmHg The LV EDP was 21 mmHg The cardiac output was 5.50 L/min with a cardiac index of 3.35 L/min/m The aortic valve peak gradient was a 13 mmHg and mean of 27 mmHg The aortic valve area was 0.99 cm with the aortic valve area index 0.59 cm/m Conclusion Normal coronary angiogram Normal pulmonary artery systolic pressure Normal right-sided filling pressure and elevated left-sided filling pressure Severe aortic stenosis by area and index area but moderate by gradient, finding could be consistent with low-flow low gradient paradoxical/normal ejection fraction aortic stenosis
== END 2024-05-19 17:34 | disposition home or self-care (01) ==
LOC: CATHCVL 09:46
PROVIDERS: ATTEND Internal Medicine Interventional Cardiology
DX: I08.0 Rheumatic disorders of both mitral and aortic valves (principal); I10 Essential (primary) hypertension; E78.5 Hyperlipidemia, unspecified; J44.9 Chronic obstructive pulmonary disease, unspecified; Z87.891 Personal history of nicotine dependence; Z79.51 Long term (current) use of inhaled steroids; Z79.02 Long term (current) use of antithrombotics/antiplatelets; Z79.899 Other long term (current) drug therapy; Z95.2 Presence of prosthetic heart valve; Z88.8 Allergy status to other drugs, medicaments and biological substances; Z88.1 Allergy status to other antibiotic agents
CPT/HCPCS: 93312; 93320; 93325; 99152; J2250; J2003; J3010; Q9967

== ENCOUNTER 2024-05-24 19:58 | Observation (INO) | payer MEDICARE, OTHER ==
[2024-05-24 20:58] LABS: Basophils % (A) 0 %; Eosinophils # (A) 0.1 k/uL (0-0.7); Eosinophils % (A) 2 %; HCT 30.7 % (34.0-46.0); HGB 9.9 gm/dL (11.4-16.0); Hypochromasia Slight; Lymphocytes # (A) 1.7 k/uL (1.0-4.8); Lymphocytes % (A) 26 %; MCH 28.7 pg (25.0-35.0); MCHC 32.3 g/dL (31.0-37.0); Mean Platelet Volume 8.2; Monocytes # (A) 0.5 k/uL (0-1.0); Monocytes % (A) 8 %; Neutrophils # (A) 4.2 k/uL (1.3-7.7); Neutrophils % (A) 62 %; Platelet Count 235 k/uL (150-450); RBC 3.45 m/uL (3.80-5.40); RDW 13.8 % (11.5-15.5); WBC 6.7 k/uL (3.8-10.6)
[2024-05-24 21:13] LABS: ALT 15 U/L (4-34); AST 20 U/L (14-36); African American GFR (CKD) 81 (>60 ml/min/1.73 sqM); Albumin 3.2 g/dL (3.5-5.0); Alkaline Phosphatase 78 U/L (38-126); Anion Gap 5 mmol/L; Blood Urea Nitrogen 15 mg/dL (7-17); Calcium 8.3 mg/dL (8.4-10.2); Carbon Dioxide 30 mmol/L (22-30); Chloride 101 mmol/L (98-107); Glucose 92 mg/dL (74-99); Lipase 39 U/L (23-300); Magnesium 2.1 mg/dL (1.6-2.3); Non-African American GFR(CKD) 70 (>60 ml/min/1.73 sqM); Potassium 4.2 mmol/L (3.5-5.1); Sodium 136 mmol/L (137-145); Total Bilirubin 0.3 mg/dL (0.2-1.3); Total Protein 6.2 g/dL (6.3-8.2)
[2024-05-24 21:21] LABS: NT-Pro-B-Type Natriuretic Pept 1290 pg/mL
[2024-05-24 21:35] LABS: Partial Thromboplastin Time 24.1 sec (22.0-30.0); Prothrombin Time 11.2 sec (10.0-12.5)
--- NOTE | 2024-05-24 21:38 | XR ---
EXAMINATION TYPE: XR chest 2V DATE OF EXAM: 05/24/2024 9:05 PM COMPARISON: Chest x-ray October 06, 2023 CLINICAL INDICATION: Female, 68 years old with history of Chest Pain, TECHNIQUE: Frontal and lateral views of the chest are obtained. FINDINGS: Sternal wires and mediastinal clips along with cardiac valvular surgical changes are all redemonstrat ed. Persistent mild cardiomegaly with atherosclerotic thoracic aorta. There is no focal air space opa city, pleural effusion, or pneumothorax seen. Scoliosis is present. Cholecystectomy clips are seen. IMPRESSION: Mild cardiomegaly without acute pulmonary process. [facility], , 05/24/2024 9:36 PM
[2024-05-24] MEDS ORDERED: NALOXONE 0.4 MG/ML 1 ML VIAL IV PRN (23:30)
[2024-05-24] MEDS ORDERED: MORPHINE SULFATE 4 MG/ML SYRINGE IV PRN (23:30)
--- NOTE | 2024-05-24 23:30 | ED ---
Chest Pain HPI - General Chief Complaint: Chest Pain Stated Complaint: Chest Pain Time Seen by Provider: 05/24/24 20:05 Source: patient, EMS Mode of arrival: EMS - History of Present Illness Initial Comments: 68-year-old female presents emergency department reporting chest pain. Patient has a history of heart failure, COPD, hypertension. Patient does have aortic valve repair. Recently had a heart cath which demonstrated that her aortic valve is failing. Patient reports that she is supposed to be reading with the wave guide assembler to talk about treatment options. States that this evening she began having 10 out of 10 chest pain. She did take 3 nitro and continues to have 6 out of 10 pain. She denies fevers, chills or cough. No recent medication changes. No ripping or tearing station to her back. No other alleviating, precipitating or modifying factors - Related Data Home Medications Medication Instructions Recorded Confirmed Rosuvastatin [Crestor] 20 mg PO DAILY 10/12/14 05/24/24 Memantine HCl [Namenda Xr] 28 mg PO DAILY 12/06/17 05/24/24 Gabapentin [Neurontin] 300 mg PO TID 01/10/18 05/24/24 Fluticasone/Vilanterol [Breo 1 puff INHALATION RT-DAILY 01/31/20 05/24/24 Ellipta 200-25 Mcg Inhaler] Ergocalciferol (Vitamin D2) 1,250 mcg PO SA 07/28/22 05/24/24 [Drisdol (50,000 Iu)] Ezetimibe [Zetia] 10 mg PO DAILY 07/28/22 05/24/24 Levothyroxine Sodium [Synthroid] 25 mcg PO MOTUWETHFR 07/28/22 05/24/24 Metoprolol Succinate (ER) [Toprol 25 mg PO DAILY 07/28/22 05/24/24 XL] Sertraline [Zoloft] 150 mg PO DAILY 07/28/22 05/24/24 Pantoprazole Sodium [Protonix] 40 mg PO DAILY 12/01/22 05/24/24 lamoTRIgine [LaMICtal] 200 mg PO DAILY 12/01/22 05/24/24 Nitroglycerin Sl Tabs [Nitrostat] 0.4 mg SL Q5M PRN 02/08/23 05/24/24 PARoxetine [Paxil] 20 mg PO DAILY 02/08/23 05/24/24 Levothyroxine Sodium [Synthroid] 50 mcg PO SUSA 03/03/23 05/24/24 Clopidogrel [Plavix] 75 mg PO DAILY 05/21/23 05/24/24 Brexpiprazole [Rexulti] 0.5 mg PO HS 03/12/24 05/24/24 lisinopriL [Zestril] 5 mg PO DAILY 03/12/24 05/24/24 Albuterol Inhaler [Ventolin Hfa 2 puff INHALATION RT-QID PRN 05/01/24 05/24/24 Inhaler] Aspirin [Adult Low Dose Aspirin EC] 81 mg PO DAILY 05/01/24 05/24/24 Budesonide/Formoterol Fumarate 2 puff INHALATION RT-BID 05/24/24 05/24/24 [Breyna 160-4.5 Mcg Inhaler] Allergies Allergy/AdvReac Type Severity Reaction Status Date / Time fentanyl Allergy Rash/Hives Verified 05/24/24 20:35 niacin Allergy Dyspnea,barbara Verified 05/24/24 20:35 h Review of Systems ROS Statement: Those systems with pertinent positive or pertinent negative responses have been documented in the HPI. ROS Other: All systems not noted in ROS Statement are negative. Past Medical History Past Medical History: Chest Pain / Angina, Heart Failure, COPD, CVA/TIA, Dementia, GERD/Reflux, Hyperlipidemia, Hypertension, Mitral Valve Prolapse (MVP) Additional Past Medical History / Comment(s): See Dr. Garvin H+P.heart murmur, "beginning of dementia",hx. insomnia - none presently. "I'v had a stroke but they don't know when." "It's an old stroke." History of Any Multi-Drug Resistant Organisms: None Reported Past Surgical History: Back Surgery, Bladder Surgery, Cardiac Valve Replacement, Cholecystectomy, Heart Catheterization, Hysterectomy, Joint Replacement, Orthopedic Surgery, Tubal Ligation Additional Past Surgical History / Comment(s): aortic valve replacement, left breast biopsy-neg, oopherectomy, left knee replacement, juan, rt breast bx. Past Anesthesia/Blood Transfusion Reactions: No Reported Reaction Additional Past Anesthesia/Blood Transfusion Reaction / Comment(s): Hx of blood transfusion 2009-no reaction. Past Psychological History: Anxiety, Bipolar, Depression Smoking Status: Current every day smoker - Past Family History Mother History Unknown: Yes Additional Family Medical History / Comment(s): Patient states she was adopted. General Exam General appearance: alert, in no apparent distress Head exam: Present: atraumatic, normocephalic, normal inspection Eye exam: Present: normal appearance, PERRL, EOMI. Absent: scleral icterus, conjunctival injection, periorbital swelling ENT exam: Present: normal exam, mucous membranes moist Neck exam: Present: normal inspection. Absent: tenderness, meningismus, lymphadenopathy Respiratory exam: Present: normal lung sounds bilaterally. Absent: respiratory distress, wheezes, rales, rhonchi, stridor Cardiovascular Exam: Present: regular rate, normal rhythm, normal heart sounds. Absent: systolic murmur, diastolic murmur, rubs, gallop, clicks GI/Abdominal exam: Present: soft, normal bowel sounds. Absent: distended, tenderness, guarding, rebound, rigid Extremities exam: Present: normal inspection, full ROM, normal capillary refill. Absent: tenderness, pedal edema, joint swelling, calf tenderness Back exam: Present: normal inspection Neurological exam: Present: alert, oriented X3, CN II-XII intact Psychiatric exam: Present: normal affect, normal mood Skin exam: Present: warm, dry, intact, normal color. Absent: rash Course Vital Signs 05/24/24 05/24/24 19:59 22:22 Temperature 97.9 F Pulse Rate 60 60 Respiratory 18 17 Rate Blood Pressure 128/68 97/51 O2 Sat by Pulse 98 Oximetry Chest Pain MDM - MDM Was pt. sent in by a medical professional or institution (, PA, PHOTOGRAPHIC SPECIALIST, urgent care, hospital, or half-way...) When possible be specific @ -[No] Did you speak to anyone other than the patient for history (EMS, parent, family, police, friend...)? What history was obtained from this source @ -[No] Did you review nursing and triage notes (agree or disagree)? Why? @ -[I reviewed and agree with nursing and triage notes] Were old charts reviewed (outside hosp., previous admission, EMS record, old EKG, old radiological studies, urgent care reports/EKG's, half-way records)? Report findings @ -[No old charts were reviewed] Differential Diagnosis (chest pain, altered mental status, abdominal pain women, abdominal pain men, vaginal bleeding, weakness, fever, dyspnea, syncope, headache, dizziness, GI bleed, back pain, seizure, CVA, palpatations, mental health, musculoskeletal)? @ -[not applicable] EKG interpreted by me (3pts min.). @ -Yes and demonstrates sinus rhythm with rate of 62. Parable 155. QRS 88. QTc of 419. No acute ST segment elevations or depressions X-rays interpreted by me (1pt min.). @ -[None done] CT interpreted by me (1pt min.). @ -[None done] U/S interpreted by me (1pt. min.). @ -[None done] What testing was considered but not performed or refused? (CT, X-rays, U/S, labs)? Why? @ -[None] What meds were considered but not given or refused? Why? @ -[None] Did you discuss the management of the patient with other professionals (professionals i.e. , PA, PHOTOGRAPHIC SPECIALIST, lab, RT, psych nurse, social worker health services, quantitative strategy analyst, teacher, access control officer, employment case manager)? Give summary @ -[No] Was smoking cessation discussed for >3mins.? @ -[No] Was critical care preformed (if so, how long)? @ -[No] Were there social determinants of health that impacted care today? How? (Homelessness, low income, unemployed, alcoholism, drug addiction, transportation, low edu. Level, literacy, decrease access to med. care, skilled nursing, rehab)? @ -[No] Was there de-escalation of care discussed even if they declined (Discuss DNR or withdrawal of care, Hospice)? DNR status @ -[No] What co-morbidities impacted this encounter? (DM, HTN, Smoking, COPD, CAD, Cancer, CVA, ARF, Chemo, Hep., AIDS, mental health diagnosis, sleep apnea, morbid obesity)? @ -[None] Was patient admitted / discharged? Hospital course, mention meds given and route, prescriptions, significant lab abnormalities, going to OR and other pertinent info. @ -[hospital course] Undiagnosed new problem with uncertain prognosis? @ -[No] Drug Therapy requiring intensive monitoring for toxicity (Heparin, Nitro, Insulin, Cardizem)? @ -[No] Were any procedures done? @ -[No] Diagnosis/symptom? @ -[default] Acute, or Chronic, or Acute on Chronic? @ -[default] Uncomplicated (without systemic symptoms) or Complicated (systemic symptoms)? @ -[default] Side effects of treatment? @ -[No] Exacerbation, Progression, or Severe Exacerbation? @ -[No] Poses a threat to life or bodily function? How? (Chest pain, USA, [place], pneumonia, PE, COPD, DKA, ARF, appy, cholecystitis, CVA, Diverticulitis, Homicidal, Suicidal, threat to staff... and all critical care pts) @ -[No] Disposition Clinical Impression: Chest pain Disposition: ADMITTED IP TO THIS [facility] Condition: Stable Is patient prescribed a controlled substance at d/c from ED?: No Referrals: Gabe Cisneros DO [Primary Care Provider] - 1-2 days Time of Disposition: 23:29 Decision to Admit Reason: Admit from EC Decision Date: 05/24/24 Decision Time: 23:30
[2024-05-24] MEDS ORDERED: ALBUTEROL NEBULIZED 2.5 MG/3 ML INHALATION PRN (23:40)
[2024-05-25] MEDS: GABAPENTIN 300 MG CAP PO SCH (00:08)
[2024-05-25] MEDS: NON FORMULARY DRUG (Brexpiprazole [Rexulti] 0.5 MG Tablet) PO SCH (00:10)
[2024-05-25 06:07] LABS: Basophils % (A) 1 %; Eosinophils # (A) 0.2 k/uL (0-0.7); Eosinophils % (A) 4 %; HCT 32.5 % (34.0-46.0); HGB 10.7 gm/dL (11.4-16.0); Lymphocytes # (A) 1.6 k/uL (1.0-4.8); Lymphocytes % (A) 31 %; MCH 29.2 pg (25.0-35.0); MCHC 32.8 g/dL (31.0-37.0); MCV 89.1 fL (80.0-100.0); Mean Platelet Volume 8.3; Monocytes # (A) 0.5 k/uL (0-1.0); Monocytes % (A) 9 %; Neutrophils # (A) 2.7 k/uL (1.3-7.7); Neutrophils % (A) 54 %; Platelet Count 223 k/uL (150-450); RBC 3.65 m/uL (3.80-5.40); RDW 13.8 % (11.5-15.5)
[2024-05-25] MEDS: LEVOTHYROXINE 25 MCG TAB PO SCH (06:27)
[2024-05-25] MEDS: PANTOPRAZOLE 40 MG TABLET PO SCH (06:27)
[2024-05-25 06:30] LABS: African American GFR (CKD) >90 (>60 ml/min/1.73 sqM); Anion Gap 4 mmol/L; Blood Urea Nitrogen 14 mg/dL (7-17); Calcium 8.9 mg/dL (8.4-10.2); Carbon Dioxide 31 mmol/L (22-30); Chloride 102 mmol/L (98-107); Glucose 79 mg/dL (74-99); Non-African American GFR(CKD) 80 (>60 ml/min/1.73 sqM); Potassium 4.6 mmol/L (3.5-5.1); Sodium 137 mmol/L (137-145)
[2024-05-25] MEDS ORDERED: NON FORMULARY DRUG (Fluticasone/Vilanterol [Breo Ellipta 200-25 Mcg Inhaler] 1 EACH Blst.W INHALATION SCH (08:00)
[2024-05-25] MEDS ORDERED: MEMANTINE 10 MG TAB PO SCH (09:00)
[2024-05-25] MEDS: ASPIRIN 81 MG PO SCH (09:19)
[2024-05-25] MEDS: MEMANTINE 10 MG TAB PO SCH (09:19)
[2024-05-25] MEDS: PARoxetine 20 MG TAB PO SCH (09:19)
[2024-05-25] MEDS: CLOPIDOGREL 75 MG TAB PO SCH (09:19)
[2024-05-25] MEDS: ATORVASTATIN 40 MG TAB PO SCH (09:20)
[2024-05-25] MEDS: EZETIMIBE 10 MG TAB PO SCH (09:20)
[2024-05-25] MEDS: lisinopriL 5 MG TAB PO SCH (09:20)
[2024-05-25] MEDS: lamoTRIgine 100 MG TAB PO SCH (09:20)
[2024-05-25] MEDS: METOPROLOL SUCCINATE (ER) 25 MG TAB.ER.24H PO SCH (09:20)
[2024-05-25] MEDS: SERTRALINE 50 MG TAB PO SCH (09:25)
[2024-05-25] MEDS: SYMBICORT 160-4.5 MCG INHALER INHALATION SCH (09:25)
[2024-05-25] MEDS: KETOROLAC 15 MG/ML 1 ML VIAL IVP STA (11:41)
--- NOTE | 2024-05-25 14:01 | P.CRDCN ---
History of Present Illness Consult date: 05/25/24 Reason for Consult (text): Acute chest pain History of present illness: This is 68-year-old female patient of Dr. Garvin with past medical history of valvular heart disease status post AVR using bioprosthetic valve in 2009, known aortic stenosis as well as hypertension, dyslipidemia, carotid atherosclerosis, smoking, COPD. Patient had an office visit with Dr. Garvin on 05/12/2024 and at that time was having chest discomfort and shortness of breath with exertion it was decided that she would undergo JUAN and cardiac catheterization. On 05/19, patient underwent JUAN which revealed normal biventricular dimension and systolic function. Intact interatrial septum with no evidence of shunt. Severe bioprosthetic aortic valve stenosis with a mean of 51 mmHg, mild mitral regurgitation, normal tricuspid valve and no evidence of pericardial effusion. On 05/20, patient underwent cardiac catheterization which revealed normal coronary angiogram, normal pulmonary artery systolic pressure. Normal right sided filling pressure and elevated left-sided filling pressure. Severe aortic stenosis by area and index area but moderate by gradient. Finding could be consistent with low-flow low gradient paradoxical normal ejection fraction aortic stenosis. Patient now presents to the hospital due to pain that starts in her left fingers that goes up her left arm into her jaw, chest and to her back. She has the pain is a number 7 out of 10. She denies chest wall tenderness. She states she has heaviness in her chest and sharpness. Dilaudid seem to help with the pain. Discussed results of the JUAN with the patient and that the valve is deteriorat ing and that this will need to be replaced. Patient does have a follow-up appointment with Dr. Garvin scheduled on Wednesday. Blood pressure 133/69, heart rate 63, pulse ox 99% on room air. Patient has been resumed on her home cardiac medications. -EKG: Sinus rhythm with no acute ST changes. #2 sinus rhythm with PACs -Chest x-ray: Mild cardiomegaly without acute process -Laboratory studies: WBC 5, hemoglobin 10.7. Sodium 137, potassium 4.6, BUN 14 creatinine 0.76. Troponin negative x 3. proBNP 1290. -Home cardiac medications: Aspirin 81 mg daily, Plavix 75 mg daily, Zetia 10 mg daily, lisinopril 5 mg daily, metoprolol succinate 25 mg daily, Nitrostat, Crestor 20 mg daily, patient is also on levothyroxine. -Echocardiogram performed April 2024 revealed preserved LV systolic function with evidence of severe bioprosthetic aortic valve stenosis with mean gradient of 35 mmHg. Review Of Systems: At the time of my exam: CONSTITUTIONAL: Denies fever or chills. HEENT: Denies blurred vision, vision changes, or eye pain. Denies hemoptysis CARDIOVASCULAR: Reports chest pain. Denies orthopnea. Denies PND. Denies palpitations RESPIRATORY: Denies shortness of breath. GASTROINTESTINAL: Denies abdominal pain. Denies nausea or vomiting. HEMATOLOGIC: Denies bleeding disorders. GENITOURINARY: Denies any blood in urine. SKIN: Denies puritis. Denies rash. Physical examination: Gen: This is a 68-year-old female in no acute distress VS: reviewed HEENT: Head is atraumatic, normocephalic. Pupils equal, round. Sclerae is anicteric. NECK: Supple. No JVD. Bilateral carotid bruit LUNGS: Clear to auscultation. No wheezes or rhonchi. No intercostal retractions. HEART: Regular rate and rhythm. Systolic murmur. ABDOMEN: Soft No tenderness. EXTREMITIES: No pedal edema. No calf tenderness. NEUROLOGICAL: Patient is awake, alert and oriented x3. Assessment: Atypical chest pain, acute coronary syndrome ruled out and patient had a recent cardiac catheterization which revealed normal coronary arteries Severe bioprosthetic aortic valve stenosis History of valvular heart disease status post AVR in 2009 Hypertension Dyslipidemia COPD Carotid atherosclerosis Anemia Plan: Resume patient's home cardiac medications Try 1 dose of IV Toradol for pain control No further cardiac workup at this time. Patient has been instructed to keep her appointment on Wednesday with Dr. Garvin. Thank you kindly for this consultation. Nurse practitioner note has been reviewed, I agree with documented findings and plan of care. Patient was seen and examined. Past Medical History Past Medical History: Chest Pain / Angina, Heart Failure, COPD, CVA/TIA, Dementia, GERD/Reflux, Hyperlipidemia, Hypertension, Mitral Valve Prolapse (MVP) Additional Past Medical History / Comment(s): See Dr. Garvin H+P.heart murmur, "beginning of dementia",hx. insomnia - none presently. "I'v had a stroke but they don't know when." "It's an old stroke." History of Any Multi-Drug Resistant Organisms: None Reported Past Surgical History: Back Surgery, Bladder Surgery, Cardiac Valve Replacement, Cholecystectomy, Heart Catheterization, Hysterectomy, Joint Replacement, Orthopedic Surgery, Tubal Ligation Additional Past Surgical History / Comment(s): aortic valve replacement, left breast biopsy-neg, oopherectomy, left knee replacement, juan, rt breast bx. Past Anesthesia/Blood Transfusion Reactions: No Reported Reaction Additional Past Anesthesia/Blood Transfusion Reaction / Comment(s): Hx of blood transfusion 2009-no reaction. Past Psychological History: Anxiety, Bipolar, Depression Smoking Status: Current every day smoker Past Alcohol Use History: None Reported Additional Past Alcohol Use History / Comment(s): started at age 15 trying to quit smoking and is down to 3 cigarettes/day, (hx of 1.5ppd) Past Drug Use History: None Reported - Past Family History Mother History Unknown: Yes Additional Family Medical History / Comment(s): Patient states she was adopted. Medications and Allergies Home Medications Medication Instructions Recorded Confirmed Type Rosuvastatin [Crestor] 20 mg PO DAILY 10/12/14 05/24/24 History Memantine HCl [Namenda Xr] 28 mg PO DAILY 12/06/17 05/24/24 History Gabapentin [Neurontin] 300 mg PO TID 01/10/18 05/24/24 History Fluticasone/Vilanterol [Breo 1 puff INHALATION RT-DAILY 01/31/20 05/24/24 History Ellipta 200-25 Mcg Inhaler] Ergocalciferol (Vitamin D2) 1,250 mcg PO SA 07/28/22 05/24/24 History [Drisdol (50,000 Iu)] Ezetimibe [Zetia] 10 mg PO DAILY 07/28/22 05/24/24 History Levothyroxine Sodium [Synthroid] 25 mcg PO MOTUWETHFR 07/28/22 05/24/24 History Metoprolol Succinate (ER) [Toprol 25 mg PO DAILY 07/28/22 05/24/24 History XL] Sertraline [Zoloft] 150 mg PO DAILY 07/28/22 05/24/24 History Pantoprazole Sodium [Protonix] 40 mg PO DAILY 12/01/22 05/24/24 History lamoTRIgine [LaMICtal] 200 mg PO DAILY 12/01/22 05/24/24 History Nitroglycerin Sl Tabs [Nitrostat] 0.4 mg SL Q5M PRN 02/08/23 05/24/24 History PARoxetine [Paxil] 20 mg PO DAILY 02/08/23 05/24/24 History Levothyroxine Sodium [Synthroid] 50 mcg PO SUSA 03/03/23 05/24/24 History Clopidogrel [Plavix] 75 mg PO DAILY 05/21/23 05/24/24 History Brexpiprazole [Rexulti] 0.5 mg PO HS 03/12/24 05/24/24 History lisinopriL [Zestril] 5 mg PO DAILY 03/12/24 05/24/24 History Albuterol Inhaler [Ventolin Hfa 2 puff INHALATION RT-QID PRN 05/01/24 05/24/24 History Inhaler] Aspirin [Adult Low Dose Aspirin EC] 81 mg PO DAILY 05/01/24 05/24/24 History Budesonide/Formoterol Fumarate 2 puff INHALATION RT-BID 05/24/24 05/24/24 History [Breyna 160-4.5 Mcg Inhaler] Allergies Allergy/AdvReac Type Severity Reaction Status Date / Time fentanyl Allergy Rash/Hives Verified 05/24/24 20:35 niacin Allergy Dyspnea,barbara Verified 05/24/24 20:35 h Physical Exam Vitals: Vital Signs Temp Pulse Pulse Resp BP BP BP 05/25/24 07:00 97.9 F 63 15 133/69 05/25/24 01:26 97.8 F 52 L 16 115/65 05/25/24 00:09 65 17 115/51 05/24/24 22:22 60 17 97/51 05/24/24 19:59 97.9 F 60 18 128/68 Pulse Ox 05/25/24 07:00 99 05/25/24 01:26 96 05/25/24 00:09 95 05/24/24 22:22 05/24/24 19:59 98 Intake and Output 05/24/24 05/25/24 05/25/24 22:59 06:59 14:59 Other: # Voids 1 Weight 63.503 kg 63.503 kg Results 05/25/24 05:07 05/25/24 05:07 Cardiac Enzymes 05/24/24 05/24/2425 Range/Units 20:05 20:05 23:54 AST 20 (14-36) U/L Troponin I <0.012 <0.012 (0.000-0.034) ng/mL 05/25/24 Range/Units 05:07 AST (14-36) U/L Troponin I <0.012 (0.000-0.034) ng/mL Coagulation 05/24/24 Range/Units 20:05 PT 11.2 (10.0-12.5) sec APTT 24.1 (22.0-30.0) sec CBC 05/24/24 05/25/24 Range/Units 20:05 05:07 WBC 6.7 5.0 (3.8-10.6) k/uL RBC 3.45 L 3.65 L (3.80-5.40) m/uL Hgb 9.9 L 10.7 L (11.4-16.0) gm/dL Hct 30.7 L 32.5 L (34.0-46.0) % Plt Count 235 223 (150-450) k/uL Comprehensive Metabolic Panel 05/24/24 05/25/24 Range/Units 20:05 05:07 Sodium 136 L 137 (137-145) mmol/L Potassium 4.2 4.6 (3.5-5.1) mmol/L Chloride 101 102 (98-107) mmol/L Carbon Dioxide 30 31 H (22-30) mmol/L BUN 15 14 (7-17) mg/dL Creatinine 0.85 0.76 (0.52-1.04) mg/dL Glucose 92 79 (74-99) mg/dL Calcium 8.3 L 8.9 (8.4-10.2) mg/dL AST 20 (14-36) U/L ALT 15 (4-34) U/L Alkaline Phosphatase 78 (38-126) U/L Total Protein 6.2 L (6.3-8.2) g/dL Albumin 3.2 L (3.5-5.0) g/dL Current Medications Generic Name Dose Route Start Last Admin Trade Name Freq PRN Reason Stop Dose Admin Albuterol Sulfate 2.5 mg 05/24/24 23:40 Albuterol Nebulized 2.5 Mg/3 Ml INHALATION RT-QID PRN Shortness Of Breath Aspirin 81 mg 05/25/24 09:00 05/25/24 09:19 Aspirin 81 Mg PO 81 mg DAILY [facility] Administration Atorvastatin Calcium 40 mg 05/25/24 09:00 05/25/24 09:20 Atorvastatin 40 Mg Tab PO 40 mg DAILY [facility] Administration Budesonide/Formoterol Fumarate 2 puff 05/25/24 08:00 05/25/24 09:25 Symbicort 160-4.5 Mcg Inhaler INHALATION 2 puff RT-BID [facility] Administration Clopidogrel Bisulfate 75 mg 05/25/24 09:00 05/25/24 09:19 Clopidogrel 75 Mg Tab PO 75 mg DAILY [facility] Administration Ezetimibe 10 mg 05/25/24 09:00 05/25/24 09:20 Ezetimibe 10 Mg Tab PO 10 mg DAILY [facility] Administration Gabapentin 300 mg 05/24/24 23:45 05/25/24 09:20 Gabapentin 300 Mg Cap PO 300 mg TID [facility] Administration Lamotrigine 200 mg 05/25/24 09:00 05/25/24 09:20 Lamotrigine 100 Mg Tab PO 200 mg DAILY [facility] Administration Levothyroxine Sodium 25 mcg 05/25/24 06:00 05/25/24 06:27 Levothyroxine 25 Mcg Tab PO 25 mcg [id number] [facility] Administration Levothyroxine Sodium 50 mcg 05/27/24 06:00 Levothyroxine 50 Mcg Tab PO SuSa@0600 [facility] Lisinopril 5 mg 05/25/24 09:00 05/25/24 09:20 Lisinopril 5 Mg Tab PO 5 mg DAILY [facility] Administration Memantine 10 mg 05/25/24 09:00 05/25/24 09:19 Memantine 10 Mg Tab PO 10 mg BID [facility] Administration Metoprolol Succinate 25 mg 05/25/24 09:00 05/25/24 09:20 Metoprolol Succinate (Er) 25 Mg Tab.Er.24h PO 25 mg DAILY [facility] Administration Morphine Sulfate 4 mg 05/24/24 23:30 Morphine Sulfate 4 Mg/Ml Syringe IV Q4HR PRN Severe Pain (Scale 7 to 10) Naloxone HCl 0.2 mg 05/24/24 23:30 Naloxone 0.4 Mg/Ml 1 Ml Vial IV Q2M PRN Opioid Reversal Non-Formulary Medication 0.5 mg 05/24/24 23:45 05/25/24 00:10 Brexpiprazole [Rexulti] PO Not Given HS [facility] Pantoprazole Sodium 40 mg 05/25/24 07:30 05/25/24 06:27 Pantoprazole 40 Mg Tablet PO 40 mg DAILY@0730 [facility] Administration Paroxetine HCl 20 mg 05/25/24 09:00 05/25/24 09:19 Paroxetine 20 Mg Tab PO 20 mg DAILY [facility] Administration Sertraline HCl 150 mg 05/25/24 09:00 05/25/24 09:25 Sertraline 50 Mg Tab PO 150 mg DAILY [facility] Administration Intake and Output 05/24/24 05/25/24 05/25/24 22:59 06:59 14:59 Other: # Voids 1 Weight 63.503 kg 63.503 kg 05/25/24 05:07 05/25/24 05:07
[2024-05-25 14:13] VITALS: BP 108/61; PULSE 75; RESP 17; TEMP 98
--- NOTE | 2024-05-25 15:50 | P.HPIM ---
History of Present Illness H&P Date: 05/25/24 This is a pleasant 68-year-old female who presented to the emergency department with chest pain and took 3 nitros with no relief and so she called 911. Patient does follow with Dr. Cisneros in the outpatient setting along with Dr. Garvin cardiology with past medical history of heart failure, COPD,, CVA, dementia, GERD, hyperlipidemia, bipolar, anxiety and depression hypertension with aortic valve repair and recently underwent a heart catheterization that revealed aortic valve deficiency and is to follow-up with cardiology outpatient regarding options. Patient does admit to smoking and denies any other illicit drug use or alcohol use. Patient does have an appointment on Wednesday. Labs reviewed and troponins x 3 have been negative, BNP 1290, other labs within normal limits. Patient was admitted for chest pain with cardiology evaluation. REVIEW OF SYSTEMS: CONSTITUTIONAL: No fever, no malaise, no fatigue. HEENT: No recent visual problems or hearing problems. Denied any sore throat. CARDIOVASCULAR: Reports of chest pain, orthopnea, PND, no palpitations, no syncope. PULMONARY: No shortness of breath, no cough, no hemoptysis. GASTROINTESTINAL: No diarrhea, no nausea, no vomiting, no abdominal pain. NEUROLOGICAL: No headaches, no weakness, no numbness. HEMATOLOGICAL: Denies any bleeding or petechiae. GENITOURINARY: Denies any burning micturition, frequency, or urgency. MUSCULOSKELETAL/RHEUMATOLOGICAL: Denies any joint pain, swelling, or any muscle pain. ENDOCRINE: Denies any polyuria or polydipsia. The rest of the 14-point review of systems is negative. PHYSICAL EXAMINATION: GENERAL: The patient is alert and oriented x3, not in any acute distress. Well developed, thin built, elderly appearing HEENT: Pupils are round and equally reacting to light. EOMI. No scleral icterus. No conjunctival pallor. Normocephalic, atraumatic. No pharyngeal erythema. No thyromegaly. CARDIOVASCULAR: S1 and S2 muffled PULMONARY: Chest is clear to auscultation, no wheezing or crackles. ABDOMEN: Soft, nontender, nondistended, normoactive bowel sounds. No palpable organomegaly. MUSCULOSKELETAL: No joint swelling or deformity. EXTREMITIES: No cyanosis, clubbing, or pedal edema. NEUROLOGICAL: Gross neurological examination did not reveal any focal deficits. SKIN: No rashes. Assessment: Chest pain, ruled out ACS Recent cardiac catheterization earlier this month revealing normal coronary arteries with severe bioprosthetic aortic valve stenosis, following outpatient with cardiology discuss options of treatment History of valvular heart disease status post AVR in 2009 Hyperlipidemia Hypertension COPD, not in exacerbation Anxiety/depression/bipolar GERD History of CVA GI prophylaxis DVT prophylaxis Full code Plan: Patient was admitted for cardiology evaluation for chest pain. Troponins x 3 were negative ACS ruled out. Patient did have a recent heart catheterization and is to follow-up with Dr. Garvin on Wednesday. Patient was evaluated by cardiology today and has cleared the patient for discharge Patient will be discharged later today and was given a dose of Toradol for the pain. Patient instructed to keep the appointment on Wednesday and also follow-up with primary care provider Overall prognosis is guarded given significant comorbidities The impression and plan of care has been dictated by Nanda Bermudez, Nurse Practitioner as directed. Dr. Jomar MD I have performed a history and examination and MDM of this patient, discussed the same with the dictator, and agree with the dictator's assessment and plan as written ,documented as a scribe. Based on total visit time, I have performed more than 50% of the visit. Past Medical History Past Medical History: Chest Pain / Angina, Heart Failure, COPD, CVA/TIA, Dementia, GERD/Reflux, Hyperlipidemia, Hypertension, Mitral Valve Prolapse (MVP) Additional Past Medical History / Comment(s): See Dr. Garvin H+P.heart murmur, "beginning of dementia",hx. insomnia - none presently. "I'v had a stroke but they don't know when." "It's an old stroke." History of Any Multi-Drug Resistant Organisms: None Reported Past Surgical History: Back Surgery, Bladder Surgery, Cardiac Valve Replacement, Cholecystectomy, Heart Catheterization, Hysterectomy, Joint Replacement, O rthopedic Surgery, Tubal Ligation Additional Past Surgical History / Comment(s): aortic valve replacement, left breast biopsy-neg, oopherectomy, left knee replacement, juan, rt breast bx. Past Anesthesia/Blood Transfusion Reactions: No Reported Reaction Additional Past Anesthesia/Blood Transfusion Reaction / Comment(s): Hx of blood transfusion 2009-no reaction. Past Psychological History: Anxiety, Bipolar, Depression Smoking Status: Current every day smoker Past Alcohol Use History: None Reported Additional Past Alcohol Use History / Comment(s): started at age 15 trying to quit smoking and is down to 3 cigarettes/day, (hx of 1.5ppd) Past Drug Use History: None Reported - Past Family History Mother History Unknown: Yes Additional Family Medical History / Comment(s): Patient states she was adopted. Medications and Allergies Home Medications Medication Instructions Recorded Confirmed Type Rosuvastatin [Crestor] 20 mg PO DAILY 10/12/14 05/24/24 History Memantine HCl [Namenda Xr] 28 mg PO DAILY 12/06/17 05/24/24 History Gabapentin [Neurontin] 300 mg PO TID 01/10/18 05/24/24 History Fluticasone/Vilanterol [Breo 1 puff INHALATION RT-DAILY 01/31/20 05/24/24 History Ellipta 200-25 Mcg Inhaler] Ergocalciferol (Vitamin D2) 1,250 mcg PO SA 07/28/22 05/24/24 History [Drisdol (50,000 Iu)] Ezetimibe [Zetia] 10 mg PO DAILY 07/28/22 05/24/24 History Levothyroxine Sodium [Synthroid] 25 mcg PO MOTUWETHFR 07/28/22 05/24/24 History Metoprolol Succinate (ER) [Toprol 25 mg PO DAILY 07/28/22 05/24/24 History XL] Sertraline [Zoloft] 150 mg PO DAILY 07/28/22 05/24/24 History Pantoprazole Sodium [Protonix] 40 mg PO DAILY 12/01/22 05/24/24 History lamoTRIgine [LaMICtal] 200 mg PO DAILY 12/01/22 05/24/24 History Nitroglycerin Sl Tabs [Nitrostat] 0.4 mg SL Q5M PRN 02/08/23 05/24/24 History PARoxetine [Paxil] 20 mg PO DAILY 02/08/23 05/24/24 History Levothyroxine Sodium [Synthroid] 50 mcg PO SUSA 03/03/23 05/24/24 History Clopidogrel [Plavix] 75 mg PO DAILY 05/21/23 05/24/24 History Brexpiprazole [Rexulti] 0.5 mg PO HS 03/12/24 05/24/24 History lisinopriL [Zestril] 5 mg PO DAILY 03/12/24 05/24/24 History Albuterol Inhaler [Ventolin Hfa 2 puff INHALATION RT-QID PRN 05/01/24 05/24/24 History Inhaler] Aspirin [Adult Low Dose Aspirin EC] 81 mg PO DAILY 05/01/24 05/24/24 History Budesonide/Formoterol Fumarate 2 puff INHALATION RT-BID 05/24/24 05/24/24 History [Breyna 160-4.5 Mcg Inhaler] Allergies Allergy/AdvReac Type Severity Reaction Status Date / Time fentanyl Allergy Rash/Hives Verified 05/24/24 20:35 niacin Allergy Dyspnea,barbara Verified 05/24/24 20:35 h Physical Exam Vitals: Vital Signs Temp Pulse Pulse Resp BP BP BP 05/25/24 14:13 98.0 F 75 17 108/61 05/25/24 11:25 15 05/25/24 07:00 97.9 F 63 15 133/69 05/25/24 01:26 97.8 F 52 L 16 115/65 05/25/24 00:09 65 17 115/51 05/24/24 22:22 60 17 97/51 05/24/24 19:59 97.9 F 60 18 128/68 Pulse Ox 05/25/24 14:13 95 05/25/24 11:25 05/25/24 07:00 99 05/25/24 01:26 96 05/25/24 00:09 95 05/24/24 22:22 05/24/24 19:59 98 Intake and Output 05/24/24 05/25/24 05/25/24 22:59 06:59 14:59 Other: Voiding Method Toilet # Voids 1 3 Weight 63.503 kg 63.503 kg Results CBC & Chem 7: 05/25/24 05:07 05/25/24 05:07 Labs: Abnormal Lab Results - Last 24 Hours (Table) 05/24/24 05/24/24 05/25/24 Range/Units 20:05 20:05 05:07 RBC 3.45 L 3.65 L (3.80-5.40) m/uL Hgb 9.9 L 10.7 L (11.4-16.0) gm/dL Hct 30.7 L 32.5 L (34.0-46.0) % Sodium 136 L (137-145) mmol/L Carbon Dioxide (22-30) mmol/L Calcium 8.3 L (8.4-10.2) mg/dL Total Protein 6.2 L (6.3-8.2) g/dL Albumin 3.2 L (3.5-5.0) g/dL 05/25/24 Range/Units 05:07 RBC (3.80-5.40) m/uL Hgb (11.4-16.0) gm/dL Hct (34.0-46.0) % Sodium (137-145) mmol/L Carbon Dioxide 31 H (22-30) mmol/L Calcium (8.4-10.2) mg/dL Total Protein (6.3-8.2) g/dL Albumin (3.5-5.0) g/dL
--- NOTE | 2024-05-25 15:52 | P.DS ---
Providers Date of admission: 05/24/24 23:39 Expected date of discharge: 05/25/24 Attending physician: Nikole Stacy Consults: 05/24/24 23:30 Consult Physician Urgent Consulting Provider: [facility] Consult Reason/Comments: acute chest pain Do you want consulting provider notified?: Yes Primary care physician: Gabe Cisneros [facility] Course: Final diagnosis Chest pain, ruled out ACS Recent cardiac catheterization earlier this month revealing normal coronary arteries with severe bioprosthetic aortic valve stenosis, following outpatient with cardiology discuss options of treatment History of valvular heart disease status post AVR in 2009 Hyperlipidemia Hypertension COPD, not in exacerbation Anxiety/depression/bipolar GERD History of CVA GI prophylaxis DVT prophylaxis Full code Discharge disposition Patient is being discharged in a stable condition with guarded prognosis to home. Patient will follow-up with Dr. Cisenros in the outpatient setting upon discharge. Patient is to continue with current medications and outpatient follow-up with Dr. Garvin on Wednesday as scheduled. Total time taken is greater than 35 minutes. Hospital course This is a pleasant 68-year-old female who presented to the emergency department with chest pain and took 3 nitros with no relief and so she called 911. Patient does follow with Dr. Cisneros in the outpatient setting along with Dr. Garvin cardiology with past medical history of heart failure, COPD,, CVA, dementia, GERD, hyperlipidemia, bipolar, anxiety and depression hypertension with aortic valve repair and recently underwent a heart catheterization that revealed aortic valve deficiency and is to follow-up with cardiology outpatient regarding options. Patient does admit to smoking and denies any other illicit drug use or alcohol use. Patient does have an appointment on Wednesday. Labs reviewed and troponins x 3 have been negative, BNP 1290, other labs within normal limits. Patient was admitted for chest pain with cardiology evaluation. Patient was seen and evaluated by cardiology and cleared the patient for discharge recommending outpatient follow-up with Dr. Garvin as scheduled on Wednesday. Patient to continue current cardiac medications. Please refer to cardiology notes for further HPI. PHYSICAL EXAMINATION: GENERAL: The patient is alert and oriented x3, not in any acute distress. Well developed, thin built, elderly appearing HEENT: Pupils are round and equally reacting to light. EOMI. No scleral icterus. No conjunctival pallor. Normocephalic, atraumatic. No pharyngeal erythema. No thyromegaly. CARDIOVASCULAR: S1 and S2 muffled PULMONARY: Chest is clear to auscultation, no wheezing or crackles. ABDOMEN: Soft, nontender, nondistended, normoactive bowel sounds. No palpable organomegaly. MUSCULOSKELETAL: No joint swelling or deformity. EXTREMITIES: No cyanosis, clubbing, or pedal edema. NEUROLOGICAL: Gross neurological examination did not reveal any focal deficits. SKIN: No rashes. Please refer to medication reconciliation sheet for a list of medications. The impression and plan of care has been dictated by Nanda Bermudez, Nurse Practitioner as directed. Dr. Jomar MD I have performed a history and examination and MDM of this patient, discussed the same with the dictator, and agree with the dictator's assessment and plan as written ,documented as a scribe. Based on total visit time, I have performed more than 50% of the visit. Patient Condition at Discharge: Stable Plan - Discharge Summary New Discharge Prescriptions: Continue Rosuvastatin [Crestor] 20 mg PO DAILY Memantine HCl [Namenda Xr] 28 mg PO DAILY Gabapentin [Neurontin] 300 mg PO TID Fluticasone/Vilanterol [Breo Ellipta 200-25 Mcg Inhaler] 1 puff INHALATION RT-DAILY Ezetimibe [Zetia] 10 mg PO DAILY Metoprolol Succinate (ER) [Toprol XL] 25 mg PO DAILY Levothyroxine Sodium [Synthroid] 25 mcg PO MOTUWETHFR Sertraline [Zoloft] 150 mg PO DAILY lamoTRIgine [LaMICtal] 200 mg PO DAILY Nitroglycerin Sl Tabs [Nitrostat] 0.4 mg SL Q5M PRN PRN Reason: Chest Pain Levothyroxine Sodium [Synthroid] 50 mcg PO SUSA lisinopriL [Zestril] 5 mg PO DAILY Aspirin [Adult Low Dose Aspirin EC] 81 mg PO DAILY Ergocalciferol (Vitamin D2) [Drisdol (50,000 Iu)] 1,250 mcg PO SA Pantoprazole Sodium [Protonix] 40 mg PO DAILY PARoxetine [Paxil] 20 mg PO DAILY Clopidogrel [Plavix] 75 mg PO DAILY Brexpiprazole [Rexulti] 0.5 mg PO HS Albuterol Inhaler [Ventolin Hfa Inhaler] 2 puff INHALATION RT-QID PRN PRN Reason: Shortness Of Breath Budesonide/Formoterol Fumarate [Breyna 160-4.5 Mcg Inhaler] 2 puff INHALATION RT-BID Discharge Medication List Rosuvastatin [Crestor] 20 mg PO DAILY 10/12/14 [History] Memantine HCl [Namenda Xr] 28 mg PO DAILY 12/06/17 [History] Gabapentin [Neurontin] 300 mg PO TID 01/10/18 [History] Fluticasone/Vilanterol [Breo Ellipta 200-25 Mcg Inhaler] 1 puff INHALATION RT- DAILY 01/31/20 [History] Ergocalciferol (Vitamin D2) [Drisdol (50,000 Iu)] 1,250 mcg PO SA 07/28/22 [History] Ezetimibe [Zetia] 10 mg PO DAILY 07/28/22 [History] Levothyroxine Sodium [Synthroid] 25 mcg PO MOTUWETHFR 07/28/22 [History] Metoprolol Succinate (ER) [Toprol XL] 25 mg PO DAILY 07/28/22 [History] Sertraline [Zoloft] 150 mg PO DAILY 07/28/22 [History] Pantoprazole Sodium [Protonix] 40 mg PO DAILY 12/01/22 [History] lamoTRIgine [LaMICtal] 200 mg PO DAILY 12/01/22 [History] Nitroglycerin Sl Tabs [Nitrostat] 0.4 mg SL Q5M PRN 02/08/23 [History] PARoxetine [Paxil] 20 mg PO DAILY 02/08/23 [History] Levothyroxine Sodium [Synthroid] 50 mcg PO SUSA 03/03/23 [History] Clopidogrel [Plavix] 75 mg PO DAILY 05/21/23 [History] Brexpiprazole [Rexulti] 0.5 mg PO HS 03/12/24 [History] lisinopriL [Zestril] 5 mg PO DAILY 03/12/24 [History] Albuterol Inhaler [Ventolin Hfa Inhaler] 2 puff INHALATION RT-QID PRN 05/01/24 [History] Aspirin [Adult Low Dose Aspirin EC] 81 mg PO DAILY 05/01/24 [History] Budesonide/Formoterol Fumarate [Breyna 160-4.5 Mcg Inhaler] 2 puff INHALATION RT-BID 05/24/24 [History] Follow up Appointment(s)/Referral(s): Alexsander Garvin MD [STAFF PHYSICIAN] - 1 Week Gabe Cisneros DO [Primary Care Provider] - 1-2 days Activity/Diet/Wound Care/Special Instructions: Activity limited until follow-up follow up with Dr. Garvin on Wednesday continue taking medications as prescribed Discharge Disposition: HOME SELF-CARE
[2024-05-27] MEDS ORDERED: LEVOTHYROXINE 50 MCG TAB PO SCH (06:00)
== END 2024-05-25 17:15 | disposition home or self-care (01) ==
LOC: EC 19:58 → 6NMEDSUR 23:39
PROVIDERS: ADMIT Hospitalist; ATTEND Hospitalist
DX: R07.89 Other chest pain (principal); R07.9 Chest pain, unspecified; I11.0 Hypertensive heart disease with heart failure; I50.9 Heart failure, unspecified; J44.9 Chronic obstructive pulmonary disease, unspecified; F03.90 Unspecified dementia, unspecified severity, without behavioral disturbance, psychotic disturbance, mood disturbance, and anxiety; K21.9 Gastro-esophageal reflux disease without esophagitis; E78.5 Hyperlipidemia, unspecified; F31.9 Bipolar disorder, unspecified; F41.9 Anxiety disorder, unspecified; I65.29 Occlusion and stenosis of unspecified carotid artery; D64.9 Anemia, unspecified; I35.0 Nonrheumatic aortic (valve) stenosis; F17.200 Nicotine dependence, unspecified, uncomplicated; Z86.73 Personal history of transient ischemic attack (TIA), and cerebral infarction without residual deficits; Z95.3 Presence of xenogenic heart valve; Z79.02 Long term (current) use of antithrombotics/antiplatelets; Z79.51 Long term (current) use of inhaled steroids; Z79.82 Long term (current) use of aspirin; Z79.890 Hormone replacement therapy; Z79.899 Other long term (current) drug therapy
CPT/HCPCS: 96374; 99285; 36415; 94640; 93005; 83880; 80053; 80048; 83690; 83735; 84484 ×2; 85025 ×2; 85610; 85730; 71046; G0378 ×2; J1885

== ENCOUNTER 2024-07-03 18:43 | Observation (INO) | payer MEDICARE, OTHER ==
[2024-07-03] MEDS: ASPIRIN 81 MG PO STA (19:18)
--- NOTE | 2024-07-03 19:30 | ED ---
General Adult HPI - General Source: patient, EMS, RN notes reviewed, old records reviewed Mode of arrival: EMS Limitations: no limitations <Himanshu Williamson - Last Filed: 07/03/24 21:01> <Himanshu Mathews - Last Filed: 07/03/24 21:25> - General Chief complaint: Chest Pain Stated complaint: Chest Pain Time Seen by Provider: 07/03/24 18:50 - History of Present Illness Initial comments: This is a 68-year-old female who presents to the emergency department complaining that she is having chest pain. Patient states that this started a few hours prior to arrival. Patient states on the left side of her chest and it radiates to her jaw and down her arm. Patient states she is also mildly short of breath with it. Patient denies having had a heart attack in the past. Patient states she has high blood pressure and high cholesterol but denies diabetes. Patient states she is a smoker. Patient denies any swelling in her legs or calf tenderness. Patient Nuys any recent fever chills or cough. Patient Nuys any abdominal pain patient has nausea vomiting diarrhea (Himanshu Williamson) - Related Data Home Medications Medication Instructions Recorded Confirmed Rosuvastatin [Crestor] 20 mg PO DAILY 10/12/14 07/03/24 Memantine HCl [Namenda Xr] 28 mg PO DAILY 12/06/17 07/03/24 Gabapentin [Neurontin] 300 mg PO TID 01/10/18 07/03/24 Fluticasone/Vilanterol [Breo 1 puff INHALATION RT-DAILY 01/31/20 07/03/24 Ellipta 200-25 Mcg Inhaler] Ergocalciferol (Vitamin D2) 1,250 mcg PO SA 07/28/22 07/03/24 [Drisdol (50,000 Iu)] Ezetimibe [Zetia] 10 mg PO DAILY 07/28/22 07/03/24 Levothyroxine Sodium [Synthroid] 25 mcg PO MOTUWETHFR 07/28/22 07/03/24 Metoprolol Succinate (ER) [Toprol 25 mg PO DAILY 07/28/22 07/03/24 XL] Sertraline [Zoloft] 150 mg PO DAILY 07/28/22 07/03/24 Pantoprazole Sodium [Protonix] 40 mg PO DAILY 12/01/22 07/03/24 lamoTRIgine [LaMICtal] 200 mg PO DAILY 12/01/22 07/03/24 Nitroglycerin Sl Tabs [Nitrostat] 0.4 mg SL Q5M PRN 02/08/23 07/03/24 PARoxetine [Paxil] 20 mg PO DAILY 02/08/23 07/03/24 Levothyroxine Sodium [Synthroid] 50 mcg PO SUSA 03/03/23 07/03/24 Clopidogrel [Plavix] 75 mg PO DAILY 05/21/23 07/03/24 Brexpiprazole [Rexulti] 0.5 mg PO HS 03/12/24 07/03/24 lisinopriL [Zestril] 5 mg PO DAILY 03/12/24 07/03/24 Albuterol Inhaler [Ventolin Hfa 2 puff INHALATION RT-QID PRN 05/01/24 07/03/24 Inhaler] Aspirin [Adult Low Dose Aspirin EC] 81 mg PO DAILY 05/01/24 07/03/24 Budesonide/Formoterol Fumarate 2 puff INHALATION RT-BID 05/24/24 07/03/24 [Breyna 160-4.5 Mcg Inhaler] Ranolazine [Ranexa] 500 mg PO BID 06/08/24 07/03/24 Sennosides [Senokot] 8.6 mg PO BID PRN 07/03/24 07/03/24 Tiotropium 2.5 Mcg/Puff [Spiriva 1 puff INHALATION RT-BID 07/03/24 07/03/24 Respimat 2.5 Mcg] traMADol HCl [Ultram] 50 mg PO BID PRN 07/03/24 07/03/24 Allergies Allergy/AdvReac Type Severity Reaction Status Date / Time fentanyl Allergy Rash/Hives Verified 07/03/24 21:08 niacin Allergy Dyspnea,barbara Verified 07/03/24 21:08 h Review of Systems ROS Other: All systems not noted in ROS Statement are negative. <Himanshu Williamson - Last Filed: 07/03/24 21:01> ROS Other: All systems not noted in ROS Statement are negative. <Himanshu Mathews - Last Filed: 07/03/24 21:25> ROS Statement: Those systems with pertinent positive or pertinent negative responses have been documented in the HPI. Past Medical History Past Medical History: Chest Pain / Angina, Heart Failure, COPD, CVA/TIA, Dementia, GERD/Reflux, Hyperlipidemia, Hypertension, Mitral Valve Prolapse (MVP) Additional Past Medical History / Comment(s): See Dr. Garvin H+P.heart murmur, "beginning of dementia",hx. insomnia in past "I'v had a stroke but they don't know when." "It's an old stroke." History of Any Multi-Drug Resistant Organisms: None Reported Past Surgical History: Back Surgery, Bladder Surgery, Cardiac Valve Replacement, Cholecystectomy, Heart Catheterization, Hysterectomy, Joint Replacement, Orthopedic Surgery, Tubal Ligation Additional Past Surgical History / Comment(s): aortic valve replacement, left breast biopsy-neg, oopherectomy, left knee replacement, juan, rt breast bx neg. Past Anesthesia/Blood Transfusion Reactions: No Reported Reaction Additional Past Anesthesia/Blood Transfusion Reaction / Comment(s): Hx of blood transfusion 2009-no reaction. Past Psychological History: Anxiety, Bipolar, Depression Smoking Status: Current some day smoker Past Alcohol Use History: None Reported Past Drug Use History: None Reported - Past Family History Mother History Unknown: Yes Additional Family Medical History / Comment(s): Patient states she was adopted. <Himanshu Williamson - Last Filed: 07/03/24 21:01> General Exam Limitations: no limitations <Himanshu Williamson - Last Filed: 07/03/24 21:01> - General Exam Comments Initial Comments: GENERAL: Patient is well-developed and well-nourished. Patient is nontoxic and well-hydr ated and is in mild distress. ENT: Neck is soft and supple. No significant lymphadenopathy is noted. Oropharynx is clear. Moist mucous membranes. Neck has full range of motion without eliciting any pain. EYES: The sclera were anicteric and conjunctiva were pink and moist. Extraocular movements were intact and pupils were equal round and reactive to light. Eyelids were unremarkable. PULMONARY: Unlabored respirations. Good breath sounds bilaterally. No audible rales rhonchi or wheezing was noted. CARDIOVASCULAR: There is a regular rate and rhythm without any murmurs gallops or rubs. ABDOMEN: Soft and nontender with normal bowel sounds. SKIN: Skin is clear with no lesions or rashes and otherwise unremarkable. NEUROLOGIC: Patient is alert and oriented x3. Cranial nerves II through XII are grossly intact. Motor and sensory are also intact. Normal speech, volume and content. Symmetrical smile. MUSCULOSKELETAL: Normal extremities with adequate strength and full range of motion. No lower extremity swelling or edema. No calf tenderness. LYMPHATICS: No significant lymphadenopathy is noted PSYCHIATRIC: Normal psychiatric evaluation. (Himanshu Williamson) Course Vital Signs 07/03/24 18:49 Temperature 98.3 F Pulse Rate 67 Respiratory 16 Rate Blood Pressure 103/63 O2 Sat by Pulse 95 Oximetry EKG Findings - EKG Comments: EKG Findings:: EKG is sinus bradycardia 58 CT 141 QRS 94 QTc 423 - EKG Results: EKG: interpreted by ERMD <Himanshu Mathews - Last Filed: 07/03/24 21:25> Medical Decision Making - Lab Data Result diagrams: 07/03/24 20:27 07/03/24 20:27 <Himanshu Williamson - Last Filed: 07/03/24 21:01> - Lab Data Result diagrams: 07/03/24 20:27 07/03/24 20:27 <Himanshu Mathews - Last Filed: 07/03/24 21:25> - Medical Decision Making EKG is interpreted by myself EKG shows normal sinus rhythm at [address] interval is 147 QRS is 94 QT interval is 428 QTc is 430. Patient's EKG shows no ST segment elevation or depression Was pt. sent in by a medical professional or institution (, PA, ENTRY REP, urgent care, hospital, or assisted...) When possible be specific @ -No Did you speak to anyone other than the patient for history (EMS, parent, family, police, friend...)? What history was obtained from this source @ -No Did you review nursing and triage notes (agree or disagree)? Why? @ -I reviewed and agree with nursing and triage notes Were old charts reviewed (outside hosp., previous admission, EMS record, old EKG, old radiological studies, urgent care reports/EKG's, assisted records)? Report findings @ -No old charts were reviewed Differential Diagnosis? @ -Differential Chest Pain: Stable Angina, Unstable Angina, STEMI, NSTEMI Aortic Dissection, Pneumothorax, Musculoskeletal, Esophageal Spasm GERD, Cholecystitis, Pancreatitis, Zoster, this is not meant to be an all-inclusive list. EKG interpreted by me (3pts min.). @ -As above X-rays interpreted by me (1pt min.). @ -Chest x-ray shows no acute abnormality CT interpreted by me (1pt min.). @ -None done U/S interpreted by me (1pt. min.). @ -None done What testing was considered but not performed or refused? (CT, X-rays, U/S, labs)? Why? @ -None What meds were considered but not given or refused? Why? @ -None Did you discuss the management of the patient with other professionals (professionals i.e. , PA, ENTRY REP, lab, RT, psych nurse, social insurance adviser, cnc mill set up operator, teacher, electronic warfare officer, correctional casework specialist)? Give summary @ -I spoke with [facility] they agreed admit the patient admit the patient wrote admitting orders Was smoking cessation discussed for >3mins.? @ -No Was critical care preformed (if so, how long)? @ -No Were there social determinants of health that impacted care today? How? (Homelessness, low income, unemployed, alcoholism, drug addiction, transportation, low edu. Level, literacy, decrease access to med. care, [facility], rehab)? @ -No Was there de-escalation of care discussed even if they declined (Discuss DNR or withdrawal of care, Hospice)? DNR status @ -No What co-morbidities impacted this encounter? (DM, HTN, Smoking, COPD, CAD, Cancer, CVA, ARF, Chemo, Hep., AIDS, mental health diagnosis, sleep apnea, morbid obesity)? @ -None Was patient admitted / discharged? Hospital course, mention meds given and route, prescriptions, significant lab abnormalities, going to OR and other pertinent info. @ -Patient had Nitropaste and aspirin emergency department. Patient continued have some chest pain lab work was normal x-ray is normal patient will be admitted to [facility]. Consult will be placed to cardiology. Undiagnosed new problem with uncertain prognosis? @ -No Drug Therapy requiring intensive monitoring for toxicity (Heparin, Nitro, Insulin, Cardizem)? @ -No Were any procedures done? @ -No Diagnosis/symptom? @ -Chest pain Acute, or Chronic, or Acute on Chronic? @ -Acute Uncomplicated (without systemic symptoms) or Complicated (systemic symptoms)? @ -Default Side effects of treatment? @ -No Exacerbation, Progression, or Severe Exacerbation? @ -No Poses a threat to life or bodily function? How? (Chest pain, [place], [place], pneumonia, PE, COPD, DKA, ARF, appy, cholecystitis, CVA, Diverticulitis, Homicidal, Suicidal, threat to staff... and all critical care pts) @ -Yes this can lead to an [place] and endorgan dysfunction (Himanshu Williamson) - Lab Data Lab Results 07/03/24 07/03/24 07/03/24 Range/Units 20:27 20:27 20:27 WBC 5.9 (3.8-10.6) k/uL RBC 3.66 L (3.80-5.40) m/uL Hgb 10.7 L (11.4-16.0) gm/dL Hct 33.5 L (34.0-46.0) % MCV 91.4 (80.0-100.0) fL MCH 29.2 (25.0-35.0) pg MCHC 31.9 (31.0-37.0) g/dL RDW 14.2 (11.5-15.5) % Plt Count 171 (150-450) k/uL MPV 9.4 Neutrophils % 63 % Lymphocytes % 27 % Monocytes % 6 % Eosinophils % 2 % Basophils % 1 % Neutrophils # 3.7 (1.3-7.7) k/uL Lymphocytes # 1.6 (1.0-4.8) k/uL Monocytes # 0.3 (0-1.0) k/uL Eosinophils # 0.1 (0-0.7) k/uL Basophils # 0.0 (0-0.2) k/uL Hypochromasia Slight PT 10.8 (10.0-12.5) sec INR 1.0 (<1.2) APTT 23.6 (22.0-30.0) sec Sodium 135 L (137-145) mmol/L Potassium 3.9 (3.5-5.1) mmol/L Chloride 100 (98-107) mmol/L Carbon Dioxide 30 (22-30) mmol/L Anion Gap 5 mmol/L BUN 9 (7-17) mg/dL Creatinine 0.66 (0.52-1.04) mg/dL Est GFR (CKD-EPI)AfAm >90 (>60 ml/min/1.73 sqM) Est GFR (CKD-EPI)NonAf 90 (>60 ml/min/1.73 sqM) Glucose 83 (74-99) mg/dL Calcium 8.6 (8.4-10.2) mg/dL Magnesium 2.0 (1.6-2.3) mg/dL Total Bilirubin 0.7 (0.2-1.3) mg/dL AST 20 (14-36) U/L ALT 14 (4-34) U/L Alkaline Phosphatase 86 (38-126) U/L Troponin I (0.000-0.034) ng/mL Total Protein 6.8 (6.3-8.2) g/dL Albumin 3.6 (3.5-5.0) g/dL 07/03/24 Range/Units 20:27 WBC (3.8-10.6) k/uL RBC (3.80-5.40) m/uL Hgb (11.4-16.0) gm/dL Hct (34.0-46.0) % MCV (80.0-100.0) fL MCH (25.0-35.0) pg MCHC (31.0-37.0) g/dL RDW (11.5-15.5) % Plt Count (150-450) k/uL MPV Neutrophils % % Lymphocytes % % Monocytes % % Eosinophils % % Basophils % % Neutrophils # (1.3-7.7) k/uL Lymphocytes # (1.0-4.8) k/uL Monocytes # (0-1.0) k/uL Eosinophils # (0-0.7) k/uL Basophils # (0-0.2) k/uL Hypochromasia PT (10.0-12.5) sec INR (<1.2) APTT (22.0-30.0) sec Sodium (137-145) mmol/L Potassium (3.5-5.1) mmol/L Chloride (98-107) mmol/L Carbon Dioxide (22-30) mmol/L Anion Gap mmol/L BUN (7-17) mg/dL Creatinine (0.52-1.04) mg/dL Est GFR (CKD-EPI)AfAm (>60 ml/min/1.73 sqM) Est GFR (CKD-EPI)NonAf (>60 ml/min/1.73 sqM) Glucose (74-99) mg/dL Calcium (8.4-10.2) mg/dL Magnesium (1.6-2.3) mg/dL Total Bilirubin (0.2-1.3) mg/dL AST (14-36) U/L ALT (4-34) U/L Alkaline Phosphatase (38-126) U/L Troponin I <0.012 (0.000-0.034) ng/mL Total Protein (6.3-8.2) g/dL Albumin (3.5-5.0) g/dL Disposition Time of Disposition: 21:03 <Himanshu Williamson - Last Filed: 07/03/24 21:01> <Himanshu Mathews - Last Filed: 07/03/24 21:25> Clinical Impression: Chest pain Disposition: ADMITTED IP TO THIS HOSP
--- NOTE | 2024-07-03 19:41 | XR ---
EXAMINATION TYPE: XR chest 2V DATE OF EXAM: 07/03/2024 7:36 PM COMPARISON: Chest radiographs from 06/07/2024 CLINICAL INDICATION: Female, 68 years old with history of Chest Pain; TECHNIQUE: XR chest 2V Frontal and lateral views of the chest. FINDINGS: Lungs/Pleura: Airspace opacities project over the spine. There is no evidence of pleural effusion, fo farzana consolidation, or pneumothorax. Pulmonary vascularity: Unremarkable. Heart/mediastinum: Cardiomediastinal silhouette is unremarkable. Post aortic valve repair changes. Musculoskeletal: No acute osseous pathology. IMPRESSION: Lower lobe airspace opacities correlate for pneumonia. [facility], , 07/03/2024 7:39 PM
[2024-07-03] MEDS: NITROGLYCERIN OINT 1 INCH/GM PACKET TOPICAL STA (20:35)
[2024-07-03 20:47] LABS: Basophils % (A) 1 %; Eosinophils # (A) 0.1 k/uL (0-0.7); Eosinophils % (A) 2 %; HCT 33.5 % (34.0-46.0); HGB 10.7 gm/dL (11.4-16.0); Hypochromasia Slight; Lymphocytes # (A) 1.6 k/uL (1.0-4.8); Lymphocytes % (A) 27 %; MCH 29.2 pg (25.0-35.0); MCHC 31.9 g/dL (31.0-37.0); MCV 91.4 fL (80.0-100.0); Mean Platelet Volume 9.4; Monocytes # (A) 0.3 k/uL (0-1.0); Monocytes % (A) 6 %; Neutrophils # (A) 3.7 k/uL (1.3-7.7); Neutrophils % (A) 63 %; Platelet Count 171 k/uL (150-450); RBC 3.66 m/uL (3.80-5.40); RDW 14.2 % (11.5-15.5); WBC 5.9 k/uL (3.8-10.6)
[2024-07-03 20:59] LABS: ALT 14 U/L (4-34); AST 20 U/L (14-36); African American GFR (CKD) >90 (>60 ml/min/1.73 sqM); Albumin 3.6 g/dL (3.5-5.0); Alkaline Phosphatase 86 U/L (38-126); Anion Gap 5 mmol/L; Blood Urea Nitrogen 9 mg/dL (7-17); Calcium 8.6 mg/dL (8.4-10.2); Carbon Dioxide 30 mmol/L (22-30); Chloride 100 mmol/L (98-107); Glucose 83 mg/dL (74-99); Non-African American GFR(CKD) 90 (>60 ml/min/1.73 sqM); Potassium 3.9 mmol/L (3.5-5.1); Sodium 135 mmol/L (137-145); Total Bilirubin 0.7 mg/dL (0.2-1.3); Total Protein 6.8 g/dL (6.3-8.2)
[2024-07-03] MEDS ORDERED: NITROGLYCERIN SL TABS 0.4 MG TAB SUBLINGUAL PRN (21:03)
[2024-07-03 21:13] LABS: Partial Thromboplastin Time 23.6 sec (22.0-30.0); Prothrombin Time 10.8 sec (10.0-12.5)
[2024-07-04] MEDS: NITROGLYCERIN OINT 1 INCH/GM PACKET TOPICAL SCH (00:09)
[2024-07-04] MEDS: ASPIRIN 325 MG TAB PO SCH (08:48)
[2024-07-04] MEDS ORDERED: NITROGLYCERIN SL TABS 0.4 MG TAB SUBLINGUAL PRN (12:31)
--- NOTE | 2024-07-04 12:38 | P.HPIM ---
History of Present Illness Will go new complaints of chest pain radiating to the left arm. Patient has history of viral stenosis with valve placement in the past and patient was scheduled to get replacement of the mitral valve again. Patient because of this surgery patient underwent extensive evaluation with cardiac ablation and stress test all of which were negative for PE was done as well. Patient had any fever chills cough chest x-ray did not show any significant abnormality. Patient chest pain is nonpleuritic in nature not associate with food. REVIEW OF SYSTEMS: All other systems are negative except those mentioned in the HPI PHYSICAL EXAMINATION: GENERAL: The patient is alert and oriented x3, not in any acute distress. Well developed, well nourished. HEENT: Pupils are round and equally reacting to light. EOMI. No scleral icterus. No conjunctival pallor. Normocephalic, atraumatic. No pharyngeal erythema. No thyromegaly. CARDIOVASCULAR: S1 and S2 present. No murmurs, rubs, or gallops. PULMONARY: Chest is clear to auscultation, no wheezing or crackles. ABDOMEN: Soft, nontender, nondistended, normoactive bowel sounds. No palpable organomegaly. MUSCULOSKELETAL: No joint swelling or deformity. EXTREMITIES: No cyanosis, clubbing, or pedal edema. NEUROLOGICAL: Gross neurological examination did not reveal any focal deficits. SKIN: No rashes. Assessment and plan Chest pain probably ruled out acute coronary syndromes cardiology evaluated the patient -COPD without any acute exacerbation -Mitral valve prolapse -Gastroesophageal reflux disease -Depression -Continue nicotine use: Counseling was provided For above-mentioned chronic medical problems patient was resumed on appropriate home medications DVT prophylaxis: Early ambulation Past Medical History Past Medical History: Chest Pain / Angina, Heart Failure, COPD, CVA/TIA, Dementia, GERD/Reflux, Hyperlipidemia, Hypertension, Mitral Valve Prolapse (MVP) Additional Past Medical History / Comment(s): See Dr. Garvin H+P.heart murmur, "beginning of dementia",hx. insomnia in past "I'v had a stroke but they don't know when." "It's an old stroke." History of Any Multi-Drug Resistant Organisms: None Reported Past Surgical History: Back Surgery, Bladder Surgery, Cardiac Valve Replacement, Cholecystectomy, Heart Catheterization, Hysterectomy, Joint Replacement, Orthopedic Surgery, Tubal Ligation Additional Past Surgical History / Comment(s): aortic valve replacement, left breast biopsy-neg, oopherectomy, left knee replacement, juan, rt breast bx neg. Past Anesthesia/Blood Transfusion Reactions: No Reported Reaction Additional Past Anesthesia/Blood Transfusion Reaction / Comment(s): Hx of blood transfusion 2009-no reaction. Past Psychological History: Anxiety, Bipolar, Depression Smoking Status: Current some day smoker Past Alcohol Use History: None Reported Past Drug Use History: None Reported - Past Family History Mother History Unknown: Yes Additional Family Medical History / Comment(s): Patient states she was adopted. Medications and Allergies Home Medications Medication Instructions Recorded Confirmed Type Rosuvastatin [Crestor] 20 mg PO DAILY 10/12/14 07/03/24 History Memantine HCl [Namenda Xr] 28 mg PO DAILY 12/06/17 07/03/24 History Gabapentin [Neurontin] 300 mg PO TID 01/10/18 07/03/24 History Fluticasone/Vilanterol [Breo 1 puff INHALATION RT-DAILY 01/31/20 07/03/24 History Ellipta 200-25 Mcg Inhaler] Ergocalciferol (Vitamin D2) 1,250 mcg PO SA 07/28/22 07/03/24 History [Drisdol (50,000 Iu)] Ezetimibe [Zetia] 10 mg PO DAILY 07/28/22 07/03/24 History Levothyroxine Sodium [Synthroid] 25 mcg PO MOTUWETHFR 07/28/22 07/03/24 History Metoprolol Succinate (ER) [Toprol 25 mg PO DAILY 07/28/22 07/03/24 History XL] Sertraline [Zoloft] 150 mg PO DAILY 07/28/22 07/03/24 History Pantoprazole Sodium [Protonix] 40 mg PO DAILY 12/01/22 07/03/24 History lamoTRIgine [LaMICtal] 200 mg PO DAILY 12/01/22 07/03/24 History Nitroglycerin Sl Tabs [Nitrostat] 0.4 mg SL Q5M PRN 02/08/23 07/03/24 History PARoxetine [Paxil] 20 mg PO DAILY 02/08/23 07/03/24 History Levothyroxine Sodium [Synthroid] 50 mcg PO SUSA 03/03/23 07/03/24 History Clopidogrel [Plavix] 75 mg PO DAILY 05/21/23 07/03/24 History Brexpiprazole [Rexulti] 0.5 mg PO HS 03/12/24 07/03/24 History lisinopriL [Zestril] 5 mg PO DAILY 03/12/24 07/03/24 History Albuterol Inhaler [Ventolin Hfa 2 puff INHALATION RT-QID PRN 05/01/24 07/03/24 History Inhaler] Aspirin [Adult Low Dose Aspirin EC] 81 mg PO DAILY 05/01/24 07/03/24 History Budesonide/Formoterol Fumarate 2 puff INHALATION RT-BID 05/24/24 07/03/24 History [Breyna 160-4.5 Mcg Inhaler] Ranolazine [Ranexa] 500 mg PO BID 06/08/24 07/03/24 History Sennosides [Senokot] 8.6 mg PO BID PRN 07/03/24 07/03/24 History Tiotropium 2.5 Mcg/Puff [Spiriva 1 puff INHALATION RT-BID 07/03/24 07/03/24 History Respimat 2.5 Mcg] traMADol HCl [Ultram] 50 mg PO BID PRN 07/03/24 07/03/24 History Allergies Allergy/AdvReac Type Severity Reaction Status Date / Time fentanyl Allergy Rash/Hives Verified 07/03/24 21:08 niacin Allergy Dyspnea,barbara Verified 07/03/24 21:08 h Physical Exam Vitals: Vital Signs Temp Pulse Resp BP Pulse Ox 07/04/24 12:00 98.3 F 58 L 16 115/59 97 07/04/24 11:00 59 L 18 119/78 95 07/04/24 09:00 58 L 18 128/60 97 07/04/24 07:29 61 18 124/68 95 07/04/24 01:00 56 L 18 132/63 100 07/04/24 00:14 60 18 128/60 95 07/03/24 18:49 98.3 F 67 16 103/63 95 Intake and Output 07/03/24 07/04/24 07/04/24 22:59 06:59 14:59 Other: Weight 65.317 kg Results CBC & Chem 7: 07/03/24 20:27 07/03/24 20:27 Labs: Abnormal Lab Results - Last 24 Hours (Table) 07/03/24 07/03/24 Range/Units 20:27 20:27 RBC 3.66 L (3.80-5.40) m/uL Hgb 10.7 L (11.4-16.0) gm/dL Hct 33.5 L (34.0-46.0) % Sodium 135 L (137-145) mmol/L
[2024-07-04] MEDS: CLOPIDOGREL 75 MG TAB PO SCH (12:51)
[2024-07-04] MEDS: ATORVASTATIN 40 MG TAB PO SCH (12:51)
[2024-07-04] MEDS: GABAPENTIN 300 MG CAP PO SCH (12:51)
[2024-07-04] MEDS: METOPROLOL SUCCINATE (ER) 50 MG TAB.ER.24H PO SCH (12:52)
[2024-07-04] MEDS: PARoxetine 20 MG TAB PO SCH (12:53)
[2024-07-04] MEDS: lamoTRIgine 100 MG TAB PO SCH (12:53)
--- NOTE | 2024-07-04 13:41 | P.CRDCN ---
History of Present Illness Consult date: 07/04/24 History of present illness: 68-year-old female with a past medical history of valvular heart disease status post AVR using bioprosthetic valve in 2009, aortic stenosis, hypertension, hyperlipidemia, carotid atherosclerosis and COPD presents with complaints of chest pain. Follows with Dr. Courtney. Of note recent hospital stay 06/08/2024 when she had similar chest pain, at that time seen by cardiology and ACS was ruled out. Patient now presenting with chest pain that starts from the left distal arm and radiates up to the left jaw and left side of the chest. States the pain was initially 8 out of 10 on arrival, did not improve with nitro, and occurs at rest as well as with exertion. Characterizes the pain as sharp, stabbing. States the pain now compared to arrival is a 6 out of 10. Patient has aortic valve repair scheduled for the end of the month. Vitals are heart rate 61, respiratory rate 18, blood pressure 124/68, O2 saturation 95% on 2 L. EKG in the ER showed sinus bradycardia, no acute ST changes. Chest x-ray showed lower lobe airspace opacities. Cardiac medication: Aspirin, Plavix, Zetia, lisinopril 5 mg, metoprolol succinate 25 daily, Nitrostat, Ranexa 500 twice daily, Crestor 20 daily, and levothyroxine. Cardiac imagin/23 echo revealed preserved EF estimated at 60 to 65%, bioprosthetic aortic valve with mild aortic stenosis mean gradient 25 mmHg, 05/20/2024 cardiac catheterization showed normal coronary angiogram, normal pulmonary artery systolic pressure, normal right sided filling pressure and elevated left-sided filling pressure, severe aortic stenosis by area and index area but moderate by gradient, findings could be consistent with low-flow low gradient paradoxical/normal ejection fraction aortic stenosis Labs on admission: WBC 5.9, hemoglobin 10.7, MCV 91.4, sodium 135, potassium 3.9, troponin less than 0.012 x 3 REVIEW OF SYSTEMS At the time of my exam: CONSTITUTIONAL: Denies fever or chills. CARDIOVASCULAR: +chest pain, no shortness of breath, no orthopnea, PND or palpitations. RESPIRATORY: Denies cough. GASTROINTESTINAL: Denies abdominal pain, diarrhea, constipation, nausea or vomiting. MUSCULOSKELETAL: Denies myalgias. NEUROLOGIC: Denies numbness, tingling or weakness. ENDOCRINE: Denies fatigue, weight change, polydipsia or polyurina. GENITOURINARY: Denies burning, hematuria or urgency with micturation. HEMATOLOGIC: Denies history of anemia or bleeding. PHYSICAL EXAMINATION Vital signs reviewed. CONSTITUTIONAL: No apparent distress. HEENT: Head is normocephalic. Pupils are equal, round. Sclerae anicteric. Mucous membranes of the mouth are moist. No JVD. No carotid bruit. CHEST EXAMINATION: Lungs are clear to auscultation. No chest wall tenderness is noted on palpation or with deep breathing. HEART EXAMINATION: Regular rate and rhythm. S1, S2 heard. Harsh, high-pitched crescendodecrescendo systolic murmur auscultated at the aortic and pulmonic post ABDOMEN: Soft, nontender. Positive bowel sounds. EXTREMITIES: 2+ peripheral pulses, no lower extremity edema and no calf tenderness. NEUROLOGIC EXAMINATION: Patient is awake, alert and oriented x3. ASSESSMENT Atypical chest pain Aortic valve stenosis Status post TAVR 2009 Hypertension Hyperlipidemia COPD Carotid atherosclerosis Anemia PLAN Chest pain potentially secondary to significant aortic stenosis for which the patient is having a valve repair at the end of this month Resume patient's home cardiac medications No echo at this time. Patient to follow-up as scheduled with the valve clinic Further recommendations pending patient course Thank you for this consultation. Past Medical History Past Medical History: Chest Pain / Angina, Heart Failure, COPD, CVA/TIA, Dementia, GERD/Reflux, Hyperlipidemia, Hypertension, Mitral Valve Prolapse (MVP) Additional Past Medical History / Comment(s): See Dr. Garvin H+P.heart murmur, "beginning of dementia",hx. insomnia in past "I'v had a stroke but they don't know when." "It's an old stroke." History of Any Multi-Drug Resistant Organisms: None Reported Past Surgical History: Back Surgery, Bladder Surgery, Cardiac Valve Replacement, Cholecystectomy, Heart Catheterization, Hysterectomy, Joint Replacement, Orthopedic Surgery, Tubal Ligation Additional Past Surgical History / Comment(s): aortic valve replacement, left breast biopsy-neg, oopherectomy, left knee replacement, juan, rt breast bx neg. Past Anesthesia/Blood Transfusion Reactions: No Reported Reaction Additional Past Anesthesia/Blood Transfusion Reaction / Comment(s): Hx of blood transfusion 2009-no reaction. Past Psychological History: Anxiety, Bipolar, Depression Smoking Status: Current some day smoker Past Alcohol Use History: None Reported Past Drug Use History: None Reported - Past Family History Mother History Unknown: Yes Additional Family Medical History / Comment(s): Patient states she was adopted. Medications and Allergies Home Medications Medication Instructions Recorded Confirmed Type Rosuvastatin [Crestor] 20 mg PO DAILY 10/12/14 07/03/24 History Memantine HCl [Namenda Xr] 28 mg PO DAILY 12/06/17 07/03/24 History Gabapentin [Neurontin] 300 mg PO TID 01/10/18 07/03/24 History Fluticasone/Vilanterol [Breo 1 puff INHALATION RT-DAILY 01/31/20 07/03/24 History Ellipta 200-25 Mcg Inhaler] Ergocalciferol (Vitamin D2) 1,250 mcg PO SA 07/28/22 07/03/24 History [Drisdol (50,000 Iu)] Ezetimibe [Zetia] 10 mg PO DAILY 07/28/22 07/03/24 History Levothyroxine Sodium [Synthroid] 25 mcg PO MOTUWETHFR 07/28/22 07/03/24 History Metoprolol Succinate (ER) [Toprol 25 mg PO DAILY 07/28/22 07/03/24 History XL] Sertraline [Zoloft] 150 mg PO DAILY 07/28/22 07/03/24 History Pantoprazole Sodium [Protonix] 40 mg PO DAILY 12/01/22 07/03/24 History lamoTRIgine [LaMICtal] 200 mg PO DAILY 12/01/22 07/03/24 History Nitroglycerin Sl Tabs [Nitrostat] 0.4 mg SL Q5M PRN 02/08/23 07/03/24 History PARoxetine [Paxil] 20 mg PO DAILY 02/08/23 07/03/24 History Levothyroxine Sodium [Synthroid] 50 mcg PO SUSA 03/03/23 07/03/24 History Clopidogrel [Plavix] 75 mg PO DAILY 05/21/23 07/03/24 History Brexpiprazole [Rexulti] 0.5 mg PO HS 03/12/24 07/03/24 History lisinopriL [Zestril] 5 mg PO DAILY 03/12/24 07/03/24 History Albuterol Inhaler [Ventolin Hfa 2 puff INHALATION RT-QID PRN 05/01/24 07/03/24 History Inhaler] Aspirin [Adult Low Dose Aspirin EC] 81 mg PO DAILY 05/01/24 07/03/24 History Budesonide/Formoterol Fumarate 2 puff INHALATION RT-BID 05/24/24 07/03/24 History [Breyna 160-4.5 Mcg Inhaler] Ranolazine [Ranexa] 500 mg PO BID 06/08/24 07/03/24 History Sennosides [Senokot] 8.6 mg PO BID PRN 07/03/24 07/03/24 History Tiotropium 2.5 Mcg/Puff [Spiriva 1 puff INHALATION RT-BID 07/03/24 07/03/24 History Respimat 2.5 Mcg] traMADol HCl [Ultram] 50 mg PO BID PRN 07/03/24 07/03/24 History Allergies Allergy/AdvReac Type Severity Reaction Status Date / Time fentanyl Allergy Rash/Hives Verified 07/03/24 21:08 niacin Allergy Dyspnea,barbara Verified 07/03/24 21:08 h Physical Exam Vitals: Vital Signs Temp Pulse Resp BP Pulse Ox 07/04/24 12:00 98.3 F 58 L 16 115/59 97 07/04/24 11:00 59 L 18 119/78 95 07/04/24 09:00 58 L 18 128/60 97 07/04/24 07:29 61 18 124/68 95 07/04/24 01:00 56 L 18 132/63 100 07/04/24 00:14 60 18 128/60 95 07/03/24 18:49 98.3 F 67 16 103/63 95 Intake and Output 07/03/24 07/04/24 07/04/24 22:59 06:59 14:59 Other: Weight 65.317 kg Results 07/03/24 20:27 07/03/24 20:27 Cardiac Enzymes 07/03/24 07/03/24 07/04/24 Range/Units 20:27 20:27 02:58 AST 20 (14-36) U/L Troponin I <0.012 <0.012 (0.000-0.034) ng/mL 07/04/24 Range/Units 08:37 AST (14-36) U/L Troponin I <0.012 (0.000-0.034) ng/mL Coagulation 07/03/24 Range/Units 20:27 PT 10.8 (10.0-12.5) sec APTT 23.6 (22.0-30.0) sec CBC 07/03/24 Range/Units 20:27 WBC 5.9 (3.8-10.6) k/uL RBC 3.66 L (3.80-5.40) m/uL Hgb 10.7 L (11.4-16.0) gm/dL Hct 33.5 L (34.0-46.0) % Plt Count 171 (150-450) k/uL Comprehensive Metabolic Panel 07/03/24 Range/Units 20:27 Sodium 135 L (137-145) mmol/L Potassium 3.9 (3.5-5.1) mmol/L Chloride 100 (98-107) mmol/L Carbon Dioxide 30 (22-30) mmol/L BUN 9 (7-17) mg/dL Creatinine 0.66 (0.52-1.04) mg/dL Glucose 83 (74-99) mg/dL Calcium 8.6 (8.4-10.2) mg/dL AST 20 (14-36) U/L ALT 14 (4-34) U/L Alkaline Phosphatase 86 (38-126) U/L Total Protein 6.8 (6.3-8.2) g/dL Albumin 3.6 (3.5-5.0) g/dL Current Medications Generic Name Dose Route Start Last Admin Trade Name Freq PRN Reason Stop Dose Admin Albuterol Sulfate 2.5 mg 07/04/24 12:31 Albuterol Nebulized 2.5 Mg/3 Ml INHALATION RT-QID PRN Shortness Of Breath Aspirin 325 mg 07/04/24 09:00 07/04/24 08:48 Aspirin 325 Mg Tab PO 325 mg DAILY GERMAINE Administration Atorvastatin Calcium 40 mg 07/04/24 12:45 07/04/24 12:51 Atorvastatin 40 Mg Tab PO 40 mg DAILY GERMAINE Administration Budesonide/Formoterol Fumarate 2 puff 07/04/24 20:00 Symbicort 160-4.5 Mcg Inhaler INHALATION RT-BID [facility] Clopidogrel Bisulfate 75 mg 07/04/24 12:45 07/04/24 12:51 Clopidogrel 75 Mg Tab PO 75 mg DAILY [facility] Administration Gabapentin 300 mg 07/04/24 12:45 07/04/24 12:54 Gabapentin 300 Mg Cap PO Not Given TID [facility] Lamotrigine 200 mg 07/04/24 12:45 07/04/24 12:53 Lamotrigine 100 Mg Tab PO 200 mg DAILY [facility] Administration Levothyroxine Sodium 25 mcg 07/05/24 06:30 Levothyroxine 25 Mcg Tab PO [id number] [facility] Levothyroxine Sodium 50 mcg 07/08/24 06:30 Levothyroxine 50 Mcg Tab PO [id number] [facility] Lisinopril 5 mg 07/05/24 09:00 Lisinopril 5 Mg Tab PO DAILY [facility] Memantine 10 mg 07/05/24 09:00 Memantine 10 Mg Tab PO BID [facility] Metoprolol Succinate 25 mg 07/04/24 12:45 07/04/24 12:52 Metoprolol Succinate (Er) 50 Mg Tab.Er.24h PO 25 mg DAILY [facility] Administration Nitroglycerin 1 inch 07/04/24 00:00 07/04/24 12:54 Nitroglycerin Oint 1 Inch/Gm Packet TOPICAL 1 inch Q6HR [facility] Administration Nitroglycerin 0.4 mg 07/04/24 12:31 Nitroglycerin Sl Tabs 0.4 Mg Tab SUBLINGUAL Q5M PRN Chest Pain Rexulti ( 1 each 07/04/24 21:00 Brexpiprazole) 0.5 PO Mg Tablet [facility] Pantoprazole Sodium 40 mg 07/05/24 09:00 Pantoprazole 40 Mg Tablet PO DAILY [facility] Paroxetine HCl 20 mg 07/04/24 12:45 07/04/24 12:53 Paroxetine 20 Mg Tab PO 20 mg DAILY [facility] Administration Ranolazine 500 mg 07/04/24 21:00 Ranolazine 500 Mg Tab.Er.12h PO BID [facility] Senna 8.6 mg 07/04/24 12:31 Sennosides 8.6 Mg Tab PO BID PRN Constipation Sertraline HCl 150 mg 07/05/24 09:00 Sertraline 50 Mg Tab PO DAILY [facility] Tiotropium [place] 2 puff 07/05/24 08:00 Tiotropium 2.5 Mcg Inhaler INHALATION RT-DAILY [facility] Tramadol HCl 50 mg 07/04/24 12:31 Tramadol 50 Mg Tab PO BID PRN Pain Intake and Output 07/03/24 07/04/24 07/04/24 22:59 06:59 14:59 Other: Weight 65.317 kg 07/03/24 20:27 07/03/24 20:27
[2024-07-04 17:00] LABS: Chol/HDL Ratio 2.58 Ratio; LDL Cholesterol,Calculated 65.2 mg/dL (0.0-131.0); VLDL Calculation 18.04 mg/dL (5.00-40.00)
[2024-07-04] MEDS: SYMBICORT 160-4.5 MCG INHALER INHALATION SCH (20:03)
[2024-07-04] MEDS: RANOLAZINE 500 MG TAB.ER.12H PO SCH (20:52)
[2024-07-05] MEDS: LEVOTHYROXINE 25 MCG TAB PO SCH (06:30)
[2024-07-05] MEDS: MEMANTINE 10 MG TAB PO SCH (07:55)
[2024-07-05] MEDS: lisinopriL 5 MG TAB PO SCH (07:55)
[2024-07-05] MEDS: PANTOPRAZOLE 40 MG TABLET PO SCH (07:56)
[2024-07-05] MEDS ORDERED: NON FORMULARY DRUG (Fluticasone/Vilanterol [Breo Ellipta 200-25 Mcg Inhaler] 1 EACH Blst.W INHALATION SCH (08:00)
[2024-07-05] MEDS: SERTRALINE 50 MG TAB PO SCH (08:01)
[2024-07-05] MEDS ORDERED: NON FORMULARY DRUG (Aspirin [Adult Low Dose Aspirin Ec] 81 MG Tablet) PO SCH (09:00)
[2024-07-05] MEDS: TIOTROPIUM 2.5 MCG INHALER INHALATION SCH (09:37)
[2024-07-05] MEDS: ALBUTEROL NEBULIZED 2.5 MG/3 ML INHALATION PRN (09:37)
[2024-07-05] MEDS: RANOLAZINE 500 MG TAB.ER.12H PO ONE (11:38)
[2024-07-05] MEDS: ISOSORBIDE MONONITRATE ER 15 MG TAB PO STA (14:19)
[2024-07-05 16:01] VITALS: RESP 16
--- NOTE | 2024-07-05 16:19 | P.PN ---
Subjective 68-year-old female with a past medical history of valvular heart disease status post AVR using bioprosthetic valve in 2009, aortic stenosis, hypertension, hyperlipidemia, carotid atherosclerosis and COPD presents with complaints of chest pain. Follows with Dr. Courtney. Of note recent hospital stay 06/08/2024 when she had similar chest pain, at that time seen by cardiology and ACS was ruled out. Patient now presenting with chest pain that starts from the left distal arm and radiates up to the left jaw and left side of the chest. States the pain was initially 8 out of 10 on arrival, did not improve with nitro, and occurs at rest as well as with exertion. Characterizes the pain as sharp, stabbing. States the pain now compared to arrival is a 6 out of 10. Patient has aortic valve repair scheduled for the end of the month. Vitals are heart rate 61, respiratory rate 18, blood pressure 124/68, O2 saturation 95% on 2 L. EKG in the ER showed sinus bradycardia, no acute ST changes. Chest x-ray showed lower lobe airspace opacities. Cardiac medication: Aspirin, Plavix, Zetia, lisinopril 5 mg, metoprolol succinate 25 daily, Nitrostat, Ranexa 500 twice daily, Crestor 20 daily, and levothyroxine. Cardiac imagin/23 echo revealed preserved EF estimated at 60 to 65%, bioprosthetic aortic valve with mild aortic stenosis mean gradient 25 mmHg, 05/20/2024 cardiac catheterization showed normal coronary angiogram, normal pulmonary artery systolic pressure, normal right sided filling pressure and elevated left-sided filling pressure, severe aortic stenosis by area and index area but moderate by gradient, findings could be consistent with low-flow low gradient paradoxical/normal ejection fraction aortic stenosis Labs on admission: WBC 5.9, hemoglobin 10.7, MCV 91.4, sodium 135, potassium 3.9, troponin less than 0.012 x 3 07/05 Patient seen and examined on the cardiac stepdown floor. No significant overnight events. Patient states her chest pain has now decreased from a 6 out of 10 to 3 out of 10 this morning. States she is feeling overall a lot better compared to yesterday. Vitals heart rate 72, respiratory rate 21, blood pressure 127/58, and 99% O2 saturation on room air. Triglycerides 90, cholesterol 136, LDL 65, and HDL 52.8. REVIEW OF SYSTEMS At the time of my exam: CONSTITUTIONAL: Denies fever or chills. CARDIOVASCULAR: +chest pain, no shortness of breath, no orthopnea, PND or palpitations. RESPIRATORY: Denies cough. GASTROINTESTINAL: Denies abdominal pain, diarrhea, constipation, nausea or vomiting. MUSCULOSKELETAL: Denies myalgias. NEUROLOGIC: Denies numbness, tingling or weakness. ENDOCRINE: Denies fatigue, weight change, polydipsia or polyurina. GENITOURINARY: Denies burning, hematuria or urgency with micturation. HEMATOLOGIC: Denies history of anemia or bleeding. PHYSICAL EXAMINATION Vital signs reviewed. CONSTITUTIONAL: No apparent distress. HEENT: Head is normocephalic. Pupils are equal, round. Sclerae anicteric. Mucous membranes of the mouth are moist. No JVD. No carotid bruit. CHEST EXAMINATION: Lungs are clear to auscultation. No chest wall tenderness is noted on palpation or with deep breathing. HEART EXAMINATION: Regular rate and rhythm. S1, S2 heard. Harsh, high-pitched crescendodecrescendo systolic murmur auscultated at the aortic and pulmonic post ABDOMEN: Soft, nontender. Positive bowel sounds. EXTREMITIES: 2+ peripheral pulses, no lower extremity edema and no calf tenderness. NEUROLOGIC EXAMINATION: Patient is awake, alert and oriented x3. ASSESSMENT Stable angina Severe symptomatic aortic stenosis, with severely stenosed bioprosthetic aortic valve Surgical bioprosthetic aortic valve replacement in 2009 Essential hypertension Carotid arthrosclerosis Anemia PLAN Chest pain potentially secondary to significant aortic stenosis for which the patient is having a valve repair next week Ranexa 1000 mg p.o. twice daily Imdur once 15 mg p.o. Ambulate patient, if they remain asymptomatic without chest pain or shortness of breath the patient can be cleared Resume patient's home cardiac medications No echo at this time. Further recommendations pending patient course Thank you for this consultation. Objective - Vital Signs Vital signs: Vital Signs Temp 97.8 F 07/05/24 11:37 Pulse 72 07/05/24 12:59 Resp 21 07/05/24 12:59 BP 127/58 07/05/24 12:59 Pulse Ox 99 07/05/24 12:59 FiO2 Intake & Output 07/04/24 07/05/24 07/05/24 18:59 06:59 18:59 Intake Total 10 1222 Balance 10 1222 Weight 65 kg Intake: IV 10 20 Invasive Line 1 10 20 Oral 1202 Other: Voiding Method Toilet Toilet # Voids 1 4 - Labs CBC & Chem 7: 07/03/24 20:27 07/03/24 20:27
[2024-07-05] MEDS: LIDOCAINE 4% PATCH TOPICAL SCH (16:23)
[2024-07-05] MEDS: traMADol 50 MG TAB PO STA (17:29)
[2024-07-05] MEDS: MAG HYDROX/AL HYDROX/SIMETH 30 ML CUP PO ONE (18:42)
--- NOTE | 2024-07-05 19:53 | P.PN ---
Subjective Progress Note Date: 07/05/24 Will go new complaints of chest pain radiating to the left arm. Patient has history of viral stenosis with valve placement in the past and patient was scheduled to get replacement of the mitral valve again. Patient because of this surgery patient underwent extensive evaluation with cardiac ablation and stress test all of which were negative for PE was done as well. Patient had any fever chills cough chest x-ray did not show any significant abnormality. Patient chest pain is nonpleuritic in nature not associate with food. 07/05/2024 Patient evaluated today resting in bed. She continues to have intermittent chest pains even at rest. She was unable to tolerate ambulating for more than a few minutes in the hallway without developing chest discomfort. Patient will be transitioned from dur to Ranexa and monitored overnight. She is going for aortic valve repair next Wednesday. REVIEW OF SYSTEMS: All other systems are negative except those mentioned in the HPI PHYSICAL EXAMINATION: GENERAL: The patient is alert and oriented x3, not in any acute distress. Well developed, well nourished. HEENT: Pupils are round and equally reacting to light. EOMI. No scleral icterus. No conjunctival pallor. Normocephalic, atraumatic. No pharyngeal erythema. No thyromegaly. CARDIOVASCULAR: S1 and S2 present. No murmurs, rubs, or gallops. PULMONARY: Chest is clear to auscultation, no wheezing or crackles. ABDOMEN: Soft, nontender, nondistended, normoactive bowel sounds. No palpable organomegaly. MUSCULOSKELETAL: No joint swelling or deformity. EXTREMITIES: No cyanosis, clubbing, or pedal edema. NEUROLOGICAL: Gross neurological examination did not reveal any focal deficits. SKIN: No rashes. Assessment and plan Chest pain due to aortic stenosis which is symptomatic -COPD without any acute exacerbation -HX aortic valve replacement in 2009 -Gastroesophageal reflux disease -Depression -Continue nicotine use: Counseling was provided DVT prophylaxis: Early ambulation Plan Patient has been transitioned to ranexa Cardiology has no plans for repeat echocardiogram Patient is going for aortic valve replacement next wednesday She will be monitored overnight on the cardiac telemetry Possible D/C home in the next 24 hours The impression and plan of care has been dictated by Lashawn Sanders, Nurse Practitioner as directed. Dr. Mu MD I have performed a history and physical examination and medical decision making of this patient, discussed the same with the dictator, and agree with the dictators assessment and plan as written, documented as a scribe. Based on total visit time, I have performed more than 50% of this visit. Objective - Vital Signs Vital signs: Vital Signs Temp 97.8 F 07/05/24 11:37 Pulse 72 07/05/24 12:59 Resp 21 07/05/24 12:59 BP 127/58 07/05/24 12:59 Pulse Ox 99 07/05/24 12:59 FiO2 Intake & Output 07/04/24 07/05/24 07/05/24 18:59 06:59 18:59 Intake Total 10 482 Balance 10 482 Weight 65 kg Intake: IV 10 20 Invasive Line 1 10 20 Oral 462 Other: Voiding Method Toilet Toilet # Voids 1 4 - Labs CBC & Chem 7: 07/03/24 20:27 07/03/24 20:27 Assessment and Plan Time with Patient: Less than 30
[2024-07-05] MEDS: traMADol 50 MG TAB PO PRN (21:35)
[2024-07-05] MEDS: RANOLAZINE 500 MG TAB.ER.12H PO SCH (21:36)
[2024-07-06] MEDS: MAG HYDROX/AL HYDROX/SIMETH 30 ML CUP PO PRN (10:55)
--- NOTE | 2024-07-06 11:59 | P.PN ---
Subjective Progress Note Date: 07/06/24 68-year-old female with a past medical history of valvular heart disease status post AVR using bioprosthetic valve in 2009, aortic stenosis, hypertension, hyperlipidemia, carotid atherosclerosis and COPD presents with complaints of chest pain. Follows with Dr. Courtney. Of note recent hospital stay 06/08/2024 when she had similar chest pain, at that time seen by cardiology and ACS was ruled out. Patient now presenting with chest pain that starts from the left distal arm and radiates up to the left jaw and left side of the chest. States the pain was initially 8 out of 10 on arrival, did not improve with nitro, and occurs at rest as well as with exertion. Characterizes the pain as sharp, stabbing. States the pain now compared to arrival is a 6 out of 10. Patient has aortic valve repair scheduled for the end of the month. Vitals are heart rate 61, respiratory rate 18, blood pressure 124/68, O2 saturation 95% on 2 L. EKG in the ER showed sinus bradycardia, no acute ST changes. Chest x-ray showed lower lobe airspace opacities. Cardiac medication: Aspirin, Plavix, Zetia, lisinopril 5 mg, metoprolol succinate 25 daily, Nitrostat, Ranexa 500 twice daily, Crestor 20 daily, and levothyroxine. Cardiac imagin/23 echo revealed preserved EF estimated at 60 to 65%, bioprosthetic aortic valve with mild aortic stenosis mean gradient 25 mmHg, 05/20/2024 cardiac catheterization showed normal coronary angiogram, normal pulmonary artery systolic pressure, normal right sided filling pressure and elevated left-sided filling pressure, severe aortic stenosis by area and index area but moderate by gradient, findings could be consistent with low-flow low gradient paradoxical/normal ejection fraction aortic stenosis Labs on admission: WBC 5.9, hemoglobin 10.7, MCV 91.4, sodium 135, potassium 3. 9, troponin less than 0.012 x 3 07/05 Patient seen and examined on the cardiac stepdown floor. No significant overnight events. Patient states her chest pain has now decreased from a 6 out of 10 to 3 out of 10 this morning. States she is feeling overall a lot better compared to yesterday. Vitals heart rate 72, respiratory rate 21, blood pressure 127/58, and 99% O2 saturation on room air. Triglycerides 90, cholesterol 136, LDL 65, and HDL 52.8. REVIEW OF SYSTEMS At the time of my exam: CONSTITUTIONAL: Denies fever or chills. CARDIOVASCULAR: +chest pain, no shortness of breath, no orthopnea, PND or palpitations. RESPIRATORY: Denies cough. GASTROINTESTINAL: Denies abdominal pain, diarrhea, constipation, nausea or vomiting. MUSCULOSKELETAL: Denies myalgias. NEUROLOGIC: Denies numbness, tingling or weakness. ENDOCRINE: Denies fatigue, weight change, polydipsia or polyurina. GENITOURINARY: Denies burning, hematuria or urgency with micturation. HEMATOLOGIC: Denies history of anemia or bleeding. PHYSICAL EXAMINATION Vital signs reviewed. CONSTITUTIONAL: No apparent distress. HEENT: Head is normocephalic. Pupils are equal, round. Sclerae anicteric. Mucous membranes of the mouth are moist. No JVD. No carotid bruit. CHEST EXAMINATION: Lungs are clear to auscultation. No chest wall tenderness is noted on palpation or with deep breathing. HEART EXAMINATION: Regular rate and rhythm. S1, S2 heard. Harsh, high-pitched crescendodecrescendo systolic murmur auscultated at the aortic and pulmonic post ABDOMEN: Soft, nontender. Positive bowel sounds. EXTREMITIES: 2+ peripheral pulses, no lower extremity edema and no calf tenderness. NEUROLOGIC EXAMINATION: Patient is awake, alert and oriented x3. ASSESSMENT Stable angina Severe symptomatic aortic stenosis, with severely stenosed bioprosthetic aortic valve Surgical bioprosthetic aortic valve replacement in 2009 Essential hypertension Carotid arthrosclerosis Anemia Plan Patient continues to have 5/10 chest pain which did not improve with tramadol, opioid-based medications, anti-inflammatory, GI cocktail, antianginals. I will order repeat troponin, ESR and CRP levels, if normal, she can be discharged from cardiovascular standpoint. Because her blood pressure and heart rate are limiting I cannot increase or add further antianginal therapy. Continue Imdur 30 mg, Ranexa to 1000 mg twice daily. Metoprolol 25 daily, aspirin, Plavix, Lipitor Will not increase beta-lucila or blood pressure medications further because of concerns of severe aortic stenosis. The nature of chest pain seems to be sometimes atypical as it does not get worse with activity and is mostly happening when she is resting in the bed. She is planned for TAVR procedure next week Objective - Vital Signs Vital signs: Vital Signs Temp 98.2 F 07/06/24 07:38 Pulse 72 07/06/24 07:39 Resp 16 07/06/24 07:39 BP 102/57 07/06/24 07:38 Pulse Ox 97 07/06/24 07:38 FiO2 Intake & Output 07/05/24 07/06/24 07/06/24 18:59 06:59 18:59 Intake Total 1422 20 490 Balance 1422 20 490 Weight 64.4 kg Intake: IV 20 20 10 Invasive Line 1 20 20 10 Oral 1402 480 Other: Voiding Method Toilet Toilet Toilet # Voids 3 0 1 - Labs CBC & Chem 7: 07/03/24 20:27 07/03/24 20:27 Labs: Abnormal Lab Results - Last 24 Hours (Table) 07/05/24 Range/Units 19:50 ESR 47 H (0-30) mm/Hr
[2024-07-06] MEDS: SENNOSIDES 8.6 MG TAB PO PRN (14:19)
[2024-07-06 15:27] VITALS: BP 114/65; PULSE 65; TEMP 98.1
[2024-07-06 17:38] LABS: Influenza A Not Detected (Not Detectd); Influenza B Not Detected (Not Detectd); RSV Not Detected (Not Detectd)
--- NOTE | 2024-07-06 18:04 | XR ---
EXAMINATION TYPE: XR chest 2V DATE OF EXAM: 07/06/2024 5:59 PM COMPARISON: Chest radiographs from 07/03/2024 TECHNIQUE: XR chest 2V Frontal and lateral views of the chest. CLINICAL INDICATION:Female, 68 years old with history of chest pain, sob; FINDINGS: Lungs/Pleura: There is no evidence of pleural effusion, focal consolidation, or pneumothorax. Pulmonary vascularity: Chronic central vascular prominence. Heart/mediastinum: Cardiomediastinal silhouette is enlarged and stable. Aortic valvular prosthesis. Musculoskeletal: No acute osseous pathology. Midline sternotomy wires are noted and stable. IMPRESSION: Chronic changes without acute pulmonary process. [facility], , 07/06/2024 6:01 PM
[2024-07-07] MEDS ORDERED: ASPIRIN 81 MG PO SCH (09:00)
[2024-07-08] MEDS ORDERED: LEVOTHYROXINE 50 MCG TAB PO SCH (06:30)
--- NOTE | 2024-07-09 21:34 | P.DS ---
Providers Date of admission: 07/03/24 21:05 Attending physician: Nikole Stacy Consults: 07/03/24 21:03 Consult Physician Urgent Consulting Provider: [facility] Consult Reason/Comments: Chest pain Do you want consulting provider notified?: Yes Primary care physician: Gabe Cisneros Hospital Course: Final Diagnosis Chest pain due to aortic stenosis which is symptomatic -COPD without any acute exacerbation -HX aortic valve replacement in 2009 -Gastroesophageal reflux disease -Depression -Continue nicotine use: Counseling was provided Discharge Disposition Patient stable for discharge home with overall guarded prognosis secondary to her continued chest pain from the severe aortic stenosis. Patient will continue on combination of Ranexa 1000 mg twice daily as well as Imdur 30 mg daily. Patient continue all her same home medications. Her TAVR is scheduled for July 12 at noon the [employer] will be contacting the patient the night before the procedure to let her know what time to report to the hospital next Wednesday. Patient to call the valve clinic with any concerns. Hospital Course This is [id number] female with a past medical history of valvular heart disease status post AVR using bioprosthetic valve in 2009, aortic stenosis, hypertension, hyperlipidemia, carotid atherosclerosis and COPD. Patient comes to the hospital with complaints of chest pain. Patient was recently admitted on 06/08/2024 when she had similar chest pain, at that time seen by cardiology and ACS was ruled out. Patient now presenting with chest pain that starts from the left distal arm and radiates up to the left jaw and left side of the chest. Pain is a sharp and stabbing. States the pain was initially 8 out of 10 on arrival, did not improve with nitro, and occurs at rest as well as with exertion. She is having exertional shortness of breath. No cough reported, no fever or chills. Patient is scheduled for an aortic valve repair next wednesday. Patient had chest xray showing lower lobe airspace opacities. Patient continues to have intermittent chest pains even at rest. She was unable to tolerate ambulating for more than a few minutes in the hallway without developing chest discomfort. Patient will be transitioned from Imdur to Ranexa and monitored overnight. She is going for aortic valve repair next Wednesday. Her ESR is mildly elevated at 47 and down to 39. Viral panel negative for influenza, RSV and Covid, sodium 135, troponin levels have been negative x 3, lipid panel WNL. CRP normal. Repeat chest xray unremarkable. Patient has been discharged and will be contacted by the crown and bridge dental lab technician for time to report for her surgery next wednesday. Please see medication reconciliation for a list of current medications. Thank you for allowing us to participate in the care of this patient. The impression and plan of care has been dictated by Lashawn Sanders, Nurse Practitioner as directed. Dr. Mu MD I have performed a history and physical examination and medical decision making of this patient, discussed the same with the dictator, and agree with the dictators assessment and plan as written, documented as a scribe. Based on total visit time, I have performed more than 50% of this visit. Patient Condition at Discharge: Fair Plan - Discharge Summary Discharge Rx Participant: No New Discharge Prescriptions: New Atorvastatin [Lipitor] 40 mg PO DAILY #30 tab Ranolazine [Ranexa] 1,000 mg PO Q12HR #60 tab Isosorbide Mononitrate ER [Imdur] 30 mg PO DAILY #30 tab Continue Memantine HCl [Namenda Xr] 28 mg PO DAILY Gabapentin [Neurontin] 300 mg PO TID Fluticasone/Vilanterol [Breo Ellipta 200-25 Mcg Inhaler] 1 puff INHALATION RT-DAILY Ezetimibe [Zetia] 10 mg PO DAILY Metoprolol Succinate (ER) [Toprol XL] 25 mg PO DAILY Levothyroxine Sodium [Synthroid] 25 mcg PO MOTUWETHFR Sertraline [Zoloft] 150 mg PO DAILY lamoTRIgine [LaMICtal] 200 mg PO DAILY Nitroglycerin Sl Tabs [Nitrostat] 0.4 mg SL Q5M PRN PRN Reason: Chest Pain Levothyroxine Sodium [Synthroid] 50 mcg PO SUSA lisinopriL [Zestril] 5 mg PO DAILY Aspirin [Adult Low Dose Aspirin EC] 81 mg PO DAILY traMADol HCl [Ultram] 50 mg PO BID PRN PRN Reason: Pain Ergocalciferol (Vitamin D2) [Drisdol (50,000 Iu)] 1,250 mcg PO SA Pantoprazole Sodium [Protonix] 40 mg PO DAILY PARoxetine [Paxil] 20 mg PO DAILY Clopidogrel [Plavix] 75 mg PO DAILY Brexpiprazole [Rexulti] 0.5 mg PO HS Albuterol Inhaler [Ventolin Hfa Inhaler] 2 puff INHALATION RT-QID PRN PRN Reason: Shortness Of Breath Budesonide/Formoterol Fumarate [Breyna 160-4.5 Mcg Inhaler] 2 puff INHALATION RT-BID Tiotropium 2.5 Mcg/Puff [Spiriva Respimat 2.5 Mcg] 1 puff INHALATION RT-BID Sennosides [Senokot] 8.6 mg PO BID PRN PRN Reason: Constipation Discontinued Rosuvastatin [Crestor] 20 mg PO DAILY Ranolazine [Ranexa] 500 mg PO BID Discharge Medication List Memantine HCl [Namenda Xr] 28 mg PO DAILY 12/06/17 [History] Gabapentin [Neurontin] 300 mg PO TID 01/10/18 [History] Fluticasone/Vilanterol [Breo Ellipta 200-25 Mcg Inhaler] 1 puff INHALATION RT- DAILY 01/31/20 [History] Ergocalciferol (Vitamin D2) [Drisdol (50,000 Iu)] 1,250 mcg PO SA 07/28/22 [History] Ezetimibe [Zetia] 10 mg PO DAILY 07/28/22 [History] Levothyroxine Sodium [Synthroid] 25 mcg PO MOTUWETHFR 07/28/22 [History] Metoprolol Succinate (ER) [Toprol XL] 25 mg PO DAILY 07/28/22 [History] Sertraline [Zoloft] 150 mg PO DAILY 07/28/22 [History] Pantoprazole Sodium [Protonix] 40 mg PO DAILY 12/01/22 [History] lamoTRIgine [LaMICtal] 200 mg PO DAILY 12/01/22 [History] Nitroglycerin Sl Tabs [Nitrostat] 0.4 mg SL Q5M PRN 02/08/23 [History] PARoxetine [Paxil] 20 mg PO DAILY 02/08/23 [History] Levothyroxine Sodium [Synthroid] 50 mcg PO SUSA 03/03/23 [History] Clopidogrel [Plavix] 75 mg PO DAILY 05/21/23 [History] Brexpiprazole [Rexulti] 0.5 mg PO HS 03/12/24 [History] lisinopriL [Zestril] 5 mg PO DAILY 03/12/24 [History] Albuterol Inhaler [Ventolin Hfa Inhaler] 2 puff INHALATION RT-QID PRN 05/01/24 [History] Aspirin [Adult Low Dose Aspirin EC] 81 mg PO DAILY 05/01/24 [History] Budesonide/Formoterol Fumarate [Breyna 160-4.5 Mcg Inhaler] 2 puff INHALATION RT-BID 05/24/24 [History] Sennosides [Senokot] 8.6 mg PO BID PRN 07/03/24 [History] Tiotropium 2.5 Mcg/Puff [Spiriva Respimat 2.5 Mcg] 1 puff INHALATION RT-BID 07/03/24 [History] traMADol HCl [Ultram] 50 mg PO BID PRN 07/03/24 [History] Atorvastatin [Lipitor] 40 mg PO DAILY #30 tab 07/06/24 [Rx] Isosorbide Mononitrate ER [Imdur] 30 mg PO DAILY #30 tab 07/06/24 [Rx] Ranolazine [Ranexa] 1,000 mg PO Q12HR #60 tab 07/06/24 [Rx] Follow up Appointment(s)/Referral(s): Alexsander Garvin MD [STAFF PHYSICIAN] - 1 Week Gabe Cisneros DO [Primary Care Provider] - 1-2 days Patient Instructions/Handouts: Chest Pain (DC) Activity/Diet/Wound Care/Special Instructions: TAVR (transcatheter aortic valve replacement) scheduled for Wednesday07/12/24 @ 12 noon. You will be called from the crown and bridge dental lab technician the day before to tell you what time to report to the hospital on 07/12/24. Please call the valve clinic with any questions Discharge Disposition: HOME SELF-CARE
== END 2024-07-06 18:59 | disposition home or self-care (01) ==
LOC: EC 18:43 → 1SOBS 21:05 → INTOOBSV 21:05 → 1SOBS 07-04 01:03 → 3SCARD 07-04 01:48
PROVIDERS: ADMIT Hospitalist; ATTEND Hospitalist
DX: R07.89 Other chest pain (principal); I08.0 Rheumatic disorders of both mitral and aortic valves; I11.0 Hypertensive heart disease with heart failure; I50.9 Heart failure, unspecified; I20.89 Other forms of angina pectoris; J44.9 Chronic obstructive pulmonary disease, unspecified; K21.9 Gastro-esophageal reflux disease without esophagitis; D64.9 Anemia, unspecified; E78.00 Pure hypercholesterolemia, unspecified; F03.93 Unspecified dementia, unspecified severity, with mood disturbance; F03.94 Unspecified dementia, unspecified severity, with anxiety; F17.200 Nicotine dependence, unspecified, uncomplicated; F31.9 Bipolar disorder, unspecified; Z79.02 Long term (current) use of antithrombotics/antiplatelets; Z79.82 Long term (current) use of aspirin; Z79.890 Hormone replacement therapy; Z79.899 Other long term (current) drug therapy; Z86.73 Personal history of transient ischemic attack (TIA), and cerebral infarction without residual deficits
CPT/HCPCS: 99285; 36415; 94640 ×5; 94760; 93005; 86900; 86901; 80061; 80053; 85652 ×2; 83735; 84484 ×3; 85025; 85610; 85730; 86850; 86140 ×2; 84145; 87636; 71046 ×2; G0378 ×4

== ENCOUNTER 2024-07-12 09:51 | Inpatient (IN) | payer MEDICARE, OTHER ==
[~2024-07-12 09:51] MED LIST changes: -ALPRAZolam 0.25 MG TAB PO PRN; -ALPRAZolam 0.5 MG TAB PO PRN; +CLEVIDIPINE BUTYRATE 25 MG in EMPTY BAG 1 BAG IV PRN; +ELECTROLYTE-A SOLUTION 1,000 ML with POTASSIUM CHLORIDE 100 MEQ, MAGNESIUM SULFATE 16 M... IV PRN; -HEPARIN SODIUM,PORCINE (1 ML) 2,500 UNIT in SODIUM CHLORIDE 0.9% 250 ML IRRIGATION PRN; -HEPARIN SODIUM,PORCINE 10,000 UNIT in SODIUM CHLORIDE 0.9% 1,000 ML IRRIGATION PRN; +INSULIN REGULAR 100 UNIT in SODIUM CHLORIDE 0.9% 100 ML IV PRN; -NITROGLYCERIN SL TABS 0.4 MG TAB SUBLINGUAL PRN; +NITROGLYCERIN-D5W PMX 25 MG/250 ML BTL IV PRN; +PROTAMINE SULFATE 250 MG in EMPTY BAG 1 BAG IV PRN; +SODIUM CHLORIDE 0.9% 500 ML 500 ML INTRAARTER PRN; +TRANEXAMIC ACID 2,000 MG in SODIUM CHLORIDE 0.9% 80 ML IV PRN
[2024-07-12 10:27] LABS: Glucose,Whole Blood 98 mg/dL (70-110)
[2024-07-12] MEDS: ASPIRIN 325 MG TAB PO ONE (10:37)
[2024-07-12] MEDS: METOPROLOL TARTRATE 25 MG TAB PO ONE (10:37)
[2024-07-12] MEDS: CLOPIDOGREL 75 MG TAB PO ONE (10:37)
[2024-07-12] MEDS: ATORVASTATIN 10 MG TAB PO ONE (10:37)
[2024-07-12] MEDS: LACTATED RINGERS 1,000 ML IV SCH ×2 (10:38→16:37)
[2024-07-12] MEDS: SODIUM CHLORIDE 0.9% 1,000 ML IV SCH (10:47)
[2024-07-12] MEDS: IV FLUID CONTINUATION 1,000 ML IV ONE (11:02)
[2024-07-12] MEDS ORDERED: PROTAMINE SULFATE 10 MG/ML 5 ML VIAL ONE (11:28)
[2024-07-12] MEDS ORDERED: NEOSTIGMINE 1 MG/ML 10 ML VIAL ONE (11:28)
[2024-07-12] MEDS ORDERED: LIDOCAINE 1% INJ 10MG/ML (20 ML MDV) ONE (11:28)
[2024-07-12] MEDS ORDERED: PROPOFOL 10 MG/ML 20 ML VIAL IV ONE (11:28)
[2024-07-12] MEDS ORDERED: GLYCOPYRROLATE 0.2 MG/ML 2 ML VIAL ONE (11:28)
[2024-07-12] MEDS ORDERED: HEPARIN SODIUM,PORCINE 5,000 UNIT/ML 1 ML VIAL ONE (11:28)
[2024-07-12] MEDS ORDERED: MIDAZOLAM 2 MG/2 ML VIAL ONE (11:28)
[2024-07-12] MEDS ORDERED: ROCURONIUM 10 MG/ML (5 ML VIAL) IV ONE (11:28)
[2024-07-12] MEDS ORDERED: LIDOCAINE 4% LTA KIT (4 ML) TOPICAL ONE (11:28)
[2024-07-12] MEDS ORDERED: SUCCINYLCHOLINE CHLORIDE 200 MG/10 ML VIAL IV ONE (11:28)
[2024-07-12] MEDS: IOPAMIDOL-250 100ML BTL INTRAARTER ONE ×2 (13:00)
--- NOTE | 2024-07-12 13:08 | P.PCN ---
Date of Procedure: 07/12/24 Operative Findings: TRANSCATHETER AORITC VALVE REPLACEMENT OPERATIVE REPORT PROCEDURE PERFORMED: 1. Percutaneous Aortic Valve Implantation using a 23 mm Evolute FX Medtronic valve 2. BEBA was performed by anesthesia 3. Ultrasound guided access and repair of bilateral femoral artery access site by Perclose closure device on the right and Angio-Seal on the left 4. Placement of temporary pacemaker wire. 5. Aortic root angiography INDICATIONS: 1. 68 year-old with a history of severe symptomatic aortic valve stenosis. The patient was experiencing shortness of breath consistent with NYHA class II PERFORMING PHYSICIANS: 1. Alexsander Garvin MD Interventional Cardiology. 2. Jose Luis Rich MD, Cardiothoracic Surgeon. SEDATION: General anesthesia provided by anesthesia, see separate note APPROACH: Bilateral femoral artery via percutaneous approach PROCEDURE DESCRIPTION: The patient was discussed at valve clinic with multidisciplinary approach with cardiothoracic surgeon as well as solar panel technician and thought better treated with TAVR. Risks, benefits, and alternatives of the procedure had been explained to the patient who understood the risks and agreed to proceed. After consents were obtained, patient was brought to the transcatheter aortic valve implantation room in the cardiac lift slab operator and general anesthesia was provided by the anesthesiologist (see separate report). Once full body sterile prep was performed, the left common femoral vein was cannulated using micropuncture technique under ultrasound guidance a micropuncture wire passed easily then a place a 6 Telugu 23 cm sheath at the left common femoral vein. Subsequently the sheath was flushed and secured. A pacer wire was placed through the left common femoral vein. Pacing threshholds were checked and deemed appropriate. Next the left femoral artery waw accessed using a modified Seldinger technique, ultrasound guidance and micropuncture technique. A 6 Telugu Rabi sheath was placed in the left femoral artery. Next, a 6-Telugu pigtail catheter was advanced into the aorta and positioned in the aortic root, aortic root angio graphy was performed to determine optimal deployment angle. The right femoral artery was accessed using modified Seldinger technique, micropuncture technique and under direct ultrasound guidance. Femoral angiogram was done showing access in the common femoral artery and a 6Fr sheath was placed. Next preclose technique was performed using a two Perclose. Next a 0.035 Safari wire was placed in the Aorta via a pigtail catheter. Over the safari wire 14 Fr sheath was placed. Next a 6F- AL1 catheter was advanced over a wire to the aortic root. A straight wire was advanced through the catheter and used to cross the severely stenotic valve. The AL1 was then exchanged for a 6Fr pigtail catheter and pressure measurements were obtained. The 0.035 Safari wire was then positioned in the apex. Next a 26 mm Rivera CANDACE valve was was advanced. The valve was then positioned across the aortic valve and confirmed with aortic root angiography. The valve was then deployed in proper position using slow deployment and with rapid pacing in conjuncture with aortic root angiography. The delivery system was withdrawn back into the arch and an aortic root injection in conjunction with BEBA demonstrated a satisfactory result internal of the paravalvular leak but the gradient was elevated and for that reason we postdilated using 18 mm balloon. There was no para valvular leak and significant reduction in the gradient. There was no evidence of any other significant abnormalities. The preclose Perclose was then deployed in the right femoral artery and hemostasis was achieved. I did perform a right common femoral artery angiogram using a rim catheter from the left common femoral artery and that showed no evidence of any extravasation. Left common femoral artery angiogram was also performed and showed good position of the sheath in the left common femoral artery and after that I deployed a 6 Telugu Angio-Seal device at the left common femoral artery. The procedure was completed with no complication COMPLICATIONS: None RECOMMENDATIONS: The patient will be monitored in the ICU for hemodynamic and electrical stability. Patient will be on aspirin and Plavix.
--- NOTE | 2024-07-12 13:26 | P.OP ---
Date of Procedure: 07/12/24 Preoperative Diagnosis: Symptomatic bioprosthetic valve aortic stenosis Postoperative Diagnosis: Same Procedure(s) Performed: Percutaneous transfemoral valve in valve transcatheter aortic valve replacement with 23 mm Medtronic evolute flex plus valve prosthesis Implants: 23 mm Medtronic flex plus transcatheter aortic valve prosthesis Anesthesia: GETA Surgeon: Jose Luis Rich (Cardiovascular surgeon) Automotive General Manager #1: Alexsander Garvin (labor operator) Automotive General Manager #2: Delfin Ramos (Nurse practitioner electrical assistant) Estimated Blood Loss (ml): 25 IV fluids (ml): 1,500 Urine output (ml): 0 Pathology: none sent Condition: stable Disposition: PACU Indications for Procedure: 68-year-old female who underwent bioprosthetic aortic valve replacement for sy mptomatic aortic stenosis in 2009. At that time a 19 mm Magna Ease Rivera valve was implanted. At this time she presents with severe dyspnea on exertion. She was found to have severe prosthetic valve aortic stenosis. She was seen in the high risk valve clinic and discussion was held whether to offer her redo surgery versus transcatheter valve in valve replacement. Due to significant pulmonary disease and early onset dementia, it was felt she was most appropriate for transcatheter aortic valve replacement. The patient was happy with this as she really did not want radiosurgery. Elective surgery was scheduled. Operative Findings: There was a high gradient across the prosthetic valve. This improved somewhat with initial transcatheter aortic valve implantation. It improved further with postdilatation. There was no leak. Groins healed well. Description of Procedure: Patient was brought to the catheterization laboratory and placed supine on the table. General anesthesia was induced. Patient was intubated. The anterior torso and bilateral groins were sterilely prepped and draped. Bilateral femoral arterial and left femoral venous access were obtained using micropuncture technique and ultrasound guidance. The left femoral vein along 8 Egyptian sheath was placed and through this a TVP was advanced into the right ventricle and tested. Left femoral artery a long 6 Egyptian sheath was placed into the descending thoracic aorta and through this a pigtail was advanced into the noncoronary sinus of Valsalva outside the bioprosthetic valve. 7 Egyptian sheath was placed on the right and then 2 Perclose devices were placed and a 8 Egyptian sheath placed. This was upsized to a 14 Egyptian sheath over a stiff wire. Patient was systemically heparinized and ACT's were maintained greater than 250 during the valve procedure. The valve was crossed from the right femoral access and pigtail catheter placed in the apex of the ventricle. Transvalvular gradients were measured. Safari wire was placed at the apex of the ventricle. 23 mm Medtronic evolute flex plus valve had been loaded on the back table and was brought up on the field. Loading was checked under fluoroscopy and noted to be sufficient. 14 Egyptian sheath was exchanged for the valve delivery system over the safari wire in the right groin. Valve delivery system was advanced through the endovascular tree around the aortic arch and across the aortic valve. It was deployed under rapid ventricular pacing with valve deployment levels of 3 on the right and 6 on the left. BEBA demonstrated no significant aortic insufficiency. There was still moderate aortic stenosis with a gradient of about 18. The valve was crossed on the left and again a significant gradient was measured. It was decided to do a postdilatation. Valve delivery system was exchanged for 14 Egyptian sheath on the right. Valve was now crossed from the right and the pigtail pulled back from the left. Stiff wire was placed at the apex of the ventricle. Valve was postdilated under rapid ventricular pacing with a 18 mm true balloon. This resulted in a significant decrease in the gradient down to 13 mmHg by BEBA. This was felt to be the best we would get due to some degree of patient prosthetic mismatch from a 19 mm initial valve implant. Heparin was reversed with protamine. 14 Egyptian sheath was removed and the Perclose device was sealed with good result was seal and good completion angiography from the left. 2 left-sided accesses were removed and good hemostasis obtained. Patient was transferred to recovery in stable condition.
[2024-07-12 13:38] LABS: HCT 31.7 % (34.0-46.0); HGB 10.5 gm/dL (11.4-16.0); MCH 29.8 pg (25.0-35.0); MCHC 33.3 g/dL (31.0-37.0); MCV 89.5 fL (80.0-100.0); Mean Platelet Volume 9.1; Platelet Count 138 k/uL (150-450); RBC 3.54 m/uL (3.80-5.40); RDW 14.3 % (11.5-15.5); WBC 3.1 k/uL (3.8-10.6)
--- NOTE | 2024-07-12 13:42 | P.ANPRN ---
Procedure Note - Anesthesia - BEBA Intraop Pre Bypass BEBA Intraop - Anesthesia Indication: cad Date of Procedure: 07/12/24 Pre-operative Diagnosis: cad, aortic stenosis Post-operative Diagnosis: aortic stenosis s/p tavr Surgeon: Jose Luis Rich Ejection Fraction: Normal Regional Wall Motion Abnormalities: None Left Ventricle Hypertrophy: No R. Ventricle Function: Normal Anatomy: Trileaflet Aortic Stenosis: Severe Aortic Regurgitation: None Other Findings: Prosthetic valve in place. Mean gradient 42 Mitral Stenosis: None Mitral Regurgitation: None Tricuspid Stenosis: None Tricuspid Regurgitation: None Pulmonic Stenosis: None Pulmonic Regurgitation: None R. Atrial Dilation: No R. Atrial PFO: No L. Atrial Dilation: No Aortic Dissection: No Aortic Calcification: None Plural Effusion: None
--- NOTE | 2024-07-12 13:43 | P.ANPRN ---
Procedure Note - Anesthesia - BEBA Intraop Post Bypass BEBA Intraop Post Bypass Procedure Performed: tavr Left Ventricle: wnl Ejection Fraction: Normal Regional Wall Motion Abnormalities: None R. Ventricle Function: Normal Aortic Valve: Prosthetic valve in place. After initial appointment mean gradient 38. After balloon dilation mean gradient now probably around 15 or so. Minimal AI Mitral Valve: Unchanged Tricuspid: Unchanged Pulmonic: Unchanged Aortic Dissection: No
[2024-07-12] MEDS: LACTATED RINGERS 1,000 ML IV ONE (13:50)
[2024-07-12 13:51] LABS: African American GFR (CKD) >90 (>60 ml/min/1.73 sqM); Anion Gap 7 mmol/L; Blood Urea Nitrogen 13 mg/dL (7-17); Calcium 7.8 mg/dL (8.4-10.2); Carbon Dioxide 24 mmol/L (22-30); Chloride 101 mmol/L (98-107); Glucose 82 mg/dL (74-99); Non-African American GFR(CKD) 80 (>60 ml/min/1.73 sqM); Potassium 4.1 mmol/L (3.5-5.1); Sodium 132 mmol/L (137-145)
--- NOTE | 2024-07-12 14:18 | XR ---
EXAMINATION TYPE: XR chest 1V portable DATE OF EXAM: 07/12/2024 CLINICAL INDICATION: Female, 68 years old with history of post TAVR, progress study. TECHNIQUE: Single AP portable supine view of the chest is obtained. COMPARISON: Chest x-ray from 6 days earlier FINDINGS: Overlying sternal wires are redemonstrated. Persistent cardiomegaly with surgical change at the level of the aortic valve noted. More Prominent increased central markings bilaterally. Osseous structures are intact. IMPRESSION: Cardiomegaly with new central vascular congestion consistent with fluid overload state [facility], , 07/12/2024 2:16 PM
[2024-07-12] MEDS ORDERED: NITROGLYCERIN SL TABS 0.4 MG TAB SUBLINGUAL PRN (15:56)
[2024-07-12] MEDS ORDERED: Magnesium Replacement Protocol 1 EACH MISC MISCELLANE PRN (15:56)
[2024-07-12] MEDS ORDERED: Potassium Replacement Protocol 1 EACH MISC MISCELLANE PRN (15:56)
[2024-07-12] MEDS ORDERED: IPRATROPIUM-ALBUTEROL 3 ML NEB INHALATION PRN (15:56)
[2024-07-12] MEDS ORDERED: CALCIUM GLUCONATE IN NACL 2 GM in SALINE 1 100ML.BAG IVPB PRN (15:56)
[2024-07-12] MEDS ORDERED: ONDANSETRON 4 MG/2 ML VIAL IVP PRN (15:56)
[2024-07-12] MEDS ORDERED: SENNOSIDES 8.6 MG TAB PO PRN (15:56)
[2024-07-12] MEDS: GABAPENTIN 300 MG CAP PO SCH (16:36)
[2024-07-12] MEDS: traMADol 50 MG TAB PO PRN (18:48)
[2024-07-12] MEDS: BREXPIPRAZOLE 0.5 MG PO SCH (20:29)
[2024-07-12] MEDS: RANOLAZINE 500 MG TAB.ER.12H PO SCH (20:30)
[2024-07-12] MEDS: SYMBICORT 160-4.5 MCG INHALER INHALATION SCH (21:46)
[2024-07-12] MEDS: HEPARIN SODIUM,PORCINE 5,000 UNIT/ML 1 ML VIAL SQ SCH (23:22)
[2024-07-12] MEDS: ACETAMINOPHEN TAB 325 MG TAB PO PRN (23:23)
[2024-07-13] MEDS: LEVOTHYROXINE 25 MCG TAB PO SCH (06:17)
--- NOTE | 2024-07-13 06:59 | XR ---
EXAMINATION TYPE: XR chest 1V portable DATE OF EXAM: 07/13/2024 CLINICAL INDICATION: Female, 68 years old with history of Post Operative Cardiac Surgery, progress st udy. TECHNIQUE: Single AP portable upright view of the chest is obtained. COMPARISON: Chest x-ray from one day earlier FINDINGS: Overlying sternal wires are redemonstrated. Persistent cardiomegaly with surgical change a t the level of the aortic valve noted. Improved central vascular congestion. No new peripheral focal airspace opacity. Osseous structures are intact. IMPRESSION: Improved central vascular congestion. No new acute pulmonary process. [facility], , 07/13/2024 6:57 AM
[2024-07-13] MEDS ORDERED: NON FORMULARY DRUG (Fluticasone/Vilanterol [Breo Ellipta 200-25 Mcg Inhaler] 1 EACH Blst.W INHALATION SCH (08:00)
[2024-07-13 08:04] LABS: Basophils % (A) 0 %; Eosinophils % (A) 1 %; HCT 36.2 % (34.0-46.0); HGB 11.4 gm/dL (11.4-16.0); Hypochromasia Slight; Lymphocytes # (A) 0.6 k/uL (1.0-4.8); Lymphocytes % (A) 18 %; MCH 28.4 pg (25.0-35.0); MCHC 31.5 g/dL (31.0-37.0); MCV 90.2 fL (80.0-100.0); Mean Platelet Volume 8.5; Monocytes # (A) 0.4 k/uL (0-1.0); Monocytes % (A) 11 %; Neutrophils # (A) 2.4 k/uL (1.3-7.7); Neutrophils % (A) 67 %; Platelet Count 144 k/uL (150-450); RBC 4.01 m/uL (3.80-5.40); RDW 14.1 % (11.5-15.5); WBC 3.6 k/uL (3.8-10.6)
[2024-07-13 08:16] LABS: ALT 16 U/L (4-34); AST 30 U/L (14-36); African American GFR (CKD) 78 (>60 ml/min/1.73 sqM); Albumin 3.4 g/dL (3.5-5.0); Alkaline Phosphatase 81 U/L (38-126); Anion Gap 8 mmol/L; Blood Urea Nitrogen 13 mg/dL (7-17); Calcium 8.6 mg/dL (8.4-10.2); Carbon Dioxide 26 mmol/L (22-30); Chloride 98 mmol/L (98-107); Glucose 140 mg/dL (74-99); Magnesium 1.8 mg/dL (1.6-2.3); Non-African American GFR(CKD) 68 (>60 ml/min/1.73 sqM); Sodium 132 mmol/L (137-145); Total Bilirubin 0.4 mg/dL (0.2-1.3); Total Protein 6.6 g/dL (6.3-8.2)
[2024-07-13 08:25] VITALS: RESP 18
[2024-07-13] MEDS: ASPIRIN 81 MG PO SCH (08:42)
[2024-07-13] MEDS: PANTOPRAZOLE 40 MG TABLET PO SCH (08:42)
[2024-07-13] MEDS: SERTRALINE 100 MG TAB PO SCH (08:42)
[2024-07-13] MEDS: METOPROLOL SUCCINATE (ER) 25 MG TAB.ER.24H PO SCH (08:43)
[2024-07-13] MEDS: MEMANTINE 10 MG TAB PO SCH (08:43)
[2024-07-13] MEDS: PARoxetine 20 MG TAB PO SCH (08:43)
[2024-07-13] MEDS: lamoTRIgine 100 MG TAB PO SCH (08:43)
[2024-07-13] MEDS: CLOPIDOGREL 75 MG TAB PO SCH (08:43)
[2024-07-13] MEDS: EZETIMIBE 10 MG TAB PO SCH (08:43)
[2024-07-13] MEDS: ATORVASTATIN 40 MG TAB PO SCH (08:43)
[2024-07-13] MEDS ORDERED: ISOSORBIDE MONONITRATE ER 30 MG TAB.ER.24H PO SCH (09:00)
[2024-07-13] MEDS ORDERED: lisinopriL 5 MG TAB PO SCH (09:00)
[2024-07-13] MEDS ORDERED: MAGNESIUM HYDROXIDE 2,400 MG/30 ML CUP PO PRN (09:00)
[2024-07-13] MEDS ORDERED: bisacodyL 10 MG SUPP RECTAL PRN (09:00)
[2024-07-13] MEDS: TIOTROPIUM 2.5 MCG INHALER INHALATION SCH (10:15)
[2024-07-13 11:51] VITALS: BP 123/64; PULSE 59; TEMP 98.2
--- NOTE | 2024-07-13 13:26 | CA ---
Transthoracic Echo Report Name: Radha Gramajo Age: 68 Gender: F : 1955 Exam Date: 07/13/2024 09:07 Exam Location: [facility] Ht (in): 63 Wt (lb): 140 Ordering Physician: Ele Mercado Attending/Referring Phys: [id number], Jess Generation Technologist Teodora Vee RDCS Procedure CPT: Indications: post TAVR Cardiac Hx: TAVR 2009, post TAVR 07/12/24 Technical Quality: Fair Contrast 1: Total Dose (mL): Contrast 2: Total Dose (mL): MEASUREMENTS (Male / Female) Normal Values 2D ECHO LV Diastolic Diameter PLAX 3.5 cm 4.2 - 5.9 / 3.9 - 5.3 cm LV Systolic Diameter PLAX 2.4 cm IVS Diastolic Thickness 1.4 cm 0.6 - 1.0 / 0.6 - 0.9 cm LVPW Diastolic Thickness 1.5 cm 0.6 - 1.0 / 0.6 - 0.9 cm LV Relative Wall Thickness 0.9 LVOT Diameter 2.0 cm LV Diastolic Volume MOD BP 96.1 cm??? 67 - 155 / 56 - 104 cm??? LV Systolic Volume MOD BP 39.0 cm??? 22 - 58 / 19 - 49 cm??? LV Ejection Fraction MOD BP 59.4 % >= 55 % LV Cardiac Index MOD BP 2464.3 cm???/min???m??? LV Diastolic Volume MOD 4C 87.7 cm??? LV Systolic Volume MOD 4C 38.8 cm??? LV Ejection Fraction MOD 4C 55.8 % LV Cardiac Index MOD 4C 2113.3 cm???/min???m??? LV Diastolic Length 4C 7.8 cm LV Systolic Length 4C 7.3 cm LV Diastolic Volume MOD 2C 104.8 cm??? LV Systolic Volume MOD 2C 35.4 cm??? LV Ejection Fraction MOD 2C 66.2 % LV Cardiac Index MOD 2C 2993.8 cm???/min???m??? LV Diastolic Length 2C 8.0 cm LV Systolic Length 2C 6.6 cm LA Volume 99.0 cm??? 18 - 58 / 22 - 52 cm??? LA Volume Index 58.5 cm???/m??? 16 - 28 cm???/m??? DOPPLER AV Peak Velocity 359.2 cm/s AV Peak Gradient 51.6 mmHg AV Mean Velocity 234.7 cm/s AV Mean Gradient 26.2 mmHg AV Velocity Time Integral 68.4 cm LVOT Peak Velocity 154.9 cm/s LVOT Peak Gradient 9.6 mmHg LVOT Velocity Time Integral 32.3 cm LVOT Stroke Volume 98.3 cm??? LVOT Stroke Volume Index 59.1 ml/m??? LVOT Cardiac Index 4241.3 cm???/min???m??? AV Area Cont Eq vti 1.4 cm??? AV Area Cont Eq pk 1.3 cm??? MV Peak Velocity 113.6 cm/s MV Peak Gradient 5.2 mmHg MV Mean Velocity 60.1 cm/s MV Mean Gradient 1.7 mmHg MV Velocity Time Integral 29.9 cm MV Area PHT 3.0 cm??? Mitral E Point Velocity 92.3 cm/s Mitral A Point Velocity 81.1 cm/s Mitral E to A Ratio 1.1 MV Deceleration Time 254.6 ms TR Peak Velocity 223.5 cm/s TR Peak Gradient 20.0 mmHg Right Atrial Pressure 5.0 mmHg Pulmonary Artery Systolic Pressu 25.0 mmHg Right Ventricular Systolic Press 25.0 mmHg PV Peak Velocity 86.4 cm/s PV Peak Gradient 3.0 mmHg FINDINGS Left Ventricle Left ventricular ejection fraction is estimated at 55-60 %. Normal left ventricular systolic function with no obvious regional wall motion abnormalities. Left ventricular cavity size normal. Moderately increased left ventricular wall thickness. Right Ventricle Normal right ventricular size and function. Right ventricular systolic pressure within normal limits. Right Atrium Normal right atrial size. Left Atrium Severely increased left atrial volume. Mildly increased left atrial area. Mitral Valve Mitral valve thickened. Moderate mitral annular calcification. No evidence for mitral valve prolapse. No mitral stenosis. Mild mitral regurgitation. Aortic Valve TAVR without stenosis with a peak velocity of 3.8 m/s, peak gradient 58 mmHg, mean gradient 29 mmHg, and estimated aortic valve area of 1.4 cm???. Trace to mild paravalvular aortic regurgitation. Tricuspid Valve Structurally normal tricuspid valve. No tricuspid stenosis. Trace tricuspid regurgitation. Pulmonic Valve Structurally normal pulmonic valve. No pulmonic stenosis. No pulmonic regurgitation. Pericardium No pericardial effusion. Aorta Aortic annulus normal. CONCLUSIONS 1. Normal left ventricular size and systolic function 2. Mild mitral regurgitation 3. TAVR with a mean gradient of 29 mmHg and trace to mild aortic regurgitation Previewed by: Dr. Isaias Bland MD (Electronically Signed) Final Date: 13 July 2024 13:26
[2024-07-13 13:32] VITALS: BMI 24.7
--- NOTE | 2024-07-14 14:17 | P.DS ---
Providers Date of admission: 07/12/24 09:51 Expected date of discharge: 07/13/24 Attending physician: Alexsander Garvin Consults: 07/05/24 09:54 Consult to Anesthesia Routine Consulting Provider: Anesthesia,Services Consult Reason/Comments: Cardiac Surgery Pre-Op 07/12/24 12:52 Consult Physician Routine Consulting Provider: Jose Luis Rich Consult Reason/Comments: post TAVR Do you want consulting provider notified?: Already Contacted Primary care physician: Gabe Cisneros [place] Hospital Course: MEDICAL HISTORY: Calcified aortic valve with severe symptomatic low-flow low gradient aortic valve stenosis, NYHA II History of aortic stenosis with previous bioprosthetic 19 mm Rivera AVR in 2009 Hypertension Hyperlipidemia Hypothyroid COPD Current tobacco dependence CVA Dementia PROCEDURE: Percutaneous aortic valve implantation using a 23 mm Medtronic Evolut FX under BEBA and fluoroscopy guidance Transesophageal echocardiography performed by anesthesia Ultrasound-guided access and repair of bilateral femoral artery access site by Perclose closure device on the right and Angio-Seal on the left Placement of temporary pacemaker wire Aortic root angiography HISTORY OF PRESENT ILLNESS: This is a 68-year-old female who follows on an outpatient basis with Dr. Cisneros for primary care and Dr. Garvin for cardiology. She has a known history of severe aortic stenosis with previous aortic valve replacement, and she has been symptomatic again with increased exertional dyspnea as well as chest discomfort. She had been referred to structural heart clinic for evaluation for transcatheter aortic valve replacement after heart catheterization and transesophageal echocardiogram were completed. Echocardiography demonstrated normal systolic function with EF 65%, aortic valve area 0.77 cm with a peak/mean gradient 67/36 mmHg. Heart catheterization showed normal coronaries. After workup was completed STS risk score was calculated along with incremental risk but due to the patient's lung status and dementia history she was felt to be better served with transcatheter aortic valve replacement rather than redo surgical aortic valve replacement. The usual course of TAVR was discussed in detail the patient, risks and benefits were reviewed, shared decision making between cardiology, surgery, and the patient/family took place, and the patient consented to proceed with the p rocedure. HOSPITAL COURSE: The patient was brought to the hospital on 07/12/24, was taken to the extended stay area, prepared in the usual fashion, and subsequently taken to the cardiac catheterization laboratory where Dr. Garvin and Dr. Rich completed TAVR procedure under general anesthesia with fluoroscopy and BEBA. The valve was deployed under rapid ventricular pacing and proceeded without event. At the end of the procedure there was mean gradient of 38 mmHg, balloon postdilatation was completed with mean gradient down to 15 mmHg with minimal aortic insufficiency. Upon completion of the procedure the patient was extubated and taken to the recovery room and eventually 3 S. where she was recovered and monitored hemodynamically. Her oxygen was titrated down, she was tolerating oral diet, her pain was controlled, follow-up TTE demonstrated normal left ventricular systolic function with EF 55 to 60%, appropriately functioning TAVR valve with mean gradient 29 mmHg and trace to mild paravalvular regurgitation, and she was ready to be discharged to home on postoperative day #1. She received written and verbal instruction regarding her medications, activity restrictions, signs and symptoms requiring physician notification, and follow-up appointments. Patient Condition at Discharge: Stable Plan - Discharge Summary Discharge Rx Participant: No New Discharge Prescriptions: New Acetaminophen Tab [Tylenol] 650 mg PO Q4HR PRN tab PRN Reason: Fever And/ Or Mild Pain (1-3) Continue Memantine HCl [Namenda Xr] 28 mg PO DAILY Gabapentin [Neurontin] 300 mg PO TID Fluticasone/Vilanterol [Breo Ellipta 200-25 Mcg Inhaler] 1 puff INHALATION RT-DAILY Ezetimibe [Zetia] 10 mg PO DAILY Metoprolol Succinate (ER) [Toprol XL] 25 mg PO DAILY Levothyroxine Sodium [Synthroid] 25 mcg PO MOTUWETHFR Sertraline [Zoloft] 150 mg PO DAILY lamoTRIgine [LaMICtal] 200 mg PO DAILY Levothyroxine Sodium [Synthroid] 50 mcg PO SUSA Aspirin [Adult Low Dose Aspirin EC] 81 mg PO DAILY traMADol HCl [Ultram] 50 mg PO BID PRN PRN Reason: Pain Atorvastatin [Lipitor] 40 mg PO DAILY #30 tab Ergocalciferol (Vitamin D2) [Drisdol (50,000 Iu)] 1,250 mcg PO SA Pantoprazole Sodium [Protonix] 40 mg PO DAILY PARoxetine [Paxil] 20 mg PO DAILY Clopidogrel [Plavix] 75 mg PO DAILY Brexpiprazole [Rexulti] 0.5 mg PO HS Albuterol Inhaler [Ventolin Hfa Inhaler] 2 puff INHALATION RT-QID PRN PRN Reason: Shortness Of Breath Budesonide/Formoterol Fumarate [Breyna 160-4.5 Mcg Inhaler] 2 puff INHALATION RT-BID Tiotropium 2.5 Mcg/Puff [Spiriva Respimat 2.5 Mcg] 1 puff INHALATION RT-BID Sennosides [Senokot] 8.6 mg PO BID PRN PRN Reason: Constipation Discontinued Nitroglycerin Sl Tabs [Nitrostat] 0.4 mg SL Q5M PRN PRN Reason: Chest Pain lisinopriL [Zestril] 5 mg PO DAILY Ranolazine [Ranexa] 1,000 mg PO Q12HR #60 tab Isosorbide Mononitrate ER [Imdur] 30 mg PO DAILY #30 tab Discharge Medication List Memantine HCl [Namenda Xr] 28 mg PO DAILY 12/06/17 [History] Gabapentin [Neurontin] 300 mg PO TID 01/10/18 [History] Fluticasone/Vilanterol [Breo Ellipta 200-25 Mcg Inhaler] 1 puff INHALATION RT- DAILY 01/31/20 [History] Ergocalciferol (Vitamin D2) [Drisdol (50,000 Iu)] 1,250 mcg PO SA 07/28/22 [History] Ezetimibe [Zetia] 10 mg PO DAILY 07/28/22 [History] Levothyroxine Sodium [Synthroid] 25 mcg PO MOTUWETHFR 07/28/22 [History] Metoprolol Succinate (ER) [Toprol XL] 25 mg PO DAILY 07/28/22 [History] Sertraline [Zoloft] 150 mg PO DAILY 07/28/22 [History] Pantoprazole Sodium [Protonix] 40 mg PO DAILY 12/01/22 [History] lamoTRIgine [LaMICtal] 200 mg PO DAILY 12/01/22 [History] PARoxetine [Paxil] 20 mg PO DAILY 02/08/23 [History] Levothyroxine Sodium [Synthroid] 50 mcg PO SUSA 03/03/23 [History] Clopidogrel [Plavix] 75 mg PO DAILY 05/21/23 [History] Brexpiprazole [Rexulti] 0.5 mg PO HS 03/12/24 [History] Albuterol Inhaler [Ventolin Hfa Inhaler] 2 puff INHALATION RT-QID PRN 05/01/24 [History] Aspirin [Adult Low Dose Aspirin EC] 81 mg PO DAILY 05/01/24 [History] Budesonide/Formoterol Fumarate [Breyna 160-4.5 Mcg Inhaler] 2 puff INHALATION RT-BID 05/24/24 [History] Sennosides [Senokot] 8.6 mg PO BID PRN 07/03/24 [History] Tiotropium 2.5 Mcg/Puff [Spiriva Respimat 2.5 Mcg] 1 puff INHALATION RT-BID 07/03/24 [History] traMADol HCl [Ultram] 50 mg PO BID PRN 07/03/24 [History] Atorvastatin [Lipitor] 40 mg PO DAILY #30 tab 07/06/24 [Rx] Acetaminophen Tab [Tylenol] 650 mg PO Q4HR PRN tab 07/13/24 [Rx] Follow up Appointment(s)/Referral(s): Alexsander Garvin MD [STAFF PHYSICIAN] - 07/19/24 4:30 pm (Your appointment 07/19 is for a groin check. You also have 30 day post TAVR echo and appointment w/ Dr. Garvin 08/30/24 @ 3 pm, and 1 year post TAVR echo and appointment w/ Dr. Garvin 06/15/25 @ 2:30 pm (all at main office on Av)) Gabe Cisneros DO [Primary Care Provider] - As Needed Clinic,Structural Heart [NON-STAFF] - 08/30/24 2:30 pm (You have a 30 day follow up at the TAVR clinic 08/30/24 @ 2:30 pm, and a 1 year follow up at the TAVR clinic 06/15/25 @ 2 pm) Ambulatory/Diagnostic Orders: Basic Metabolic Panel [LAB.AMB] Location: None Selected Basic Metabolic Panel [LAB.AMB] Location: None Selected Complete Blood Count w/diff [LAB.AMB] Location: None Selected Complete Blood Count w/diff [LAB.AMB] Location: None Selected Activity/Diet/Wound Care/Special Instructions: DISCHARGE INSTRUCTIONS: 1. No driving for 1 week, or until physician gives their ok. 2. No lifting, pushing, or pulling more than 5-10 pounds for 1 week. 3. Hold both groins when you cough or sneeze for the next 2 weeks. Bruising is common, but report increased swelling, pain or fever >101F 4. Shower daily. No pool, hot tub, or bathtub for 1 week 5. No powders, lotions, ointments on incisions. 6. No straining, including for bowel movements. Use stool softner if necessary 7. Stairs are not an issue. Go slowly, using handrail and take 1 step at a time. Ambulate several times daily 8. Continue pain control per as needed orders. 9. Take only the medications listed on your discharge form 10. Eat low salt (limited to 2 grams or 2000 milligrams) daily, avoid adding salt, avoid canned/processed foods 11. Take your weight daily in the morning and record, bring with you to your follow up appointments 12. Keep all follow up appointments. You will need a valve clinic appointment at 30 days and 1 year post procedure for follow up 13. You have been referred to and are expected to begin Cardiac Rehab in approximately 4 weeks. 14. You will need antibiotics prior to any dental work, including cleanings, and any surgeries to prevent Endocarditis (bacterial infection in your heart) For any questions or concerns please call your valve coordinators: Ele or Pepe @ Discharge Disposition: HOME SELF-CARE
[2024-07-15] MEDS ORDERED: LEVOTHYROXINE 50 MCG TAB PO SCH (06:30)
[2024-07-15] MEDS ORDERED: ERGOCALCIFEROL 1,250 MCG (50,000 IU) CAPSULE PO SCH (09:00)
== END 2024-07-13 16:38 | disposition home or self-care (01) | DRG 267 ==
LOC: 2ORMAIN 09:51 → 3SCARD 15:28
PROVIDERS: ADMIT Internal Medicine Interventional Cardiology; ATTEND Internal Medicine Interventional Cardiology
PROC: B3101ZZ Fluoroscopy of Thoracic Aorta using Low Osmolar Contrast (ICD-10-PCS; 2024-07-12)
PROC: 5A1223Z Performance of Cardiac Pacing, Continuous (ICD-10-PCS; 2024-07-12)
PROC: B246ZZ4 Ultrasonography of Right and Left Heart, Transesophageal (ICD-10-PCS; principal; 2024-07-12 12:20)
PROC: 02RF38Z Replacement of Aortic Valve with Zooplastic Tissue, Percutaneous Approach (ICD-10-PCS; 2024-07-12 12:20)
DX: T82.857A Stenosis of other cardiac prosthetic devices, implants and grafts, initial encounter (principal); Z00.6 Encounter for examination for normal comparison and control in clinical research program; E03.9 Hypothyroidism, unspecified; J44.9 Chronic obstructive pulmonary disease, unspecified; F03.90 Unspecified dementia, unspecified severity, without behavioral disturbance, psychotic disturbance, mood disturbance, and anxiety; I10 Essential (primary) hypertension; I35.8 Other nonrheumatic aortic valve disorders; E78.5 Hyperlipidemia, unspecified; I25.10 Atherosclerotic heart disease of native coronary artery without angina pectoris; G89.4 Chronic pain syndrome; Y83.1 Surgical operation with implant of artificial internal device as the cause of abnormal reaction of the patient, or of later complication, without mention of misadventure at the time of the procedure; Z79.890 Hormone replacement therapy; F17.210 Nicotine dependence, cigarettes, uncomplicated; Z86.73 Personal history of transient ischemic attack (TIA), and cerebral infarction without residual deficits; Z88.5 Allergy status to narcotic agent
CPT/HCPCS: 71045; 80048; 80053; 83735; 85025; 85027; 86850; 86900; 86901; 93306; 93312; 93320; 93325; 94640

== ENCOUNTER → 2024-08-19 | Outpatient (CLI) | payer MEDICARE, OTHER ==
[2024-08-20 06:04] LABS: Basophils # (A) 0.05 X 10*3/uL (0.00-0.10); Basophils % (A) 1.2 %; Eosinophils # (A) 0.15 X 10*3/uL (0.04-0.35); Eosinophils % (A) 3.5 %; HCT 39.7 % (37.2-46.3); HGB 12.2 g/dL (12.0-15.0); Immature Grans, Automated 0 %; Lymphocytes # (A) 1.28 X 10*3/uL (0.90-5.00); Lymphocytes % (A) 29.8 %; MCH 27.7 pg (27.0-32.0); MCHC 30.7 g/dL (32.0-37.0); Mean Platelet Volume 11.7 FL (9.5-12.2); Monocytes # (A) 0.43 X 10*3/uL (0.20-1.00); NRBC Per 100 WBC 0 X 10*3/uL (0.00-0.01); Neutrophils # (A) 2.38 X 10*3/uL (1.80-7.70); Neutrophils % (A) 55.5 %; Platelet Count 239 X 10*3/uL (140-440); RBC 4.41 X 10*6/uL (4.10-5.20); RDW 13.8 % (11.5-14.5); WBC 4.29 X 10*3/uL (4.50-10.00)
[2024-08-20 06:54] LABS: BUN/Creat Ratio 16.11 Ratio (12.00-20.00); Blood Urea Nitrogen 14.5 mg/dL (9.0-27.0); Calcium 9.5 mg/dL (8.7-10.3); Carbon Dioxide 28.2 mmol/L (21.6-31.8); Chloride 101 mmol/L (96-109); Glucose 95 mg/dL (70-110); Potassium 5.2 mmol/L (3.5-5.5); Sodium 139 mmol/L (135-145)
== END | disposition home or self-care (01) ==
LOC: LABWHC1 10:30
PROVIDERS: ATTEND Thoracic Surgery (Cardiothoracic Vascular Surgery)
DX: I35.0 Nonrheumatic aortic (valve) stenosis (principal); Z95.2 Presence of prosthetic heart valve
CPT/HCPCS: 36415; 80048; 85025

== ENCOUNTER 2024-09-08 17:37 | Observation (INO) | payer MEDICARE, OTHER ==
--- NOTE | 2024-09-08 20:18 | ED ---
Weakness HPI - General Chief complaint: Weakness Stated complaint: Weakness Time Seen by Provider: 09/08/24 18:25 Source: EMS Mode of arrival: EMS - History of Present Illness Initial comments: 69-year-old male with past medical history of CVA, heart failure who presents emergency department with left-sided weakness. She was at home and states around 330 she started having weakness in her left side. Reports to numbness in the left side of her face. Son called EMS. Patient admits to a history of CVA. States she takes Plavix. She denies visual disturbance. Admits headaches. No nausea or vomiting. No chest pain or difficulty breathing. Upon arrival to the emergency department the patient has no appreciable lateralizing symptoms. No other alleviating, precipitating modifying factors. - Related Data Home Medications Medication Instructions Recorded Confirmed Memantine HCl [Namenda Xr] 28 mg PO DAILY 12/06/17 09/08/24 Gabapentin [Neurontin] 300 mg PO TID 01/10/18 09/08/24 Fluticasone/Vilanterol [Breo 1 puff INHALATION RT-DAILY 01/31/20 09/08/24 Ellipta 200-25 Mcg Inhaler] Ergocalciferol (Vitamin D2) 1,250 mcg PO SA 07/28/22 09/08/24 [Drisdol (50,000 Iu)] Ezetimibe [Zetia] 10 mg PO DAILY 07/28/22 09/08/24 Levothyroxine Sodium [Synthroid] 25 mcg PO MOTUWETHFR 07/28/22 09/08/24 Metoprolol Succinate (ER) [Toprol 25 mg PO DAILY 07/28/22 09/08/24 XL] Sertraline [Zoloft] 150 mg PO DAILY 07/28/22 09/08/24 Pantoprazole Sodium [Protonix] 40 mg PO DAILY 12/01/22 09/08/24 lamoTRIgine [LaMICtal] 200 mg PO DAILY 12/01/22 09/08/24 Levothyroxine Sodium [Synthroid] 50 mcg PO SUSA 03/03/23 09/08/24 Clopidogrel [Plavix] 75 mg PO DAILY 05/21/23 09/08/24 Brexpiprazole [Rexulti] 0.5 mg PO HS 03/12/24 09/08/24 Sennosides [Senokot] 8.6 mg PO BID PRN 07/03/24 09/08/24 Tiotropium 2.5 Mcg/Puff [Spiriva 2 puff INHALATION RT-DAILY 07/03/24 09/08/24 Respimat 2.5 Mcg] Ranolazine [Ranexa] 1,000 mg PO Q12HR 09/08/24 09/08/24 Rosuvastatin [Crestor] 20 mg PO DAILY 09/08/24 09/08/24 lisinopriL [Zestril] 5 mg PO DAILY 09/08/24 09/08/24 Previous Rx's Medication Instructions Recorded Aspirin 81 mg PO DAILY #30 tab 09/11/24 Allergies Allergy/AdvReac Type Severity Reaction Status Date / Time fentanyl Allergy Rash/Hives Verified 09/08/24 19:39 niacin Allergy Dyspnea,barbara Verified 09/08/24 19:39 h Review of Systems ROS Statement: Those systems with pertinent positive or pertinent negative responses have been documented in the HPI. ROS Other: All systems not noted in ROS Statement are negative. Past Medical History Past Medical History: Chest Pain / Angina, Heart Failure, COPD, CVA/TIA, Dementia, GERD/Reflux, Hyperlipidemia, Hypertension, Memory Impairment, Mitral Valve Prolapse (MVP) Additional Past Medical History / Comment(s): heart murmur, "beginning of dementia",hx. insomnia, "I've had a stroke but they don't know when." "It's an old stroke." recent adm. for chest pain, thought to be related to valve problem History of Any Multi-Drug Resistant Organisms: None Reported Past Surgical History: Back Surgery, Bladder Surgery, Cardiac Valve Replacement, Cholecystectomy, Heart Catheterization, Hysterectomy, Joint Replacement, Orthopedic Surgery, Tubal Ligation Additional Past Surgical History / Comment(s): aortic valve replacement 2009, left breast biopsy-neg, oopherectomy, left knee replacement, juan, rt breast bx neg., right ORIF from knee to hip 2019 Past Anesthesia/Blood Transfusion Reactions: No Reported Reaction Additional Past Anesthesia/Blood Transfusion Reaction / Comment(s): Hx of blood transfusion 2009-no reaction., pt. adopted Past Psychological History: Anxiety, Bipolar, Depression Smoking Status: Current some day smoker - Past Family History Mother History Unknown: Yes Additional Family Medical History / Comment(s): Patient states she was adopted. General Exam General appearance: alert, in no apparent distress Head exam: Present: atraumatic, normocephalic, normal inspection Eye exam: Present: normal appearance, PERRL, EOMI. Absent: scleral icterus, conjunctival injection, periorbital swelling ENT exam: Present: normal exam, mucous membranes moist Neck exam: Present: normal inspection. Absent: tenderness, meningismus, lymphadenopathy Respiratory exam: Present: normal lung sounds bilaterally. Absent: respiratory distress, wheezes, rales, rhonchi, stridor Cardiovascular Exam: Present: regular rate, normal rhythm, normal heart sounds. Absent: systolic murmur, diastolic murmur, rubs, gallop, clicks GI/Abdominal exam: Present: soft, normal bowel sounds. Absent: distended, tenderness, guarding, rebound, rigid Extremities exam: Present: normal inspection, full ROM, normal capillary refill. Absent: tenderness, pedal edema, joint swelling, calf tenderness Back exam: Present: normal inspection Neurological exam: Present: alert, oriented X3, CN II-XII intact Psychiatric exam: Present: normal affect, normal mood Skin exam: Present: warm, dry, intact, normal color. Absent: rash Course Vital Signs 09/08/24 09/08/24 09/08/24 18:20 18:34 19:30 Temperature 97.9 F Pulse Rate 54 L 53 L 54 L Respiratory 16 16 15 Rate Blood Pressure 181/85 155/82 O2 Sat by Pulse 96 97 97 Oximetry 09/08/24 09/08/24 09/08/24 20:00 21:00 22:00 Temperature Pulse Rate 53 L 54 L 51 L Respiratory 16 18 15 Rate Blood Pressure 149/72 152/76 141/63 O2 Sat by Pulse 97 96 95 Oximetry Medical Decision Making - Medical Decision Making Was pt. sent in by a medical professional or institution (, PA, [employer], urgent care, hospital, or longterm...) When possible be specific @ -No Did you speak to anyone other than the patient for history (EMS, parent, family, police, friend...)? What history was obtained from this source @ -I spoke with EMS for history Did you review nursing and triage notes (agree or disagree)? Why? @ -I reviewed and agree with nursing and triage notes Were old charts reviewed (outside hosp., previous admission, EMS record, old EKG, old radiological studies, urgent care reports/EKG's, longterm records)? Report findings @ -No old charts were reviewed Differential Diagnosis (chest pain, altered mental status, abdominal pain women, abdominal pain men, vaginal bleeding, weakness, fever, dyspnea, syncope, headache, dizziness, GI bleed, back pain, seizure, CVA, palpatations, mental health, musculoskeletal)? @ -Differential CVA Ischemic stroke, hemorrhagic stroke, brain tumor, atypical migraine, Wernicke's encephalopathy, seizure, multiple sclerosis, meningitis, encephalitis, hypoglycemia, Guillain-Miramontes, electrolytes disturbance, myasthenia gravis.... This is not meant to be an all-inclusive list EKG interpreted by me (3pts min.). @ -yes and demonstrates sinus bradycardia with a rate of 56. [place] interval 147. QRS 89. QTc of 426. No acute ST segment elevations or depressions X-rays interpreted by me (1pt min.). @ -Yes and demonstrates no acute process CT interpreted by me (1pt min.). @ -Left knee demonstrates no acute process U/S interpreted by me (1pt. min.). @ -None done What testing was considered but not performed or refused? (CT, X-rays, U/S, labs)? Why? @ -None What meds were considered but not given or refused? Why? @ -None Did you discuss the management of the patient with other professionals (professionals i.e. , PA, [employer], lab, RT, psych nurse, licensed master social worker, time motion analyst, teacher, general service officer, special education case manager)? Give summary @ -Spoke with Dr. Hadley for admission Was smoking cessation discussed for >3mins.? @ -No Was critical care preformed (if so, how long)? @ -No Were there social determinants of health that impacted care today? How? (Homelessness, low income, unemployed, alcoholism, drug addiction, transportation, low edu. Level, literacy, decrease access to med. care, fpc, rehab)? @ -No Was there de-escalation of care discussed even if they declined (Discuss DNR or withdrawal of care, Hospice)? DNR status @ -No What co-morbidities impacted this encounter? (DM, HTN, Smoking, COPD, CAD, C ancer, CVA, ARF, Chemo, Hep., AIDS, mental health diagnosis, sleep apnea, morbid obesity)? @ -COPD, heart failure, dementia Was patient admitted / discharged? Hospital course, mention meds given and route, prescriptions, significant lab abnormalities, going to OR and other pertinent info. @ -Upon arrival patient seen and evaluated in room 23. Thorough history and physical exam was performed. NIH was performed and is negative. Patient placed on continuous pulse ox and cardiac monitoring. Twelve-lead EKG is obtained. Laboratory studies are conducted. Patient does go for CT and CTA of the brain. Results are discussed with the patient. This patient is presenting with lateralizing weakness with concern exists for TIA versus CVA. Because of this I do recommend admission. Patient was agreeable with admission. I spoke with Dr. Hadley Undiagnosed new problem with uncertain prognosis? @ -No Drug Therapy requiring intensive monitoring for toxicity (Heparin, Nitro, Insulin, Cardizem)? @ -No Were any procedures done? @ -No Diagnosis/symptom? @ -Acute left-sided weaknessresolved, possible TIA, history of CVA Acute, or Chronic, or Acute on Chronic? @ -Acute Uncomplicated (without systemic symptoms) or Complicated (systemic symptoms)? @ -Complicated Side effects of treatment? @ -No Exacerbation, Progression, or Severe Exacerbation? @ -No Poses a threat to life or bodily function? How? (Chest pain, USA, CO, pneumonia, PE, COPD, DKA, ARF, appy, cholecystitis, CVA, Diverticulitis, Homicidal, Suicidal, threat to staff... and all critical care pts) @ -Yes this patient does present with symptoms concerning for TIA - Lab Data Result diagrams: 09/09/24 05:25 09/09/24: Lab Results 09/08/24 09/08/24 09/08/24 Range/Units 20:01 20:01 20:01 WBC 3.94 L (4.50-10.00) 10*3/uL RBC 3.95 L (4.10-5.20) 10*6/uL Hgb 11.2 L (12.0-15.0) g/dL Hct 35.0 L (37.2-46.3) % MCV 88.6 (80.0-97.0) fL MCH 28.4 (27.0-32.0) pg MCHC 32.0 (32.0-37.0) g/dL Plt Count 126 L (140-440) 10*3/uL MPV 12.2 (9.5-12.2) fL Immature Gran % (Auto) 0 % Neutrophils % 50.3 % Lymphocytes % 37.8 % Monocytes % 8.1 % Eosinophils % 3.0 % Basophils % 0.8 % Immature Gran # 0.00 (0.00-0.04) 10*3/uL Neutrophils # 1.98 (1.80-7.70) 10*3/uL Lymphocytes # 1.49 (0.90-5.00) 10*3/uL Monocytes # 0.32 (0.20-1.00) 10*3/uL Eosinophils # 0.12 (0.04-0.35) 10*3/uL Basophils # 0.03 (0.00-0.10) 10*3/uL PT 10.7 (10.0-12.5) sec INR 1.0 (<1.2) APTT 22.1 (22.0-30.0) sec Sodium 139 (137-145) mmol/L Potassium 4.3 (3.5-5.1) mmol/L Chloride 107 (98-107) mmol/L Carbon Dioxide 28 (22-30) mmol/L Anion Gap 4 mmol/L BUN 9 (7-17) mg/dL Creatinine 0.66 (0.52-1.04) mg/dL Est GFR (CKD-EPI)AfAm >90 (>60 ml/min/1.73 sqM) Est GFR (CKD-EPI)NonAf 89 (>60 ml/min/1.73 sqM) Glucose 75 (74-99) mg/dL Plasma Lactic Acid Trey (0.7-2.0) mmol/L Calcium 8.7 (8.4-10.2) mg/dL Total Bilirubin 0.6 (0.2-1.3) mg/dL AST 30 (14-36) U/L ALT 20 (4-34) U/L Alkaline Phosphatase 67 (38-126) U/L Troponin I (0.000-0.034) ng/mL Total Protein 6.8 (6.3-8.2) g/dL Albumin 3.6 (3.5-5.0) g/dL Serum Alcohol <10 mg/dL 09/08/24 09/08/24 Range/Units 20:01 20:01 WBC (4.50-10.00) 10*3/uL RBC (4.10-5.20) 10*6/uL Hgb (12.0-15.0) g/dL Hct (37.2-46.3) % MCV (80.0-97.0) fL MCH (27.0-32.0) pg MCHC (32.0-37.0) g/dL Plt Count (140-440) 10*3/uL MPV (9.5-12.2) fL Immature Gran % (Auto) % Neutrophils % % Lymphocytes % % Monocytes % % Eosinophils % % Basophils % % Immature Gran # (0.00-0.04) 10*3/uL Neutrophils # (1.80-7.70) 10*3/uL Lymphocytes # (0.90-5.00) 10*3/uL Monocytes # (0.20-1.00) 10*3/uL Eosinophils # (0.04-0.35) 10*3/uL Basophils # (0.00-0.10) 10*3/uL PT (10.0-12.5) sec INR (<1.2) APTT (22.0-30.0) sec Sodium (137-145) mmol/L Potassium (3.5-5.1) mmol/L Chloride (98-107) mmol/L Carbon Dioxide (22-30) mmol/L Anion Gap mmol/L BUN (7-17) mg/dL Creatinine (0.52-1.04) mg/dL Est GFR (CKD-EPI)AfAm (>60 ml/min/1.73 sqM) Est GFR (CKD-EPI)NonAf (>60 ml/min/1.73 sqM) Glucose (74-99) mg/dL Plasma Lactic Acid Trey 0.8 (0.7-2.0) mmol/L Calcium (8.4-10.2) mg/dL Total Bilirubin (0.2-1.3) mg/dL AST (14-36) U/L ALT (4-34) U/L Alkaline Phosphatase (38-126) U/L Troponin I 0.017 (0.000-0.034) ng/mL Total Protein (6.3-8.2) g/dL Albumin (3.5-5.0) g/dL Serum Alcohol mg/dL Disposition Clinical Impression: Left-sided weakness Disposition: ADMITTED IP TO THIS [facility] Condition: Stable Is patient prescribed a controlled substance at d/c from ED?: No Time of Disposition: 21:49 Decision to Admit Reason: Admit from EC Decision Date: 09/08/24 Decision Time: 21:49
[2024-09-08 20:31] LABS: Basophils # (A) 0.03 10*3/uL (0.00-0.10); Basophils % (A) 0.8 %; Eosinophils # (A) 0.12 10*3/uL (0.04-0.35); HGB 11.2 g/dL (12.0-15.0); Lymphocytes # (A) 1.49 10*3/uL (0.90-5.00); Lymphocytes % (A) 37.8 %; MCH 28.4 pg (27.0-32.0); MCV 88.6 fL (80.0-97.0); Mean Platelet Volume 12.2 fL (9.5-12.2); Monocytes # (A) 0.32 10*3/uL (0.20-1.00); Monocytes % (A) 8.1 %; Neutrophils # (A) 1.98 10*3/uL (1.80-7.70); Neutrophils % (A) 50.3 %; Platelet Count 126 10*3/uL (140-440); RBC 3.95 10*6/uL (4.10-5.20); RDW 13.7 % (11.5-14.5); WBC 3.94 10*3/uL (4.50-10.00)
--- NOTE | 2024-09-08 20:34 | XR ---
EXAMINATION TYPE: XR chest 2V DATE OF EXAM: 09/08/2024 8:26 PM COMPARISON: Prior chest radiograph 07/13/2024. CLINICAL INDICATION: Female, 69 years old with history of Weakness; H TECHNIQUE: XR chest 2V Frontal and lateral views of the chest. FINDINGS: Cardiomegaly and mild pulmonary vascular congestive changes. Median sternotomy wires and previous aVR. No sizable pleural effusion. No pneumothorax. No acute osseous abnormality. IMPRESSION: Cardiomegaly mild pulmonary vascular congestive changes. [facility], , 09/08/2024 8:32 PM
[2024-09-08 20:45] LABS: ALT 20 U/L (4-34); AST 30 U/L (14-36); African American GFR (CKD) >90 (>60 ml/min/1.73 sqM); Albumin 3.6 g/dL (3.5-5.0); Alcohol <10 mg/dL; Alkaline Phosphatase 67 U/L (38-126); Anion Gap 4 mmol/L; Blood Urea Nitrogen 9 mg/dL (7-17); Calcium 8.7 mg/dL (8.4-10.2); Carbon Dioxide 28 mmol/L (22-30); Chloride 107 mmol/L (98-107); Glucose 75 mg/dL (74-99); Non-African American GFR(CKD) 89 (>60 ml/min/1.73 sqM); Potassium 4.3 mmol/L (3.5-5.1); Sodium 139 mmol/L (137-145); Total Bilirubin 0.6 mg/dL (0.2-1.3); Total Protein 6.8 g/dL (6.3-8.2)
[2024-09-08 20:47] LABS: Partial Thromboplastin Time 22.1 sec (22.0-30.0); Prothrombin Time 10.7 sec (10.0-12.5)
--- NOTE | 2024-09-08 21:17 | CT ---
EXAMINATION TYPE: CT brain wo con DATE OF EXAM: 09/08/2024 9:08 PM COMPARISON: Previous study 06/08/2024. CLINICAL INDICATION: Female, 69 years old with history of slurred speech, Patient brought by EMS from home. Per EMS, patient's son called regarding facial droop. Patient did not have her teeth in at the time. EMS ruled out stroke symptoms in the field priors in pacs 65 ml isovue 370 SO TECHNIQUE: Brain: Axial CT images of the brain were obtained with coronal and sagittal reformats created and rev iewed. Contrast used: None. Oral contrast used: None. CT DLP: 1589.9 mGycm, Automated exposure control for dose reduction was used. FINDINGS: Brain: Extra-axial spaces: No abnormal extra-axial fluid collections. Ventricular system: Within normal limits Cerebral parenchyma: No acute intraparenchymal hemorrhage or mass effect. The holt-white junction is well differentiated. Scattered hypoattenuating areas are seen within the white matter. Cerebellum: Unremarkable. Mass effect: No evidence of midline shift. Intracranial vasculature: unremarkable Soft tissues: Normal. Calvarium/osseous structures: No depressed skull fracture. Paranasal sinuses and mastoid air cells: Mild scattered paranasal sinus disease. Visualized orbits: Orbital contents are intact. IMPRESSION: No acute intracranial process. [facility], , 09/08/2024 9:14 PM
--- NOTE | 2024-09-08 21:25 | CT ---
EXAMINATION TYPE: CT angio head neck DATE OF EXAM: 09/08/2024 9:08 PM COMPARISON: None. CLINICAL INDICATION: Female, 69 years old with history of slurred speech; [facility], Patient brought by EMS from home. Per EMS, patient's son called regarding facial droop. Patient did not have her teeth in a t the time. EMS ruled out stroke symptoms in the field TECHNIQUE: Axially acquired helical CT angiogram of the head and neck was obtained with contrast. Axi al images are supplemented with 3D reconstructions and MIP images which were post-processed at an in dependent workstation. NASCET criteria used. Contrast used:65ml mL of Isovue 370 with IV Contrast, Oral contrast used: None. CT DLP: 1589.9 mGycm, Automated exposure control for dose reduction was used. FINDINGS: CTA HEAD: No evidence of acute intracranial hemorrhage, mass effect, or midline shift. The ventricles, sulci, a nd cisterns are unremarkable. Vertebral arteries: The vertebral arteries are patent. Vertebral artery dominance: Right Basilar artery: The basilar artery is intact. The basilar artery bifurcation is normal. Internal Carotid arteries: The cervical, petrous, cavernous and supraclinoid segments demonstrated no high-grade stenosis or to focal dissection. Calcified atherosclerotic disease involving the intracra nial portions of the carotid arteries. NACHO: Patent with no evidence of aneurysm. ACOM: Present without evidence of aneurysm. MCA: Patent with no evidence of aneurysm. BUILDING ARCHITECT: Patent with no evidence of aneurysm. PCOM: Hypoplastic bilaterally. Dural sinuses: Patent. CTA NECK: Right Carotid System: The common carotid and external carotid arteries are patent. There is less than 25% stenosis at the c arotid bifurcation secondary to calcified/noncalcified plaque. The rest of the internal carotid arter y is patent. Left Carotid System: The common carotid and external carotid arteries are patent. There is less than 25% stenosis at the c arotid bifurcation secondary to calcified/noncalcified plaque. The rest of the internal carotid arter y is patent. Vertebral arteries are patent without evidence hemodynamically significant stenosis. There is a three-vessel aortic arch. Moderate stenosis of the right brachiocephalic and left subclavi an artery origins due to dense calcified plaque. Upper thorax: IMPRESSION: 1. No evidence of dissection of the cervical internal carotid arteries or vertebral arteries. 2. No any evidence of significant stenosis at the carotid bifurcations. 3. No evidence of intracranial high-grade stenosis or intracranial aneurysm. [facility], , 09/08/2024 9:22 PM
[2024-09-08] MEDS ORDERED: SENNOSIDES 8.6 MG TAB PO PRN (23:00)
[2024-09-08] MEDS: SODIUM CHLORIDE 0.9% 1,000 ML IV SCH (23:00)
[2024-09-08] MEDS ORDERED: NALOXONE 0.4 MG/ML 1 ML VIAL IV PRN (23:00)
[2024-09-08 23:27] LABS: Appearance,Urine Clear (Clear); Bilirubin,Urine Negative (Negative); Blood,Urine Negative (Negative); Color,Urine Colorless; Glucose,Urine (UA) Negative (Negative); Ketones,Urine Negative (Negative); Leukocyte Esterase,Urine Negative (Negative); Nitrite,Urine Negative (Negative); Protein,Urine Negative (Negative); Specific Gravity,Urine 1.004 (1.001-1.035); Urobilinogen,Urine <2.0 mg/dL (<2.0)
[2024-09-08 23:35] LABS: Amphetamine Screen,Urine Not Detected (NotDetected); Barbiturate Screen,Urine Not Detected (NotDetected); Benzodiazepines Screen,Urine Not Detected (NotDetected); Cocaine Screen,Urine Not Detected (NotDetected); Methadone Screen, Urine Not Detected (NotDetected); Opiate Screen,Urine Not Detected (NotDetected); Oxycodone Screen, Urine Not Detected (NotDetected); Phencyclidine Screen,Urine Not Detected (NotDetected); Tricyclic Antidepressant,Urine Not Detected (NotDetected); Urn Cannabinoid Scrn Not Detected (NotDetected)
[2024-09-08] MEDS: GABAPENTIN 300 MG CAP PO SCH (23:53)
[2024-09-09] MEDS: MEMANTINE 10 MG TAB PO SCH (00:11)
[2024-09-09] MEDS: LEVOTHYROXINE 25 MCG TAB PO SCH (06:00)
[2024-09-09 06:30] LABS: Basophils # (A) 0.02 10*3/uL (0.00-0.10); Basophils % (A) 0.5 %; Eosinophils # (A) 0.16 10*3/uL (0.04-0.35); Eosinophils % (A) 4.4 %; HCT 33.6 % (37.2-46.3); HGB 10.7 g/dL (12.0-15.0); Lymphocytes # (A) 1.27 10*3/uL (0.90-5.00); Lymphocytes % (A) 34.8 %; MCH 28.4 pg (27.0-32.0); MCHC 31.8 g/dL (32.0-37.0); MCV 89.1 fL (80.0-97.0); Mean Platelet Volume 12.2 fL (9.5-12.2); Monocytes # (A) 0.34 10*3/uL (0.20-1.00); Monocytes % (A) 9.3 %; Neutrophils # (A) 1.86 10*3/uL (1.80-7.70); Platelet Count 130 10*3/uL (140-440); RBC 3.77 10*6/uL (4.10-5.20); RDW 13.8 % (11.5-14.5); WBC 3.65 10*3/uL (4.50-10.00)
[2024-09-09 06:45] LABS: African American GFR (CKD) >90 (>60 ml/min/1.73 sqM); Anion Gap 3 mmol/L; Blood Urea Nitrogen 13 mg/dL (7-17); Calcium 8.8 mg/dL (8.4-10.2); Carbon Dioxide 29 mmol/L (22-30); Chloride 106 mmol/L (98-107); Glucose 79 mg/dL (74-99); Non-African American GFR(CKD) 81 (>60 ml/min/1.73 sqM); Potassium 4.1 mmol/L (3.5-5.1); Sodium 138 mmol/L (137-145)
[2024-09-09] MEDS: SYMBICORT 160-4.5 MCG INHALER INHALATION SCH (08:43)
[2024-09-09] MEDS: TIOTROPIUM 2.5 MCG INHALER INHALATION SCH (08:43)
[2024-09-09] MEDS: RANOLAZINE 500 MG TAB.ER.12H PO SCH (09:27)
[2024-09-09] MEDS: METOPROLOL SUCCINATE (ER) 25 MG TAB.ER.24H PO SCH (09:27)
[2024-09-09] MEDS: PANTOPRAZOLE 40 MG TABLET PO SCH (09:28)
[2024-09-09] MEDS: lisinopriL 5 MG TAB PO SCH (09:28)
[2024-09-09] MEDS: lamoTRIgine 100 MG TAB PO SCH (09:28)
[2024-09-09] MEDS: SERTRALINE 50 MG TAB PO SCH (09:28)
[2024-09-09] MEDS: ATORVASTATIN 40 MG TAB PO SCH (09:28)
[2024-09-09] MEDS: CLOPIDOGREL 75 MG TAB PO SCH (09:28)
[2024-09-09] MEDS: EZETIMIBE 10 MG TAB PO SCH (09:29)
--- NOTE | 2024-09-09 12:57 | P.HPIM ---
History of Present Illness 69-year-old male with known history of CVA and left-sided weakness came in with increased left-sided weakness. Patient has 4/5 strength in the left upper extremity patient also has speech abnormality as well as a numbness on the left side of the face as well as facial droop. Patient had a CT of the head and CT angio of the head both of which did not show any significant abnormality. Patient was evaluated neurology echocardiogram was ordered PT and OT evaluation ordered. Patient blood pressure is within normal limits patient takes lisinopril at home. REVIEW OF SYSTEMS: All other systems are negative except those mentioned in the HPI PHYSICAL EXAMINATION: GENERAL: The patient is alert and oriented x3, not in any acute distress. Well developed, well nourished. HEENT: Pupils are round and equally reacting to light. EOMI. No scleral icterus. No conjunctival pallor. Normocephalic, atraumatic. No pharyngeal erythema. No thyromegaly. CARDIOVASCULAR: S1 and S2 present. No murmurs, rubs, or gallops. PULMONARY: Chest is clear to auscultation, no wheezing or crackles. ABDOMEN: Soft, nontender, nondistended, normoactive bowel sounds. No palpable organomegaly. MUSCULOSKELETAL: No joint swelling or deformity. EXTREMITIES: No cyanosis, clubbing, or pedal edema. NEUROLOGICAL: Pressures as mentioned in the HPI SKIN: No rashes. Assessment and plan - cerebrovascular accident involving left side of the body: Physical therapy Occupational Therapy evaluation as mentioned above. Echocardiogram will be obtained neurology evaluated the patient patient is presently on dual antiplatelet therapy which has been continued. Patient was on Plavix at home. -Hypertension - Hypothyroidism - Peripheral neuropathy - Hyperlipidemia - Vascular dementia mild - COPD: Presently not in acute exacerbation -History of mitral valve prolapse --Bipolar disorder for which patient is on Lamictal DVT prophylaxis: Lovenox Past Medical History Past Medical History: Chest Pain / Angina, Heart Failure, COPD, CVA/TIA, Dementia, GERD/Reflux, Hyperlipidemia, Hypertension, Mitral Valve Prolapse (MVP) Additional Past Medical History / Comment(s): heart murmur, "beginning of dementia", "MRI in past showed old stroke, but they don't know when." History of Any Multi-Drug Resistant Organisms: None Reported Past Surgical History: Back Surgery, Bladder Surgery, Cardiac Valve Replacement, Cholecystectomy, Heart Catheterization, Hysterectomy, Joint Replacement, Orthopedic Surgery, Tubal Ligation Additional Past Surgical History / Comment(s): aortic valve replacement 2009, left breast biopsy-neg, oopherectomy, left knee replacement, juan, rt breast bx neg., right ORIF from knee to hip 2019 Past Anesthesia/Blood Transfusion Reactions: No Reported Reaction Additional Past Anesthesia/Blood Transfusion Reaction / Comment(s): Hx of blood transfusion 2009-no reaction., pt. adopted Past Psychological History: Anxiety, Bipolar, Depression Smoking Status: Current some day smoker Past Alcohol Use History: None Reported Additional Past Alcohol Use History / Comment(s): started at age 15 trying to quit smoking and is down to 3 cigarettes/day, (hx of 1.5ppd) Past Drug Use History: None Reported - Past Family History Mother History Unknown: Yes Additional Family Medical History / Comment(s): Patient states she was adopted. Medications and Allergies Home Medications Medication Instructions Recorded Confirmed Type Memantine HCl [Namenda Xr] 28 mg PO DAILY 12/06/17 09/08/24 History Gabapentin [Neurontin] 300 mg PO TID 01/10/18 09/08/24 History Fluticasone/Vilanterol [Breo 1 puff INHALATION RT-DAILY 01/31/20 09/08/24 History Ellipta 200-25 Mcg Inhaler] Ergocalciferol (Vitamin D2) 1,250 mcg PO SA 07/28/22 09/08/24 History [Drisdol (50,000 Iu)] Ezetimibe [Zetia] 10 mg PO DAILY 07/28/22 09/08/24 History Levothyroxine Sodium [Synthroid] 25 mcg PO MOTUWETHFR 07/28/22 09/08/24 History Metoprolol Succinate (ER) [Toprol 25 mg PO DAILY 07/28/22 09/08/24 History XL] Sertraline [Zoloft] 150 mg PO DAILY 07/28/22 09/08/24 History Pantoprazole Sodium [Protonix] 40 mg PO DAILY 12/01/22 09/08/24 History lamoTRIgine [LaMICtal] 200 mg PO DAILY 12/01/22 09/08/24 History Levothyroxine Sodium [Synthroid] 50 mcg PO SUSA 03/03/23 09/08/24 History Clopidogrel [Plavix] 75 mg PO DAILY 05/21/23 09/08/24 History Brexpiprazole [Rexulti] 0.5 mg PO HS 03/12/24 09/08/24 History Sennosides [Senokot] 8.6 mg PO BID PRN 07/03/24 09/08/24 History Tiotropium 2.5 Mcg/Puff [Spiriva 2 puff INHALATION RT-DAILY 07/03/24 09/08/24 History Respimat 2.5 Mcg] Ranolazine [Ranexa] 1,000 mg PO Q12HR 09/08/24 09/08/24 History Rosuvastatin [Crestor] 20 mg PO DAILY 09/08/24 09/08/24 History lisinopriL [Zestril] 5 mg PO DAILY 09/08/24 09/08/24 History Allergies Allergy/AdvReac Type Severity Reaction Status Date / Time fentanyl Allergy Rash/Hives Verified 09/08/24 19:39 niacin Allergy Dyspnea,barbara Verified 09/08/24 19:39 h Physical Exam Vitals: Vital Signs Temp Pulse Pulse Resp BP BP Pulse Ox 09/09/24 06:55 98.2 F 60 14 123/67 95 09/09/24 02:00 97.8 F 61 18 135/73 95 09/08/24 23:45 97.5 F L 60 18 176/82 97 09/08/24 22:00 51 L 15 141/63 95 09/08/24 21:00 54 L 18 152/76 96 09/08/24 20:00 53 L 16 149/72 97 09/08/24 19:30 54 L 15 155/82 97 09/08/24 18:34 53 L 16 97 09/08/24 18:20 97.9 F 54 L 16 181/85 96 Intake and Output 09/08/24 09/09/24 09/09/24 22:59 06:59 14:59 Output Total 999 Balance -999 Output: Post Void Residual 999 Other: Weight 65.317 kg 65.317 kg Results CBC & Chem 7: 09/09/24 05:25 09/09/24 05:25 Labs: Abnormal Lab Results - Last 24 Hours (Table) 09/08/24 09/09/24 Range/Units 20:01 05: WBC 3.94 L 3.65 L (4.50-10.00) 10*3/uL RBC 3.95 L 3.77 L (4.10-5.20) 10*6/uL Hgb 11.2 L 10.7 L (12.0-15.0) g/dL Hct 35.0 L 33.6 L (37.2-46.3) % MCHC 31.8 L (32.0-37.0) g/dL Plt Count 126 L 130 L (140-440) 10*3/uL
[2024-09-09 15:22] LABS: Chol/HDL Ratio 3.32 Ratio; LDL Cholesterol,Calculated 63.2 mg/dL (0.0-131.0)
--- NOTE | 2024-09-09 15:59 | P.CNNES ---
History of Present Illness Consult date: 09/09/24 Reason for Consult: Left-sided weakness History of Present Illness: The patient is a 69-year-old female who is seen in neurologic consultation on September 09, 2024, in collaboration with Crystal Casiano, via teleneurology. History is obtained from the patient as well as review of the chart. The patient reports that she has been having weakness involving the left face, arm and leg. She also reports having a headache for the past 2 days. She says the weakness began yesterday afternoon at about 3:30 PM. She says it was sudden in onset. She did not notice any worsening of her headache at that time. The patient denies any history of migraine headaches. In addition to the left-sided weakness, the patient has slurring of her speech and some mild difficulty swallowing. At the time of the evaluation, the patient reports that her headache has resolved. The patient denies any changes in vision. She denies numbness and tingling in her extremities. In the emergency department, CT scan of the brain was performed. It was negative for acute hemorrhage and infarct. CT angiogram of the head and neck was negative for significant stenosis and large vessel occlusion. Past Medical History Past Medical History: Chest Pain / Angina, Heart Failure, COPD, CVA/TIA, Dementia, GERD/Reflux, Hyperlipidemia, Hypertension, Mitral Valve Prolapse (MVP) Additional Past Medical History / Comment(s): heart murmur, "beginning of dementia", "MRI in past showed old stroke, but they don't know when." History of Any Multi-Drug Resistant Organisms: None Reported Past Surgical History: Back Surgery, Bladder Surgery, Cardiac Valve Replacement, Cholecystectomy, Heart Catheterization, Hysterectomy, Joint Replacement, Orthopedic Surgery, Tubal Ligation Additional Past Surgical History / Comment(s): aortic valve replacement 2009, left breast biopsy-neg, oopherectomy, left knee replacement, juan, rt breast bx neg., right ORIF from knee to hip 2019 Past Anesthesia/Blood Transfusion Reactions: No Reported Reaction Additional Past Anesthesia/Blood Transfusion Reaction / Comment(s): Hx of blood transfusion 2009-no reaction., pt. adopted Past Psychological History: Anxiety, Bipolar, Depression Smoking Status: Current some day smoker Past Alcohol Use History: None Reported Additional Past Alcohol Use History / Comment(s): started at age 15 trying to quit smoking and is down to 3 cigarettes/day, (hx of 1.5ppd) Past Drug Use History: None Reported - Past Family History Mother History Unknown: Yes Additional Family Medical History / Comment(s): Patient states she was adopted. Medications and Allergies Home Medications Medication Instructions Recorded Confirmed Type Memantine HCl [Namenda Xr] 28 mg PO DAILY 12/06/17 09/08/24 History Gabapentin [Neurontin] 300 mg PO TID 01/10/18 09/08/24 History Fluticasone/Vilanterol [Breo 1 puff INHALATION RT-DAILY 01/31/20 09/08/24 History Ellipta 200-25 Mcg Inhaler] Ergocalciferol (Vitamin D2) 1,250 mcg PO SA 07/28/22 09/08/24 History [Drisdol (50,000 Iu)] Ezetimibe [Zetia] 10 mg PO DAILY 07/28/22 09/08/24 History Levothyroxine Sodium [Synthroid] 25 mcg PO MOTUWETHFR 07/28/22 09/08/24 History Metoprolol Succinate (ER) [Toprol 25 mg PO DAILY 07/28/22 09/08/24 History XL] Sertraline [Zoloft] 150 mg PO DAILY 07/28/22 09/08/24 History Pantoprazole Sodium [Protonix] 40 mg PO DAILY 12/01/22 09/08/24 History lamoTRIgine [LaMICtal] 200 mg PO DAILY 12/01/22 09/08/24 History Levothyroxine Sodium [Synthroid] 50 mcg PO SUSA 03/03/23 09/08/24 History Clopidogrel [Plavix] 75 mg PO DAILY 05/21/23 09/08/24 History Brexpiprazole [Rexulti] 0.5 mg PO HS 03/12/24 09/08/24 History Sennosides [Senokot] 8.6 mg PO BID PRN 07/03/24 09/08/24 History Tiotropium 2.5 Mcg/Puff [Spiriva 2 puff INHALATION RT-DAILY 07/03/24 09/08/24 H istory Respimat 2.5 Mcg] Ranolazine [Ranexa] 1,000 mg PO Q12HR 09/08/24 09/08/24 History Rosuvastatin [Crestor] 20 mg PO DAILY 09/08/24 09/08/24 History lisinopriL [Zestril] 5 mg PO DAILY 09/08/24 09/08/24 History Allergies Allergy/AdvReac Type Severity Reaction Status Date / Time fentanyl Allergy Rash/Hives Verified 09/08/24 19:39 niacin Allergy Dyspnea,barbara Verified 09/08/24 19:39 h Physical Examination - Vital Signs Vital Signs: Vital Signs Temp Pulse Pulse Resp BP BP Pulse Ox 09/09/24 06:55 98.2 F 60 14 123/67 95 09/09/24 02:00 97.8 F 61 18 135/73 95 09/08/24 23:45 97.5 F L 60 18 176/82 97 09/08/24 22:00 51 L 15 141/63 95 09/08/24 21:00 54 L 18 152/76 96 09/08/24 20:00 53 L 16 149/72 97 09/08/24 19:30 54 L 15 155/82 97 09/08/24 18:34 53 L 16 97 09/08/24 18:20 97.9 F 54 L 16 181/85 96 Intake and Output 09/08/24 09/09/24 09/09/24 22:59 06:59 14:59 Output Total 999 Balance -999 Output: Post Void Residual 999 Other: Weight 65.317 kg 65.317 kg General: Patient is reclining in the bed. She is well-nourished, well-developed and in no acute distress. HEENT: Head is atraumatic, normocephalic. Fundus not visualized. There is no scleral icterus. Mucous membranes are moist. Neck: Supple without carotid bruits Heart: Regular rate rhythm Lungs: Clear to auscultation Extremities: Without edema Neurological examination Mental status: Patient is awake, alert and oriented x 3. Speech is dysarthric, but intelligible. The patient is able to accurately repeat phrases. She is able to name objects. There is no aphasia. Cranial nerves: Pupils are equal at 4 mm and reactive. Visual estrada are full to confrontation. Extraocular movements are intact. There is no nystagmus. Facial sensation is is diminished in the left V2 distribution. There is a left facial droop. Hearing is diminished. Uvula and palate are midline. Shoulder shrug is symmetric. Tongue protrudes midline. Motor: Strength-(R/L) receivable clerk 5/3. Triceps 5/4. Biceps 5/5. The flexors 5/4. Ankle plantar and dorsiflexors 5/5. Coordination: [id number] testing is intact. There is slowing of left-sided rapid alternating movements. There is no pronator drift. Qrzy-oc-pdlw testing is intact on the right. Sensation: There is diminished light touch sensation in involving the left upper and lower extremities. There is no extinction with double simultaneous stimulation. Deep tendon reflexes: 2+/4+ throughout. Plantar responses are flexor bilaterally. Gait: Not assessed Results CT scan of the brain images have been personally reviewed. I agree with the radiology report. - Laboratory Findings CBC and BMP: 09/09/24 05:25 09/09/24 05:25 Abnormal Lab Findings: Abnormal Labs 09/08/24 09/09/24 20:01 05:25 WBC 3.94 L 3.65 L RBC 3.95 L 3.77 L Hgb 11.2 L 10.7 L Hct 35.0 L 33.6 L MCHC 31.8 L Plt Count 126 L 130 L Assessment and Plan Assessment: 1. The patient is a very pleasant lady with left sided weakness and paresthesias involving face arm and leg. Her symptoms and signs on examination are consistent with a right middle cerebral artery territory infarction 2. History of previous stroke 3. History of hypertension 4. History of dementia Plan: 1. Stroke order set should be placed including, lipid panel, hemoglobin A1c, TSH, 2D echocardiogram, PT, OT and speech therapy consultations 2. The patient should be started on a high intensity statin 3. Aspirin 81 mg should be initiated 4. MRI of the brain has been ordered to further evaluate for cerebral ischemia 5. Avoid narcotics, sedatives and benzodiazepines in this older adult with a history of dementia Thank you for allowing us to participate in the care of this patient Time with Patient: Greater than 30 (60 minutes were spent caring for this patient today including, obtaining history, examining the patient, reviewing imaging, chart documentation, labs, placing orders and creating this note)
[2024-09-09] MEDS: ACETAMINOPHEN TAB 325 MG TAB PO PRN (19:45)
[2024-09-09] MEDS: NON FORMULARY DRUG (Brexpiprazole [Rexulti] 0.5 MG Tablet) PO SCH (20:43)
[2024-09-10] MEDS: ENOXAPARIN 40 MG/0.4 ML SYRINGE SQ SCH (09:13)
[2024-09-10] MEDS: ASPIRIN 81 MG PO SCH (09:15)
--- NOTE | 2024-09-10 10:56 | P.PN ---
Subjective 69-year-old male with known history of CVA and left-sided weakness came in with increased left-sided weakness. Patient has 4/5 strength in the left upper extremity patient also has speech abnormality as well as a numbness on the left side of the face as well as facial droop. Patient had a CT of the head and CT angio of the head both of which did not show any significant abnormality. Patient was evaluated neurology echocardiogram was ordered PT and OT evaluation ordered. Patient blood pressure is within normal limits patient takes lisinopril at home. 09/10/2024 Patient is clinically doing well ambulating by herself. Awaiting MRI REVIEW OF SYSTEMS: All other systems are negative except those mentioned in the HPI PHYSICAL EXAMINATION: GENERAL: The patient is alert and oriented x3, not in any acute distress. Well developed, well nourished. HEENT: Pupils are round and equally reacting to light. EOMI. No scleral icterus. No conjunctival pallor. Normocephalic, atraumatic. No pharyngeal erythema. No thyromegaly. CARDIOVASCULAR: S1 and S2 present. No murmurs, rubs, or gallops. PULMONARY: Chest is clear to auscultation, no wheezing or crackles. ABDOMEN: Soft, nontender, nondistended, normoactive bowel sounds. No palpable organomegaly. MUSCULOSKELETAL: No joint swelling or deformity. EXTREMITIES: No cyanosis, clubbing, or pedal edema. NEUROLOGICAL: Pressures as mentioned in the HPI SKIN: No rashes. Assessment and plan - cerebrovascular accident involving left side of the body: Physical therapy Occupational Therapy evaluation as mentioned above. Echocardiogram will be obtained neurology evaluated the patient patient is presently on dual antiplatelet therapy which has been continued. Patient was on Plavix at home. -Hypertension - Hypothyroidism - Peripheral neuropathy - Hyperlipidemia - Vascular dementia mild - COPD: Presently not in acute exacerbation -History of mitral valve prolapse --Bipolar disorder for which patient is on Lamictal DVT prophylaxis: Lovenox Objective - Vital Signs Vital signs: Vital Signs Temp 97.7 F 09/10/24 06:40 Pulse 81 09/10/24 06:40 Resp 16 09/10/24 06:40 BP 163/74 09/10/24 06:40 Pulse Ox 97 09/10/24 06:40 FiO2 Intake & Output 09/09/24 09/10/24 09/10/24 18:59 06:59 18:59 Intake Total 222 240 Balance 222 240 Intake: Oral 222 240 Other: # Voids 4 2 # Bowel Movements 0 - Labs CBC & Chem 7: 09/09/24 05:25 09/09/24 05:25 Labs: Abnormal Lab Results - Last 24 Hours (Table) 09/09/24 Range/Units 05:25 HDL Cholesterol 38.00 L (40.00-60.00) mg/dL
--- NOTE | 2024-09-10 14:59 | P.PN ---
Subjective Progress Note Date: 09/10/24 The patient is a 69-year-old female who was seen in neurologic follow-up on September 10, 2024, in collaboration with Crystal Casiano, via teleneurology. The patient reports she feels as if she is feeling somewhat better today. She feels her speech is improved somewhat. She continues to have left-sided weak ness. Objective - Vital Signs Vital signs: Vital Signs Temp 97.7 F 09/10/24 06:40 Pulse 81 09/10/24 06:40 Resp 16 09/10/24 06:40 BP 163/74 09/10/24 06:40 Pulse Ox 97 09/10/24 06:40 FiO2 Intake & Output 09/09/24 09/10/24 09/10/24 18:59 06:59 18:59 Intake Total 222 240 Balance 222 240 Intake: Oral 222 240 Other: # Voids 4 2 # Bowel Movements 0 - Exam General: Patient is seated in the bed. She is well-nourished, well-developed and in no acute distress. HEENT: Head is atraumatic, normocephalic. Fundus not visualized. There is no scleral icterus. Mucous membranes are moist. Neck: Supple without carotid bruits Heart: Regular rate rhythm Lungs: Clear to auscultation Extremities: Without edema Neurological examination Mental status: Patient is awake, alert and oriented x 3. Speech is dysarthric, but intelligible. The patient is able to accurately repeat phrases. She is able to name objects. There is no aphasia. Cranial nerves: Pupils are equal at 4 mm and reactive. Visual estrada are full to confrontation. Extraocular movements are intact. There is no nystagmus. Facial sensation is is diminished in the left V2 distribution. There is a left facial droop. Hearing is diminished. Uvula and palate are midline. Shoulder shrug is symmetric. Tongue protrudes midline. Motor: Strength-(R/L) Manufacturing Advisor 5/3. Triceps 5/4. Biceps 5/5. Hip flexors 5/4. Ankle plantar and dorsiflexors 5/5. - Labs CBC & Chem 7: 09/09/24 05:25 09/09/24 05:25 Labs: Abnormal Lab Results - Last 24 Hours (Table) 09/09/24 Range/Units 05:25 HDL Cholesterol 38.00 L (40.00-60.00) mg/dL Assessment and Plan Assessment: 1. The patient is a very pleasant lady with left sided weakness and paresthesias involving face arm and leg. Her symptoms and signs on examination are consistent with a right middle cerebral artery territory infarction 2. History of previous stroke 3. History of hypertension 4. History of dementia Plan: 1. Stroke order set should be placed including, lipid panel, hemoglobin A1c, TSH, 2D echocardiogram, PT, OT and speech therapy consultations 2. Agree with atorvastatin 40 mg as the patient's LDL cholesterol is 63 3. Aspirin 81 mg should be initiated 4. MRI of the brain is pending at this time 5. Avoid narcotics, sedatives and benzodiazepines in this older adult with a history of dementia Dr. Bright will assume neurologic coverage of this patient as of September 11, 2024 Time with Patient: Less than 30 (25 minutes were spent caring for this patient today including, obtaining an interim history, examining the patient, reviewing imaging, chart documentation and creating this note)
[2024-09-11] MEDS: LEVOTHYROXINE 25 MCG TAB PO SCH (06:14)
[2024-09-11 07:45] VITALS: RESP 16
[2024-09-11] MEDS: ALPRAZolam 0.25 MG TAB PO STA (11:43)
--- NOTE | 2024-09-11 11:53 | CA ---
Transthoracic Echo Report Name: Radha Gramajo Age: 69 Gender: F : 1955 Exam Date: 09/11/2024 09:11 Exam Location: [facility] Ht (in): 63 Wt (lb): 144 Ordering Physician: Wendy Aldridge DO Attending/Referring Phys: Cafe Team Member Wilmer Mayberry RDCS Procedure CPT: Indications: CVA Cardiac Hx: Av replacement, COPD, CVA/TIA, Technical Quality: Fair Contrast 1: Agitated Saline Total Dose (mL): 10 Contrast 2: Total Dose (mL): MEASUREMENTS (Male / Female) Normal Values 2D ECHO LV Diastolic Diameter PLAX 4.9 cm 4.2 - 5.9 / 3.9 - 5.3 cm LV Systolic Diameter PLAX 3.8 cm IVS Diastolic Thickness 1.2 cm 0.6 - 1.0 / 0.6 - 0.9 cm LVPW Diastolic Thickness 1.2 cm 0.6 - 1.0 / 0.6 - 0.9 cm LV Relative Wall Thickness 0.5 RV Internal Dim ED PLAX 3.2 cm LVOT Diameter 1.1 cm LA Systolic Diameter LX 4.7 cm 3.0 - 4.0 / 2.7 - 3.8 cm LV Diastolic Volume MOD 4C 90.6 cm??? LV Systolic Volume MOD 4C 35.5 cm??? LV Ejection Fraction MOD 4C 60.9 % LV Diastolic Length 4C 7.4 cm LV Systolic Length 4C 5.8 cm LA Volume 103.0 cm??? 18 - 58 / 22 - 52 cm??? LA Volume Index 60.0 cm???/m??? 16 - 28 cm???/m??? DOPPLER AV Peak Velocity 351.5 cm/s AV Peak Gradient 49.4 mmHg AV Mean Velocity 268.5 cm/s AV Mean Gradient 31.6 mmHg AV Velocity Time Integral 80.7 cm LVOT Peak Velocity 197.6 cm/s LVOT Peak Gradient 15.6 mmHg LVOT Velocity Time Integral 41.4 cm LVOT Stroke Volume 42.6 cm??? LVOT Stroke Volume Index 25.3 ml/m??? AV Area Cont Eq vti 0.5 cm??? AV Area Cont Eq pk 0.6 cm??? MV Area PHT 2.6 cm??? Mitral E Point Velocity 102.0 cm/s Mitral A Point Velocity 83.1 cm/s Mitral E to A Ratio 1.2 MV Deceleration Time 287.9 ms TR Peak Velocity 225.5 cm/s TR Peak Gradient 20.3 mmHg Right Atrial Pressure 20.0 mmHg Pulmonary Artery Systolic Pressu 40.3 mmHg Right Ventricular Systolic Press 40.3 mmHg FINDINGS Left Ventricle Left ventricular ejection fraction is estimated at 55%. Normal Left ventricular size, systolic function with no obvious regional wall motion abnormalities. Mild concentric left ventricular hypertrophy. Right Ventricle Normal right ventricular size. Reduced right ventricular global systolic function. Mild pulmonary hypertension. Right ventricular systolic pressure estimated at 40 mm hg. Right Atrium Normal right atrial size. Negative agitated saline bubble study for right to left shunt. Left Atrium Severely increased left atrial diameter. Severely increased left atrial volume. Moderately increased left atrial area. Mitral Valve Mitral annular calcification. No mitral stenosis. Trace mitral regurgitation. Aortic Valve AV repacement, moderate aortic stenosis with a peak gradient of 52 mmHg and a mean gradient of 35 mmHg. Trace to mild aortic regurgitation. Tricuspid Valve Structurally normal tricuspid valve. No tricuspid stenosis. Trace tricuspid regurgitation. Pulmonic Valve Structurally normal pulmonic valve. No pulmonic stenosis. Trace pulmonic regurgitation. Pericardium No pericardial effusion. Aorta Aortic annulus normal. CONCLUSIONS Normal LV size and systolic function with mild concentric LVH. Mild pulmonary hypertension. Moderate aortic stenosis with mild aortic insufficiency, enlarged atria mild mitral and tricuspid regurgitation. No pericardial effusion. Bubble study is negative for [id number] shunt Previewed by: Dr. Alberto Salter MD (Electronically Signed) Final Date: 11 Sep 2024 11:52
--- NOTE | 2024-09-11 12:36 | P.PN ---
Subjective 69-year-old male with known history of CVA and left-sided weakness came in with increased left-sided weakness. Patient has 4/5 strength in the left upper extremity patient also has speech abnormality as well as a numbness on the left side of the face as well as facial droop. Patient had a CT of the head and CT angio of the head both of which did not show any significant abnormality. Patient was evaluated neurology echocardiogram was ordered PT and OT evaluation ordered. Patient blood pressure is within normal limits patient takes lisinopril at home. 09/10/2024 Patient is clinically doing well ambulating by herself. Awaiting MRI 09/11/2024 Patient is awaiting MRI. Physical therapy Occupational Therapy evaluated the patient and they are recommending outpatient home PT. Patient is already on a 20 mg of rosuvastatin which will be continued and aspirin was added to her regimen. Patient is already on Plavix. Neurology did not specify the duration of dual antiplatelet therapy. Patient will follow-up with neurology as an outpatient let them decide duration of dual antiplatelet therapy. Patient will be discharged today if cleared by neurology. REVIEW OF SYSTEMS: All other systems are negative except those mentioned in the HPI PHYSICAL EXAMINATION: GENERAL: The patient is alert and oriented x3, not in any acute distress. Well developed, well nourished. HEENT: Pupils are round and equally reacting to light. EOMI. No scleral icterus. No conjunctival pallor. Normocephalic, atraumatic. No pharyngeal erythema. No thyromegaly. CARDIOVASCULAR: S1 and S2 present. No murmurs, rubs, or gallops. PULMONARY: Chest is clear to auscultation, no wheezing or crackles. ABDOMEN: Soft, nontender, nondistended, normoactive bowel sounds. No palpable organomegaly. MUSCULOSKELETAL: No joint swelling or deformity. EXTREMITIES: No cyanosis, clubbing, or pedal edema. NEUROLOGICAL: Pressures as mentioned in the HPI SKIN: No rashes. Assessment and plan - cerebrovascular accident involving left side of the body: Physical therapy Occupational Therapy evaluation as mentioned above. Echocardiogram will be obtained neurology evaluated the patient patient is presently on dual antiplatelet therapy which has been continued. Patient was on Plavix at home. -Hypertension - Hypothyroidism - Peripheral neuropathy - Hyperlipidemia - Vascular dementia mild - COPD: Presently not in acute exacerbation -History of mitral valve prolapse --Bipolar disorder for which patient is on Lamictal DVT prophylaxis: Lovenox Objective - Vital Signs Vital signs: Vital Signs Temp 98.1 F 09/11/24 06:48 Pulse 61 09/11/24 06:48 Resp 16 09/11/24 06:48 BP 144/71 09/11/24 06:48 Pulse Ox 97 09/11/24 06:48 FiO2 Intake & Output 09/10/24 09/11/24 09/11/24 18:59 06:59 18:59 Intake Total 720 Balance 720 Intake: Oral 720 Other: Voiding Method Toilet # Voids 2 3 # Bowel Movements 0 - Labs CBC & Chem 7: 09/09/24 05:25 09/09/24 05:25
--- NOTE | 2024-09-11 12:37 | P.DS ---
Providers Date of admission: 09/08/24 21:51 Attending physician: Feliciano Hadley MD Consults: 09/08/24 21:57 Consult Physician Routine Consulting Provider: Mika Ramos Consult Reason/Comments: left sided weakness Do you want consulting provider notified?: Yes Primary care physician: [facility] Course: 69-year-old male with known history of CVA and left-sided weakness came in with increased left-sided weakness. Patient has 4/5 strength in the left upper extremity patient also has speech abnormality as well as a numbness on the left side of the face as well as facial droop. Patient had a CT of the head and CT angio of the head both of which did not show any significant abnormality. Patient was evaluated neurology echocardiogram was ordered PT and OT evaluation ordered. Patient blood pressure is within normal limits patient takes lisinopril at home. 09/10/2024 Patient is clinically doing well ambulating by herself. Awaiting MRI 09/11/2024 Patient is awaiting MRI. Physical therapy Occupational Therapy evaluated the patient and they are recommending outpatient home PT. Patient is already on a 20 mg of rosuvastatin which will be continued and aspirin was added to her regimen. Patient is already on Plavix. Neurology did not specify the duration of dual antiplatelet therapy. Patient will follow-up with neurology as an outpatient let them decide duration of dual antiplatelet therapy. Patient will be discharged today if cleared by neurology. PHYSICAL EXAMINATION: GENERAL: The patient is alert and oriented x3, not in any acute distress. Well developed, well nourished. HEENT: Pupils are round and equally reacting to light. EOMI. No scleral icterus. No conjunctival pallor. Normocephalic, atraumatic. No pharyngeal erythema. No thyromegaly. CARDIOVASCULAR: S1 and S2 present. No murmurs, rubs, or gallops. PULMONARY: Chest is clear to auscultation, no wheezing or crackles. ABDOMEN: Soft, nontender, nondistended, normoactive bowel sounds. No palpable organomegaly. MUSCULOSKELETAL: No joint swelling or deformity. EXTREMITIES: No cyanosis, clubbing, or pedal edema. NEUROLOGICAL: Pressures as mentioned in the HPI SKIN: No rashes. Assessment and plan - cerebrovascular accident involving left side of the body: Physical therapy Occupational Therapy evaluation as mentioned above. Still awaiting MRI echocardiogram was done which was within normal limits. Patient will be discharged on dual antiplatelet therapy patient will resume her rosuvastatin and Zetia. Follow-up with neurology and PCP as an outpatient -Hypertension - Hypothyroidism - Peripheral neuropathy - Hyperlipidemia - Vascular dementia mild - COPD: Presently not in acute exacerbation -History of mitral valve prolapse --Bipolar disorder for which patient is on Lamictal Patient Condition at Discharge: Stable Plan - Discharge Summary Discharge Rx Participant: No New Discharge Prescriptions: New Aspirin 81 mg PO DAILY #30 tab Continue Memantine HCl [Namenda Xr] 28 mg PO DAILY Gabapentin [Neurontin] 300 mg PO TID Fluticasone/Vilanterol [Breo Ellipta 200-25 Mcg Inhaler] 1 puff INHALATION RT-DAILY Ezetimibe [Zetia] 10 mg PO DAILY Metoprolol Succinate (ER) [Toprol XL] 25 mg PO DAILY Levothyroxine Sodium [Synthroid] 25 mcg PO MOTUWETHFR Sertraline [Zoloft] 150 mg PO DAILY lamoTRIgine [LaMICtal] 200 mg PO DAILY Levothyroxine Sodium [Synthroid] 50 mcg PO SUSA Ranolazine [Ranexa] 1,000 mg PO Q12HR Ergocalciferol (Vitamin D2) [Drisdol (50,000 Iu)] 1,250 mcg PO SA Pantoprazole Sodium [Protonix] 40 mg PO DAILY Clopidogrel [Plavix] 75 mg PO DAILY Brexpiprazole [Rexulti] 0.5 mg PO HS Tiotropium 2.5 Mcg/Puff [Spiriva Respimat 2.5 Mcg] 2 puff INHALATION RT-DAILY Sennosides [Senokot] 8.6 mg PO BID PRN PRN Reason: Constipation lisinopriL [Zestril] 5 mg PO DAILY Rosuvastatin [Crestor] 20 mg PO DAILY Discharge Medication List Memantine HCl [Namenda Xr] 28 mg PO DAILY 12/06/17 [History] Gabapentin [Neurontin] 300 mg PO TID 01/10/18 [History] Fluticasone/Vilanterol [Breo Ellipta 200-25 Mcg Inhaler] 1 puff INHALATION RT- DAILY 01/31/20 [History] Ergocalciferol (Vitamin D2) [Drisdol (50,000 Iu)] 1,250 mcg PO SA 07/28/22 [History] Ezetimibe [Zetia] 10 mg PO DAILY 07/28/22 [History] Levothyroxine Sodium [Synthroid] 25 mcg PO MOTUWETHFR 07/28/22 [History] Metoprolol Succinate (ER) [Toprol XL] 25 mg PO DAILY 07/28/22 [History] Sertraline [Zoloft] 150 mg PO DAILY 07/28/22 [History] Pantoprazole Sodium [Protonix] 40 mg PO DAILY 12/01/22 [History] lamoTRIgine [LaMICtal] 200 mg PO DAILY 12/01/22 [History] Levothyroxine Sodium [Synthroid] 50 mcg PO SUSA 03/03/23 [History] Clopidogrel [Plavix] 75 mg PO DAILY 05/21/23 [History] Brexpiprazole [Rexulti] 0.5 mg PO HS 03/12/24 [History] Sennosides [Senokot] 8.6 mg PO BID PRN 07/03/24 [History] Tiotropium 2.5 Mcg/Puff [Spiriva Respimat 2.5 Mcg] 2 puff INHALATION RT-DAILY 07/03/24 [History] Ranolazine [Ranexa] 1,000 mg PO Q12HR 09/08/24 [History] Rosuvastatin [Crestor] 20 mg PO DAILY 09/08/24 [History] lisinopriL [Zestril] 5 mg PO DAILY 09/08/24 [History] Aspirin 81 mg PO DAILY #30 tab 09/11/24 [Rx] Follow up Appointment(s)/Referral(s): Marielos Harris MD [REFERRING] - 1 Week Gabe Cisneros DO [Primary Care Provider] - 3 Days Discharge Disposition: HOME WITH HOME HEALTH SERVICES
--- NOTE | 2024-09-11 13:44 | MR ---
EXAMINATION TYPE: MR brain wo con DATE OF EXAM: 09/11/2024 1:09 PM COMPARISON: 03/15/2023. CLINICAL INDICATION: Female, 69 years old with history of CVA; neurological deficit. TECHNIQUE: Multi planar, multi sequence imaging was performed through the brain including: T1, T2, In version recovery, Diffusion weighted imaging, and gradient echo imaging. No gadolinium was given. FINDINGS: The holt-white junctions, ventricular system, basal cisterns appear unremarkable. Scattered foci of high T2 signal intensity are seen within the periventricular white matter. Midline structures show n o abnormality. Diffusion-weighted imaging shows no evidence of restricted diffusion. Stable susceptib ility weighted imaging blooming artifact in the right frontal lobe laterally and more medially The bone marrow signal is within normal limits. Paranasal sinuses and mastoid air cells: Left mastoid air cell effusion. Visualized orbits: Orbital contents are intact. IMPRESSION: 1. No evidence of intracranial mass or acute/subacute infarct. 2. Nonspecific white matter changes, likely secondary to small vessel ischemic disease. 3. Trace left mastoid air cell effusion. [facility], , 09/11/2024 1:41 PM
[2024-09-11 15:49] VITALS: BP 123/75; PULSE 70; TEMP 98.3
--- NOTE | 2024-09-11 16:21 | P.PN ---
Subjective Progress Note Date: 09/11/24 Patient was initially seen by Dr. Aldridge. Please refer to her note for details. Patient is a 69-year-old female with left-sided weakness and dysarthria. CT head was negative. Patient was seen for follow-up. Patient is laying comfortably in the bed. Patient denies any history of alcoholism. Patient has smoked since age 15. She started out with half pack per day, then by age 18 was up to 1 pack/day and by age 33, smoking 1-1/2 pack/day. Just in the last 1 year, she has cut back to smoking 3 cigarettes/day. Objective - Vital Signs Vital signs: Vital Signs Temp 98.3 F 09/11/24 15:19 Pulse 70 09/11/24 15:19 Resp 16 09/11/24 15:19 BP 123/75 09/11/24 15:19 Pulse Ox 97 09/11/24 06:48 FiO2 Intake & Output 09/10/24 09/11/24 09/11/24 18:59 06:59 18:59 Intake Total 720 Balance 720 Intake: Oral 720 Other: Voiding Method Toilet # Voids 2 3 2 # Bowel Movements 0 - Exam On examination patient's mental status, speech and language functions are normal. Cranial nerves are normal. Visual estrada are full, extraocular muscles are intact, face is symmetric and tongue protrudes to midline. On muscle strength testing there is no pronator drift and the strength is normal in arms and legs. Sensory touch is equal with no neglect. Patient has mild ataxia for [id number] testing on the left. Also has ataxia for [id number]-[id number] testing, left more than right. Reflexes are 1+ to 2+ and plantars downgoing. - Labs CBC & Chem 7: 09/09/24 05:25 09/09/24 05:25 Assessment and Plan Assessment: 1. The patient is a very pleasant lady with left sided weakness and paresthesias involving face arm and leg. Her symptoms and signs on examination are consistent with a right middle cerebral artery territory infarction 2. History of previous stroke, involving left parietal region (tiny) 03/15/2023 3. History of hypertension 4. History of dementia 5. Tobacco use Plan: 1. Patient underwent stroke workup. Although she has current evidence of left- sided ataxia, but the MRI of the brain did not show any acute stroke. 2. Lipid panel with cholesterol 126, LDL 63, HDL 38 and triglycerides 124. Agree with atorvastatin 40 mg as inpatient. Continue Crestor 20 mg daily at home. 3. Patient was taking Plavix 75 mg daily at home. Aspirin [address] Aldridge. Continue DAPT at least for 30 days and then may stop aspirin (unless recommended by dance therapist outpatient). However she needs to continue Plavix indefinitely. 4. MRI of the brain revealed no evidence of intracranial mass or acute/subacute infarct. Nonspecific white matter changes, likely secondary to small vessel ischemic disease. Trace left mastoid air cell effusion. I personally reviewed MRI, agree with the findings. 5. 2D echo revealed normal LV size and systolic function with mild concentric LVH. LVEF 55%. No obvious regional wall motion abnormalities. Reduced right ventricular global systolic function. Mild pulmonary hypertension. Normal right atrial size. Negative agitated saline bubble study for [id number]-[id number]-dirh shunt. Severely increased left atrial diameter. AV replacement bioprosthetic, moderate aortic stenosis. 6. TSH 0.602, Hemoglobin A1c 5.3 which is normal. 7. CT angio of head and neck revealed no evidence of dissection of the cervical internal carotid arteries or vertebral arteries. No evidence of significant stenosis at the carotid bifurcation. No evidence of intracranial high-grade stenosis or intracranial aneurysm. 8. Recommend complete tobacco cessation. 9. PT, OT and speech therapy consultations initiated. 10. Consider 30-day event monitoring outpatient rule out PAF. Follow-up with Dr. Garvin outpatient. 11. B12, folate. 12. Neurologically clear for discharge.
== END 2024-09-11 17:19 | disposition home health service (06) ==
LOC: EC 17:37 → 6NMEDSUR 21:50 → INTOOBSV 21:51 → OBSVTOIN 21:51 → 6NMEDSUR 22:26
PROVIDERS: ADMIT Internal Medicine; ATTEND Internal Medicine
DX: R53.1 Weakness (principal); R47.1 Dysarthria and anarthria; R13.10 Dysphagia, unspecified; R29.810 Facial weakness; I69.354 Hemiplegia and hemiparesis following cerebral infarction affecting left non-dominant side; I11.0 Hypertensive heart disease with heart failure; I50.9 Heart failure, unspecified; I34.1 Nonrheumatic mitral (valve) prolapse; F01.A3 Vascular dementia, mild, with mood disturbance; F01.A4 Vascular dementia, mild, with anxiety; G47.00 Insomnia, unspecified; K21.9 Gastro-esophageal reflux disease without esophagitis; E03.9 Hypothyroidism, unspecified; E78.5 Hyperlipidemia, unspecified; F17.210 Nicotine dependence, cigarettes, uncomplicated; F31.9 Bipolar disorder, unspecified; G62.9 Polyneuropathy, unspecified; Z79.82 Long term (current) use of aspirin; Z88.8 Allergy status to other drugs, medicaments and biological substances; Z88.5 Allergy status to narcotic agent; Z79.02 Long term (current) use of antithrombotics/antiplatelets; Z79.890 Hormone replacement therapy; Z79.899 Other long term (current) drug therapy; Z95.2 Presence of prosthetic heart valve; Z96.652 Presence of left artificial knee joint; Z79.51 Long term (current) use of inhaled steroids
CPT/HCPCS: 96360; 96361; 96372 ×2; 99285; 51798; 36415; 94640 ×5; 93005; 93306; 97162; 92610; 92523; 80053; 80048; 80061; 84443; 82607; 82746; 83605; 84484; 85025 ×2; 85610; 85730; 81003; 80306; 80320; 83036; 71046; 70496; 70450; 70498; 70551; G0378 ×4; J1650 ×2; Q9967

== ENCOUNTER 2024-10-03 15:27 | Inpatient (IN) | payer MEDICARE ==
[2024-10-03 15:37] LABS: Glucose,Whole Blood 95 mg/dL (70-110)
[2024-10-03] MEDS: SODIUM CHLORIDE 0.9% 1,000 ML IV STA (16:01)
--- NOTE | 2024-10-03 16:12 | CT ---
Head CT without contrast HISTORY: Code stroke protocol. COMPARISON: CT brain and spine dated 10/06/2023. TECHNIQUE: Multiple axial images were obtained from the skull base to vertex without the use of IV co ntrast FINDINGS: The ventricles, basal cisterns and sulci over convexities are within normal limits and there is no ma ss effect or shift of midline structures. No abnormal density is seen throughout the brain parenchyma. There is no acute intra or extra-axial h emorrhage. The posterior fossa including the brainstem, fourth ventricle and cerebellopontine angles appear norm al. The intraorbital contents appear normal and symmetric. Visualized paranasal sinuses and mastoid air cells are well aerated. The calvarium is intact. IMPRESSION: 1. No acute bleed or mass effect. 2. No significant abnormality seen. [facility], , 10/03/2024 4:10 PM
[2024-10-03] MEDS: diphenhydrAMINE 50 MG/ML 1 ML VIAL IVP STA (16:19)
[2024-10-03] MEDS: METOCLOPRAMIDE 5 MG/ML 2 ML VIAL IVP STA (16:19)
[2024-10-03 16:20] LABS: Basophils # (A) 0.03 10*3/uL (0.00-0.10); Basophils % (A) 0.6 %; Eosinophils # (A) 0.14 10*3/uL (0.04-0.35); Eosinophils % (A) 2.6 %; HGB 11.6 g/dL (12.0-15.0); Lymphocytes % (A) 33.4 %; MCH 27.9 pg (27.0-32.0); MCHC 32.2 g/dL (32.0-37.0); MCV 86.5 fL (80.0-97.0); Mean Platelet Volume 11.9 fL (9.5-12.2); Monocytes # (A) 0.57 10*3/uL (0.20-1.00); Monocytes % (A) 10.6 %; Neutrophils # (A) 2.85 10*3/uL (1.80-7.70); Neutrophils % (A) 52.8 %; Platelet Count 165 10*3/uL (140-440); RBC 4.16 10*6/uL (4.10-5.20); RDW 14.6 % (11.5-14.5); WBC 5.39 10*3/uL (4.50-10.00)
[2024-10-03 16:21] LABS: ALT 17 U/L (4-34); AST 26 U/L (14-36); African American GFR (CKD) >90 (>60 ml/min/1.73 sqM); Alkaline Phosphatase 73 U/L (38-126); Anion Gap 7 mmol/L; Blood Urea Nitrogen 7 mg/dL (7-17); Calcium 9.1 mg/dL (8.4-10.2); Carbon Dioxide 28 mmol/L (22-30); Chloride 101 mmol/L (98-107); Creatine Kinase 174 U/L (30-135); Glucose 81 mg/dL (74-99); Non-African American GFR(CKD) 89 (>60 ml/min/1.73 sqM); Potassium 3.9 mmol/L (3.5-5.1); Sodium 136 mmol/L (137-145); Total Bilirubin 0.5 mg/dL (0.2-1.3); Total Protein 7.2 g/dL (6.3-8.2)
[2024-10-03 16:30] LABS: INR 0.9 (<1.2); Partial Thromboplastin Time 23.1 sec (22.0-30.0); Prothrombin Time 10.6 sec (10.0-12.5)
--- NOTE | 2024-10-03 16:34 | XR ---
EXAMINATION TYPE: XR chest 2V DATE OF EXAM: 10/03/2024 4:16 PM COMPARISON: 09/08/2024 CLINICAL INDICATION: Female, 69 years old with history of altered mental status, TECHNIQUE: XR chest 2V view(s) obtained. FINDINGS: The heart size is mildly prominent. The pulmonary vasculature is prominent. There is some mild diffuse increased lung markings. Consider early congestive heart failure. Follow-u p can be performed.. IMPRESSION: 1. Clinical correlation recommended for mild congestive heart failure. [facility], , 10/03/2024 4:32 PM
--- NOTE | 2024-10-03 16:36 | ED ---
General Adult HPI - General Chief complaint: Neuro Symptoms/Deficit Stated complaint: L side Weakness Time Seen by Provider: 10/03/24 15:38 Source: patient, EMS, RN notes reviewed, old records reviewed Mode of arrival: EMS Limitations: physical limitation - History of Present Illness Initial comments: Patient is a 69-year-old female presents emergency department complaining of left-sided weakness. Patient has a recent history of a presentation for similar complaints approximately 3 weeks ago. At that time, was discharged home on September 11 with continued left-sided weakness and paresthesias involving the face arm and leg on the left. Symptoms were consistent with a right MCA territory infarct however workup and imaging negative at that time. Was discharged home. Apparently now has to ambulate with a walker at home, and began having improvement of her symptoms. States she has improvement of her left-sided facial droop however this morning at approximately 10:30 AM she started noticing the facial droop worse. She states yesterday afternoon at 4 PM she started noticing left-sided lower extremity weakness worse. She at baseline since the previous presentation has left-sided weakness but she states that the left-sided lower extremity started getting worse yesterday in terms of weakness and dragging, worse than baseline. Since then has had worsening of her left-sided symptoms that were present 3 weeks ago. Is on Plavix. Denies any head injuries. Denies any other acute complaints at this time. Presents for further evaluation at this time. Does endorse a mild headache as well as some mild nausea but no chest pain or shortness of breath. Denies any abdominal pain. Presents for further evaluation. - Related Data Home Medications Medication Instructions Recorded Confirmed Memantine HCl [Namenda Xr] 28 mg PO DAILY 12/06/17 10/03/24 Gabapentin [Neurontin] 300 mg PO TID 01/10/18 10/03/24 Fluticasone/Vilanterol [Breo 1 puff INHALATION RT-DAILY 01/31/20 10/03/24 Ellipta 200-25 Mcg Inhaler] Ergocalciferol (Vitamin D2) 1,250 mcg PO SA 07/28/22 10/03/24 [Drisdol (50,000 Iu)] Ezetimibe [Zetia] 10 mg PO DAILY 07/28/22 10/03/24 Levothyroxine Sodium [Synthroid] 25 mcg PO MOTUWETHFR 07/28/22 10/03/24 Metoprolol Succinate (ER) [Toprol 25 mg PO DAILY 07/28/22 10/03/24 XL] Sertraline [Zoloft] 150 mg PO DAILY 07/28/22 10/03/24 Pantoprazole Sodium [Protonix] 40 mg PO DAILY 12/01/22 10/03/24 lamoTRIgine [LaMICtal] 200 mg PO DAILY 12/01/22 10/03/24 Levothyroxine Sodium [Synthroid] 50 mcg PO SUSA 03/03/23 10/03/24 Clopidogrel [Plavix] 75 mg PO DAILY 05/21/23 10/03/24 Brexpiprazole [Rexulti] 0.5 mg PO HS 03/12/24 10/03/24 Sennosides [Senokot] 8.6 mg PO BID PRN 07/03/24 10/03/24 Tiotropium 2.5 Mcg/Puff [Spiriva 2 puff INHALATION RT-DAILY 07/03/24 10/03/24 Respimat 2.5 Mcg] Ranolazine [Ranexa] 1,000 mg PO Q12HR 09/08/24 10/03/24 Rosuvastatin [Crestor] 20 mg PO DAILY 09/08/24 10/03/24 lisinopriL [Zestril] 5 mg PO DAILY 09/08/24 10/03/24 Previous Rx's Medication Instructions Recorded Aspirin 81 mg PO DAILY #30 tab 09/11/24 Allergies Allergy/AdvReac Type Severity Reaction Status Date / Time fentanyl Allergy Rash/Hives Verified 10/03/24 17:18 niacin Allergy Dyspnea,barbara Verified 10/03/24 17:18 h Review of Systems ROS Statement: Those systems with pertinent positive or pertinent negative responses have been documented in the HPI. Review of Systems: CONST: Denies fever EYES: Denies blurry vision ENT: Denies nasal congestion C/V: Denies Chest pain RESP: Denies shortness of breath GI: Denies abdominal pain : Denies dysuria SKIN: Denies rash. MSK: Denies joint pain. NEURO: Endorses left-sided weakness, headache ROS Other: All systems not noted in ROS Statement are negative. Past Medical History Past Medical History: Chest Pain / Angina, Heart Failure, COPD, CVA/TIA, Dementia, GERD/Reflux, Hyperlipidemia, Hypertension, Memory Impairment, Mitral Valve Prolapse (MVP) Additional Past Medical History / Comment(s): heart murmur, "beginning of dementia",hx. insomnia, "I've had a stroke but they don't know when." "It's an old stroke." recent adm. for chest pain, thought to be related to valve problem History of Any Multi-Drug Resistant Organisms: None Reported Past Surgical History: Back Surgery, Bladder Surgery, Cardiac Valve Replacement, Cholecystectomy, Heart Catheterization, Hysterectomy, Joint Replacement, Orthop edic Surgery, Tubal Ligation Additional Past Surgical History / Comment(s): aortic valve replacement , left breast biopsy-neg, oopherectomy, left knee replacement, juan, rt breast bx neg., right ORIF from knee to hip 2019 Past Anesthesia/Blood Transfusion Reactions: No Reported Reaction Additional Past Anesthesia/Blood Transfusion Reaction / Comment(s): Hx of blood transfusion 2009-no reaction., pt. adopted Past Psychological History: Anxiety, Bipolar, Depression Smoking Status: Former smoker Past Alcohol Use History: None Reported Past Drug Use History: None Reported - Past Family History Mother History Unknown: Yes Additional Family Medical History / Comment(s): Patient states she was adopted. General Exam - General Exam Comments Initial Comments: General: Appears in no acute distress. HEAD: Normal with no signs of head trauma. EYES: PERRLA, EOMI, conjunctiva normal, no discharge. Pupils are 3 mm and equal bilaterally. ENT: Hearing grossly intact, normal oropharynx. RESPIRATORY: Clear breath sounds bilaterally. No wheezes, rales, or rhonchi. C/V: Regular rate and rhythm. S1 and S2 auscultated, no edema, peripheral pulses 2+ and intact throughout ABD: Abd is soft, nontender, nondistended EXT: Normal range of motion, no obvious deformity SKIN: No rashes or lesions observed on exposed skin. NEURO: Alert and oriented x 4. Last known well officially was at 1600 approximately or 1630 on 10/02/2024. The facial findings began today at doris roximately 10:30 AM. Overall last known well however was yesterday at 1630 which places her outside of tenecteplase window. NIH currently is approximately 4, however tough to know what is acute in terms of symptoms and what is new. She received 2 points for the left sided lower facial droop, 1 point for weakness in the left upper extremity and 1 point for weakness in left lower extremity. Limitations: physical limitation Course Vital Signs 10/03/24 10/03/24 10/03/24 15:29 16:03 16:25 Temperature 98.9 F Pulse Rate 63 57 L 59 L Respiratory 18 16 16 Rate Blood Pressure 145/67 140/56 138/71 O2 Sat by Pulse 96 98 98 Oximetry 10/03/24 10/03/24 16:47 17:38 Temperature Pulse Rate 57 L 56 L Respiratory 18 16 Rate Blood Pressure 165/73 137/62 O2 Sat by Pulse 99 97 Oximetry Medical Decision Making - Medical Decision Making Was pt. sent in by a medical professional or institution ([facility], PIGMENT PRESSER, urgent care, hospital, or fpc...) When possible be specific @ -No Did you speak to anyone other than the patient for history (EMS, parent, family, police, friend...)? What history was obtained from this source @ -No Did you review nursing and triage notes (agree or disagree)? Why? @ -I reviewed and agree with nursing and triage notes Were old charts reviewed (outside hosp., previous admission, EMS record, old EKG, old radiological studies, urgent care reports/EKG's, fpc records)? Report findings @ -Reviewed extensively chart from August 2024 which showed the discharging exam from neurology when patient had continued left-sided deficits and weakness as well as negative CT, CT angio, MRI at that time. Differential Diagnosis (chest pain, altered mental status, abdominal pain women, abdominal pain men, vaginal bleeding, weakness, fever, dyspnea, syncope, headache, dizziness, GI bleed, back pain, seizure, CVA, palpatations, mental health, musculoskeletal)? @ -Differential CVA Ischemic stroke, hemorrhagic stroke, brain tumor, atypical migraine, Wernicke's encephalopathy, seizure, multiple sclerosis, meningitis, encephalitis, hypoglycemia, Guillain-Miramontes, electrolytes disturbance, myasthenia gravis.... This is not meant to be an all-inclusive list EKG interpreted by me (3pts min.). @ -As above X-rays interpreted by me (1pt min.). @ -Chest x-ray shows no obvious acute cardiopulmonary process. CT interpreted by me (1pt min.). @ -CT brain reveals no evidence of acute intracranial process. U/S interpreted by me (1pt. min.). @ -None done What testing was considered but not performed or refused? (CT, X-rays, U/S, labs)? Why? @ -Considered CT a CT angiogram of the head and neck however after discussion with neurocritical care on-call Dr. Llanes, this was canceled as the previous CTA was negative. He recommended canceling it if there was no abnormalities on prior CTA. What meds were considered but not given or refused? Why? @ -Considered tenecteplase however patient is outside of the window as her symptoms did begin yesterday at physical therapy at approximately [id number]. This puts her outside of the window. Risks far outweigh benefits. Also u ncertainty around what is chronic symptoms and what is acute from prior presentation. Based on prior discharge, she was still having identical symptoms upon discharge at that time in early August. Did you discuss the management of the patient with other professionals (professionals i.e. , PA, PIGMENT PRESSER, lab, RT, psych nurse, social services technician, straight ruling machine operator, teacher, student officer, director of casework services)? Give summary @ -Discussed with neurocritical care on-call, Dr. Llanes who was in agreement that the symptoms seem to be chronic and was in agreement with the fact that patient is a code stroke and not a code tenecteplase. Patient is not a candidate for tenecteplase as risks outweigh benefits. He recommended canceling the CT angiogram if the prior CT angiogram was negative, and upon review it was negative and therefore CT angiogram was canceled. Recommended medical admission for medical management. Was smoking cessation discussed for >3mins.? @ -No Was critical care preformed (if so, how long)? @ -Yes, 33 minutes Were there social determinants of health that impacted care today? How? (Homelessness, low income, unemployed, alcoholism, drug addiction, transportation, low edu. Level, literacy, decrease access to med. care, [facility], rehab)? @ -No Was there de-escalation of care discussed even if they declined (Discuss DNR or withdrawal of care, Hospice)? DNR status @ -No What co-morbidities impacted this encounter? (DM, HTN, Smoking, COPD, CAD, Cancer, CVA, ARF, Chemo, Hep., AIDS, mental health diagnosis, sleep apnea, morbid obesity)? @ -Prior suspected CVA with residual left-sided weakness, paresthesias, facial droop Was patient admitted / discharged? Hospital course, mention meds given and rou te, prescriptions, significant lab abnormalities, going to OR and other pertinent info. @ -Based on patient's presentation and physical exam, presents with acute on chronic neurological symptoms. Was diagnosed with a stroke approximately 3 weeks ago however workup was negative. Ended up being discharged with left- sided weakness, facial droop, paresthesias in early August 2024. Has been ambulating with a walker since. Last known well was approximately 1600 yesterday, and she states that she began experiencing worsening left-sided lower extremity weakness at that time and has progressed to having some mild left- sided upper extremity weakness as well as left-sided facial droop. She states that her facial droop was improved and now it is back. States this started at 10:30 AM this morning. Last known well being 1600 yesterday, places her outside of the window for tenecteplase and therefore patient will not be administered tenecteplase as risk for outweigh benefits as well as being uncertain what his chronic since previous diagnosis last month and what is acute is patient is somewhat a poor historian regarding time periods for this. NIH is approximately 4 with a last known well of 1600 or 1630 yesterday however uncertain how much of the NIH is chronic versus acute. Therefore patient was made a code stroke. I did discuss all this with Dr. Llanes the neurocritical care physician on-call who was in agreement this plan and recommended canceling the CT angiogram with the CT angiogram last time was negative which it was. He agrees that patient is not a candidate for tenecteplase as risk for outweigh benefits. Patient was in agreement this plan. She does have a mild headache and will be given part of the migraine cocktail as well as IV fluids. Patient was in agreement this plan. EKG shows no signs of acute ischemia. CT brain returned negative for any obvious acute intracranial process. Patient given aspirin at this time. Chest x-ray unremarkable. Laboratory studies returned remarkable for no obvious acute process. On reevaluation, exam remains unchanged. I discussed with the patient and she will be admitted. She was given 325 mg of aspirin. Patient was admitted for neurology evaluation. She was in agreement this plan. I spoke with [facility] Prasad who accepted the admission. Undiagnosed new problem with uncertain prognosis? @ -No Drug Therapy requiring intensive monitoring for toxicity (Heparin, Nitro, Insulin, Cardizem)? @ -No Were any procedures done? @ -No Diagnosis/symptom? @ -Left-sided weakness, possible CVA Acute, or Chronic, or Acute on Chronic? @ -Acute on chronic Uncomplicated (without systemic symptoms) or Complicated (systemic symptoms)? @ -Complicated Side effects of treatment? @ -No Exacerbation, Progression, or Severe Exacerbation? @ -No Poses a threat to life or bodily function? How? (Chest pain, [place], [place], pneumonia, PE, COPD, DKA, ARF, appy, cholecystitis, CVA, Diverticulitis, Homicidal, Suicidal, threat to staff... and all critical care pts) @ -Yes - Lab Data Result diagrams: 10/03/24 15:55 10/03/24 15:55 Lab Results 10/03/24 10/03/24 10/03/24 Range/Units 15:35 15:55 15:55 WBC 5.39 (4.50-10.00) 10*3/uL RBC 4.16 (4.10-5.20) 10*6/uL Hgb 11.6 L (12.0-15.0) g/dL Hct 36.0 L (37.2-46.3) % MCV 86.5 (80.0-97.0) fL MCH 27.9 (27.0-32.0) pg MCHC 32.2 (32.0-37.0) g/dL Plt Count 165 (140-440) 10*3/uL MPV 11.9 (9.5-12.2) fL Immature Gran % (Auto) 0 % Neutrophils % 52.8 % Lymphocytes % 33.4 % Monocytes % 10.6 % Eosinophils % 2.6 % Basophils % 0.6 % Immature Gran # 0.00 (0.00-0.04) 10*3/uL Neutrophils # 2.85 (1.80-7.70) 10*3/uL Lymphocytes # 1.80 (0.90-5.00) 10*3/uL Monocytes # 0.57 (0.20-1.00) 10*3/uL Eosinophils # 0.14 (0.04-0.35) 10*3/uL Basophils # 0.03 (0.00-0.10) 10*3/uL PT 10.6 (10.0-12.5) sec INR 0.9 (<1.2) APTT 23.1 (22.0-30.0) sec Sodium (137-145) mmol/L Potassium (3.5-5.1) mmol/L Chloride (98-107) mmol/L Carbon Dioxide (22-30) mmol/L Anion Gap mmol/L BUN (7-17) mg/dL Creatinine (0.52-1.04) mg/dL Est GFR (CKD-EPI)AfAm (>60 ml/min/1.73 sqM) Est GFR (CKD-EPI)NonAf (>60 ml/min/1.73 sqM) Glucose (74-99) mg/dL POC Glucose (mg/dL) 95 (70-110) mg/dL POC Glu Architectural Practice Manager ID Whitman Lino Calcium (8.4-10.2) mg/dL Total Bilirubin (0.2-1.3) mg/dL AST (14-36) U/L ALT (4-34) U/L Alkaline Phosphatase (38-126) U/L Creatine Kinase (30-135) U/L Total Protein (6.3-8.2) g/dL Albumin (3.5-5.0) g/dL Urine Color Urine Appearance (Clear) Urine pH (5.0-8.0) Ur Specific [place] (1.001-1.035) Urine Protein (Negative) Urine Glucose (UA) (Negative) Urine Ketones (Negative) Urine Blood (Negative) Urine Nitrite (Negative) Urine Bilirubin (Negative) Urine Urobilinogen (<2.0) mg/dL Ur Leukocyte Esterase (Negative) Urine RBC (0-5) /hpf Urine WBC (0-5) /hpf Ur Squamous Epith Cells (0-4) /hpf Urine Bacteria (None) /hpf 10/03/24 10/03/24 Range/Units 15:55 17:48 WBC (4.50-10.00) 10*3/uL RBC (4.10-5.20) 10*6/uL Hgb (12.0-15.0) g/dL Hct (37.2-46.3) % MCV (80.0-97.0) fL MCH (27.0-32.0) pg MCHC (32.0-37.0) g/dL Plt Count (140-440) 10*3/uL MPV (9.5-12.2) fL Immature Gran % (Auto) % Neutrophils % % Lymphocytes % % Monocytes % % Eosinophils % % Basophils % % Immature Gran # (0.00-0.04) 10*3/uL Neutrophils # (1.80-7.70) 10*3/uL Lymphocytes # (0.90-5.00) 10*3/uL Monocytes # (0.20-1.00) 10*3/uL Eosinophils # (0.04-0.35) 10*3/uL Basophils # (0.00-0.10) 10*3/uL PT (10.0-12.5) sec INR (<1.2) APTT (22.0-30.0) sec Sodium 136 L (137-145) mmol/L Potassium 3.9 (3.5-5.1) mmol/L Chloride 101 (98-107) mmol/L Carbon Dioxide 28 (22-30) mmol/L Anion Gap 7 mmol/L BUN 7 (7-17) mg/dL Creatinine 0.67 (0.52-1.04) mg/dL Est GFR (CKD-EPI)AfAm >90 (>60 ml/min/1.73 sqM) Est GFR (CKD-EPI)NonAf 89 (>60 ml/min/1.73 sqM) Glucose 81 (74-99) mg/dL POC Glucose (mg/dL) (70-110) mg/dL POC Glu Architectural Practice Manager ID Calcium 9.1 (8.4-10.2) mg/dL Total Bilirubin 0.5 (0.2-1.3) mg/dL AST 26 (14-36) U/L ALT 17 (4-34) U/L Alkaline Phosphatase 73 (38-126) U/L Creatine Kinase 174 H (30-135) U/L Total Protein 7.2 (6.3-8.2) g/dL Albumin 4.0 (3.5-5.0) g/dL Urine Color Colorless Urine Appearance Clear (Clear) Urine pH 7.0 (5.0-8.0) Ur Specific [place] 1.003 (1.001-1.035) Urine Protein Negative (Negative) Urine Glucose (UA) Negative (Negative) Urine Ketones Negative (Negative) Urine Blood Negative (Negative) Urine Nitrite Negative (Negative) Urine Bilirubin Negative (Negative) Urine Urobilinogen <2.0 (<2.0) mg/dL Ur Leukocyte Esterase Trace H (Negative) Urine RBC <1 (0-5) /hpf Urine WBC 1 (0-5) /hpf Ur Squamous Epith Cells 1 (0-4) /hpf Urine Bacteria Rare H (None) /hpf - EKG Data -: EKG Interpreted by Me EKG Comments: 12-lead Electrocardiogram Interpretation Note EKG was reviewed and interpreted by myself. 12-lead ECG performed at 1550 is interpreted by me as revealing sinus bradycardia at a rate of 59 beats per minute. [place] is normal. CT interval is 151 ms, QRS duration is 91 ms, QTc is 416 ms. Isolated T wave inversion in lead III. Mildly in aVF as well. The seem chronic seen on EKG from August 2024. There were no acute ST or T wave abnormalities to suggest myocardial ischemia or injury. R wave progression across the precordium was satisfactory. By my interpretation this EKG is non- diagnostic for acute ischemia. Critical Care Time Critical Care Time: Yes Total Critical Care Time: 33 Disposition Clinical Impression: Cerebrovascular accident (CVA), Left-sided weakness Disposition: ADMITTED IP TO THIS [facility] Condition: Stable Referrals: Gabe Cisneros DO [Primary Care Provider] - 1-2 days Time of Disposition: 17:22
[2024-10-03] MEDS: ASPIRIN 325 MG TAB PO STA (16:45)
[2024-10-03 17:59] LABS: Appearance,Urine Clear (Clear); Bacteria,Urine Rare /hpf; Bilirubin,Urine Negative (Negative); Blood,Urine Negative (Negative); Color,Urine Colorless; Glucose,Urine (UA) Negative (Negative); Ketones,Urine Negative (Negative); Leukocyte Esterase,Urine Trace (Negative); Nitrite,Urine Negative (Negative); Protein,Urine Negative (Negative); RBC,Urine <1 /hpf (0-5); Specific Gravity,Urine 1.003 (1.001-1.035); Squamous Epithelial Cell,Urine 1 /hpf (0-4); Urobilinogen,Urine <2.0 mg/dL (<2.0); WBC,Urine 1 /hpf (0-5)
[2024-10-03] MEDS: RANOLAZINE 500 MG TAB.ER.12H PO SCH (22:41)
[2024-10-03] MEDS: GABAPENTIN 300 MG CAP PO SCH (22:41)
[2024-10-04] MEDS ORDERED: SENNOSIDES 8.6 MG TAB PO PRN (09:50)
[2024-10-04 10:41] LABS: Chol/HDL Ratio 2.73 Ratio; LDL Cholesterol,Calculated 74.8 mg/dL (0.0-131.0); VLDL Calculation 14.58 mg/dL (5.00-40.00)
[2024-10-04] MEDS: METOPROLOL SUCCINATE (ER) 25 MG TAB.ER.24H PO SCH (12:04)
[2024-10-04] MEDS: EZETIMIBE 10 MG TAB PO SCH (12:04)
[2024-10-04] MEDS: CLOPIDOGREL 75 MG TAB PO SCH (12:04)
[2024-10-04] MEDS: lamoTRIgine 100 MG TAB PO SCH (12:04)
[2024-10-04] MEDS: LEVOTHYROXINE 25 MCG TAB PO SCH (12:04)
--- NOTE | 2024-10-04 13:40 | P.HPIM ---
History of Present Illness H&P Date: 10/04/24 History of present illness; 69-year-old lady with past medical history significant for hypothyroidism, hypertension, hyperlipidemia presented the ER because of left-sided weakness. Patient was initially in the hospital 3 weeks back with similar symptoms at which time patient had workup done MRI at that time was negative for any acute stroke, her presentation was suggestive of right middle cerebral artery infarct. Patient at that time was discharged on aspirin and Plavix per neurology recommendations. Patient stated that at home she was doing well and her left-sided weakness had improved, she was ambulating with the help of walker. Yesterday around 4 PM she she started noticing that her left- sided weakness had worsened, more worse in the left lower extremity. There was no complaint of any facial droop. There was no complaint of slurred speech. There was no complaint of jerking movement in extremity, no complaint of loss of consciousness. Patient denies any chest pain. There is no complaint of shortness of breath. Patient denies any palpitation. There is no complaint of orthopnea or PND. Denies any nausea, vomiting abdominal pain. Patient denies any complaint of dizziness. There is no complaint of headache. Because of worsening left-sided weakness, patient came to the ER Initial lab work done in the ER showed RBC 5.39, hemoglobin 9.6, platelet count 165, sodium 133, potassium 3.9, BUN 7, creatinine 0.67 AST 26, ALT 70 UA negative for infection EKG done in the ER showed heart rate of 59 , no ST segment elevation or depression seen, no T-wave inversions seen. Chest x-ray done in the ER mild CHF CT head done showed no acute intracranial process Patient admitted to internal medicine service REVIEW OF SYSTEMS: CONSTITUTIONAL: No fever, no malaise, no fatigue. HEENT: No recent visual problems or hearing problems. Denied any sore throat. CARDIOVASCULAR: No chest pain, orthopnea, PND, no palpitations, no syncope. PULMONARY: No shortness of breath, no cough, no hemoptysis. GASTROINTESTINAL: No diarrhea, no nausea, no vomiting, no abdominal pain. NEUROLOGICAL: As mentioned above HEMATOLOGICAL: Denies any bleeding or petechiae. GENITOURINARY: Denies any burning micturition, frequency, or urgency. MUSCULOSKELETAL/RHEUMATOLOGICAL: Denies any joint pain, swelling, or any muscle pain. ENDOCRINE: Denies any polyuria or polydipsia. The rest of the 14-point review of systems is negative. PHYSICAL EXAMINATION: GENERAL: The patient is alert and oriented x3, not in any acute distress. Well developed, well nourished. HEENT: Pupils are round and equally reacting to light. EOMI. No scleral icterus. No conjunctival pallor. Normocephalic, atraumatic. No pharyngeal erythema. No thyromegaly. CARDIOVASCULAR: S1 and S2 present. No murmurs, rubs, or gallops. PULMONARY: Chest is clear to auscultation, no wheezing or crackles. ABDOMEN: Soft, nontender, nondistended, normoactive bowel sounds. No palpable organomegaly. MUSCULOSKELETAL: No joint swelling or deformity. EXTREMITIES: No cyanosis, clubbing, or pedal edema. NEUROLOGICAL: Cranial nerves II to XII intact, muscle strength is 4 x 5 in left side and 5 x 5 in right side SKIN: No rashes. Assessment and plan Left-sided weakness History of previous stroke involving left parietal region 03/15/2023 *Hypertension history of dementia Monitor vital signs Monitor CBC Monitor CMP Continue telemetry monitoring Ordered neurochecks Resume aspirin Plavix resume home meds No need for repeat CTA head and neck as patient had one done 3 weeks ago. No need for 2D echo because of recent 1 done 3 weeks ago Consult neurology Consult PT and OT Labs and medication were reviewed.. Continue same treatment. Continue with symptomatic treatment. Resume home medication. Monitor labs and vitals. DVT and GI prophylaxis. Further recommendations as per clinical course of the patient Dictation was produced using [employer] dictation software. please excuse any grammatical, word or spelling errors. Past Medical History Past Medical History: Chest Pain / Angina, Heart Failure, COPD, CVA/TIA, Dementia, GERD/Reflux, Hyperlipidemia, Hypertension, Memory Impairment, Mitral Valve Prolapse (MVP) Additional Past Medical History / Comment(s): heart murmur, "beginning of dementia",hx. insomnia, "I've had a stroke but they don't know when." "It's an old stroke." recent adm. for chest pain, thought to be related to valve problem History of Any Multi-Drug Resistant Organisms: None Reported Past Surgical History: Back Surgery, Bladder Surgery, Cardiac Valve Replacement, Cholecystectomy, Heart Catheterization, Hysterectomy, Joint Replacement, Orthopedic Surgery, Tubal Ligation Additional Past Surgical History / Comment(s): aortic valve replacement , left breast biopsy-neg, oopherectomy, left knee replacement, juan, rt breast bx neg., right ORIF from knee to hip 2019 Past Anesthesia/Blood Transfusion Reactions: No Reported Reaction Additional Past Anesthesia/Blood Transfusion Reaction / Comment(s): Hx of blood transfusion 2009-no reaction., pt. adopted Past Psychological History: Anxiety, Bipolar, Depression Smoking Status: Former smoker Past Alcohol Use History: None Reported Additional Past Alcohol Use History / Comment(s): Started at age 15, quit in August 2024 Past Drug Use History: None Reported - Past Family History Mother History Unknown: Yes Additional Family Medical History / Comment(s): Patient states she was adopted. Medications and Allergies Home Medications Medication Instructions Recorded Confirmed Type Memantine HCl [Namenda Xr] 28 mg PO DAILY 12/06/17 10/03/24 History Gabapentin [Neurontin] 300 mg PO TID 01/10/18 10/03/24 History Fluticasone/Vilanterol [Breo 1 puff INHALATION RT-DAILY 01/31/20 10/03/24 Histo ry Ellipta 200-25 Mcg Inhaler] Ergocalciferol (Vitamin D2) 1,250 mcg PO SA 07/28/22 10/03/24 History [Drisdol (50,000 Iu)] Ezetimibe [Zetia] 10 mg PO DAILY 07/28/22 10/03/24 History Levothyroxine Sodium [Synthroid] 25 mcg PO MOTUWETHFR 07/28/22 10/03/24 History Metoprolol Succinate (ER) [Toprol 25 mg PO DAILY 07/28/22 10/03/24 History XL] Sertraline [Zoloft] 150 mg PO DAILY 07/28/22 10/03/24 History Pantoprazole Sodium [Protonix] 40 mg PO DAILY 12/01/22 10/03/24 History lamoTRIgine [LaMICtal] 200 mg PO DAILY 12/01/22 10/03/24 History Levothyroxine Sodium [Synthroid] 50 mcg PO SUSA 03/03/23 10/03/24 History Clopidogrel [Plavix] 75 mg PO DAILY 05/21/23 10/03/24 History Brexpiprazole [Rexulti] 0.5 mg PO HS 03/12/24 10/03/24 History Sennosides [Senokot] 8.6 mg PO BID PRN 07/03/24 10/03/24 History Tiotropium 2.5 Mcg/Puff [Spiriva 2 puff INHALATION RT-DAILY 07/03/24 10/03/24 History Respimat 2.5 Mcg] Ranolazine [Ranexa] 1,000 mg PO Q12HR 09/08/24 10/03/24 History Rosuvastatin [Crestor] 20 mg PO DAILY 09/08/24 10/03/24 History lisinopriL [Zestril] 5 mg PO DAILY 09/08/24 10/03/24 History Aspirin 81 mg PO DAILY #30 tab 09/11/24 10/03/24 Rx Allergies Allergy/AdvReac Type Severity Reaction Status Date / Time fentanyl Allergy Rash/Hives Verified 10/03/24 17:18 niacin Allergy Dyspnea,barbara Verified 10/03/24 17:18 h Physical Exam Vitals: Vital Signs Temp Pulse Pulse Resp BP BP Pulse Ox 10/04/24 08:00 98.2 F 72 16 116/62 95 10/04/24 04:00 97.6 F 65 16 123/72 95 10/03/24 23:46 97.6 F 58 L 16 109/63 94 L 10/03/24 22:16 97.9 F 59 L 18 162/73 98 10/03/24 21:41 97.7 F 57 L 18 162/74 98 10/03/24 20:32 97.6 F 53 L 17 146/74 100 10/03/24 20:00 53 L 18 132/60 99 10/03/24 19:38 50 L 17 120/56 100 10/03/24 18:19 55 L 17 125/58 98 10/03/24 17:38 56 L 16 137/62 97 10/03/24 16:47 57 L 18 165/73 99 10/03/24 16:25 59 L 16 138/71 98 10/03/24 16:03 57 L 16 140/56 98 10/03/24 15:29 98.9 F 63 18 145/67 96 Intake and Output 06/03/25 06/04/25 06/04/25 22:59 06:59 14:59 Intake Total 356 Output Total 540 Balance -540 356 Intake: Oral 356 Output: Urine 540 Other: Voiding Method External Catheter External Catheter Weight 65.771 kg 62 kg Results CBC & Chem 7: 10/03/24 15:55 10/03/24 15:55 Labs: Abnormal Lab Results - Last 24 Hours (Table) 10/03/24 10/03/24 10/03/24 Range/Units 15:55 15:55 17:48 Hgb 11.6 L (12.0-15.0) g/dL Hct 36.0 L (37.2-46.3) % Sodium 136 L (137-145) mmol/L Creatine Kinase 174 H (30-135) U/L Ur Leukocyte Esterase Trace H (Negative) Urine Bacteria Rare H (None) /hpf Thrombosis Risk Factor Assmnt - Choose All That Apply Any of the Below Risk Factors Present?: Yes Each Factor Represents 1 point: Medical pt on bed rest, Obesity (BMI >25) Other Risk Factors: Yes Each Risk Factor Represents 2 Points: Age 61-74 years Other congenital or acquired thrombophilia - If yes, enter type in comment: No Thrombosis Risk Factor Assessment Total Risk Factor Score: 4 Thrombosis Risk Factor Assessment Level: Moderate Risk
--- NOTE | 2024-10-04 16:24 | P.CNNES ---
History of Present Illness Consult date: 10/04/24 Requesting physician: Rafy Hester Reason for Consult: left sided weakness, possible cva History of Present Illness: This is a 69-year-old woman who presents emergency department because of left- sided tingling numbness. Yesterday she started having left-sided tingling numbness and weakness and unable to talk and it started around 2:15 PM yesterday. She stated that it resolved by today early in the morning. She stated that she was unable to talk. And had some slurring of the speech. She feels she is drastically better today. Denies any jerking of any extremity. Yesterday she felt like she had diarrhea. Patient was seen by our neurohospitalist and was seen by Dr. Bright last on 09/11/2024 for her left-sided weakness paresthesia involving face arm and leg and she had MRI of the brain which was negative for any acute process. Dr. Bright felt patient had right MCA infarction. Please refer to his note for further details. Patient states she is on aspirin Plavix and Lipitor and she is compliant taking the medication. She stated that in her lifetime she had 2 strokes in the past. Denies any history of seizure. She has aortic valve replacement. She has underlying history of hypertension. Some of the workup during this hospital visit consisted of: I reviewed the lab workup. CT of the head is reported as no acute bleed or mass effect. No significant abnormality. I personally reviewed the CT and agree with the report Review of Systems As per HPI. Past Medical History Past Medical History: Chest Pain / Angina, Heart Failure, COPD, CVA/TIA, Dementia, GERD/Reflux, Hyperlipidemia, Hypertension, Memory Impairment, Mitral V alve Prolapse (MVP) Additional Past Medical History / Comment(s): heart murmur, "beginning of dementia",hx. insomnia, "I've had a stroke but they don't know when." "It's an old stroke." recent adm. for chest pain, thought to be related to valve problem History of Any Multi-Drug Resistant Organisms: None Reported Past Surgical History: Back Surgery, Bladder Surgery, Cardiac Valve Replacement, Cholecystectomy, Heart Catheterization, Hysterectomy, Joint Replacement, Orthopedic Surgery, Tubal Ligation Additional Past Surgical History / Comment(s): aortic valve replacement , left breast biopsy-neg, oopherectomy, left knee replacement, juan, rt breast bx neg., right ORIF from knee to hip 2019 Past Anesthesia/Blood Transfusion Reactions: No Reported Reaction Additional Past Anesthesia/Blood Transfusion Reaction / Comment(s): Hx of blood transfusion 2009-no reaction., pt. adopted Past Psychological History: Anxiety, Bipolar, Depression Smoking Status: Former smoker Past Alcohol Use History: None Reported Additional Past Alcohol Use History / Comment(s): Started at age 15, quit in August 2024 Past Drug Use History: None Reported - Past Family History Mother History Unknown: Yes Additional Family Medical History / Comment(s): Patient states she was adopted. Medications and Allergies Home Medications Medication Instructions Recorded Confirmed Type Memantine HCl [Namenda Xr] 28 mg PO DAILY 12/06/17 10/03/24 History Gabapentin [Neurontin] 300 mg PO TID 01/10/18 10/03/24 History Fluticasone/Vilanterol [Breo 1 puff INHALATION RT-DAILY 01/31/20 10/03/24 History Ellipta 200-25 Mcg Inhaler] Ergocalciferol (Vitamin D2) 1,250 mcg PO SA 07/28/22 10/03/24 History [Drisdol (50,000 Iu)] Ezetimibe [Zetia] 10 mg PO DAILY 07/28/22 10/03/24 History Levothyroxine Sodium [Synthroid] 25 mcg PO MOTUWETHFR 07/28/22 10/03/24 History Metoprolol Succinate (ER) [Toprol 25 mg PO DAILY 07/28/22 10/03/24 History XL] Sertraline [Zoloft] 150 mg PO DAILY 07/28/22 10/03/24 History Pantoprazole Sodium [Protonix] 40 mg PO DAILY 12/01/22 10/03/24 History lamoTRIgine [LaMICtal] 200 mg PO DAILY 12/01/22 10/03/24 History Levothyroxine Sodium [Synthroid] 50 mcg PO SUSA 03/03/23 10/03/24 History Clopidogrel [Plavix] 75 mg PO DAILY 05/21/23 10/03/24 History Brexpiprazole [Rexulti] 0.5 mg PO HS 03/12/24 10/03/24 History Sennosides [Senokot] 8.6 mg PO BID PRN 07/03/24 10/03/24 History Tiotropium 2.5 Mcg/Puff [Spiriva 2 puff INHALATION RT-DAILY 07/03/24 10/03/24 History Respimat 2.5 Mcg] Ranolazine [Ranexa] 1,000 mg PO Q12HR 09/08/24 10/03/24 History Rosuvastatin [Crestor] 20 mg PO DAILY 09/08/24 10/03/24 History lisinopriL [Zestril] 5 mg PO DAILY 09/08/24 10/03/24 History Aspirin 81 mg PO DAILY #30 tab 09/11/24 10/03/24 Rx Allergies Allergy/AdvReac Type Severity Reaction Status Date / Time fentanyl Allergy Rash/Hives Verified 10/03/24 17:18 niacin Allergy Dyspnea,barbara Verified 10/03/24 17:18 h Physical Examination - Vital Signs Vital Signs: Vital Signs Temp Pulse Pulse Resp BP BP Pulse Ox 10/04/24 12:00 63 16 148/71 98 10/04/24 08:00 98.2 F 72 16 116/62 95 10/04/24 04:00 97.6 F 65 16 123/72 95 10/03/24 23:46 97.6 F 58 L 16 109/63 94 L 10/03/24 22:16 97.9 F 59 L 18 162/73 98 10/03/24 21:41 97.7 F 57 L 18 162/74 98 10/03/24 20:32 97.6 F 53 L 17 146/74 100 10/03/24 20:00 53 L 18 132/60 99 10/03/24 19:38 50 L 17 120/56 100 10/03/24 18:19 55 L 17 125/58 98 10/03/24 17:38 56 L 16 137/62 97 10/03/24 16:47 57 L 18 165/73 99 10/03/24 16:25 59 L 16 138/71 98 Intake and Output 10/04/24 10/04/24 10/04/24 06:59 14:59 22:59 Intake Total 596 Output Total 540 Balance -540 596 Intake: Oral 596 Output: Urine 540 Other: Voiding Method External Catheter External Catheter # Voids 1 Weight 62 kg GENERAL: The patient is lying in bed and is not in acute distress. NEUROLOGICAL: Higher mental function: The patient is awake, alert, oriented to self, place and time. Patient is following commands. No aphasia and no neglect. Cranial nerves: The pupils are round, equal and reactive to light and acco mmodation. Visual estrada are full to confrontation throughout. Extraocular movement is intact no nystagmus is noted. Facial sensation is decrease to touch. The facial strength is normal throughout. Hearing is mildly to moderately decreased bilaterally to hand rub. Tongue is midline and moved s hollie-to-side without any difficulty. No dysarthria is noted. Shoulder shrug is normal bilaterally. Motor: The strength is 5 over 5 throughout. Normal tone and bulk. Cerebellum: Normal finger to nose bilaterally. Sensation: Decrease to touch over the left side. Reflexes (right/left): 2+ throughout. Plantars are downgoing bilaterally. Results - Laboratory Findings CBC and BMP: 10/03/24 15:55 10/03/24 15:55 Abnormal Lab Findings: Abnormal Labs 10/03/24 10/03/24 10/03/24 15:55 15:55 17:48 Hgb 11.6 L Hct 36.0 L Sodium 136 L Creatine Kinase 174 H Ur Leukocyte Esterase Trace H Urine Bacteria Rare H Assessment and Plan Assessment: This is a 69-year-old woman who presents emergency department because of left sided paresthesia over the left upper lower extremity including the face with slurred speech unable to talk yesterday at 2:15 PM. She had similar presentation on the second week of August 2024 with leg weakness and my colleague (Dr. Bright) was concerned about right MCA stroke and MRI Brain was unremarkable. Recurrent episodes of left facial paresthesia including left upper and lower extremity with speech difficulty slurring speech and leg weakness: Rule out seizure because of reoccurrence episode and MRI in past was negative. Examination patient feels she is having numbness other than that no weakness speech difficulty History of stroke History of dementia Hhypertension Hypercholesteremia History of aortic valve replacement Underlying history of depression Underlying history of bipolar Underlying history of anxiety Plan: Ordered an EEG Ordered MRI of the brain with and without Patient is resumed on her home medication of Lamictal 100 mg daily. She is also on her home medication of gabapentin 3 mg 3 times daily Lamictal has both mood and antiseizure medication and the patient is on it for the mood. Can consider going up to 150 mg twice a day. Patient is resumed on aspirin 81 mg, Plavix 75 and Lipitor 40 mg daily. Continue neurochecks Cardiac monitoring Placed the patient on seizure precaution seizure pads PT OT and HOSPICE DIRECTOR are consulted Patient does truly have seizures, recommend per the [place] DMV to avoid driving for 6 months until seizure-free, avoid heights, avoid swimming assisted or using heavy machinery. Will defer the rest of the medical management to the primary team and other specialist Thank you for the consultation. Time with Patient: Greater than 30
[2024-10-04] MEDS: NON FORMULARY DRUG (Brexpiprazole [Rexulti] 0.5 MG Tablet) PO SCH (20:03)
[2024-10-04] MEDS: GABAPENTIN 300 MG CAP PO SCH (20:09)
[2024-10-04] MEDS ORDERED: RANOLAZINE 1000 MG PO SCH (21:00)
[2024-10-04] MEDS: SYMBICORT 160-4.5 MCG INHALER INHALATION SCH (21:23)
[2024-10-05] MEDS: ATORVASTATIN 40 MG TAB PO SCH (09:43)
[2024-10-05] MEDS: SERTRALINE 50 MG TAB PO SCH (09:43)
[2024-10-05] MEDS: ASPIRIN 81 MG PO SCH (09:44)
[2024-10-05] MEDS ORDERED: LORazepam 1 MG/0.5 ML VIAL IV STA (11:28)
--- NOTE | 2024-10-05 12:37 | P.PN ---
Subjective Progress Note Date: 10/05/24 69-year-old lady with past medical history significant for hypothyroidism, hypertension, hyperlipidemia presented the ER because of left-sided weakness. Patient was initially in the hospital 3 weeks back with similar symptoms at which time patient had workup done MRI at that time was negative for any acute stroke, her presentation was suggestive of right middle cerebral artery infarct. Patient at that time was discharged on aspirin and Plavix per neurology recommendations. Patient stated that at home she was doing well and her left- sided weakness had improved, she was ambulating with the help of walker. Yesterday around 4 PM she she started noticing that her left-sided weakness had worsened, more worse in the left lower extremity. There was no complaint of any facial droop. There was no complaint of slurred speech. There was no complaint of jerking movement in extremity, no complaint of loss of consciousness. Patient denies any chest pain. There is no complaint of shortness of breath. Patient denies any palpitation. There is no complaint of orthopnea or PND. Denies any nausea, vomiting abdominal pain. Patient denies any complaint of dizziness. There is no complaint of headache. Because of worsening left-sided weakness, patient came to the ER Initial lab work done in the ER showed RBC 5.39, hemoglobin 9.6, platelet count 165, sodium 133, potassium 3.9, BUN 7, creatinine 0.67 AST 26, ALT 70 UA negative for infection EKG done in the ER showed heart rate of 59 , no ST segment elevation or depression seen, no T-wave inversions seen. Chest x-ray done in the ER mild CHF CT head done showed no acute intracranial process Patient admitted to internal medicine service 10/05. Patient seen examined. Still having numbness of left upper and lower extremity. Denies any slurred speech. Denies any weakness of any extremity. REVIEW OF SYSTEMS: CONSTITUTIONAL: No fever, no malaise,. CARDIOVASCULAR: No chest pain, no palpitations, no syncope. PULMONARY: No shortness of breath, no cough, GASTROINTESTINAL: No diarrhea, no nausea, no vomiting, no abdominal pain. NEUROLOGICAL: No headaches, no weakness, PHYSICAL EXAMINATION: GENERAL: The patient is alert and oriented x3, not in any acute distress. Well developed, well nourished. HEENT: Pupils are round and equally reacting to light. EOMI. No scleral icterus. No conjunctival pallor. Normocephalic, atraumatic. No pharyngeal erythema. No thyromegaly. CARDIOVASCULAR: S1 and S2 present. No murmurs, rubs, or gallops. PULMONARY: Chest is clear to auscultation, no wheezing or crackles. ABDOMEN: Soft, nontender, nondistended, normoactive bowel sounds. No palpable organomegaly. MUSCULOSKELETAL: No joint swelling or deformity. EXTREMITIES: No cyanosis, clubbing, or pedal edema. NEUROLOGICAL: Gross neurological examination did not reveal any focal deficits. SKIN: No rashes. Assessment and plan Left-sided weakness History of previous stroke involving left parietal region 03/15/2023 *Hypertension history of dementia History of aortic valve replacement Underlying history of depression Underlying history of bipolar Underlying history of anxiety Monitor vital signs Monitor CBC Monitor CMP Continue telemetry monitoring Continue Continue aspirin and Plavix EEG ordered MRI brain pending Neurology following Labs and medication were reviewed.. Continue same treatment. Continue with symptomatic treatment. Resume home medication. Monitor labs and vitals. DVT and GI prophylaxis. Further recommendations as per clinical course of the patient Dictation was produced using [employer] dictation software. please excuse any grammatical, word or spelling errors. Objective - Vital Signs Vital signs: Vital Signs Temp 98.3 F 10/04/24 20:00 Pulse 57 L 10/05/24 11:32 Resp 18 10/05/24 11:32 BP 163/71 10/05/24 11:32 Pulse Ox 98 10/05/24 11:32 FiO2 Intake & Output 10/04/24 10/05/24 10/05/24 18:59 06:59 18:59 Intake Total 716 20 250 Output Total 400 Balance 316 20 250 Weight 61.7 kg Intake: IV 20 10 Invasive Line 1 20 10 Oral 716 240 Output: Urine 400 Other: Voiding Method External Catheter Toilet Toilet # Voids 2 2 - Labs CBC & Chem 7: 10/03/24 15:55 10/03/24 15:55
--- NOTE | 2024-10-05 14:19 | P.PN ---
Subjective Progress Note Date: 10/05/24 I am following-up with the patient and feels is doing better. But continues to have numbness on the left side and does not have underlying history of numbness prior to that. Denies any new neurological issues. Objective - Vital Signs Vital signs: Vital Signs Temp 98.3 F 10/04/24 20:00 Pulse 57 L 10/05/24 11:32 Resp 18 10/05/24 11:32 BP 163/71 10/05/24 11:32 Pulse Ox 98 10/05/24 11:32 FiO2 Intake & Output 10/04/24 10/05/24 10/05/24 18:59 06:59 18:59 Intake Total 716 20 500 Output Total 400 Balance 316 20 500 Weight 61.7 kg Intake: IV 20 20 Invasive Line 1 20 20 Oral 716 480 Output: Urine 400 Other: Voiding Method External Catheter Toilet Toilet # Voids 2 2 - Exam GENERAL: The patient is lying in bed and is not in acute distress. NEUROLOGICAL: Higher mental function: The patient is awake, alert, oriented to self, place and time. Patient is following commands. No aphasia and no neglect. Cranial nerves: The pupils are round, equal and reactive to light and accommodation. Visual estrada are full to confrontation throughout. Extraocular movement is intact no nystagmus is noted. Facial sensation is decrease to touch. The facial strength is normal throughout. Hearing is mildly to moderate ly decreased bilaterally to hand rub. Tongue is midline and moved [id number] without any difficulty. No dysarthria is noted. Shoulder shrug is normal bilaterally. Motor: The strength is 5 over 5 throughout. Normal tone and bulk. Cerebellum: Normal finger to nose bilaterally. Sensation: Decrease to touch over the left side. Reflexes (right/left): 2+ throughout. Plantars are downgoing bilaterally. Some of the workup during this hospital visit consisted of: I reviewed the lab workup. CT of the head is reported as no acute bleed or mass effect. No significant abnormality. I personally reviewed the CT and agree with the report - Labs CBC & Chem 7: 10/03/24 15:55 10/03/24 15:55 Assessment and Plan Assessment: This is a 69-year-old woman who presents emergency department because of left sided paresthesia over the left upper lower extremity including the face with slurred speech unable to talk yesterday at 2:15 PM. She had similar presentation on the second week of August 2024 with leg weakness and my colleague (Dr. Bright) was concerned about right MCA stroke and MRI Brain was unremarkable. Recurrent episodes of left facial paresthesia including left upper and lower extremity with speech difficulty slurring speech and leg weakness: Rule out seizure because of reoccurrence episode and MRI in past was negative. Examination patient feels she is having numbness other than that no weakness s peech difficulty History of stroke History of dementia Hhypertension Hypercholesteremia History of aortic valve replacement Underlying history of depression Underlying history of bipolar Underlying history of anxiety Plan: Pending routine EEG OPending MRI of the brain with and without Patient is resumed on her home medication of Lamictal 200 mg daily. She is also on her home medication of gabapentin 3 mg 3 times daily Lamictal has both mood and antiseizure medication and the patient is on it for the mood. Can consider going up to 150 mg twice a day. Patient is resumed on aspirin 81 mg, Plavix 75 and Lipitor 40 mg daily. Continue neurochecks Cardiac monitoring Placed the patient on seizure precaution seizure pads PT OT and NURSE SPECIALIST are consulted Patient does truly have seizures, recommend per the [place] DMV to avoid driving for 6 months until seizure-free, avoid heights, avoid swimming assisted or using heavy machinery. Will defer the rest of the medical management to the primary team and other specialist Time with Patient: Less than 30
--- NOTE | 2024-10-05 21:27 | EEG ---
ELECTROENCEPHALOGRAM REPORT CLINICAL HISTORY: This is a 69-year-old woman with recurrent weakness and numbness over the left side. The video EEG is obtained to evaluate for seizure epileptiform activity. RELEVANT MEDICATION: Lamictal. EEG TYPE: This is a routine 21-channel EEG with video using the 10/20 electrode system. DESCRIPTION: Wakefulness is only obtained. During awake state, the posterior-dominant rhythm consists of [id number] voltage of 10 hertz activity that is well modulated and well sustained. There was no physiological stage 2 sleep architecture. There is no focal slowing. INTERICTAL AND ICTAL: None. ACTIVATION PROCEDURE: Photic stimulation did not evoke a posterior driving response. There is no abnormality during the photic stimulation. Hyperventilation is not performed. CLINICAL INTERPRETATION: This is a normal routine EEG during awake state. There is no focal slowing, epileptiform discharge, or seizure on the EEG. A normal routine EEG does not rule out underlying epilepsy. Clinical correlation is recommended. HELGA / MARTY: [id number] /
[2024-10-06 07:23] LABS: Basophils # (A) 0.02 10*3/uL (0.00-0.10); Basophils % (A) 0.5 %; Eosinophils % (A) 4.6 %; HCT 38.2 % (37.2-46.3); HGB 12.1 g/dL (12.0-15.0); Lymphocytes # (A) 1.15 10*3/uL (0.90-5.00); Lymphocytes % (A) 26.3 %; MCH 28.2 pg (27.0-32.0); MCHC 31.7 g/dL (32.0-37.0); Mean Platelet Volume 11.7 fL (9.5-12.2); Monocytes # (A) 0.49 10*3/uL (0.20-1.00); Monocytes % (A) 11.2 %; Neutrophils % (A) 57.2 %; Platelet Count 164 10*3/uL (140-440); RBC 4.29 10*6/uL (4.10-5.20); RDW 15.1 % (11.5-14.5); WBC 4.37 10*3/uL (4.50-10.00)
[2024-10-06 07:45] LABS: ALT 13 U/L (4-34); AST 18 U/L (14-36); African American GFR (CKD) 85 (>60 ml/min/1.73 sqM); Albumin 3.8 g/dL (3.5-5.0); Alkaline Phosphatase 72 U/L (38-126); Anion Gap 4 mmol/L; Blood Urea Nitrogen 7 mg/dL (7-17); Calcium 9.3 mg/dL (8.4-10.2); Carbon Dioxide 34 mmol/L (22-30); Chloride 101 mmol/L (98-107); Glucose 92 mg/dL (74-99); Non-African American GFR(CKD) 74 (>60 ml/min/1.73 sqM); Potassium 4.6 mmol/L (3.5-5.1); Sodium 139 mmol/L (137-145); Total Bilirubin 0.4 mg/dL (0.2-1.3); Total Protein 7.1 g/dL (6.3-8.2)
[2024-10-06] MEDS: TIOTROPIUM 2.5 MCG INHALER INHALATION SCH ×2 (08:04→08:48)
--- NOTE | 2024-10-06 11:57 | P.PN ---
Subjective Progress Note Date: 10/06/24 69-year-old lady with past medical history significant for hypothyroidism, hypertension, hyperlipidemia presented the ER because of left-sided weakness. Patient was initially in the hospital 3 weeks back with similar symptoms at which time patient had workup done MRI at that time was negative for any acute stroke, her presentation was suggestive of right middle cerebral artery infarct. Patient at that time was discharged on aspirin and Plavix per neurology recommendations. Patient stated that at home she was doing well and her left- sided weakness had improved, she was ambulating with the help of walker. Yesterday around 4 PM she she started noticing that her left-sided weakness had worsened, more worse in the left lower extremity. There was no complaint of any facial droop. There was no complaint of slurred speech. There was no complaint of jerking movement in extremity, no complaint of loss of consciousness. Patient denies any chest pain. There is no complaint of shortness of breath. Patient denies any palpitation. There is no complaint of orthopnea or PND. Denies any nausea, vomiting abdominal pain. Patient denies any complaint of dizziness. There is no complaint of headache. Because of worsening left-sided weakness, patient came to the ER Initial lab work done in the ER showed RBC 5.39, hemoglobin 9.6, platelet count 165, sodium 133, potassium 3.9, BUN 7, creatinine 0.67 AST 26, ALT 70 UA negative for infection EKG done in the ER showed heart rate of 59 , no ST segment elevation or depression seen, no T-wave inversions seen. Chest x-ray done in the ER mild CHF CT head done showed no acute intracranial process Patient admitted to internal medicine service 10/05. Patient seen examined. Still having numbness of left upper and lower extremity. Denies any slurred speech. Denies any weakness of any extremity. 10/06. Patient seen examined. EEG done showed no seizure-like activity, MRI brain pending REVIEW OF SYSTEMS: CONSTITUTIONAL: No fever, no malaise,. CARDIOVASCULAR: No chest pain, no palpitations, no syncope. PULMONARY: No shortness of breath, no cough, GASTROINTESTINAL: No diarrhea, no nausea, no vomiting, no abdominal pain. NEUROLOGICAL: No headaches, no weakness, PHYSICAL EXAMINATION: GENERAL: The patient is alert and oriented x3, not in any acute distress. Well developed, well nourished. HEENT: Pupils are round and equally reacting to light. EOMI. No scleral icterus. No conjunctival pallor. Normocephalic, atraumatic. No pharyngeal erythema. No thyromegaly. CARDIOVASCULAR: S1 and S2 present. No murmurs, rubs, or gallops. PULMONARY: Chest is clear to auscultation, no wheezing or crackles. ABDOMEN: Soft, nontender, nondistended, normoactive bowel sounds. No palpable organomegaly. MUSCULOSKELETAL: No joint swelling or deformity. EXTREMITIES: No cyanosis, clubbing, or pedal edema. NEUROLOGICAL: Gross neurological examination did not reveal any focal deficits. SKIN: No rashes. Assessment and plan Left-sided weakness History of previous stroke involving left parietal region 03/15/2023 *Hypertension history of dementia History of aortic valve replacement Underlying history of depression Underlying history of bipolar Underlying history of anxiety Monitor vital signs Monitor CBC Monitor CMP Continue telemetry monitoring Continue Continue aspirin and Plavix EEG done showed no seizure-like activity MRI brain pending Neurology following Labs and medication were reviewed.. Continue same treatment. Continue with symptomatic treatment. Resume home medication. Monitor labs and vitals. DVT and GI prophylaxis. Further recommendations as per clinical course of the patient Dictation was produced using [employer] dictation software. please excuse any grammatical, word or spelling errors. Objective - Vital Signs Vital signs: Vital Signs Temp 98.1 F 10/06/24 08:00 Pulse 65 10/06/24 08:00 Resp 18 10/06/24 08:00 BP 128/72 10/06/24 08:00 Pulse Ox 95 10/06/24 08:00 FiO2 Intake & Output 10/05/24 10/06/24 10/06/24 18:59 06:59 18:59 Intake Total 740 20 370 Balance 740 20 370 Weight 61 kg Intake: IV 20 20 10 Invasive Line 1 20 20 10 Oral 720 360 Other: Voiding Method Toilet Toilet # Voids 1 2 - Labs CBC & Chem 7: 10/06/24 06:36 10/06/24 06:36 Labs: Abnormal Lab Results - Last 24 Hours (Table) 10/06/24 10/06/24 Range/Units 06:36 06:36 WBC 4.37 L (4.50-10.00) 10*3/uL MCHC 31.7 L (32.0-37.0) g/dL Carbon Dioxide 34 H (22-30) mmol/L
[2024-10-07 12:39] VITALS: RESP 18; TEMP 97.5
[2024-10-07] MEDS: LORazepam 1 MG/0.5 ML VIAL IV ONE (13:11)
[2024-10-07] MEDS: LEVOTHYROXINE 50 MCG TAB PO SCH (15:16)
[2024-10-07] MEDS: ACETAMINOPHEN TAB 500 MG TAB PO PRN (15:17)
--- NOTE | 2024-10-07 15:17 | MR ---
EXAMINATION TYPE: MR brain wo/w con DATE OF EXAM: 10/07/2024 2:01 PM COMPARISON: None. CLINICAL INDICATION: Female, 69 years old with history of seizure. dysarthria and left sided numbnes s, seizure, dysarthria and left sided numbness TECHNIQUE: Multiplanar, multiecho imaging on a 3.0 Kristina magnet is performed through the brain. Stud y is performed within 24 hours of arrival to the hospital.Multiplanar, multiecho imaging on a 3.0 Lou la magnet is performed through the knee. IV Contrast: 6 mL Gadobutrol (None, if empty) FINDINGS: The craniovertebral junction is normal. The pituitary is normal. Diffusion-weighted imaging is performed. No abnormal hyperintensity is present to suggest an acute i ntracranial infarct or acute ischemic change. There are scattered punctate areas of hyperintensity on T2 and Inversion Recovery weighted sequences which are non-specific but can be related to microvascular ischemic changes. Ventricles and sulci are appropriate for the patient age. Temporal lobes appear symmetrical. There is some mild fluid within the left mastoid air cells. Minimal mucosal thickening is within ethm oid air cells. IMPRESSION: 1. Scattered punctate white matter changes are nonspecific but can be related to microvascular ischem ic change. [facility], , 10/07/2024 3:14 PM
[2024-10-07 16:10] VITALS: BP 134/72; PULSE 68
--- NOTE | 2024-10-07 17:24 | P.DS ---
Providers Date of admission: 10/03/24 17:23 Expected date of discharge: 10/07/24 Attending physician: Nikole Stacy Consults: 10/03/24 17:23 Consult Physician Routine Consulting Provider: Mika Ramos Consult Reason/Comments: left sided weakness, possible cva Do you want consulting provider notified?: Yes Primary care physician: [facility] Course: 69-year-old lady with past medical history significant for hypothyroidism, hypertension, hyperlipidemia presented the ER because of left-sided weakness. Patient was initially in the hospital 3 weeks back with similar symptoms at which time patient had workup done MRI at that time was negative for any acute stroke, her presentation was suggestive of right middle cerebral artery infarct. Patient at that time was discharged on aspirin and Plavix per neurology recommendations. Patient stated that at home she was doing well and her left- sided weakness had improved, she was ambulating with the help of walker. Ye sterday around 4 PM she she started noticing that her left-sided weakness had worsened, more worse in the left lower extremity. There was no complaint of any facial droop. There was no complaint of slurred speech. There was no complaint of jerking movement in extremity, no complaint of loss of consciousness. Patient denies any chest pain. There is no complaint of shortness of breath. Patient denies any palpitation. There is no complaint of orthopnea or PND. Denies any nausea, vomiting abdominal pain. Patient denies any complaint of dizziness. There is no complaint of headache. Because of worsening left-sided weakness, patient came to the ER Initial lab work done in the ER showed RBC 5.39, hemoglobin 9.6, platelet count 165, sodium 133, potassium 3.9, BUN 7, creatinine 0.67 AST 26, ALT 70 UA negative for infection EKG done in the ER showed heart rate of 59 , no ST segment elevation or depression seen, no T-wave inversions seen. Chest x-ray done in the ER mild CHF CT head done showed no acute intracranial process Patient admitted to internal medicine service Left-sided weakness History of previous stroke involving left parietal region 03/15/2023 *Hypertension history of dementia History of aortic valve replacement Underlying history of depression Underlying history of bipolar Underlying history of anxiety Monitor vital signs Monitor CBC Monitor CMP Continue telemetry monitoring Continue Continue aspirin and Plavix EEG done showed no seizure-like activity MRI brain pending Neurology following Labs and medication were reviewed.. Continue same treatment. Continue with symptomatic treatment. Resume home medication. Monitor labs and vitals. DVT and GI prophylaxis. Further recommendations as per clinical course of the patient 10/05. Patient seen examined. Still having numbness of left upper and lower extremity. Denies any slurred speech. Denies any weakness of any extremity. 10/06. Patient seen examined. EEG done showed no seizure-like activity, MRI brain pending 10/07/2024; MRI of the brain completed; results were conveyed to neurology by nursing staff via secure texting; patient has been cleared for discharge by neurology Patient Condition at Discharge: Stable Plan - Discharge Summary Discharge Rx Participant: No New Discharge Prescriptions: Continue Memantine HCl [Namenda Xr] 28 mg PO DAILY Gabapentin [Neurontin] 300 mg PO TID Fluticasone/Vilanterol [Breo Ellipta 200-25 Mcg Inhaler] 1 puff INHALATION RT-DAILY Ezetimibe [Zetia] 10 mg PO DAILY Metoprolol Succinate (ER) [Toprol XL] 25 mg PO DAILY Levothyroxine Sodium [Synthroid] 25 mcg PO MOTUWETHFR Sertraline [Zoloft] 150 mg PO DAILY lamoTRIgine [LaMICtal] 200 mg PO DAILY Levothyroxine Sodium [Synthroid] 50 mcg PO SUSA Ranolazine [Ranexa] 1,000 mg PO Q12HR Aspirin 81 mg PO DAILY #30 tab Ergocalciferol (Vitamin D2) [Drisdol (50,000 Iu)] 1,250 mcg PO SA Pantoprazole Sodium [Protonix] 40 mg PO DAILY Clopidogrel [Plavix] 75 mg PO DAILY Brexpiprazole [Rexulti] 0.5 mg PO HS Tiotropium 2.5 Mcg/Puff [Spiriva Respimat 2.5 Mcg] 2 puff INHALATION RT-DAILY Sennosides [Senokot] 8.6 mg PO BID PRN PRN Reason: Constipation lisinopriL [Zestril] 5 mg PO DAILY Rosuvastatin [Crestor] 20 mg PO DAILY Discharge Medication List Memantine HCl [Namenda Xr] 28 mg PO DAILY 12/06/17 [History] Gabapentin [Neurontin] 300 mg PO TID 01/10/18 [History] Fluticasone/Vilanterol [Breo Ellipta 200-25 Mcg Inhaler] 1 puff INHALATION RT- DAILY 01/31/20 [History] Ergocalciferol (Vitamin D2) [Drisdol (50,000 Iu)] 1,250 mcg PO SA 07/28/22 [History] Ezetimibe [Zetia] 10 mg PO DAILY 07/28/22 [History] Levothyroxine Sodium [Synthroid] 25 mcg PO MOTUWETHFR 07/28/22 [History] Metoprolol Succinate (ER) [Toprol XL] 25 mg PO DAILY 07/28/22 [History] Sertraline [Zoloft] 150 mg PO DAILY 07/28/22 [History] Pantoprazole Sodium [Protonix] 40 mg PO DAILY 12/01/22 [History] lamoTRIgine [LaMICtal] 200 mg PO DAILY 12/01/22 [History] Levothyroxine Sodium [Synthroid] 50 mcg PO SUSA 03/03/23 [History] Clopidogrel [Plavix] 75 mg PO DAILY 05/21/23 [History] Brexpiprazole [Rexulti] 0.5 mg PO HS 03/12/24 [History] Sennosides [Senokot] 8.6 mg PO BID PRN 07/03/24 [History] Tiotropium 2.5 Mcg/Puff [Spiriva Respimat 2.5 Mcg] 2 puff INHALATION RT-DAILY 07/03/24 [History] Ranolazine [Ranexa] 1,000 mg PO Q12HR 09/08/24 [History] Rosuvastatin [Crestor] 20 mg PO DAILY 09/08/24 [History] lisinopriL [Zestril] 5 mg PO DAILY 09/08/24 [History] Aspirin 81 mg PO DAILY #30 tab 09/11/24 [Rx] Follow up Appointment(s)/Referral(s): [facility], [NON-STAFF] - Gabe Cisneros DO [Primary Care Provider] - 1-2 days Discharge Disposition: HOME SELF-CARE
--- NOTE | 2024-10-10 22:19 | CDI ---
Documentation Clarification Form Date: 10/10/2024 10:04:11 PM From: Jelly Meyer Phone: Admit Date: 10/03/2024 05:23:00 PM Patient Name: Radha Gramajo Visit Number: [id number] Discharge Date: 10/07/2024 05:28:00 PM ATTENTION: The Clinical Documentation Specialists (CDI) and [facility] Coding Staff appreciate your assistance in clarifying documentation. Please respond to the clarification below the line at the bottom and electronically sign. The CDI & [facility] Coding staff will review the response and follow-up if needed. Please note: Queries are made part of the Legal Health Record. If you have any questions, please contact the author of this message via ITS. Doctor/Provider: Feliciano Hadley Your patient has the documented diagnosis of mild CHF throughout PMH and H&P. Additional information regarding the type & acuity of CHF is requested. History/Risk Factors: 69yo F, LT weakness, [facility]MC CVA w Hx stroke, HTN, dementia, HLD, AVR, BPD, anxiety VS/Pulse OX: 10/03/24 10/03/24 10/03/24 15:29 16:03 16:25 T 98.9 DE 63 57 59 RR 18 16 16 BP145/67 140/56 138/71 O2 Sat 96 98 98 Echo: No need for 2D echo because of recent 1 done 3 weeks ago Chest X Ray: he heart size is mildly prominent. The pulmonary vasculature is prominent. There is some mild diffuse increased lung markings. Consider earlycongestive heart failure. Follow-upcan be performed. Treatment: monitored In your professional opinion, can you please clarify the acuity and type of CHF if known? [ ] Acute Systolic Heart Failure (reduced EF) [ ] Chronic Systolic Heart Failure (reduced EF) [ ] Acute on Chronic Systolic Heart Failure (reduced EF) [ ] Acute Diastolic Heart Failure (preserved EF) [ ] Chronic Diastolic Heart Failure (preserved EF) [ ] Acute on Chronic Diastolic Heart Failure (preserved EF) [ x] Acute Systolic & Diastolic Heart Failure [ ] Chronic Systolic & Diastolic Heart Failure [ ] Acute on Chronic Heart Failure Systolic & Diastolic Heart Failure [ ] Other, please specify [ ] Unable to determine (Template Last Revised: June 2020) MTDD
--- NOTE | 2024-10-30 10:25 | CDI ---
Documentation Clarification Form Date: 10/30/2024 09:54:51 AM From: Jelly Meyer Phone: Admit Date: 10/03/2024 05:23:00 PM Patient Name: Radha Gramajo Visit Number: [id number] Discharge Date: 10/07/2024 05:28:00 PM ATTENTION: The Clinical Documentation Specialists (CDI) and [facility] Coding Staff appreciate your assistance in clarifying documentation. Please respond to the clarification below the line at the bottom and electronically sign. The CDI & [facility] Coding staff will review the response and follow-up if needed. Please note: Queries are made part of the Legal Health Record. If you have any questions, please contact the author of this message via ITS. Doctor/Provider: Feliciano Hadley Rightmiddle cerebral artery infarct is documented throughout the notes which may lack sufficient clinical evidence/support in the medical record. Additional clarification is requested. History/Risk Factors: 69yo F, presentation was suggestive of rightmiddle cerebral artery infarct, LTweakness, Hx stroke,HTN,dementia, HLD, AVR,BPD,anxiety, ACHF, NIH 4 Clinical Indicators: MRI- Scattered punctate white matter changes are nonspecific but can be related to microvascularischemicchange. CT Scan- 1. No acutebleed ormasseffect. 2. No significantabnormalityseen. Left sided lower facialdroop, LTweakness; NIHcurrently is approximately 4 Treatment: Labs and medication were reviewed. Continue same treatment. Continue with symptomatic treatment. Resume home medication. Monitor labs and vitals. DVT and GIprophylaxis. Further recommendations as per clinical course of the patient Please clarify if Right middle cerebral artery infarct is a valid diagnosis? [ x] No, Right middle cerebral artery infarct is ruled out [ ] Yes, Right middle cerebral artery infarct is present as evidence by (additional clinical support): [ ] Other cause of left sided lower facialdroop, LTweakness with NIH4 (please specify diagnosis) [ ] Unable to determine (Template Last Revised: October 2023) MTDD
== END 2024-10-07 17:28 | disposition home or self-care (01) | DRG 291 ==
LOC: EC 15:27 → 3SCARD 17:23
PROVIDERS: ADMIT Hospitalist; ATTEND Hospitalist
DX: I11.0 Hypertensive heart disease with heart failure (principal); I50.41 Acute combined systolic (congestive) and diastolic (congestive) heart failure; Z95.3 Presence of xenogenic heart valve; E03.9 Hypothyroidism, unspecified; F03.93 Unspecified dementia, unspecified severity, with mood disturbance; F31.9 Bipolar disorder, unspecified; F03.94 Unspecified dementia, unspecified severity, with anxiety; E78.00 Pure hypercholesterolemia, unspecified; R53.1 Weakness; R29.810 Facial weakness; Z79.02 Long term (current) use of antithrombotics/antiplatelets; Z79.890 Hormone replacement therapy; Z79.82 Long term (current) use of aspirin; Z79.899 Other long term (current) drug therapy; Z86.73 Personal history of transient ischemic attack (TIA), and cerebral infarction without residual deficits; Z87.891 Personal history of nicotine dependence; Z96.652 Presence of left artificial knee joint
CPT/HCPCS: 36415; 70450; 70553; 71046; 80053; 80061; 81001; 82550; 85025; 85610; 85730; 93005; 94640; 95816; 96374; 96375; 99291

== ENCOUNTER → 2024-10-25 | Outpatient (CLI) | payer MEDICARE ==
--- NOTE | 2024-10-25 15:08 | MM ---
Reason for Exam: Follow-up at short interval from prior study. Last mammogram was performed 1 year(s) and 5 month(s) ago. Patient History: Menarche at age 10. First Full-Term at age 19. Left ovary removed at age 51. Right ovary removed at age 51. Hysterectomy at age 51. Postmenopausal. Patient used Hormonal Contraceptives for 5 years. 06/11/2023, Benign US biopsy breast VAD RT on the right side. 1979, Benign Excisional Biopsy on the left side. Risk Values: Yokasta 5 year model risk: 2.3%. NCI Lifetime model risk: 6.4%. Tissue Density: There are scattered areas of fibroglandular density. Findings: Analyzed By CAD. No new suspicious masses, calcifications or distortions. Right breast biopsy clip in cystic mass as seen on priors. Overall Assessment: Benign, BI-RAD 2 Management: Screening Mammogram of both breasts in 1 year. Results were given to the patient verbally at the time of exam. Patient should continue monthly self-breast exams. A clinical breast exam by your physician is recommended on an annual basis. This exam should not preclude additional follow-up of suspicious palpable abnormalities. Note on Yokasta scores and lifetime risk: 1. A Yokasta score greater than 3% is considered moderate risk. If this is the case, consider specialist referral to assess eligibility for a risk reducing agent. 2. If overall lifetime risk for the development of breast cancer is 20% or higher, the patient may qualify for future screening with alternating mammogram and breast MRI. [facility], , 10/25/2024 3:05 PM. Electronically signed and approved by: Markell Sandoval DO
== END | disposition home or self-care (01) ==
LOC: RADMAMWWP 14:38
PROVIDERS: ATTEND Family Medicine
DX: R92.30 Dense breasts, unspecified (principal); R92.323 Mammographic fibroglandular density, bilateral breasts; Z78.0 Asymptomatic menopausal state; Z92.0 Personal history of contraception
CPT/HCPCS: 77062; 77066

== ENCOUNTER 2024-11-17 19:11 | Inpatient (IN) | payer MEDICARE ==
--- NOTE | 2024-11-17 19:33 | ED ---
Abdominal Pain HPI - General Chief Complaint: Abdominal Pain Stated Complaint: Abd pain Time Seen by Provider: 11/17/24 19:17 Source: patient, RN notes reviewed Mode of arrival: ambulatory Limitations: no limitations - History of Present Illness Initial Comments: This is a 69-year-old female who presents to the emergency department for abdominal pain. States that it started yesterday. It was initially in the upper abdomen and started to radiate down to her pelvis. Pain is not worse on one side or the other. States that she has nausea but no vomiting. Also reports constipation and having only small firm hard stools. Denies any history of similar abdominal pain in the past. Denies any fevers, chills, chest pain, or shortness of breath. MD Complaint: abdominal pain - Related Data Home Medications Medication Instructions Recorded Confirmed Memantine HCl [Namenda Xr] 28 mg PO DAILY 12/06/17 10/03/24 Gabapentin [Neurontin] 300 mg PO TID 01/10/18 10/03/24 Fluticasone/Vilanterol [Breo 1 puff INHALATION RT-DAILY 01/31/20 10/03/24 Ellipta 200-25 Mcg Inhaler] Ergocalciferol (Vitamin D2) 1,250 mcg PO SA 07/28/22 10/03/24 [Drisdol (50,000 Iu)] Ezetimibe [Zetia] 10 mg PO DAILY 07/28/22 10/03/24 Levothyroxine Sodium [Synthroid] 25 mcg PO MOTUWETHFR 07/28/22 10/03/24 Metoprolol Succinate (ER) [Toprol 25 mg PO DAILY 07/28/22 10/03/24 XL] Sertraline [Zoloft] 150 mg PO DAILY 07/28/22 10/03/24 Pantoprazole Sodium [Protonix] 40 mg PO DAILY 12/01/22 10/03/24 lamoTRIgine [LaMICtal] 200 mg PO DAILY 12/01/22 10/03/24 Levothyroxine Sodium [Synthroid] 50 mcg PO SUSA 03/03/23 10/03/24 Clopidogrel [Plavix] 75 mg PO DAILY 05/21/23 10/03/24 Brexpiprazole [Rexulti] 0.5 mg PO HS 03/12/24 10/03/24 Sennosides [Senokot] 8.6 mg PO BID PRN 07/03/24 10/03/24 Tiotropium 2.5 Mcg/Puff [Spiriva 2 puff INHALATION RT-DAILY 07/03/24 10/03/24 Respimat 2.5 Mcg] Ranolazine [Ranexa] 1,000 mg PO Q12HR 09/08/24 10/03/24 Rosuvastatin [Crestor] 20 mg PO DAILY 09/08/24 10/03/24 lisinopriL [Zestril] 5 mg PO DAILY 09/08/24 10/03/24 Previous Rx's Medication Instructions Recorded Aspirin 81 mg PO DAILY #30 tab 09/11/24 Allergies Allergy/AdvReac Type Severity Reaction Status Date / Time fentanyl Allergy Rash/Hives Verified 11/17/24 19:16 niacin Allergy Dyspnea,barbara Verified 11/17/24 19:16 h Review of Systems ROS Statement: Those systems with pertinent positive or pertinent negative responses have been documented in the HPI. ROS Other: All systems not noted in ROS Statement are negative. Past Medical History Past Medical History: Chest Pain / Angina, Heart Failure, COPD, CVA/TIA, Dementia, GERD/Reflux, Hyperlipidemia, Hypertension, Memory Impairment, Mitral Valve Prolapse (MVP) Additional Past Medical History / Comment(s): heart murmur, "beginning of dementia",hx. insomnia, "I've had a stroke but they don't know when." "It's an old stroke." recent adm. for chest pain, thought to be related to valve problem History of Any Multi-Drug Resistant Organisms: None Reported Past Surgical History: Back Surgery, Bladder Surgery, Cardiac Valve Replacement, Cholecystectomy, Heart Catheterization, Hysterectomy, Joint Replacement, Orthopedic Surgery, Tubal Ligation Additional Past Surgical History / Comment(s): aortic valve replacement , left breast biopsy-neg, oopherectomy, left knee replacement, juan, rt breast bx neg., right ORIF from knee to hip 2019 Past Anesthesia/Blood Transfusion Reactions: No Reported Reaction Additional Past Anesthesia/Blood Transfusion Reaction / Comment(s): Hx of blood transfusion 2009-no reaction., pt. adopted Past Psychological History: Anxiety, Bipolar, Depression Smoking Status: Former smoker Past Alcohol Use History: None Reported Past Drug Use History: None Reported - Past Family History Mother History Unknown: Yes Additional Family Medical History / Comment(s): Patient states she was adopted. General Exam Limitations: no limitations General appearance: alert, in no apparent distress Head exam: Present: atraumatic, normocephalic, normal inspection Respiratory exam: Present: normal lung sounds bilaterally. Absent: respiratory distress, wheezes, rales, rhonchi, stridor Cardiovascular Exam: Present: regular rate, normal rhythm GI/Abdominal exam: Present: soft, tenderness (Diffuse). Absent: distended Neurological exam: Present: alert, oriented X3, CN II-XII intact Psychiatric exam: Present: normal affect, normal mood Skin exam: Present: warm, dry, intact, normal color. Absent: rash Course Vital Signs 11/17/24 11/17/24 11/17/24 19:13 20:15 21:37 Temperature 98.5 F Pulse Rate 70 68 78 Pulse Rate [ Right] Respiratory 18 18 18 Rate Blood Pressure 99/63 91/51 108/55 Blood Pressure [Right Arm] O2 Sat by Pulse 98 93 L 94 L Oximetry 11/17/24 11/17/24 11/18/24 22:00 23:00 00:00 Temperature Pulse Rate 88 58 L 56 L Pulse Rate [ Right] Respiratory 18 18 18 Rate Blood Pressure 96/48 94/58 88/47 Blood Pressure [Right Arm] O2 Sat by Pulse 93 L 98 98 Oximetry 11/18/24 11/18/24 11/18/24 01:00 02:00 02:01 Temperature 98.3 F 97.6 F Pulse Rate 60 64 Pulse Rate [ 81 Right] Respiratory 18 15 18 Rate Blood Pressure 86/44 91/43 Blood Pressure 94/56 [Right Arm] O2 Sat by Pulse 99 91 L 98 Oximetry Medical Decision Making - Medical Decision Making This is a 69-year-old female who presents to the emergency department for abdominal pain. Was pt. sent in by a medical professional or institution? @ -No Did you speak to anyone other than the patient for history? @ -No Did you review nursing and triage notes? @ -Yes, and I agree, it is accurate with regards to the patient's symptoms. Were old charts reviewed? @ -No Differential Diagnosis? @ -Differential Abdominal Pain Women: Appendicitis, Cholecystitis, diverticulosis, ischemic bowel, pancreatitis, hepatitis, UTI, gastroenteritis, AAA, incarcerated hernia, bowel obstruction, constipation, inflammatory bowel, hepatitis, peptic ulcer disease, splenic infarction, perforated viscus, vulvitis, ovarian torsion, PID, kidney stone, placenta abruption, this is not meant to be an all-inclusive list EKG interpreted by me (3pts min.)? @ -EKG interpreted by me demonstrating the following: Sinus rhythm. Ventricular rate 67 bpm, RI interval 154 ms, QRS duration 97 ms, QTc 409 ms. X-rays interpreted by me (1pt min.)? @ -Not obtained CT interpreted by me (1pt min.)? @ -CT scan of the abdomen and pelvis obtained. My interpretation identifies no dilation of the bowel loops. U/S interpreted by me (1pt. min.)? @ -Not obtained What testing was considered but not performed? (CT, X-rays, U/S, labs)? Why? @ -None What meds were considered but not given? Why? @ -None Did you discuss the management of the patient with other professionals? @ -Yes, Dr. Silva, general surgery, who advised that treatment at this point will consist of pain management. He accepts the patient for admission if needed for pain control. Did you reconcile home meds? @ -No Was smoking cessation discussed for >3mins.? @ -No Was critical care preformed (if so, how long)? @ -No Were there social determinants of health that impacted care today? How? (Homelessness, low income, unemployed, alcoholism, drug addiction, transportation, low edu. Level, literacy, decrease access to med. care, intermediate, rehab)? @ -No Was there de-escalation of care discussed even if they declined? (Discuss DNR or withdrawal of care, Hospice)? @ -No What co-morbidities impacted this encounter? (DM, HTN, Smoking, COPD, CAD, Cancer, CVA, Hep., AIDS, mental health diagnosis, sleep apnea, morbid obesity)? @ -CAD, CHF, HLD, HTN Was patient admitted / discharged? @ -Admitted. Lab work unremarkable. Urinalysis negative for signs of infection. CT scan of the abdomen and pelvis obtained demonstrating a ventral wall hernia containing fat with inflammation suggesting infarcting fat. Otherwise no acute process was identified. Case discussed with general surgery who advised that treatment at this point will be to control her pain and surgery would not be done on an emergent basis. They advised that if her pain can be controlled she can go home on pain medication. However, if her pain cannot be controlled she can be admitted for pain control with the understanding that the admission would only consist of pain management. This was discussed with the patient. Her pain was rather difficult to manage and she also started to become hypotensive. Patient did not feel like she could go home. She was subsequently admitted to surgery for pain control with regards to the ventral hernia and fat necrosis. PRN pain medication was ordered and she was also started on maintenance fluids for the hypotension. Consult placed for medicine for medical management. Case discussed with ED attending Dr. Kirkpatrick. Undiagnosed new problem with uncertain prognosis? @ -None Drug Therapy requiring intensive monitoring for toxicity (Heparin, Nitro, Insulin, Cardizem)? @ -None Were any procedures done? @ -None Diagnosis/symptom? @ -Ventral hernia with fat necrosis, intractable abdominal pain Acute, or Chronic, or Acute on Chronic? @ -Acute Uncomplicated (without systemic symptoms) or Complicated (systemic symptoms)? @ -Complicated Side effects of treatment? @ -None Exacerbation, Progression, or Severe Exacerbation] @ -Not applicable Poses a threat to life or bodily function? @ -Yes, the pain is limiting her ability to function. - Lab Data Result diagrams: 11/17/24 19:39 11/17/24 19:39 Lab Results 11/17/24 11/17/24 11/17/24 Range/Units 19:39 19:39 19:39 WBC 6.06 (4.50-10.00) 10*3/uL RBC 4.40 (4.10-5.20) 10*6/uL Hgb 12.8 (12.0-15.0) g/dL Hct 38.7 (37.2-46.3) % MCV 88.0 (80.0-97.0) fL MCH 29.1 (27.0-32.0) pg MCHC 33.1 (32.0-37.0) g/dL Plt Count 201 (140-440) 10*3/uL MPV 11.8 (9.5-12.2) fL Immature Gran % (Auto) 0.2 % Neutrophils % 50.5 % Lymphocytes % 37.5 % Monocytes % 8.1 % Eosinophils % 3.0 % Basophils % 0.7 % Immature Gran # 0.01 (0.00-0.04) 10*3/uL Neutrophils # 3.07 (1.80-7.70) 10*3/uL Lymphocytes # 2.27 (0.90-5.00) 10*3/uL Monocytes # 0.49 (0.20-1.00) 10*3/uL Eosinophils # 0.18 (0.04-0.35) 10*3/uL Basophils # 0.04 (0.00-0.10) 10*3/uL Manual Slide Review Performed Sodium 139 (137-145) mmol/L Potassium 4.4 (3.5-5.1) mmol/L Chloride 105 (98-107) mmol/L Carbon Dioxide 29 (22-30) mmol/L Anion Gap 5 mmol/L BUN 12 (7-17) mg/dL Creatinine 0.74 (0.52-1.04) mg/dL Est GFR (CKD-EPI)AfAm >90 (>60 ml/min/1.73 sqM) Est GFR (CKD-EPI)NonAf 82 (>60 ml/min/1.73 sqM) Glucose 101 H (74-99) mg/dL Plasma Lactic Acid Trey 1.4 (0.7-2.0) mmol/L Calcium 9.7 (8.4-10.2) mg/dL Magnesium 2.0 (1.6-2.3) mg/dL Total Bilirubin 0.6 (0.2-1.3) mg/dL AST 67 H (14-36) U/L ALT 42 H (4-34) U/L Alkaline Phosphatase 77 (38-126) U/L Total Protein 7.7 (6.3-8.2) g/dL Albumin 4.4 (3.5-5.0) g/dL Amylase 44 (30-110) U/L Lipase 89 (23-300) U/L Urine Color Urine Appearance (Clear) Urine pH (5.0-8.0) Ur Specific [place] (1.001-1.035) Urine Protein (Negative) Urine Glucose (UA) (Negative) Urine Ketones (Negative) Urine Blood (Negative) Urine Nitrite (Negative) Urine Bilirubin (Negative) Urine Urobilinogen (<2.0) mg/dL Ur Leukocyte Esterase (Negative) Urine RBC (0-5) /hpf Urine WBC (0-5) /hpf Ur Squamous Epith Cells (0-4) /hpf Urine Mucus (None) /hpf 11/17/24 Range/Units 21:00 WBC (4.50-10.00) 10*3/uL RBC (4.10-5.20) 10*6/uL Hgb (12.0-15.0) g/dL Hct (37.2-46.3) % MCV (80.0-97.0) fL MCH (27.0-32.0) pg MCHC (32.0-37.0) g/dL Plt Count (140-440) 10*3/uL MPV (9.5-12.2) fL Immature Gran % (Auto) % Neutrophils % % Lymphocytes % % Monocytes % % Eosinophils % % Basophils % % Immature Gran # (0.00-0.04) 10*3/uL Neutrophils # (1.80-7.70) 10*3/uL Lymphocytes # (0.90-5.00) 10*3/uL Monocytes # (0.20-1.00) 10*3/uL Eosinophils # (0.04-0.35) 10*3/uL Basophils # (0.00-0.10) 10*3/uL Manual Slide Review Sodium (137-145) mmol/L Potassium (3.5-5.1) mmol/L Chloride (98-107) mmol/L Carbon Dioxide (22-30) mmol/L Anion Gap mmol/L BUN (7-17) mg/dL Creatinine (0.52-1.04) mg/dL Est GFR (CKD-EPI)AfAm (>60 ml/min/1.73 sqM) Est GFR (CKD-EPI)NonAf (>60 ml/min/1.73 sqM) Glucose (74-99) mg/dL Plasma Lactic Acid Trey (0.7-2.0) mmol/L Calcium (8.4-10.2) mg/dL Magnesium (1.6-2.3) mg/dL Total Bilirubin (0.2-1.3) mg/dL AST (14-36) U/L ALT (4-34) U/L Alkaline Phosphatase (38-126) U/L Total Protein (6.3-8.2) g/dL Albumin (3.5-5.0) g/dL Amylase (30-110) U/L Lipase (23-300) U/L Urine Color Colorless Urine Appearance Clear (Clear) Urine pH 6.5 (5.0-8.0) Ur Specific [place] >1.050 H (1.001-1.035) Urine Protein Negative (Negative) Urine Glucose (UA) Negative (Negative) Urine Ketones Negative (Negative) Urine Blood Negative (Negative) Urine Nitrite Negative (Negative) Urine Bilirubin Negative (Negative) Urine Urobilinogen <2.0 (<2.0) mg/dL Ur Leukocyte Esterase Small H (Negative) Urine RBC 1 (0-5) /hpf Urine WBC 5 (0-5) /hpf Ur Squamous Epith Cells 2 (0-4) /hpf Urine Mucus Rare H (None) /hpf - Radiology Data Radiology results: report reviewed, image reviewed Disposition Clinical Impression: Ventral hernia, Fat necrosis, Intractable abdominal pain Disposition: ADMITTED IP TO THIS [facility] Condition: Fair
[2024-11-17 19:44] LABS: Basophils # (A) 0.04 10*3/uL (0.00-0.10); Basophils % (A) 0.7 %; Eosinophils # (A) 0.18 10*3/uL (0.04-0.35); Eosinophils % (A) 3.0 %; HCT 38.7 % (37.2-46.3); HGB 12.8 g/dL (12.0-15.0); Lymphocytes # (A) 2.27 10*3/uL (0.90-5.00); Lymphocytes % (A) 37.5 %; MCH 29.1 pg (27.0-32.0); MCHC 33.1 g/dL (32.0-37.0); MCV 88.0 fL (80.0-97.0); Monocytes # (A) 0.49 10*3/uL (0.20-1.00); Monocytes % (A) 8.1 %; Neutrophils # (A) 3.07 10*3/uL (1.80-7.70); Neutrophils % (A) 50.5 %; Platelet Count 201 10*3/uL (140-440); RBC 4.40 10*6/uL (4.10-5.20); RDW 15.2 % (11.5-14.5); WBC 6.06 10*3/uL (4.50-10.00)
[2024-11-17] MEDS: PANTOPRAZOLE 40 MG/10 ML VIAL IVP STA (19:46)
[2024-11-17] MEDS: ONDANSETRON 4 MG/2 ML VIAL IVP STA (19:46)
[2024-11-17] MEDS: SODIUM CHLORIDE 0.9% 1,000 ML IV ONE (19:46)
[2024-11-17] MEDS: MORPHINE SULFATE 4 MG/ML SYRINGE IVP STA ×2 (19:47→22:28)
[2024-11-17 19:56] LABS: ALT 42 U/L (4-34); AST 67 U/L (14-36); African American GFR (CKD) >90 (>60 ml/min/1.73 sqM); Albumin 4.4 g/dL (3.5-5.0); Alkaline Phosphatase 77 U/L (38-126); Amylase 44 U/L (30-110); Anion Gap 5 mmol/L; Blood Urea Nitrogen 12 mg/dL (7-17); Calcium 9.7 mg/dL (8.4-10.2); Carbon Dioxide 29 mmol/L (22-30); Chloride 105 mmol/L (98-107); Glucose 101 mg/dL (74-99); Lipase 89 U/L (23-300); Magnesium 2.0 mg/dL (1.6-2.3); Non-African American GFR(CKD) 82 (>60 ml/min/1.73 sqM); Potassium 4.4 mmol/L (3.5-5.1); Sodium 139 mmol/L (137-145); Total Protein 7.7 g/dL (6.3-8.2)
--- NOTE | 2024-11-17 21:11 | CT ---
EXAMINATION TYPE: CT abdomen pelvis w con DATE OF EXAM: 11/17/2024 8:55 PM COMPARISON: CT abdomen pelvis most recent from 04/07/2023 CLINICAL INDICATION: Female, 69 years old with history of Abdominal pain, acute, nonlocalized; abdomi nal pain x yesterday, some nausea TECHNIQUE: Axial CT abdomen pelvis w con;Sagittal and coronal reformats were created on a separate w orkstation. Contrast used:100 ml mL of Isovue 300 with IV Contrast, (none if empty) Oral contrast used: without Oral Contrast (none if empty) CT DLP: 745.2 mGycm, Automated exposure control for dose reduction was used. FINDINGS: LOWER CHEST: Aortic valve repair changes. The heart is mildly enlarged for size. ABDOMEN LIVER: Unremarkable GALLBLADDER AND BILE DUCTS: Gallbladder is surgically absent with mild intrahepatic and extra hepatic biliary dilatation likely physiologic and a postcholecystectomy change. No evidence of choledocholit hiasis. PANCREAS: Unremarkable. SPLEEN: Unremarkable. ADRENAL GLANDS: Unremarkable. KIDNEYS AND URETERS: No evidence of hydronephrosis or obstructing renal calculus. The ureters are unr emarkable. Simple appearing left renal 6.6 cm cyst. No follow-up recommended. PELVIS BLADDER: No evidence for wall thickening or mass given limitations of exam. REPRODUCTIVE: The uterus is surgically absent. ABDOMEN & PELVIS STOMACH AND BOWEL: No evidence of bowel obstruction. Few scattered colonic diverticula. PERITONEUM/RETROPERITONEUM: No evidence of pneumoperitoneum or free fluid. VASCULATURE: No evidence of aortic aneurysm. MUSCULOSKELETAL: No acute osseous abnormalities LYMPH NODES: No gross evidence for lymphadenopathy. SOFT TISSUE/ABDOMINAL WALL: Ventral wall fat-containing hernia with neck measuring 4 mm with fat with fat stranding changes.. IMPRESSION: 1. Ventral wall hernia containing fat with inflammation suggesting infarcting fat. 2. No acute abdominal process. 3. Colonic diverticulosis. 4. Mild cardiomegaly 5. Simple appearing left renal cyst. [facility], , 11/17/2024 9:08 PM
[2024-11-17 21:24] LABS: Bilirubin,Urine Negative (Negative); Blood,Urine Negative (Negative); Color,Urine Colorless; Glucose,Urine (UA) Negative (Negative); Ketones,Urine Negative (Negative); Leukocyte Esterase,Urine Small (Negative); Mucus,Urine Rare /hpf; Nitrite,Urine Negative (Negative); PH, Urine 6.5 (5.0-8.0); Protein,Urine Negative (Negative); RBC,Urine 1 /hpf (0-5); Squamous Epithelial Cell,Urine 2 /hpf (0-4); Urobilinogen,Urine <2.0 mg/dL (<2.0); WBC,Urine 5 /hpf (0-5)
[2024-11-17 21:29] LABS: Specific Gravity,Urine >1.050 (1.001-1.035)
[2024-11-17] MEDS: LACTATED RINGERS 1,000 ML IV SCH (21:36)
[2024-11-17] MEDS: KETOROLAC 15 MG/ML 1 ML VIAL IVP STA (22:07)
[2024-11-17] MEDS: HYDROmorphone 1 MG/ML 1 ML SYRINGE IVP STA (22:09)
[2024-11-18] MEDS ORDERED: ONDANSETRON 4 MG/2 ML VIAL IVP PRN (01:23)
[2024-11-18] MEDS ORDERED: NALOXONE 0.4 MG/ML 1 ML VIAL IV PRN (01:23)
[2024-11-18] MEDS ORDERED: ACETAMINOPHEN TAB 325 MG TAB PO PRN (01:23)
[2024-11-18] MEDS ORDERED: MORPHINE SULFATE 4 MG/ML SYRINGE IV PRN (01:23)
[2024-11-18] MEDS: SODIUM CHLORIDE 0.9% 1,000 ML IV SCH (06:39)
[2024-11-18] MEDS: PANTOPRAZOLE 40 MG/10 ML VIAL IV SCH (08:29)
[2024-11-18] MEDS: HYDROcodone/APAP 5-325MG 1 EACH TAB PO PRN (08:33)
[2024-11-18] MEDS ORDERED: SENNOSIDES 8.6 MG TAB PO PRN (10:55)
[2024-11-18] MEDS ORDERED: IPRATROPIUM-ALBUTEROL 3 ML NEB INHALATION PRN (10:57)
[2024-11-18] MEDS: SERTRALINE 50 MG TAB PO SCH (11:32)
[2024-11-18] MEDS: EZETIMIBE 10 MG TAB PO SCH (11:32)
[2024-11-18] MEDS: MEMANTINE 10 MG TAB PO SCH (11:32)
[2024-11-18] MEDS: LEVOTHYROXINE 25 MCG TAB PO SCH (11:32)
[2024-11-18] MEDS: lamoTRIgine 100 MG TAB PO SCH (11:32)
[2024-11-18] MEDS: ERGOCALCIFEROL 1,250 MCG (50,000 IU) CAPSULE PO SCH (12:23)
[2024-11-18] MEDS: METOPROLOL SUCCINATE (ER) 25 MG TAB.ER.24H PO SCH (12:32)
[2024-11-18] MEDS ORDERED: IPRATROPIUM-ALBUTEROL 3 ML NEB INHALATION SCH (13:00)
--- NOTE | 2024-11-18 14:26 | P.GSHP ---
History of Present Illness This is a 69-year-old female who presents to the emergency department for abdominal pain. States that it started yesterday. It was initially in the upper abdomen and started to radiate down to her pelvis. Pain is not worse on one side or the other. States that she has nausea but no vomiting. Also reports constipation and having only small firm hard stools. Denies any history of similar abdominal pain in the past. Denies any fevers, chills, chest pain, or shortness of breath. - Constitutional Constitutional: Reports as per HPI Past Medical History Past Medical History: Chest Pain / Angina, Heart Failure, COPD, CVA/TIA, Dementia, GERD/Reflux, Hyperlipidemia, Hypertension, Memory Impairment, Mitral Valve Prolapse (MVP) Additional Past Medical History / Comment(s): heart murmur, "beginning of dementia",hx. insomnia, "I've had a stroke but they don't know when." "It's an old stroke." recent adm. for chest pain, thought to be related to valve problem History of Any Multi-Drug Resistant Organisms: None Reported Past Surgical History: Back Surgery, Bladder Surgery, Cardiac Valve Replacement, Cholecystectomy, Heart Catheterization, Hysterectomy, Joint Replacement, Orthopedic Surgery, Tubal Ligation Additional Past Surgical History / Comment(s): aortic valve replacement , left breast biopsy-neg, oopherectomy, left knee replacement, juan, rt breast bx neg., right ORIF from knee to hip 2019 Past Anesthesia/Blood Transfusion Reactions: No Reported Reaction Additional Past Anesthesia/Blood Transfusion Reaction / Comment(s): Hx of blood transfusion 2009-no reaction., pt. adopted Past Psychological History: Anxiety, Bipolar, Depression Smoking Status: Former smoker Past Alcohol Use History: None Reported Past Drug Use History: None Reported - Past Family History Mother History Unknown: Yes Additional Family Medical History / Comment(s): Patient states she was adopted. Medications and Allergies Home Medications Medication Instructions Recorded Confirmed Type Memantine HCl [Namenda Xr] 28 mg PO DAILY 12/06/17 10/03/24 History Gabapentin [Neurontin] 300 mg PO TID 01/10/18 10/03/24 History Fluticasone/Vilanterol [Breo 1 puff INHALATION RT-DAILY 01/31/20 10/03/24 History Ellipta 200-25 Mcg Inhaler] Ergocalciferol (Vitamin D2) 1,250 mcg PO SA 07/28/22 10/03/24 History [Drisdol (50,000 Iu)] Ezetimibe [Zetia] 10 mg PO DAILY 07/28/22 10/03/24 History Levothyroxine Sodium [Synthroid] 25 mcg PO MOTUWETHFR 07/28/22 10/03/24 History Metoprolol Succinate (ER) [Toprol 25 mg PO DAILY 07/28/22 10/03/24 History XL] Sertraline [Zoloft] 150 mg PO DAILY 07/28/22 10/03/24 History Pantoprazole Sodium [Protonix] 40 mg PO DAILY 12/01/22 10/03/24 History lamoTRIgine [LaMICtal] 200 mg PO DAILY 12/01/22 10/03/24 History Levothyroxine Sodium [Synthroid] 50 mcg PO SUSA 03/03/23 10/03/24 History Clopidogrel [Plavix] 75 mg PO DAILY 05/21/23 10/03/24 History Brexpiprazole [Rexulti] 0.5 mg PO HS 03/12/24 10/03/24 History Sennosides [Senokot] 8.6 mg PO BID PRN 07/03/24 10/03/24 History Tiotropium 2.5 Mcg/Puff [Spiriva 2 puff INHALATION RT-DAILY 07/03/24 10/03/24 History Respimat 2.5 Mcg] Ranolazine [Ranexa] 1,000 mg PO Q12HR 09/08/24 10/03/24 History Rosuvastatin [Crestor] 20 mg PO DAILY 09/08/24 10/03/24 History lisinopriL [Zestril] 5 mg PO DAILY 09/08/24 10/03/24 History Aspirin 81 mg PO DAILY #30 tab 09/11/24 10/03/24 Rx Allergies Allergy/AdvReac Type Severity Reaction Status Date / Time fentanyl Allergy Rash/Hives Verified 11/17/24 19:16 niacin Allergy Dyspnea,barbara Verified 11/17/24 19:16 h Surgical - Exam Osteopathic Statement: *. No significant issues noted on an osteopathic structural exam other than those noted in the History and Physical/Consult. Vital Signs Temp Pulse Resp BP Pulse Ox 98.5 F 70 18 99/63 98 11/17/24 19:13 11/17/24 19:13 11/17/24 19:13 11/17/24 19:13 11/17/24 19:13 gen nad cv: rrr pul: non labored breathing abd: soft, tender to palpation, no guarding or rebound tenderness, not peritoneal Results - Labs 11/17/24 19:39 11/17/24 19:39 Abnormal Lab Results - Last 24 Hours (Table) 11/17/24 11/17/24 Range/Units 19:39 21:00 Glucose 101 H (74-99) mg/dL AST 67 H (14-36) U/L ALT 42 H (4-34) U/L Ur Specific [place] >1.050 H (1.001-1.035) Ur Leukocyte Esterase Small H (Negative) Urine Mucus Rare H (None) /hpf Diabetes panel 11/17/24 Range/Units 19:39 Sodium 139 (137-145) mmol/L Potassium 4.4 (3.5-5.1) mmol/L Chloride 105 (98-107) mmol/L Carbon Dioxide 29 (22-30) mmol/L BUN 12 (7-17) mg/dL Creatinine 0.74 (0.52-1.04) mg/dL Glucose 101 H (74-99) mg/dL Calcium 9.7 (8.4-10.2) mg/dL AST 67 H (14-36) U/L ALT 42 H (4-34) U/L Alkaline Phosphatase 77 (38-126) U/L Total Protein 7.7 (6.3-8.2) g/dL Albumin 4.4 (3.5-5.0) g/dL Calcium panel 11/17/24 Range/Units 19:39 Calcium 9.7 (8.4-10.2) mg/dL Albumin 4.4 (3.5-5.0) g/dL Pituitary panel 11/17/24 Range/Units 19:39 Sodium 139 (137-145) mmol/L Potassium 4.4 (3.5-5.1) mmol/L Chloride 105 (98-107) mmol/L Carbon Dioxide 29 (22-30) mmol/L BUN 12 (7-17) mg/dL Creatinine 0.74 (0.52-1.04) mg/dL Glucose 101 H (74-99) mg/dL Calcium 9.7 (8.4-10.2) mg/dL Adrenal panel 11/17/24 Range/Units 19:39 Sodium 139 (137-145) mmol/L Potassium 4.4 (3.5-5.1) mmol/L Chloride 105 (98-107) mmol/L Carbon Dioxide 29 (22-30) mmol/L BUN 12 (7-17) mg/dL Creatinine 0.74 (0.52-1.04) mg/dL Glucose 101 H (74-99) mg/dL Calcium 9.7 (8.4-10.2) mg/dL Total Bilirubin 0.6 (0.2-1.3) mg/dL AST 67 H (14-36) U/L ALT 42 H (4-34) U/L Alkaline Phosphatase 77 (38-126) U/L Total Protein 7.7 (6.3-8.2) g/dL Albumin 4.4 (3.5-5.0) g/dL Assessment and Plan Assessment: 69 yo female w/ incarcerated umbilical fat -npomn -pain management -OR tomorrow -appreciate cardiac clearance Time with Patient: Greater than 30
[2024-11-18] MEDS: GABAPENTIN 400 MG CAP PO SCH (15:18)
[2024-11-18] MEDS ORDERED: GABAPENTIN 300 MG CAP PO SCH (16:00)
--- NOTE | 2024-11-18 18:27 | P.CONS ---
History of Present Illness - Reason for Consult Consult date: 11/18/24 Medical management - Chief Complaint Abdominal pain - History of Present Illness 69-year-old female, history of hypertension, hyperlipidemia, COPD, CAD/CHF, dementia, CVA/TIA, who presents to the emergency department for abdominal pain. States that it started yesterday. It was initially in the upper abdomen and started to radiate down to her pelvis. Pain is not worse on one side or the other. States that she has nausea but no vomiting. Also reports constipation and having only small firm hard stools. Denies any history of similar abdominal pain in the past. Denies any fevers, chills, chest pain, or shortness of breath. Lab work unremarkable. Urinalysis negative for signs of infection. CT scan of the abdomen and pelvis obtained demonstrating a ventral wall hernia containing fat with inflammation suggesting infarcting fat. Otherwise no acute process was identified. Case discussed with general surgery who advised that treatment at this point will be to control her pain and surgery would not be done on an emergent basis. Review of Systems REVIEW OF SYSTEMS: CONSTITUTIONAL: No fever, no malaise, no fatigue. HEENT: No recent visual problems or hearing problems. Denied any sore throat. CARDIOVASCULAR: No chest pain, orthopnea, PND, no palpitations, no syncope. PULMONARY: No shortness of breath, no cough, no hemoptysis. GASTROINTESTINAL: No diarrhea, no nausea, no vomiting, no abdominal pain. NEUROLOGICAL: No headaches, no weakness, no numbness. HEMATOLOGICAL: Denies any bleeding or petechiae. GENITOURINARY: Denies any burning micturition, frequency, or urgency. MUSCULOSKELETAL/RHEUMATOLOGICAL: Denies any joint pain, swelling, or any muscle pain. ENDOCRINE: Denies any polyuria or polydipsia. The rest of the 14-point review of systems is negative. Past Medical History Past Medical History: Chest Pain / Angina, Heart Failure, COPD, CVA/TIA, Dementia, GERD/Reflux, Hyperlipidemia, Hypertension, Memory Impairment, Mitral Valve Prolapse (MVP) Additional Past Medical History / Comment(s): heart murmur, "beginning of dementia",hx. insomnia, "I've had a stroke but they don't know when." "It's an old stroke." recent adm. for chest pain, thought to be related to valve problem History of Any Multi-Drug Resistant Organisms: None Reported Past Surgical History: Back Surgery, Bladder Surgery, Cardiac Valve Replacement, Cholecystectomy, Heart Catheterization, Hysterectomy, Joint Replacement, Orthopedic Surgery, Tubal Ligation Additional Past Surgical History / Comment(s): aortic valve replacement , left breast biopsy-neg, oopherectomy, left knee replacement, juan, rt breast bx neg., right ORIF from knee to hip 2019 Past Anesthesia/Blood Transfusion Reactions: No Reported Reaction Additional Past Anesthesia/Blood Transfusion Reaction / Comm: Hx of blood transfusion 2009-no reaction., pt. adopted Past Psychological History: Anxiety, Bipolar, Depression Smoking Status: Former smoker Past Alcohol Use History: None Reported Past Drug Use History: None Reported - Past Family History Mother History Unknown: Yes Additional Family Medical History / Comment(s): Patient states she was adopted. Medications and Allergies Home Medications Medication Instructions Recorded Confirmed Type Memantine HCl [Namenda Xr] 28 mg PO DAILY 12/06/17 11/18/24 History Fluticasone/Vilanterol [Breo 1 puff INHALATION RT-DAILY 01/31/20 11/18/24 History Ellipta 200-25 Mcg Inhaler] Ergocalciferol (Vitamin D2) 1,250 mcg PO SA 07/28/22 11/18/24 History [Drisdol (50,000 Iu)] Ezetimibe [Zetia] 10 mg PO DAILY 07/28/22 11/18/24 History Levothyroxine Sodium [Synthroid] 25 mcg PO MOTUWETHFR 07/28/22 11/18/24 History Metoprolol Succinate (ER) [Toprol 25 mg PO DAILY 07/28/22 11/18/24 History XL] Sertraline [Zoloft] 150 mg PO DAILY 07/28/22 11/18/24 History Pantoprazole Sodium [Protonix] 40 mg PO DAILY 12/01/22 11/18/24 History lamoTRIgine [LaMICtal] 200 mg PO DAILY 12/01/22 11/18/24 History Levothyroxine Sodium [Synthroid] 50 mcg PO SUSA 03/03/23 11/18/24 History Clopidogrel [Plavix] 75 mg PO DAILY 05/21/23 11/18/24 History Brexpiprazole [Rexulti] 0.5 mg PO HS 03/12/24 11/18/24 History Sennosides [Senokot] 8.6 mg PO BID PRN 07/03/24 11/18/24 History Tiotropium 2.5 Mcg/Puff [Spiriva 2 puff INHALATION RT-DAILY 07/03/24 11/18/24 History Respimat 2.5 Mcg] Rosuvastatin [Crestor] 20 mg PO DAILY 09/08/24 11/18/24 History lisinopriL [Zestril] 5 mg PO DAILY 09/08/24 11/18/24 History Aspirin 81 mg PO DAILY #30 tab 09/11/24 11/18/24 Rx Gabapentin [Neurontin] 400 mg PO TID 11/18/24 11/18/24 History Allergies Allergy/AdvReac Type Severity Reaction Status Date / Time fentanyl Allergy Rash/Hives Verified 11/17/24 19:16 niacin Allergy Dyspnea,barbara Verified 11/17/24 19:16 h Physical Exam Vitals: Vital Signs Temp Pulse Pulse Resp BP BP Pulse Ox 11/18/24 11:26 57 L 115/67 11/18/24 07:21 97.5 F L 54 L 16 114/57 100 11/18/24 02:35 97.6 F 81 15 94/56 91 L 11/18/24 02:01 64 18 91/43 98 11/18/24 02:00 97.6 F 81 15 94/56 91 L 11/18/24 01:00 98.3 F 60 18 86/44 99 11/18/24 00:00 56 L 18 88/47 98 11/17/24 23:00 58 L 18 94/58 98 11/17/24 22:00 88 18 96/48 93 L 11/17/24 21:37 78 18 108/55 94 L 11/17/24 20:15 68 18 91/51 93 L 11/17/24 19:13 98.5 F 70 18 99/63 98 Intake and Output 11/17/24 11/18/24 11/18/24 22:59 06:59 14:59 Other: # Voids 1 Weight 67.585 kg 67.585 kg General appearance: alert, in no apparent distress Head exam: Present: atraumatic, normocephalic, normal inspection Respiratory exam: Present: normal lung sounds bilaterally. Absent: respiratory distress, wheezes, rales, rhonchi, stridor Cardiovascular Exam: Present: regular rate, normal rhythm GI/Abdominal exam: Present: soft, tenderness (Diffuse). Absent: distended Neurological exam: Present: alert, oriented X3, CN II-XII intact Psychiatric exam: Present: normal affect, normal mood Skin exam: Present: warm, dry, intact, normal color. Absent: rash Results CBC & Chem 7: 11/17/24 19:39 11/17/24 19:39 Labs: Abnormal Lab Results - Last 24 Hours (Table) 11/17/24 11/17/24 Range/Units 19:39 21:00 Glucose 101 H (74-99) mg/dL AST 67 H (14-36) U/L ALT 42 H (4-34) U/L Ur Specific [place] >1.050 H (1.001-1.035) Ur Leukocyte Esterase Small H (Negative) Urine Mucus Rare H (None) /hpf Assessment and Plan Assessment: Intractable abdominal pain; incarcerated umbilical fat -Patient has been evaluated by surgery; currently n.p.o. - Surgery planning to take patient to the OR tomorrow - Cardiology consulted for clearance Coronary artery disease/CHF - Patient is currently on aspirin, Plavix Hyperlipidemia; Zetia 10 mg daily; Crestor 20 mg daily Hypothyroidism; continue home dose of levothyroxine COPD; not in exacerbation; continue with home inhaler therapy Hypertension; lisinopril 5 mg daily; Toprol-XL 25 mg daily Dementia/depression; Zoloft 150 mg daily; Namenda 28 mg daily; Lamictal 200 mg daily
[2024-11-18] MEDS: NON FORMULARY DRUG (Brexpiprazole [Rexulti] 0.5 MG Tablet) PO SCH (21:46)
[2024-11-18] MEDS: RANOLAZINE 500 MG TAB.ER.12H PO SCH (21:47)
[2024-11-18] MEDS: HYDROmorphone 0.5 MG/0.5 ML SYRINGE IVP PRN (21:47)
[2024-11-19 07:30] LABS: Basophils # (A) 0.04 10*3/uL (0.00-0.10); Basophils % (A) 0.9 %; Eosinophils # (A) 0.29 10*3/uL (0.04-0.35); Eosinophils % (A) 6.5 %; HCT 35.3 % (37.2-46.3); HGB 11.2 g/dL (12.0-15.0); Immature Platelet Fraction 6.8 % (1.1-6.1); Lymphocytes # (A) 1.41 10*3/uL (0.90-5.00); Lymphocytes % (A) 31.5 %; MCH 28.7 pg (27.0-32.0); MCHC 31.7 g/dL (32.0-37.0); MCV 90.5 fL (80.0-97.0); Monocytes # (A) 0.36 10*3/uL (0.20-1.00); Monocytes % (A) 8.1 %; Neutrophils # (A) 2.36 10*3/uL (1.80-7.70); Neutrophils % (A) 52.8 %; Platelet Count 133 10*3/uL (140-440); RBC 3.90 10*6/uL (4.10-5.20); RDW 15.3 % (11.5-14.5); WBC 4.47 10*3/uL (4.50-10.00)
[2024-11-19 07:34] LABS: INR 1.0 (<1.2); Prothrombin Time 10.9 sec (10.0-12.5)
[2024-11-19 07:47] LABS: African American GFR (CKD) 86 (>60 ml/min/1.73 sqM); Anion Gap 2 mmol/L; Blood Urea Nitrogen 10 mg/dL (7-17); Calcium 8.6 mg/dL (8.4-10.2); Carbon Dioxide 31 mmol/L (22-30); Chloride 108 mmol/L (98-107); Glucose 90 mg/dL (74-99); Non-African American GFR(CKD) 75 (>60 ml/min/1.73 sqM); Potassium 4.7 mmol/L (3.5-5.1); Sodium 141 mmol/L (137-145)
[2024-11-19] MEDS: TIOTROPIUM 2.5 MCG INHALER INHALATION SCH (07:55)
[2024-11-19] MEDS: SYMBICORT 160-4.5 MCG INHALER INHALATION SCH (07:55)
[2024-11-19] MEDS ORDERED: TIOTROPIUM 2.5 MCG INHALER INHALATION SCH (08:00)
[2024-11-19] MEDS: ATORVASTATIN 40 MG TAB PO SCH (08:35)
--- NOTE | 2024-11-19 10:22 | P.CRDCN ---
History of Present Illness Consult date: 11/19/24 Requesting physician: Jaime Silva Reason for Consult (text): cardiac clearance Chief complaint: abdominal pain, nausea History of present illness: This is a pleasant 69-year-old female patient of Dr. Garvin with past medical history of aortic valve replacement in 2009 with subsequent valve in valve TAVR in July of this year, hypertension, hyperlipidemia, COPD, current someday smoker. Presented to the hospital with complaints of abdominal pain and nausea. Pain started about a day prior to presentation. Also had some diarrhea and felt somewhat dizzy. She is typically reasonably active for her age. She does her own housework and shopping and has no complaints of dyspnea on exertion or anginal symptoms, no symptoms suggestive of CHF. Diagnostics -EKG: Sinus rhythm -CT abdomen and pelvis: Enteral wall hernia containing fat with inflammation suggesting infarcting fat, no acute abdominal process, colonic diverticulosis, mild cardiomegaly, simple appearing left renal cyst -Laboratory studies: White blood cell count 6.06, hemoglobin 12.8, sodium 139, potassium 4.4, BUN 12, creatinine 0.74, magnesium 2.0, AST 67, ALT 42 -Home cardiac medications: Lisinopril 5 mg daily, rosuvastatin 20 mg p.o. daily, metoprolol succinate 25 mg p.o. daily, ezetimibe 10 mg p.o. daily, Plavix 75 mg p.o. daily, aspirin 81 mg daily -Prior stress test: N/A -Echocardiogram: August 2024: Normal LV size and systolic function with mild concentric LVH, mild pulmonary hypertension, bioprosthetic aortic valve with a mean gradient of 35 mmHg -Cardiac catheterization: 2024: Normal coronary angiogram, normal pulmonary artery systolic pressure, normal right sided filling pressure and elevated left- sided filling pressure Review Of Systems: At the time of my exam: CONSTITUTIONAL: Denies fever or chills. HEENT: Denies blurred vision, vision changes. CARDIOVASCULAR: Denies chest pain. Denies orthopnea. Denies PND. Denies palpitations, dizziness, or syncope. RESPIRATORY: Denies shortness of breath, wheezing, or cough. Denies hemoptysis. GASTROINTESTINAL: + abdominal pain. Denies nausea or vomiting. Denies bleeding. HEMATOLOGIC: Denies bleeding disorders. GENITOURINARY: Denies hematuria. SKIN: Denies puritis. Denies rash. PHYSICAL EXAMINATION: This is a 69-year-old female in no apparent distress at the time of my examination. VITAL SIGNS: Reviewed. HEENT: Head is atraumatic, normocephalic. Pupils are equal, round. Sclerae anicteric. Conjunctivae are clear. Mucous membranes of the mouth are moist. Neck is supple. There is no elevated jugular venous pressure. No carotid bruit is heard. CHEST EXAMINATION: Lungs reveal diminished entry bilaterally. No wheezes rales or rhonchi. Respirations even and nonlabored. HEART EXAMINATION: Heart regular, positive S1 and S2. No S3. No S4. Systolic ejection murmur at the base. ABDOMEN: Soft, tender. Bowel sounds are heard. No organomegaly noted. EXTREMITIES: 2+ peripheral pulses with no evidence of peripheral edema and no calf tenderness noted. NEUROLOGIC EXAMINATION: Patient is awake, alert and oriented x3. Assessment: 1. Preoperative cardiovascular evaluation 2. Status post valve in valve TAVR July 2024 3. Incarcerated umbilical fat, scheduled for surgical intervention today 4. Hypertension 5. Nicotine dependence 6. Hyperlipidemia Plan: From cardiology's perspective patient is intermediate risk to undergo surgery but no absolute contraindications from a cardiac standpoint. She has had no symptoms of his anemia or heart failure. Patient will require preoperative antibiotic prophylaxis. We will continue to follow the patient perioperatively and provide further recommendations accordingly. Thank you kindly for this consultation. Nurse practitioner note has been reviewed, I agree with documented findings and plan of care. Patient was seen and examined. Past Medical History Past Medical History: Chest Pain / Angina, Heart Failure, COPD, CVA/TIA, Dementia, GERD/Reflux, Hyperlipidemia, Hypertension, Memory Impairment, Mitral Valve Prolapse (MVP) Additional Past Medical History / Comment(s): heart murmur, "beginning of dementia",hx. insomnia, "I've had a stroke but they don't know when." "It's an old stroke." recent adm. for chest pain, thought to be related to valve problem History of Any Multi-Drug Resistant Organisms: None Reported Past Surgical History: Back Surgery, Bladder Surgery, Cardiac Valve Replacement, Cholecystectomy, Heart Catheterization, Hysterectomy, Joint Replacement, Ort hopedic Surgery, Tubal Ligation Additional Past Surgical History / Comment(s): aortic valve replacement , left breast biopsy-neg, oopherectomy, left knee replacement, juan, rt breast bx neg., right ORIF from knee to hip 2019 Past Anesthesia/Blood Transfusion Reactions: No Reported Reaction Additional Past Anesthesia/Blood Transfusion Reaction / Comment(s): Hx of blood transfusion 2009-no reaction., pt. adopted Past Psychological History: Anxiety, Bipolar, Depression Smoking Status: Former smoker Past Alcohol Use History: None Reported Past Drug Use History: None Reported - Past Family History Mother History Unknown: Yes Additional Family Medical History / Comment(s): Patient states she was adopted. Medications and Allergies Home Medications Medication Instructions Recorded Confirmed Type Memantine HCl [Namenda Xr] 28 mg PO DAILY 12/06/17 11/18/24 History Fluticasone/Vilanterol [Breo 1 puff INHALATION RT-DAILY 01/31/20 11/18/24 History Ellipta 200-25 Mcg Inhaler] Ergocalciferol (Vitamin D2) 1,250 mcg PO SA 07/28/22 11/18/24 History [Drisdol (50,000 Iu)] Ezetimibe [Zetia] 10 mg PO DAILY 07/28/22 11/18/24 History Levothyroxine Sodium [Synthroid] 25 mcg PO MOTUWETHFR 07/28/22 11/18/24 History Metoprolol Succinate (ER) [Toprol 25 mg PO DAILY 07/28/22 11/18/24 History XL] Sertraline [Zoloft] 150 mg PO DAILY 07/28/22 11/18/24 History Pantoprazole Sodium [Protonix] 40 mg PO DAILY 12/01/22 11/18/24 History lamoTRIgine [LaMICtal] 200 mg PO DAILY 12/01/22 11/18/24 History Levothyroxine Sodium [Synthroid] 50 mcg PO SUSA 03/03/23 11/18/24 History Clopidogrel [Plavix] 75 mg PO DAILY 05/21/23 11/18/24 History Brexpiprazole [Rexulti] 0.5 mg PO HS 03/12/24 11/18/24 History Sennosides [Senokot] 8.6 mg PO BID PRN 07/03/24 11/18/24 History Tiotropium 2.5 Mcg/Puff [Spiriva 2 puff INHALATION RT-DAILY 07/03/24 11/18/24 History Respimat 2.5 Mcg] Rosuvastatin [Crestor] 20 mg PO DAILY 09/08/24 11/18/24 History lisinopriL [Zestril] 5 mg PO DAILY 09/08/24 11/18/24 History Aspirin 81 mg PO DAILY #30 tab 09/11/24 11/18/24 Rx Gabapentin [Neurontin] 400 mg PO TID 11/18/24 11/18/24 History Allergies Allergy/AdvReac Type Severity Reaction Status Date / Time fentanyl Allergy Rash/Hives Verified 11/17/24 19:16 niacin Allergy Dyspnea,barbara Verified 11/17/24 19:16 h Physical Exam Vitals: Vital Signs Temp Pulse Pulse Resp BP Pulse Ox 11/19/24 07:49 98.0 F 66 18 128/69 96 11/19/24 01:06 98.4 F 62 17 103/61 95 11/18/24 19:15 97.9 F 60 17 122/63 11/18/24 14:00 97.9 F 58 L 17 111/63 97 11/18/24 12:25 97 11/18/24 11:26 57 L 115/67 Intake and Output 11/18/24 11/19/24 11/19/24 22:59 06:59 14:59 Other: Voiding Method Toilet # Voids 3 2 Results 11/19/24 06:51 11/19/24 06:51 Coagulation 11/19/24 Range/Units 06:51 PT 10.9 (10.0-12.5) sec CBC 11/19/24 Range/Units 06:51 WBC 4.47 L (4.50-10.00) 10*3/uL RBC 3.90 L (4.10-5.20) 10*6/uL Hgb 11.2 L (12.0-15.0) g/dL Hct 35.3 L (37.2-46.3) % Plt Count 133 L (140-440) 10*3/uL Comprehensive Metabolic Panel 11/19/24 Range/Units 06:51 Sodium 141 (137-145) mmol/L Potassium 4.7 (3.5-5.1) mmol/L Chloride 108 H (98-107) mmol/L Carbon Dioxide 31 H (22-30) mmol/L BUN 10 (7-17) mg/dL Creatinine 0.80 (0.52-1.04) mg/dL Glucose 90 (74-99) mg/dL Calcium 8.6 (8.4-10.2) mg/dL Current Medications Generic Name Dose Route Start Last Admin Trade Name Freq PRN Reason Stop Dose Admin Acetaminophen 650 mg 11/18/24 01:23 Acetaminophen Tab 325 Mg Tab PO Q6HR PRN Mild Pain or Fever > 100.5 Hydrocodone Bitart/Acetaminophen 1 each 11/18/24 01:23 11/18/24 18:37 Hydrocodone/Apap 5-325mg 1 Each Tab PO 1 each Q6HR PRN Administration Moderate Pain (Scale 4 to 6) Albuterol/Ipratropium 3 ml 11/18/24 10:57 Ipratropium-Albuterol 3 Ml Neb INHALATION RT-TID PRN Shortness Of Breath Or Wheezing Atorvastatin Calcium 40 mg 11/19/24 09:00 11/19/24 08:35 Atorvastatin 40 Mg Tab PO 40 mg DAILY GERMAINE Administration Budesonide/Formoterol Fumarate 2 puff 11/19/24 08:00 11/19/24 07:55 Symbicort 160-4.5 Mcg Inhaler INHALATION 2 puff RT-BID GERMAINE Administration Dexamethasone Sodium Phosphate 4 mg 11/19/24 10:06 Dexamethasone Sod Phosphate 4 Mg/Ml 1 Ml Vial IV 11/19/24 10:07 ONCE ONE Ezetimibe 10 mg 11/18/24 11:00 11/19/24 08:35 Ezetimibe 10 Mg Tab PO 10 mg DAILY GERMAINE Administration Ergocalciferol 1,250 mcg 11/18/24 11:00 11/18/24 12:23 Ergocalciferol 1,250 Mcg (50,000 Iu) Capsule PO 1,250 mcg SA GERMAINE Administration Gabapentin 400 mg 11/18/24 16:00 11/19/24 08:35 Gabapentin 400 Mg Cap PO 400 mg TID GERMAINE Administration Hydromorphone HCl 0.25 mg 11/18/24 13:39 11/19/24 06:07 Hydromorphone 0.5 Mg/0.5 Ml Syringe IVP 0.25 mg Q4HR PRN Administration Pain Hydromorphone HCl 0.5 mg 11/20/24 07:00 Hydromorphone 0.5 Mg/0.5 Ml Syringe IVP 11/20/24 23:00 Q5M PRN Phase 1 or 2 - Pain Control Sodium Chloride 1,000 mls @ 75 mls/hr 11/18/24 04:30 11/19/24 04:49 Saline 0.9% IV 75 mls/hr .[id number] GERMAINE Administration Lactated Ringer's 1,000 mls @ 20 mls/hr 11/19/24 10:15 Lactated Ringers IV .Q24H GERMAINE Lamotrigine 200 mg 11/18/24 11:00 11/19/24 08:35 Lamotrigine 100 Mg Tab PO 200 mg DAILY GERMAINE Administration Levothyroxine Sodium 25 mcg 11/20/24 06:30 Levothyroxine 25 Mcg Tab PO [id number] [facility] Levothyroxine Sodium 50 mcg 11/18/24 11:00 11/19/24 06:08 Levothyroxine 25 Mcg Tab PO 50 mcg [id number] GERMAINE Administration Lisinopril 5 mg 11/19/24 09:00 11/19/24 08:35 Lisinopril 5 Mg Tab PO 5 mg DAILY GERMAINE Administration Memantine 10 mg 11/18/24 11:00 11/19/24 08:35 Memantine 10 Mg Tab PO 10 mg BID GERMAINE Administration Metoprolol Succinate 25 mg 11/18/24 11:00 11/19/24 08:35 Metoprolol Succinate (Er) 25 Mg Tab.Er.24h PO 25 mg DAILY GERMAINE Administration Naloxone HCl 0.2 mg 11/18/24 01:23 Naloxone 0.4 Mg/Ml 1 Ml Vial IV Q2M PRN Opioid Reversal Non-Formulary Medication 0.5 mg 11/18/24 21:00 11/18/24 21:46 Brexpiprazole [Rexulti] PO Not Given HS [facility] Ondansetron HCl 4 mg 11/18/24 01:23 Ondansetron 4 Mg/2 Ml Vial IVP Q8HR PRN Nausea And Vomiting Ondansetron HCl 4 mg 11/19/24 10:06 Ondansetron 4 Mg/2 Ml Vial IVP 11/19/24 10:07 ONCE ONE Pantoprazole Sodium 40 mg 11/18/24 09:00 11/19/24 08:36 Pantoprazole 40 Mg/10 Ml Vial IV 40 mg DAILY GERMAINE Administration Senna 8.6 mg 11/18/24 10:55 Sennosides 8.6 Mg Tab PO BID PRN Constipation Sertraline HCl 150 mg 11/18/24 11:00 11/19/24 08:35 Sertraline 50 Mg Tab PO 150 mg DAILY GERMAINE Administration Tiotropium [place] 2 puff 11/19/24 08:00 11/19/24 07:55 Tiotropium 2.5 Mcg Inhaler INHALATION 2 puff RT-DAILY GERMAINE Administration Intake and Output 11/18/24 11/19/24 11/19/24 22:59 06:59 14:59 Other: Voiding Method Toilet # Voids 3 2 11/19/24 06:51 11/19/24 06:51
[2024-11-19] MEDS ORDERED: ALBUTEROL HFA INHALER INHALATION ONE (13:37)
[2024-11-19] MEDS ORDERED: SUCCINYLCHOLINE CHLORIDE 200 MG/10 ML VIAL IV ONE (13:37)
[2024-11-19] MEDS ORDERED: HYDROmorphone (PF) 1 MG/ML ONE (13:37)
[2024-11-19] MEDS ORDERED: LIDOCAINE 1% INJ 10MG/ML (20 ML MDV) ONE (13:37)
[2024-11-19] MEDS ORDERED: ONDANSETRON 4 MG/2 ML VIAL ONE (13:37)
[2024-11-19] MEDS ORDERED: ROCURONIUM 10 MG/ML (5 ML VIAL) IV ONE (13:37)
[2024-11-19] MEDS ORDERED: NEOSTIGMINE 1 MG/ML 10 ML VIAL ONE (13:37)
[2024-11-19] MEDS ORDERED: GLYCOPYRROLATE 0.2 MG/ML 2 ML VIAL ONE (13:37)
[2024-11-19] MEDS ORDERED: HEPARIN SODIUM,PORCINE 5,000 UNIT/ML 1 ML VIAL ONE (13:37)
[2024-11-19] MEDS ORDERED: ePHEDrine 50 MG/ML 1 ML VIAL ONE (13:37)
[2024-11-19] MEDS ORDERED: PROPOFOL 10 MG/ML 20 ML VIAL IV ONE (13:37)
[2024-11-19] MEDS ORDERED: MIDAZOLAM 2 MG/2 ML VIAL ONE (13:37)
[2024-11-19] MEDS: IV FLUID CONTINUATION 1,000 ML IV ONE ×3 (13:40→16:40)
[2024-11-19] MEDS: SODIUM CHLORIDE 0.9% 50 ML with ceFAZolin 2,000 MG IV ONE (13:56)
[2024-11-19] MEDS: BUPIVACAINE (PF) 0.25% 30 ML VIAL SQ ONE ×2 (14:13→15:12)
[2024-11-19] MEDS: LACTATED RINGERS 1,000 ML IV ONE (15:07)
[2024-11-19] MEDS: HYDROmorphone 0.5 MG/0.5 ML SYRINGE IVP PRN (15:37)
[2024-11-19] MEDS ORDERED: PHENYLEPHRINE 1 MG in SODIUM CHLORIDE 0.9% 100 ML IV STA (16:18)
[2024-11-19] MEDS: PHENYLEPHRINE-0.9% NACL SYG 1,000 MCG/10 ML SYRINGE IVP STA ×2 (16:23→16:58)
[2024-11-19] MEDS: DEXAMETHASONE SOD PHOSPHATE 4 MG/ML 1 ML VIAL IV ONE (16:47)
[2024-11-19] MEDS: LACTATED RINGERS 1,000 ML IV SCH (16:48)
[2024-11-19] MEDS: ONDANSETRON 4 MG/2 ML VIAL IVP ONE (16:48)
--- NOTE | 2024-11-19 20:42 | P.OP ---
Date of Procedure: 11/19/24 Preoperative Diagnosis: Umbilical hernia Postoperative Diagnosis: 3 cm and 1 cm ventral and umbilical hernia Procedure(s) Performed: Robotic ventral/umbilical hernia measuring 3 and 2 cm repair with mesh Anesthesia: PAIGE Surgeon: Jaime Silva Estimated Blood Loss (ml): 20 Pathology: none sent Condition: stable Disposition: PACU Indications for Procedure: Ventral hernia Operative Findings: Incarcerated umbilical hernia small bowel Description of Procedure: The patient was brought to the operating room where she was cleaned draped in sterile fashion a timeout was performed and everyone agreed with the information was set up 15. Blade was used to make incision left upper quadrant and a 5 mm Visiport was then used in excess of the abdomen the abdomen was then insufflated and 2 more working ports were placed in the left mid abdomen and left lower quadrant the 5 mm Visiport was then exchanged for an 8 mm port and then the robot was then docked there was small bowel and omentum stuck in the defect this was taken down and 2 defects were identified 1 at 3 cm and 1 at 1 cm about 2 cm apart both of these were covered using a 15 cm round mesh and affixed to the peritoneal abdominal wall and a running fashion using a 3 oh V-Loc suture. Once this was done all sutures were cut and removed all the patient's abdomen there was a hemostatic timeout that was performed and there was some bleeding from the takedown omentum which was controlled with energy device. All instruments and leftover needles were removed out of patient's abdomen intact the surgical incisions were closed using 4-0 Vicryl suture interrupted fashion the patient tolerated procedure well and was then transported to PACU in stable condition
[2024-11-20] MEDS: LEVOTHYROXINE 25 MCG TAB PO SCH (05:34)
[2024-11-20 14:32] VITALS: BP 103/50; PULSE 80; RESP 17; TEMP 97.6
--- NOTE | 2024-11-20 15:22 | P.DS ---
Providers Date of admission: 11/18/24 01:13 Expected date of discharge: 11/20/24 Attending physician: Jaime Silva DO Consults: 11/18/24 01:23 Consult Physician Urgent Consulting Provider: Nikole Stacy Consult Reason/Comments: Medical management Do you want consulting provider notified?: Yes 11/18/24 13:40 Consult Physician Urgent Consulting Provider: Alexsander Garvin Consult Reason/Comments: cardiac clearance Do you want consulting provider notified?: Yes Primary care physician: Gabe Cisneros Hospital Course: Discharge diagnosis 3 cm and 1 cm ventral and umbilical hernia Hospital course This is a 69-year-old female who presented with evidence of ventral and umbilical hernia. She is status post robotic ventral and umbilical hernia repair with mesh placement. Her pain is controlled. She is tolerating diet. She is having flatus. She has been up and ambulating. She is afebrile. She is stable for discharge. Please refer to chart for any further details. Physician Driller Hand note has been reviewed by physician. Signing provider agrees with the documented findings, assessment, and plan of care. Attestation Patient seen and examined at bedside. Status post robotic ventral and umbilical hernia repair with mesh placement. Pain is controlled. She had advancement of diet and tolerated this. Surgically stable for discharge. Recommended no heavy weight lifting and follow-up as outpatient. All questions answered prior to discharge. Brian Montes DO Patient Condition at Discharge: Stable Plan - Discharge Summary New Discharge Prescriptions: New HYDROcodone/APAP 5-325MG [Garwood 5-325] 1 tab PO Q6HR PRN 3 Days #12 tab PRN Reason: Pain Continue Memantine HCl [Namenda Xr] 28 mg PO DAILY Fluticasone/Vilanterol [Breo Ellipta 200-25 Mcg Inhaler] 1 puff INHALATION RT-DAILY Ezetimibe [Zetia] 10 mg PO DAILY Metoprolol Succinate (ER) [Toprol XL] 25 mg PO DAILY Levothyroxine Sodium [Synthroid] 25 mcg PO MOTUWETHFR Sertraline [Zoloft] 150 mg PO DAILY lamoTRIgine [LaMICtal] 200 mg PO DAILY Levothyroxine Sodium [Synthroid] 50 mcg PO SUSA Aspirin 81 mg PO DAILY #30 tab Ergocalciferol (Vitamin D2) [Drisdol (50,000 Iu)] 1,250 mcg PO SA Pantoprazole Sodium [Protonix] 40 mg PO DAILY Brexpiprazole [Rexulti] 0.5 mg PO HS Tiotropium 2.5 Mcg/Puff [Spiriva Respimat 2.5 Mcg] 2 puff INHALATION RT-DAILY Sennosides [Senokot] 8.6 mg PO BID PRN PRN Reason: Constipation lisinopriL [Zestril] 5 mg PO DAILY Rosuvastatin [Crestor] 20 mg PO DAILY Gabapentin [Neurontin] 400 mg PO TID Clopidogrel [Plavix] 75 mg PO DAILY #0 Discharge Medication List Memantine HCl [Namenda Xr] 28 mg PO DAILY 12/06/17 [History] Fluticasone/Vilanterol [Breo Ellipta 200-25 Mcg Inhaler] 1 puff INHALATION RT- DAILY 01/31/20 [History] Ergocalciferol (Vitamin D2) [Drisdol (50,000 Iu)] 1,250 mcg PO SA 07/28/22 [History] Ezetimibe [Zetia] 10 mg PO DAILY 07/28/22 [History] Levothyroxine Sodium [Synthroid] 25 mcg PO MOTUWETHFR 07/28/22 [History] Metoprolol Succinate (ER) [Toprol XL] 25 mg PO DAILY 07/28/22 [History] Sertraline [Zoloft] 150 mg PO DAILY 07/28/22 [History] Pantoprazole Sodium [Protonix] 40 mg PO DAILY 12/01/22 [History] lamoTRIgine [LaMICtal] 200 mg PO DAILY 12/01/22 [History] Levothyroxine Sodium [Synthroid] 50 mcg PO SUSA 03/03/23 [History] Brexpiprazole [Rexulti] 0.5 mg PO HS 03/12/24 [History] Sennosides [Senokot] 8.6 mg PO BID PRN 07/03/24 [History] Tiotropium 2.5 Mcg/Puff [Spiriva Respimat 2.5 Mcg] 2 puff INHALATION RT-DAILY 07/03/24 [History] Rosuvastatin [Crestor] 20 mg PO DAILY 09/08/24 [History] lisinopriL [Zestril] 5 mg PO DAILY 09/08/24 [History] Aspirin 81 mg PO DAILY #30 tab 09/11/24 [Rx] Gabapentin [Neurontin] 400 mg PO TID 11/18/24 [History] Clopidogrel [Plavix] 75 mg PO DAILY #0 11/20/24 [Rx] HYDROcodone/APAP 5-325MG [Garwood 5-325] 1 tab PO Q6HR PRN 3 Days #12 tab 11/20/24 [Rx] Follow up Appointment(s)/Referral(s): Jaime Silva DO [Doctor of Osteopathic Medicine] - 12/05/24 9:00 am Gabe Cisneros DO [Primary Care Provider] - 11/30/24 3:00 pm (With Denilson) Activity/Diet/Wound Care/Special Instructions: No driving while taking Garwood No lifting over 10 pounds You may shower. No soaking or tub baths for 2 weeks Very light activity until you are reevaluated at your follow up appointment with your surgeon ok to restart Plavix tomorrow on 11/21/24 Advance diet as tolerated to regular over the next couple of days Discharge Disposition: HOME SELF-CARE
--- NOTE | 2024-11-20 19:21 | P.PN ---
Subjective 69-year-old female, history of hypertension, hyperlipidemia, COPD, CAD/CHF, dementia, CVA/TIA, who presents to the emergency department for abdominal pain. States that it started yesterday. It was initially in the upper abdomen and started to radiate down to her pelvis. Pain is not worse on one side or the other. States that she has nausea but no vomiting. Also reports constipation and having only small firm hard stools. Denies any history of similar abdominal pain in the past. Denies any fevers, chills, chest pain, or shortness of b reath. Lab work unremarkable. Urinalysis negative for signs of infection. CT scan of the abdomen and pelvis obtained demonstrating a ventral wall hernia containing fat with inflammation suggesting infarcting fat. Otherwise no acute process was identified. Case discussed with general surgery who advised that treatment at this point will be to control her pain and surgery would not be done on an emergent basis. 11/20 Patient on liquid diet and tolerates that well with no nausea or vomiting Still complains from abdominal pain stating 02/09 No bowel movement since Wednesday but passing no gas Getting normal saline 75 mL/h On exam her laparoscopic wounds are healing and closed Patient is medically stable Objective - Vital Signs Vital signs: Vital Signs Temp 99.4 F 11/20/24 07:48 Pulse 61 11/20/24 09:16 Resp 16 11/20/24 09:16 BP 103/61 11/20/24 07:48 Pulse Ox 93 L 11/20/24 07:48 FiO2 Intake & Output 11/19/24 11/20/24 11/20/24 18:59 06:59 18:59 Intake Total 1950 Output Total 30 Balance 1919 Intake: IV 1950 Output: Estimated Blood Loss 30 Other: Voiding Method Toilet Toilet # Voids 1 1 1 - Exam GENERAL: The patient is alert and oriented x3, not in any acute distress. Well developed, well nourished. HEENT: Pupils are round and equally reacting to light. EOMI. No scleral icterus. No conjunctival pallor. Normocephalic, atraumatic. No pharyngeal erythema. No thyromegaly. CARDIOVASCULAR: S1 and S2 present. No murmurs, rubs, or gallops. PULMONARY: Chest is clear to auscultation, no wheezing , no crackles. ABDOMEN: Soft, nontender, nondistended, normoactive bowel sounds. No palpable organomegaly. MUSCULOSKELETAL: No joint swelling or deformity. EXTREMITIES: No cyanosis, clubbing, or pedal edema. NEUROLOGICAL: Gross neurological examination did not reveal any focal deficits. SKIN: No rashes. no petechiae. - Labs CBC & Chem 7: 11/19/24 06:51 11/19/24 06:51 Assessment and Plan Assessment: Intractable abdominal pain; incarcerated umbilical fat -Patient is a status post robotic umbilical hernia repair. Today postop day #1 Doing well. Medically stable Coronary artery disease/CHF - Patient is currently on aspirin, Plavix Hyperlipidemia; Zetia 10 mg daily; Crestor 20 mg daily Hypothyroidism; continue home dose of levothyroxine COPD; not in exacerbation; continue with home inhaler therapy Hypertension; lisinopril 5 mg daily; Toprol-XL 25 mg daily Dementia/depression; Zoloft 150 mg daily; Namenda 28 mg daily; Lamictal 200 mg daily
== END 2024-11-20 17:04 | disposition home or self-care (01) | DRG 354 ==
LOC: EC 19:11 → OBSVTOIN 11-18 01:13 → 4SSUR 11-18 01:13
PROVIDERS: ADMIT Surgery; ATTEND Surgery
PROC: 8E0W4CZ Robotic Assisted Procedure of Trunk Region, Percutaneous Endoscopic Approach (ICD-10-PCS; principal; 2024-11-19 11:00)
PROC: 0WUF4JZ Supplement Abdominal Wall with Synthetic Substitute, Percutaneous Endoscopic Approach (ICD-10-PCS; principal; 2024-11-19 11:00)
DX: K43.6 Other and unspecified ventral hernia with obstruction, without gangrene (principal); F03.93 Unspecified dementia, unspecified severity, with mood disturbance; I11.0 Hypertensive heart disease with heart failure; I50.9 Heart failure, unspecified; I27.20 Pulmonary hypertension, unspecified; F31.9 Bipolar disorder, unspecified; J44.9 Chronic obstructive pulmonary disease, unspecified; E03.9 Hypothyroidism, unspecified; Z95.2 Presence of prosthetic heart valve; F03.94 Unspecified dementia, unspecified severity, with anxiety; K42.0 Umbilical hernia with obstruction, without gangrene; I34.1 Nonrheumatic mitral (valve) prolapse; I25.10 Atherosclerotic heart disease of native coronary artery without angina pectoris; E78.5 Hyperlipidemia, unspecified; K21.9 Gastro-esophageal reflux disease without esophagitis; K59.00 Constipation, unspecified; Z79.82 Long term (current) use of aspirin; Z79.02 Long term (current) use of antithrombotics/antiplatelets; Z79.51 Long term (current) use of inhaled steroids; Z79.890 Hormone replacement therapy; Z79.899 Other long term (current) drug therapy; Z86.73 Personal history of transient ischemic attack (TIA), and cerebral infarction without residual deficits; Z87.891 Personal history of nicotine dependence; Z96.652 Presence of left artificial knee joint; Z88.5 Allergy status to narcotic agent
CPT/HCPCS: 36415; 74177; 80048; 80053; 81001; 82150; 83605; 83690; 83735; 85025; 85610; 86850; 86900; 86901; 93005; 94640; 96361; 96374; 96375; 99285